=== PATIENT | female | born 1950 | race Caucasian/White ===

== ENCOUNTER 2016-02-19 12:56 | Emergency (ER) | payer MEDICAID, OTHER ==
[~2016-02-19 12:56] MED LIST: ALBU6.7H INH; IPRASOL INH; PRED50 PO; PROT40TA PO; SYMB80AE INH; VENTAER INH; ZITHTAB PO
[2016-02-19 13:11] VITALS: BP 132/79; PULSE 125; RESP 26; TEMP 99.3; O2SAT 85
[2016-02-19] MEDS ORDERED: MONT10TA4 PO ×2 (13:18→14:23)
[2016-02-19] MEDS ORDERED: MUCI30TA2 PO (13:18)
[2016-02-19 13:23] VITALS: BP 137/82; PULSE 110; RESP 26; TEMP 99.3; O2SAT 96
[2016-02-19] MEDS ORDERED: oxygen (13:30)
[2016-02-19 13:37] VITALS: O2SAT 95
[2016-02-19] MEDS ORDERED: DEXAMETHASONE SOD PHOS 4 MG/ML VIAL IM ONE (13:45)
[2016-02-19] MEDS ORDERED: ZITHTAB PO (13:45)
[2016-02-19] MEDS ORDERED: PRED20 PO (13:45)
--- NOTE | 2016-02-19 13:45 | PD ---
HPI Chief Complaint: Respiratory Symptoms Time Seen by Provider: 13:35 Travel History International Travel<30 days: No Contact w/Intl Traveler<30days: No Traveled to known affect area: No History of Present Illness HPI 65-year-old female complains of coughing wheezing and shortness of breath. Patient states that symptoms started several days ago. Patient has history of COPD. Patient denies fever chills. Patient states that she has occasional burning on the chest wall. Patient denies any nausea vomiting diarrhea. Patient states that a copy persistent and dry cough. PFSH Past Medical History Asthma: Yes Heart Rhythm Problems: No Cancer: No Cardiovascular Problems: No High Cholesterol: No Chest Pain: No Congestive Heart Failure: No COPD: Yes Diabetes: No Diminished Hearing: No Endocrine: No Gastrointestinal Disorders: Yes GERD: Yes Genitourinary: No Hiatal Hernia: No Hypertension: No Immune Disorder: No Implanted Vascular Access Dvce: No Kidney Stones: No Musculoskeletal: No Neurologic: No Psychiatric: No Reproductive: No Respiratory: Yes Renal Failure: No Sleep Apnea: No Thyroid Disease: No Ulcer: No Menopausal: Yes Past Surgical History Abdominal Surgery: No AICD: No Cardiac Surgery: No Ear Surgery: No Endocrine Surgery: No Eye Surgery: No Genitourinary Surgery: No Gynecologic Surgery: No Neurologic Surgery: No Oral Surgery: No Pacemaker: No Thoracic Surgery: No Other Surgery: Yes Social History Alcohol Use: No Tobacco Use: Yes (/2 PPD) Substance Use: No Allergies-Medications (Allergen,Severity, Reaction): Coded Allergies: No Known Allergies (Unverified , 12/29/15) Reported Meds & Prescriptions Reported Meds & Active Scripts Active Prednisone 20 Mg Tab 20 Mg PO BID Zithromax Z-Rusty (Azithromycin) 250 Mg Dspk 250 Mg PO DIRECTED 500 MG (2 tabs) day 1, then 1 tab days 2-5. Proventil Hfa 6.7 GM Inh (Albuterol Sulfate) 90 Mcg/Act Aer 2 Puff INH Q4-6H PRN Reported [oxygen] 4 Liter NA CONTINUOUS Montelukast (Montelukast Sodium) 10 Mg Tab 10 Mg PO HS Mucinex DM (Dextromethorphan-Guaifenesin) 30-600 Mg Tab 1 Tab PO BID PRN Symbicort Inh (Budesonide/Formoterol Fumarate) 80-4.5 Mcg/Act Aero 1 Puff INH Q12HR Ventolin Hfa 18 GM Inh (Albuterol Sulfate) 90 Mcg/Act Aer 2 Puff INH Q4-6H PRN Duoneb (Ipratropium-Albuterol Neb) 0.5-2.5 Mg/3 Ml Neb 1 Nebule INH Q6HR NEB Review of Systems General / Constitutional: No: Fever Eyes: No: Visual changes HENT: No: Headaches Cardiovascular: No: Chest Pain or Discomfort Respiratory: Positive: Cough, Shortness of Breath, Wheezing Gastrointestinal: No: Abdominal Pain Genitourinary: No: Dysuria Musculoskeletal: No: Pain Skin: No Rash Neurologic: No: Weakness Psychiatric: No: Depression Endocrine: No: Polydipsia Hematologic/Lymphatic: No: Easy Bruising Physical Exam Narrative GENERAL: Well-nourished, well-developed patient. SKIN: Warm and dry. HEAD: Normocephalic. EYES: No scleral icterus. No injection or drainage. NECK: Supple, trachea midline. No JVD or lymphadenopathy. CARDIOVASCULAR: Regular rate and rhythm without murmurs, gallops, or rubs. RESPIRATORY: Patient has moderate expiratory wheezes bilaterally. No rhonchi. GASTROINTESTINAL: Abdomen soft, non-tender, nondistended. MUSCULOSKELETAL: No cyanosis, or edema. BACK: Nontender without obvious deformity. No CVA tenderness. Neurologic exam normal. Data Data Last Documented VS Vital Signs Date Time Temp Pulse Resp B/P Pulse Ox O2 Delivery O2 Flow Rate FiO2 02/19/16 13:37 95 Nasal Cannula 4 02/19/16 13:23 99.3 110 26 137/82 Orders Oximetry (02/19/16 13:35) Oxygen Administration (02/19/16 13:35) Albuterol-Ipratropium Neb (Duoneb Neb) (02/19/16 13:45) Dexamethasone Inj (Decadron Inj) (02/19/16 13:45) Chest, Single Ap (02/19/16 13:35) MDM Medical Decision Making Medical Screen Exam Complete: Yes Emergency Medical Condition: Yes Interpretation(s) Last Impressions Chest X-Ray 02/19/16 1335 Signed Impressions: Service Date/Time: Friday, February 19, 2016 13:41 - CONCLUSION: No acute disease. Reynaldo Moctezuma MD Differential Diagnosis Differential diagnosis including acute exacerbation COPD, bronchitis, pneumonia , PE, pneumothorax. Narrative Course 65-year-old female with coughing wheezing and shortness of breath. History of COPD. Albuterol with Atrovent unit dose treatment 3. Decadron 8 mg IM. Diagnosis Primary Impression: COPD with acute exacerbation Patient Instructions: General Instructions Additional Instructions: Continue with albuterol treatment as directed. Prednisone is directed. Follow- up with personal physician. Return if worse. Med/Other Pt SpecificInfo: Prescription(s) given Scripts Montelukast 10 Mg Tab10 Mg PO HS #30 TAB Ref 0 Prov:Bishop Avila MD 02/19/16 Prednisone 20 Mg Tab20 Mg PO BID #14 TAB Prov:Bishop Avila MD 02/19/16 Azithromycin (Zithromax Z-Rusty)250 Mg [id number] Mg PO DIRECTED #1 DSPK 500 MG (2 tabs) day 1, then 1 tab days 2-5. Prov:Bishop Avila MD 02/19/16 Disposition: 01 DISCHARGE HOME Condition: Stable Bishop Avila MD Feb 19, 2016 13:45
[2016-02-19] MEDS: RESP: ALBUTEROL 2.5 MG/IPRATROPIUM 0.5 MG NEB (SCH) INH (13:46)
--- NOTE | 2016-02-19 14:04 | RADHPO ---
EXAM DATE/TIME: 02/19/2016 13:41 [facility] COMPARISON: CT ABDOMEN & PELVIS W/O CONTRAST, October 23, 2015, 19:23. CHEST SINGLE AP, December 29, 2015, 17: 09. INDICATIONS : Shortness of breath. MEDICAL HISTORY : Chronic obstructive pulmonary disease. Smoker. SURGICAL HISTORY : None. ENCOUNTER: Initial ACUITY: 4 - 6 days PAIN SCORE: 0/10 LOCATION: Bilateral chest FINDINGS: A single view of the chest demonstrates the lungs to be symmetrically aerated without evidence of mas s, infiltrate or effusion. The cardiomediastinal contours are unremarkable. Osseous structures are intact. CONCLUSION: No acute disease. Reynaldo Moctezuma MD on February 19, 2016 at 14:01 Board Certified Radiologist. This report was verified electronically.
[2016-02-19] MEDS ORDERED: LEVOFLOXACIN 750 MG TAB PO ONE (14:30)
[2016-05-05] MEDS ORDERED: METH125I2 IM (15:57)
[2016-05-05] MEDS ORDERED: VENTAER INH (16:05)
[2016-05-05] MEDS ORDERED: IPRASOL INH ×2 (16:05→16:07)
[2016-05-05] MEDS ORDERED: SYMB80AE INH ×2 (16:05→16:07)
[2016-05-05] MEDS ORDERED: MONT10TA4 PO ×2 (16:05→16:07)
[2016-05-06] MEDS ORDERED: VENTAER INH (15:48)
[2016-05-06] MEDS ORDERED: MONT10TA4 PO (15:48)
[2016-05-06] MEDS ORDERED: SYMB80AE INH (15:48)
== END 2016-02-19 14:49 | disposition home or self-care (01) ==
LOC: PHED 12:56
DX: J44.1 Chronic obstructive pulmonary disease with (acute) exacerbation (principal)
CPT/HCPCS: 71010; 94640; 94664; 96372; 99284; J1100

== ENCOUNTER 2016-04-11 19:08 | Observation (INO) | payer MEDICAID, OTHER ==
[~2016-04-11] VITALS: Ht 167.6 cm; Wt 86.9 kg
[~2016-04-11 19:08] MED LIST changes: +MONT10TA4 PO; +MUCI30TA2 PO; +PRED20 PO; -PRED50 PO; -PROT40TA PO; +oxygen
[2016-04-11 19:20] VITALS: BP 117/86; PULSE 127; RESP 22; TEMP 99.9; O2SAT 93
--- NOTE | 2016-04-11 19:43 | PD ---
HPI Chief Complaint: Respiratory Symptoms Time Seen by Provider: 19:40 Travel History International Travel<30 days: No Contact w/Intl Traveler<30days: No Traveled to known affect area: No History of Present Illness HPI 65-year-old female presents to the emergency department by private transportation for complaint of shortness of breath with history of COPD and recurrent bronchitis as well as possible urinary tract infection. Patient states she has not felt well for the past 2 days with increasing shortness of breath times one day. Patient has had no fever. Patient has had cough productive of scant amount of [place] sputum. No hemoptysis. Patient denies history of CAD hypertension dyslipidemia diabetes CHF PE esophageal spasm or autoimmune disorder. Patient notes exertion worsens her symptoms. Medications at home have not provided symptomatic relief. Patient rates pain 0/10 intensity. Admits to ongoing daily tobacco use. PFSH Past Medical History Narrative Medical COPD bronchitis GERD tobacco use; nursing notes reviewed Asthma: Yes Heart Rhythm Problems: No Cancer: No Cardiovascular Problems: No High Cholesterol: No Chest Pain: No Congestive Heart Failure: No COPD: Yes Diabetes: No Diminished Hearing: No Endocrine: No Gastrointestinal Disorders: Yes GERD: Yes Genitourinary: No Hiatal Hernia: No Hypertension: No Immune Disorder: No Implanted Vascular Access Dvce: No Kidney Stones: No Musculoskeletal: No Neurologic: No Psychiatric: No Reproductive: No Respiratory: Yes (COPD) Renal Failure: No Sleep Apnea: No Thyroid Disease: No Ulcer: No ?: Not LMP: MENAPAUSAL Menopausal: Yes Past Surgical History Abdominal Surgery: No AICD: No Cardiac Surgery: No Ear Surgery: No Endocrine Surgery: No Eye Surgery: No Genitourinary Surgery: No Gynecologic Surgery: No Neurologic Surgery: No Oral Surgery: No Pacemaker: No Thoracic Surgery: No Other Surgery: Yes Social History Alcohol Use: No Tobacco Use: Yes (/2 PPD) Substance Use: No Allergies-Medications (Allergen,Severity, Reaction): Coded Allergies: No Known Allergies (Unverified , 04/11/16) Reported Meds & Prescriptions Reported Meds & Active Scripts Active Montelukast (Montelukast Sodium) 10 Mg Tab 10 Mg PO HS Proventil Hfa 6.7 GM Inh (Albuterol Sulfate) 90 Mcg/Act Aer 2 Puff INH Q4-6H PRN Reported [oxygen] 4 Liter NA CONTINUOUS Symbicort Inh (Budesonide/Formoterol Fumarate) 80-4.5 Mcg/Act Aero 1 Puff INH Q12HR Ventolin Hfa 18 GM Inh (Albuterol Sulfate) 90 Mcg/Act Aer 2 Puff INH Q4-6H PRN Duoneb (Ipratropium-Albuterol Neb) 0.5-2.5 Mg/3 Ml Neb 1 Nebule INH Q6HR NEB Review of Systems Except as stated in HPI: all other systems reviewed are Neg General / Constitutional: No: Fever, Chills HENT: No: Congestion Cardiovascular: No: Chest Pain or Discomfort Respiratory: Positive: Cough, Shortness of Breath, Wheezing Gastrointestinal: No: Nausea, Vomiting, Abdominal Pain Genitourinary: Positive: Dysuria, No: Flank Pain Musculoskeletal: No: Myalgias, Arthralgias Skin: No Rash Neurologic: No: Weakness Psychiatric: No: Anxiety Hematologic/Lymphatic: No: Easy Bruising Physical Exam Narrative GENERAL: Well-developed well-nourished female in moderate respiratory distress SKIN: Warm and dry. HEAD: Normocephalic. EYES: No scleral icterus. No injection or drainage. NECK: Supple, trachea midline. No JVD or lymphadenopathy. CARDIOVASCULAR: Increased Regular rate and rhythm without murmurs, gallops, or rubs. RESPIRATORY: Breath sounds equal bilaterally diminished with extremity wheeze. No accessory muscle use. GASTROINTESTINAL: Abdomen soft, non-tender, nondistended. MUSCULOSKELETAL: No cyanosis, or edema. Bilateral radial and dorsalis pedis pulses 2+ to palpation. BACK: Nontender without obvious deformity. No CVA tenderness. Data Data Last Documented VS Vital Signs Date Time Temp Pulse Resp B/P Pulse Ox O2 Delivery O2 Flow Rate FiO2 04/11/16 21:00 99.6 107 18 140/81 94 Nasal Cannula 4 Orders Complete Blood Count With Diff (04/11/16 19:40) Comprehensive Metabolic Panel (04/11/16 19:40) B-Type Natriuretic Peptide (04/11/16 19:40) Magnesium (Mg) (04/11/16 19:40) Ckmb (Isoenzyme) Profile (04/11/16 19:40) Troponin I (04/11/16 19:40) Urinalysis - C+S If Indicated (04/11/16 19:40) Influenzae A/B Antigen (04/11/16 19:40) Blood Culture (04/11/16 19:40) Iv Access Insert/Monitor (04/11/16 19:40) Electrocardiogram (04/11/16 19:40) Ecg Monitoring (04/11/16 19:40) Oximetry (04/11/16 19:40) Oxygen Administration (04/11/16 19:40) Chest, Single Ap (04/11/16 19:40) Sodium Chloride 0.9% Flush (Ns Flush) (04/11/16 19:45) Methylprednisolone So Succ Inj (Solumedr (04/11/16 19:45) Albuterol-Ipratropium Neb (Duoneb Neb) (04/11/16 19:45) Lactic Acid (04/11/16 19:40) Acetaminophen (Tylenol) (04/11/16 19:45) Ceftriaxone Inj (Rocephin Inj) (04/11/16 19:45) Aspirin Chew (Aspirin Chew) (04/11/16 21:30) Azithromycin Inj (Zithromax Inj) (04/11/16 21:30) Admit Order (Ed Use Only) (04/11/16 ) ^ Saline Lock (04/11/16 22:23) Resp Oxygen [place] C Titrat 1-4 L (04/11/16 ) ^ Notify Dr: Other (04/11/16 22:23) Sodium Chloride 0.9% Flush (Ns Flush) (04/12/16 09:00) Sodium Chloride 0.9% Flush (Ns Flush) (04/11/16 22:30) Labs Laboratory Tests Test 04/11/16 04/11/16 04/11/16 20:02 20:10 21:00 White Blood Count 13.6 TH/MM3 Red Blood Count 5.72 MIL/MM3 Hemoglobin 16.6 GM/DL Hematocrit 49.6 % Mean Corpuscular Volume 86.8 FL Mean Corpuscular Hemoglobin 29.0 PG Mean Corpuscular Hemoglobin 33.5 % Concent Red Cell Distribution Width 12.5 % Platelet Count 183 TH/MM3 Mean Platelet Volume 10.4 FL Neutrophils (%) (Auto) 80.5 % Lymphocytes (%) (Auto) 10.3 % Monocytes (%) (Auto) 6.2 % Eosinophils (%) (Auto) 0.5 % Basophils (%) (Auto) 2.5 % Neutrophils # (Auto) 11.0 TH/MM3 Lymphocytes # (Auto) 1.4 TH/MM3 Monocytes # (Auto) 0.8 TH/MM3 Eosinophils # (Auto) 0.1 TH/MM3 Basophils # (Auto) 0.3 TH/MM3 CBC Comment DIFF FINAL Differential Comment Sodium Level 141 MEQ/L Potassium Level 4.1 MEQ/L Chloride Level 101 MEQ/L Carbon Dioxide Level 34.1 MEQ/L Anion Gap 6 MEQ/L Blood Urea Nitrogen 12 MG/DL Creatinine 0.76 MG/DL Estimat Glomerular Filtration 77 ML/MIN Rate Random Glucose 154 MG/DL Calcium Level 8.3 MG/DL Magnesium Level 2.0 MG/DL Total Bilirubin 0.6 MG/DL Aspartate Amino Transf 17 U/L (AST/SGOT) Alanine Aminotransferase 27 U/L (ALT/SGPT) Alkaline Phosphatase 108 U/L Total Creatine Kinase 55 U/L Troponin I LESS THAN 0.02 NG/ML B-Type Natriuretic Peptide 7 PG/ML Total Protein 6.8 GM/DL Albumin 3.2 GM/DL Lactic Acid Level 1.0 mmol/L Urine Color MC Urine Turbidity CLEAR Urine pH 7.0 Urine Specific [place] 1.021 Urine Protein NEG mg/dL Urine Glucose (UA) NEG mg/dL Urine Ketones NEG mg/dL Urine Occult Blood NEG Urine Nitrite NEG Urine Bilirubin NEG Urine Leukocyte Esterase NEG Urine RBC 0-3 /hpf Urine WBC 0-2 /hpf Urine Squamous Epithelial 0-5 /hpf Cells Urine Bacteria OCC /hpf Microscopic Urinalysis Comment CULT NOT INDICATED MDM Medical Decision Making Medical Screen Exam Complete: Yes Emergency Medical Condition: Yes Medical Record Reviewed: Yes Interpretation(s) EKG: Sinus tachycardia rate [address] elevation or injury pattern change noted Last Impressions Chest X-Ray 04/11/161939 Signed Impressions: Service Date/Time: Monday, April 11, 2016 19:51 - CONCLUSION: COPD. No evidence of acute process. Eben Mckeon MD CBC & BMP Diagram 04/11/16 20:02 Vital Signs Date Time Temp Pulse Resp B/P Pulse Ox O2 Delivery O2 Flow Rate FiO2 04/11/16 21:00 99.6 107 18 140/81 94 Nasal Cannula 4 04/11/16 20:30 Nasal Cannula 04/11/16 20:24 95 04/11/16 20:20 99.3 114 20 119/78 95 Nasal Cannula 4 04/11/16 19:43 Nasal Cannula 4 04/11/16 19:20 99.9 127 22 117/86 93 Differential Diagnosis Dyspnea, exacerbation COPD, bronchitis, pneumonia, CHF, ACS, UTI Narrative Course Patient placed on recovery manager IV access obtained specimens collected and sent for resulting patient administered Solu-Medrol 125 mg IV along with DuoNeb updrafts 3 as well as presumptive IV antibiotic Rocephin 1 g IV piggyback Patient reports feeling improved after DuoNeb updrafts 3 Chest x-ray resulted and no evidence for infiltrate effusion or vascular congestion or pneumothorax; findings consistent with COPD. Patient is identified to have leukocytosis with left it appears to be hemoconcentrated is 16.6 although may have component of tobacco induced polycythemia; chemistries grossly normal range random glucose 154, bicarbonate normal; lactic acid is not elevated at 0 CK 55 elevated troponin less than 0.02 not elevated and BNP 7 not elevated; Urinalysis and normal range At 9:30 PM patient continues to have wheezing and ongoing complaint of shortness of breath will admit for exacerbation of COPD/bronchitis Sepsis Criteria SIRS Criteria (2 or more): Heart rate over 90, RR > 20 or PaCO2 < 32 Physician Communication Physician Communication call placed to [facility] service; discussed with Dr Gamboa Diagnosis Primary Impression: COPD (chronic obstructive pulmonary disease) with acute bronchitis Admitting Information Admitting Physician Requests: Ashtyn Ocampo MD Apr 11, 2016 19:42
[2016-04-11] MEDS ORDERED: cefTRIAXone INJ 1,000 MG in SODIUM CHLORIDE 0.9% INJ 100 ML IV ONE (19:45)
[2016-04-11] MEDS ORDERED: SODIUM CHLORIDE 0.9% FLUSH 5 ML FLUSH IVF PRN ×2 (19:45→22:30)
[2016-04-11] MEDS ORDERED: ACETAMINOPHEN 325 MG TAB PO ONE (19:45)
[2016-04-11] MEDS ORDERED: methylPREDNISolone SOD SUCC 125 MG/2 ML VIAL IVP ONE (19:45)
[2016-04-11] MEDS: RESP: ALBUTEROL 2.5 MG/IPRATROPIUM 0.5 MG NEB (SCH) INH (19:52)
[2016-04-11 20:16] LABS: BASOPHIL # 0.3 TH/MM3 (0-0.2); BASOPHIL % 2.5 % (0.0-2.0); EOSINOPHIL # 0.1 TH/MM3 (0-0.4); EOSINOPHIL % 0.5 % (0.0-4.0); HEMATOCRIT 49.6 % (35.0-46.0); LYMPH % 10.3 % (9.0-44.0); LYMPHOCYTE # 1.4 TH/MM3 (1.0-4.8); MEAN CELL VOLUME 86.8 FL (80.0-100.0); MEAN CORPUSCULAR HGB CONC 33.5 % (32.0-36.0); MONO % 6.2 % (0.0-8.0); NEUT % 80.5 % (16.0-70.0); PLATELET COUNT 183 TH/MM3 (150-450); RED BLOOD COUNT 5.72 MIL/MM3 (4.00-5.30); RED CELL DISTRIBUTION WIDTH 12.5 % (11.6-17.2); WHITE BLOOD COUNT 13.6 TH/MM3 (4.0-11.0)
[2016-04-11 20:19] LABS: HEMO FLAGS DIFF FINAL
[2016-04-11 20:20] VITALS: BP 119/78; PULSE 114; RESP 20; TEMP 99; TEMP 99.3; O2SAT 95
[2016-04-11 20:22] LABS: CHLORIDE 101 MEQ/L (98-107); POTASSIUM 4.1 MEQ/L (3.5-5.1); SODIUM (NA) 141 MEQ/L (136-145)
[2016-04-11 20:24] VITALS: O2SAT 95
[2016-04-11 20:26] LABS: ANION GAP 6 MEQ/L (5-15); BICARBONATE 34.1 MEQ/L (21.0-32.0); BLOOD UREA NITROGEN 12 MG/DL (7-18)
[2016-04-11 20:29] LABS: ALT (GPT) 27 U/L (10-53); AST (GOT) 17 U/L (15-37); GLOMERULAR FILTRATION RATE 77 ML/MIN (>89)
--- NOTE | 2016-04-11 20:29 | RADHPO ---
EXAM DATE/TIME: 04/11/2016 19:51 [facility] COMPARISON: CHEST SINGLE AP, February 19, 2016, 13:41. INDICATIONS : Shortness of breath. MEDICAL HISTORY : Chronic obstructive pulmonary disease. SURGICAL HISTORY : None. ENCOUNTER: Initial ACUITY: 1 day PAIN SCORE: 0/10 LOCATION: Bilateral chest FINDINGS: One hyperinflated. No scarring is again evident in the left base. There is no evidence of acute airsp patricia disease. There are no mass densities or effusions. Heart and mediastinal structures are unremarkable. CONCLUSION: COPD. No evidence of acute process. Eben Mckeon MD on April 11, 2016 at 20:27 Board Certified Radiologist. This report was verified electronically.
[2016-04-11 20:31] LABS: TOTAL BILIRUBIN ADULT 0.6 MG/DL (0.2-1.0)
[2016-04-11 20:32] LABS: ALKALINE PHOSPHATASE 108 U/L (45-117)
[2016-04-11 20:35] LABS: CREATINE KINASE 55 U/L (26-192)
[2016-04-11 21:00] VITALS: BP 140/81; PULSE 107; RESP 18; TEMP 99.6; O2SAT 94
[2016-04-11 21:16] LABS: BLOOD, URINE NEG (NEG); GLUCOSE,URINE NEG (NEG); KETONE, URINE NEG (NEG); NITRITE,URINE NEG (NEG)
[2016-04-11 21:22] LABS: URINE COLOR AMBER (YELLW/STRAW)
[2016-04-11 21:23] LABS: BACTERIA, URINE OCC /hpf; COMMENT (UR) CULT NOT INDICATED; CULTURE IF INDICATED CULT NOT INDICATED; RBC, URINE 0-3 /hpf (0-3); SQUAMOUS EPITHELIAL CELL URINE 0-5 /hpf (0-5); WBC, URINE 0-2 /hpf (0-5)
[2016-04-11] MEDS ORDERED: ASPIRIN 81 MG CHEW TAB CHEW ONE (21:30)
[2016-04-11] MEDS ORDERED: AZITHROMYCIN INJ 500 MG in SODIUM CHLOR 0.9% 250 ML INJ 250 ML IV ONE (21:30)
[2016-04-11] MEDS ORDERED: SODIUM CHLORIDE 0.9% FLUSH 5 ML FLUSH FLUSH PRN (22:30)
[2016-04-11] MEDS ORDERED: ONDANSETRON HCL 4 MG/2 ML VIAL IVP PRN (22:30)
[2016-04-11] MEDS ORDERED: RESP: ALBUTEROL 2.5 MG/IPRATROPIUM 0.5 MG NEB (PRN) NEB (22:30)
[2016-04-11] MEDS ORDERED: RESP: ALBUTEROL 2.5 MG/IPRATROPIUM 0.5 MG NEB (SCH) NEB ONE (22:30)
[2016-04-11] MEDS ORDERED: BISACODYL 10 MG SUPP PR PRN (22:30)
[2016-04-11] MEDS ORDERED: ACETAMINOPHEN 325 MG TAB PO PRN (22:30)
[2016-04-11] MEDS ORDERED: ACETAMINOPHEN/HYDROcodone 325 MG/5 MG TAB PO PRN (22:30)
[2016-04-11] MEDS ORDERED: MORPHINE SULFATE 4 MG/ML INJ IV PRN (22:30)
[2016-04-11 22:31] VITALS: O2SAT 94
[2016-04-11 23:00] VITALS: BP 127/77; PULSE 104; RESP 18; O2SAT 94
[2016-04-11] MEDS: methylPREDNISolone SOD SUCC 40 MG/1 ML VIAL IV PUSH SCH (23:54)
[2016-04-12] VITALS (9 sets, daily range): BP systolic 119–142; BP diastolic 72–90; PULSE 94–106; RESP 16–22; TEMP 96.7–98.1; O2SAT 91–95
[2016-04-12] MEDS: methylPREDNISolone SOD SUCC 40 MG/1 ML VIAL IV PUSH SCH ×3 (05:22→18:04)
[2016-04-12 07:04] LABS: AUTOMATED NEUTROPHIL # 9.6 TH/MM3 (1.8-7.7); BASOPHIL # 0.1 TH/MM3 (0-0.2); BASOPHIL % 0.8 % (0.0-2.0); LYMPH % 4.7 % (9.0-44.0); LYMPHOCYTE # 0.5 TH/MM3 (1.0-4.8); MEAN CELL VOLUME 88.7 FL (80.0-100.0); MEAN CORPUSCULAR HEMOGLOBIN 29.1 PG (27.0-34.0); MEAN CORPUSCULAR HGB CONC 32.8 % (32.0-36.0); MONO % 0.5 % (0.0-8.0); PLATELET COUNT 137 TH/MM3 (150-450); RED BLOOD COUNT 5.64 MIL/MM3 (4.00-5.30); RED CELL DISTRIBUTION WIDTH 12.8 % (11.6-17.2); WHITE BLOOD COUNT 10.3 TH/MM3 (4.0-11.0)
[2016-04-12 07:07] LABS: HEMO FLAGS DIFF FINAL
[2016-04-12 07:19] LABS: CHLORIDE 105 MEQ/L (98-107); POTASSIUM 4.4 MEQ/L (3.5-5.1); SODIUM (NA) 143 MEQ/L (136-145)
[2016-04-12 07:25] LABS: ANION GAP 8 MEQ/L (5-15); BICARBONATE 30.4 MEQ/L (21.0-32.0)
[2016-04-12 07:36] LABS: ALKALINE PHOSPHATASE 125 U/L (45-117); ALT (GPT) 25 U/L (10-53); AST (GOT) 12 U/L (15-37); BLOOD UREA NITROGEN 13 MG/DL (7-18); GLOMERULAR FILTRATION RATE 57 ML/MIN (>89); TOTAL BILIRUBIN ADULT 0.4 MG/DL (0.2-1.0)
[2016-04-12] MEDS: RESP: ALBUTEROL 2.5 MG/IPRATROPIUM 0.5 MG NEB (SCH) NEB ×4 (07:38→19:42)
--- NOTE | 2016-04-12 08:26 | HHI.HP ---
[facility] No Primary Care Physician Admission Diagnosis exacerbation COPD Diagnoses: (1) Systemic inflammatory response syndrome Diagnosis: Principal (2) COPD with acute exacerbation Diagnosis: Principal (3) Leukocytosis Diagnosis: Principal (4) Chronic respiratory failure with hypoxia Diagnosis: Secondary (5) Tobacco dependency Diagnosis: Secondary Chief Complaint: Shortness of breath, dyspnea and cough Travel History International Travel<30 Days: No Contact w/Intl Traveler <30 Da: No Traveled to Known Affected Are: No History of Present Illness 65-year-old female with known history of chronic respiratory failure oxygen dependent, chronic obstructive pulmonary disease, chronic smoker who presented to hospital because of shortness of breath, dyspnea and cough. Over the last 3 days she has had progressive shortness of breath, dyspnea with nonproductive cough. She indicates that she does have family members that have had bronchitis recently and she feels that she may have gotten this as well. Patient does have chronic respiratory failure and is on 4 L of oxygen on a daily basis at home. Her insurance has not approved her portable oxygen so whenever she does travel out of the house she goes without any. She is followed by Dr. Jonna rider in outpatient setting. However she has not seen the physician and a few months because of insurance reasons. Patient denies any fever, chills, phlegm production, abdominal pain, chest pain, extremity edema. Review of Systems Constitutional: DENIES: Diaphoretic episodes, Fatigue, Fever, Weight gain, Weight loss, Chills, Dizziness, Change in appetite, Night Sweats Eyes: DENIES: Blurred vision, Diplopia, Eye inflammation, Eye pain, Vision loss , Double Vision Ears, nose, mouth, throat: DENIES: Vertigo, Nasal discharge, Throat pain, Ear Pain, Running Nose, Sinus Pain Respiratory: COMPLAINS OF: Cough, Shortness of breath, DENIES: Apneas, Snoring , Wheezing, Hemoptysis, Sputum production Cardiovascular: DENIES: Chest pain, Palpitations, Syncope, Dyspnea on Exertion , PND, Lower Extremity Edema, Orthopnea, Claudication Gastrointestinal: DENIES: Abdominal pain, Black stools, Bloody stools, Constipation, Diarrhea, Nausea, Vomiting, Difficulty Swallowing, Anorexia Neurologic: DENIES: Abnormal gait, Headache, Localized weakness, Paresthesias, Seizures, Speech Problems, Tremor, Poor Balance Psychiatric: DENIES: Anxiety, Confusion, Mood changes, Depression Past Family Social History Past Medical History Chronic respiratory failure, oxygen dependent Chronic obstructive pulmonary disease Past Surgical History Left lower extremity fracture with surgical repair Reported Medications Reported Meds & Active Scripts Active Montelukast (Montelukast Sodium) 10 Mg Tab 10 Mg PO HS Proventil Hfa 6.7 GM Inh (Albuterol Sulfate) 90 Mcg/Act Aer 2 Puff INH Q4-6H PRN Reported [oxygen] 4 Liter NA CONTINUOUS Symbicort Inh (Budesonide/Formoterol Fumarate) 80-4.5 Mcg/Act Aero 1 Puff INH Q12HR Ventolin Hfa 18 GM Inh (Albuterol Sulfate) 90 Mcg/Act Aer 2 Puff INH Q4-6H PRN Duoneb (Ipratropium-Albuterol Neb) 0.5-2.5 Mg/3 Ml Neb 1 Nebule INH Q6HR NEB Allergies: Coded Allergies: No Known Allergies (Unverified , 04/11/16) Family History Reviewed is significant for father at early age in his 50s from heart attack. Mother with lung disease Social History Patient does continue to smoke at least a half a pack a cigarettes a day since she was 17 years old. Denies any alcohol or illicit drugs Physical Exam Vital Signs Vital Signs Date Time Temp Pulse Resp B/P Pulse Ox O2 Delivery O2 Flow Rate FiO2 04/12/16 07:48 92 Nasal Cannula 4.00 04/12/16 04:41 96.9 100 16 120/72 93 04/12/16 00:52 96.7 106 18 123/82 92 04/12/16 00:25 101 04/11/16 23:00 104 18 127/77 94 Nasal Cannula 4 04/11/16 22:31 94 Nasal Cannula 4.00 04/11/16 21:00 99.6 107 18 140/81 94 Nasal Cannula 4 04/11/16 21:00 104 18 Nasal Cannula 4 04/11/16 20:30 Nasal Cannula 04/11/16 20:24 95 04/11/16 20:20 99.3 114 20 119/78 95 Nasal Cannula 4 04/11/16 19:43 Nasal Cannula 4 04/11/16 19:20 99.9 127 22 117/86 93 Physical Exam GENERAL: Well-developed, well-nourished, in no acute distress. alert and orientated HEENT: Head is normocephalic without any lesions or masses noted. Facial features are symmetric. Eyes: Pupils equal round reactive to light. Extraocular muscles are intact. Conjunctivae were clear. Oropharyngeal: Pharynx without any erythema edema. Tongue is midline without deviation. Buccal mucosa is moist without any masses or lesions NECK: Supple without any masses. Trachea midline no deviation. No JVD, no bruits are appreciated CARDIAC: Regular rhythm, regular rate. S1/S2 are heard. No murmurs gallops or rubs. LUNGS: Diminished breath sounds noted throughout. Diminished air movement. Mild wheeze, no rhonchi or rales. No use of accessory muscles on inspiration or expiration. ABDOMEN: Soft, nontender. Nondistended. Bowel sounds heard in all 4 quadrants. No organomegaly or masses. Negative rebound, negative guarding EXTREMITIES: No edema, pulses are equal bilaterally. No cyanosis or clubbing NEUROLOGY: Mood and affect appear appropriate. Cranial nerves II through XII grossly intact. Muscle strength 5/5 in upper and lower extremities bilaterally. Deep tendon reflexes are 2+ in upper and lower extremities bilaterally. Laboratory Laboratory Tests Test 04/11/16 04/11/16 04/11/16 04/12/16 20:02 20:10 21:00 06:31 White Blood Count 13.6 10.3 Red Blood Count 5.72 5.64 Hemoglobin 16.6 16.4 Hematocrit 49.6 50.0 Mean Corpuscular Volume 86.8 88.7 Mean Corpuscular Hemoglobin 29.0 29.1 Mean Corpuscular Hemoglobin 33.5 32.8 Concent Red Cell Distribution Width 12.5 12.8 Platelet Count 183 137 Mean Platelet Volume 10.4 9.9 Neutrophils (%) (Auto) 80.5 94.0 Lymphocytes (%) (Auto) 10.3 4.7 Monocytes (%) (Auto) 6.2 0.5 Eosinophils (%) (Auto) 0.5 0.0 Basophils (%) (Auto) 2.5 0.8 Neutrophils # (Auto) 11.0 9.6 Lymphocytes # (Auto) 1.4 0.5 Monocytes # (Auto) 0.8 0.1 Eosinophils # (Auto) 0.1 0.0 Basophils # (Auto) 0.3 0.1 CBC Comment DIFF FINAL DIFF FINAL Differential Comment Sodium Level 141 143 Potassium Level 4.1 4.4 Chloride Level 101 105 Carbon Dioxide Level 34.1 30.4 Anion Gap 6 8 Blood Urea Nitrogen 12 13 Creatinine 0.76 0.98 Estimat Glomerular Filtration 77 57 Rate Random Glucose 154 396 Calcium Level 8.3 8.8 Magnesium Level 2.0 Total Bilirubin 0.6 0.4 Aspartate Amino Transf 17 12 (AST/SGOT) Alanine Aminotransferase 27 25 (ALT/SGPT) Alkaline Phosphatase 108 125 Total Creatine Kinase 55 Troponin I LESS THAN 0.02 B-Type Natriuretic Peptide 7 Total Protein 6.8 6.8 Albumin 3.2 3.0 Lactic Acid Level 1.0 Urine Color MC Urine Turbidity CLEAR Urine pH 7.0 Urine Specific [place] 1.021 Urine Protein NEG Urine Glucose (UA) NEG Urine Ketones NEG Urine Occult Blood NEG Urine Nitrite NEG Urine Bilirubin NEG Urine Leukocyte Esterase NEG Urine RBC 0-3 Urine WBC 0-2 Urine Squamous Epithelial 0-5 Cells Urine Bacteria OCC Microscopic Urinalysis Comment CULT NOT INDICATED Date/Time Procedure Status Source Growth 04/11/16 20:10 Aerobic Blood Culture Received Blood Peripheral Pending 04/11/16 20:10 Anaerobic Blood Culture Received Blood Peripheral Pending 04/11/16 19:55 Influenza Types A,B Antigen (JAVON) - Final Complete Nasal Washing NEGATIVE FOR FLU A AND B ANTIGEN.... Result Diagram: 04/12/16 0631 04/12/16 0631 Imaging Last Impressions Chest X-Ray 04/11/16 194 Signed Impressions: Service Date/Time: Monday, April 11, 2016 19:51 - CONCLUSION: COPD. No evidence of acute process. Eben Mckeon MD Assessment and Plan Assessment and Plan Systemic inflammatory response syndrome: Improved. Patient presented with leukocytosis, tachycardia. No signs of infection at this time. Likely secondary to chronic obstructive pulmonary disease exacerbation. Urinalysis was clear, influenza testing was negative, blood cultures are pending, chest x- ray was clear. Chronic obstructive pulmonary disease with acute exacerbation in a patient with chronic respiratory failure oxygen dependent: Continue Solu-Medrol 40 mg every 6 hours, nebulizer treatments, Symbicort, Singulair, Rocephin and Zithromax. Continue O2 supplementation wean to maintain O2 sats greater than 92 %. Consult case management to try to arrange for portable oxygen upon discharge. Start Robitussin-AC for cough suppression Hyperglycemia: Patient does have history of hyperglycemia secondary to steroid use. Last hemoglobin A1c was in 2012 which was 5.5. Obtain new hematoma in A1c , start Accu-Cheks with sliding scale insulin. Dizziness with room spinning and with movement: start Meclizine and monitor for response --Prophylaxis: GI prevention Start Protonix secondary to steroid use. DVT prevention with sequential compression devices Written by Dimitri Stauffer PA-C, acting as scribe for Dr. Ward on 04/12/16 at 1125. The documentation accurately reflects the work and decisions performed face-to- face by Dr. Ward on 04/12/16 at 1125. Problem Qualifiers (1) Leukocytosis: Qualified Code: D72.829 - Leukocytosis, unspecified type Dimitri Stauffer Apr 12, 2016 08:26 Dayana Ward MD Apr 12, 2016 12:15
[2016-04-12] MEDS ORDERED: guaiFENesin/CODEINE SYRUP 200 MG/20 MG/10 ML CUP PO PRN (08:30)
[2016-04-12] MEDS ORDERED: DEXTROSE 50% IN WATER 50 ML VIAL(D50) IV PUSH PRN (08:30)
[2016-04-12] MEDS ORDERED: GLUCAGON 1 MG/ML VIAL OTHER PRN (08:30)
[2016-04-12] MEDS ORDERED: guaiFENesin E.R. 600 MG TAB PO SCH (09:00)
[2016-04-12] MEDS ORDERED: SODIUM CHLORIDE 0.9% FLUSH 5 ML FLUSH IVF SCH (09:00)
[2016-04-12] MEDS: SODIUM CHLORIDE 0.9% FLUSH 5 ML FLUSH FLUSH SCH ×2 (09:29→20:48)
[2016-04-12] MEDS: BUDESONIDE-FORMOTEROL 160/4.5 MCG INHALER INH SCH ×2 (09:29→20:49)
[2016-04-12] MEDS: PANTOPRAZOLE SOD 40 MG DELAYED RELEASE TAB PO SCH (09:29)
[2016-04-12] MEDS: INSULIN ASPART SUPPLEMENTAL SCALE SQ SCH ×3 (13:15→20:48)
[2016-04-12 15:36] LABS: HEMOGLOBIN A1a 0.7 %; HEMOGLOBIN A1b 1.9 %; HEMOGLOBIN P3 4.4 %
--- NOTE | 2016-04-12 19:30 | EKG ---
Date Performed: 04/11/2016 Time Performed: 19:46:16 PTAGE: 65 years EKG: Sinus tachycardia Since PREVIOUS TRACING , no significant change noted Normal ECG except for rate PREVIOUS TRACIN 12/29/2015 16.12 DOCTOR: Amor Gomes Interpretating Date/Time 04/12/2016 19:30:23
[2016-04-12] MEDS ORDERED: cefTRIAXone INJ 1,000 MG in SODIUM CHLORIDE 0.9% INJ 100 ML IV SCH (20:00)
[2016-04-12] MEDS: MECLIZINE HCL 25 MG TAB PO PRN (20:49)
[2016-04-12] MEDS ORDERED: AZITHROMYCIN INJ 500 MG in SODIUM CHLOR 0.9% 250 ML INJ 250 ML IV SCH (21:00)
[2016-04-12] MEDS ORDERED: MONTELUKAST SODIUM 10 MG TAB PO SCH (21:00)
[2016-04-13 00:26] VITALS: BP 139/87; PULSE 97; RESP 20; TEMP 98.1; O2SAT 94
[2016-04-13] MEDS: methylPREDNISolone SOD SUCC 40 MG/1 ML VIAL IV PUSH SCH (00:44)
[2016-04-13] MEDS: INSULIN ASPART SUPPLEMENTAL SCALE SQ SCH ×2 (06:10→11:00)
[2016-04-13 07:13] LABS: AUTOMATED NEUTROPHIL # 19.5 TH/MM3 (1.8-7.7); BASOPHIL # 0.1 TH/MM3 (0-0.2); BASOPHIL % 0.3 % (0.0-2.0); EOSINOPHIL % 0.1 % (0.0-4.0); HEMATOCRIT 45.8 % (35.0-46.0); LYMPH % 3.9 % (9.0-44.0); LYMPHOCYTE # 0.8 TH/MM3 (1.0-4.8); MEAN CORPUSCULAR HGB CONC 32.9 % (32.0-36.0); MONO % 1.5 % (0.0-8.0); NEUT % 94.2 % (16.0-70.0); PLATELET COUNT 146 TH/MM3 (150-450); WHITE BLOOD COUNT 20.7 TH/MM3 (4.0-11.0)
[2016-04-13 07:14] LABS: HEMO FLAGS DIFF FINAL
[2016-04-13 07:22] LABS: POTASSIUM 4.3 MEQ/L (3.5-5.1)
[2016-04-13 07:33] LABS: MAGNESIUM 2.1 MG/DL (1.5-2.5)
[2016-04-13] MEDS: RESP: ALBUTEROL 2.5 MG/IPRATROPIUM 0.5 MG NEB (SCH) NEB ×2 (07:43→11:12)
[2016-04-13 08:00] VITALS: BP 143/95; PULSE 78; RESP 18; TEMP 98; O2SAT 94
[2016-04-13 08:02] VITALS: O2SAT 93
--- NOTE | 2016-04-13 08:39 | HHI.PR ---
Subjective Remarks Patient seen and examined today with Dr. Ward. Patient is breathing well this morning. She is sitting up eating breakfast. She states that she developed some rib pain from coughing. Objective Vitals Vital Signs Date Time Temp Pulse Resp B/P Pulse Ox O2 Delivery O2 Flow Rate FiO2 04/13/16 08:02 93 Nasal Cannula 4.00 04/13/16 08:00 98.0 78 18 143/95 94 04/13/16 04:00 04/13/16 00:26 98.1 97 20 139/87 94 04/12/16 21:24 97.9 104 22 142/90 92 04/12/16 19:43 93 Nasal Cannula 4.00 04/12/16 16:00 97.5 96 20 119/80 95 04/12/16 12:00 98.1 94 22 137/89 93 I/O 04/12/16 04/12/16 04/12/16 04/13/16 04/13/16 04/13/16 07:00 15:00 23:00 07:00 15:00 23:00 Intake Total 852 ml 2 ml Balance 852 ml 2 ml Intake Oral 850 ml IV Total 2 ml 2 ml # Voids 8 3 # Bowel Movements 1 Result Diagram: 04/13/16 0604/13/16 0629 Objective Remarks GENERAL: Well-developed, well-nourished, in no acute distress. alert and orientated HEENT: Head is normocephalic without any lesions or masses noted. Facial features are symmetric. Eyes: Extraocular muscles are intact. Conjunctivae were clear. NECK: Supple without any masses. Trachea midline no deviation. No JVD, CARDIAC: Regular rhythm, regular rate. S1/S2 are heard. No murmurs gallops or rubs. LUNGS: Faint end expiratory wheeze, no rhonchi or rales. No use of accessory muscles on inspiration or expiration. ABDOMEN: Soft, nontender. Nondistended. Bowel sounds heard in all 4 quadrants. No organomegaly or masses. Negative rebound, negative guarding EXTREMITIES: No edema, pulses are equal bilaterally. No cyanosis or clubbing NEUROLOGY: Mood and affect appear appropriate. Cranial nerves II through XII grossly intact. Moving all extremities, speech is clear Urinary Catheter: No Vascular Central Line Catheter: No A/P Assessment and Plan Chronic obstructive pulmonary disease with acute exacerbation in a patient with chronic respiratory failure oxygen dependent: Changed Solu-Medrol 40 mg every 6 hours to prednisone 20 mg twice daily secondary respiratory improvement and hyperglycemia, continue nebulizer treatments, Symbicort, Singulair, Rocephin and Zithromax. Continue O2 supplementation wean to maintain O2 sats greater than 92%. Continue Robitussin-AC for cough suppression. Walk study indicates patient requires action. Patient does have oxygen at home. Will supply patient with portable oxygen upon discharge. Systemic inflammatory response syndrome: Patient presented with leukocytosis, tachycardia. No signs of infection at this time. Likely secondary to chronic obstructive pulmonary disease exacerbation. Urinalysis was clear, influenza testing was negative, blood cultures are negative, chest x-ray was clear. Leukocytosis is worse secondary to steroid use. Hyperglycemia: Patient does have history of hyperglycemia secondary to steroid use. Last hemoglobin A1c was in 2012 which was 5.5. Repeat hemoglobin A1c 5.6 , continue Accu-Cheks with sliding scale insulin. Start Levemir 5 units every 12. Changed from Solu-Medrol to prednisone which should help with reduction of glucose Dizziness with room spinning and with movement: start Meclizine and monitor for response --Prophylaxis: GI prevention Start Protonix secondary to steroid use. DVT prevention with sequential compression devices Written by Dimitri Stauffer PA-C, acting as scribe for Dr. Ward on 04/13/16 at 1205. The documentation accurately reflects the work and decisions performed face-to- face by Dr. Ward on 04/13/16 at 1205. Discharge Planning Discharge home in stable condition Activity: Ad haris. 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
[2016-04-13] MEDS ORDERED: ZITH500T PO (08:40)
[2016-04-13] MEDS ORDERED: PRED5PAK PO (08:40)
--- NOTE | 2016-04-13 08:40 | HHI.DCPOC ---
Discharge Care Plan Diagnosis: (1) Systemic inflammatory response syndrome (2) COPD with acute exacerbation Goals to Promote Your Health * To prevent worsening of your condition and complications * To maintain your health at the optimal level Directions to Meet Your Goals Take your medications as prescribed Follow your dietary instruction Follow activity as directed Keep your appointments as scheduled Take your immunizations and boosters as scheduled If your symptoms worsen call your PCP, if no PCP go to Urgent Care Center or Emergency Room Smoking is Dangerous to Your Health. Avoid second hand smoke Call the 24-hour hour crisis hotline for domestic abuse at Dimitri Stauffer Apr 13, 2016 08:40
[2016-04-13] MEDS: BUDESONIDE-FORMOTEROL 160/4.5 MCG INHALER INH SCH (08:46)
[2016-04-13] MEDS: PANTOPRAZOLE SOD 40 MG DELAYED RELEASE TAB PO SCH (08:46)
[2016-04-13] MEDS: SODIUM CHLORIDE 0.9% FLUSH 5 ML FLUSH FLUSH SCH (08:47)
[2016-04-13] MEDS: MECLIZINE HCL 25 MG TAB PO PRN (08:49)
[2016-04-13] MEDS ORDERED: predniSONE 20 MG TAB PO SCH (09:00)
[2016-04-13] MEDS ORDERED: INSULIN DETEMIR 100 UNITS/ML VIAL SQ SCH (09:00)
[2016-04-13] MEDS ORDERED: INFLUENZA VIRUS VACCINE (QUADRIVALENT) 0.5 ML SYR IM ONE (10:00)
[2016-04-13] MEDS ORDERED: MECL-62 PO (12:09)
[2016-05-05] MEDS ORDERED: METH125I2 IM (15:57)
[2016-05-05] MEDS ORDERED: SYMB80AE INH ×2 (16:05→16:07)
[2016-05-05] MEDS ORDERED: MONT10TA4 PO ×2 (16:05→16:07)
[2016-05-05] MEDS ORDERED: IPRASOL INH ×2 (16:05→16:07)
[2016-05-05] MEDS ORDERED: VENTAER INH (16:05)
[2016-05-06] MEDS ORDERED: VENTAER INH (15:48)
[2016-05-06] MEDS ORDERED: SYMB80AE INH (15:48)
[2016-05-06] MEDS ORDERED: MONT10TA4 PO (15:48)
== END 2016-04-13 16:03 | disposition home or self-care (01) ==
LOC: PHED 19:08 → PHEDA 22:24 → PH3A 04-12 00:01
PROVIDERS: ADMIT Family Medicine; ATTEND Family Medicine
DX: J44.1 Chronic obstructive pulmonary disease with (acute) exacerbation (principal); R65.10 Systemic inflammatory response syndrome (SIRS) of non-infectious origin without acute organ dysfunction; J96.11 Chronic respiratory failure with hypoxia; D72.829 Elevated white blood cell count, unspecified; R00.0 Tachycardia, unspecified; T38.0X5A Adverse effect of glucocorticoids and synthetic analogues, initial encounter; R73.9 Hyperglycemia, unspecified; R42 Dizziness and giddiness; F17.210 Nicotine dependence, cigarettes, uncomplicated; Z99.81 Dependence on supplemental oxygen; Z23 Encounter for immunization
CPT/HCPCS: 71010; 80048; 80053; 81001; 82550; 82948; 83036; 83605; 83735; 83880; 84484; 85025; 87040; 87804; 90471; 90686; 93005; 94620; 94640; 94664; 96365; 96367; 96375; 99285; G0378; J0456; J0696; J1815; J2920; J2930; J7050; J7512; G0008; Q2038

== ENCOUNTER 2016-05-07 09:06 | Inpatient (IN) | payer MEDICAID, OTHER ==
[~2016-05-07] VITALS: Ht 167.6 cm; Wt 89.0 kg
[2016-05-07] VITALS (13 sets, daily range): BP systolic 106–159; BP diastolic 61–94; PULSE 76–100; RESP 18–26; TEMP 98.2–98.3; O2SAT 90–97
[~2016-05-07 09:06] MED LIST changes: +MECL-62 PO; -MUCI30TA2 PO; -PRED20 PO; +PRED5PAK PO; +ZITH500T PO; -ZITHTAB PO
[2016-05-07] MEDS ORDERED: ALBU0.63 NEB (09:29)
[2016-05-07] MEDS ORDERED: methylPREDNISolone SOD SUCC 125 MG/2 ML VIAL IVP ONE (09:30)
[2016-05-07] MEDS ORDERED: SODIUM CHLORIDE 0.9% FLUSH 10 ML FLUSH IVF PRN (09:30)
[2016-05-07] MEDS: RESP: ALBUTEROL 2.5 MG/IPRATROPIUM 0.5 MG NEB (SCH) INH ×4 (09:36→20:52)
--- NOTE | 2016-05-07 09:39 | PD ---
HPI Chief Complaint: Cold / Flu Symptoms Time Seen by Provider: 09:22 Travel History International Travel<30 days: No Contact w/Intl Traveler<30days: No Traveled to known affect area: No History of Present Illness HPI 65-year-old female presents with cough, congestion, and lightheaded when she coughs too much over the past couple days. She went to the clinic 2 days ago and was given a steroid shot but not sent home on steroid pills and states that she's not feeling better. She states that she is using her breathing treatments 3-4 times a day like she typically does. She states that she still does not have portable oxygen. Quality is wheezing. Severity is worsening. She states that she is working with her insurance to try to get portable oxygen. She denies other concurrent complaints. PFSH Past Medical History Asthma: Yes Heart Rhythm Problems: No Cancer: No Cardiovascular Problems: No High Cholesterol: No Chest Pain: No Congestive Heart Failure: No COPD: Yes Diabetes: No Diminished Hearing: No Endocrine: No Gastrointestinal Disorders: Yes GERD: Yes Genitourinary: No Hiatal Hernia: No Hypertension: No Immune Disorder: No Implanted Vascular Access Dvce: No Kidney Stones: No Musculoskeletal: No Neurologic: No Psychiatric: No Reproductive: No Respiratory: Yes (COPD) Renal Failure: No Sleep Apnea: No Thyroid Disease: No Ulcer: No Menopausal: Yes Past Surgical History Abdominal Surgery: No AICD: No Cardiac Surgery: No Ear Surgery: No Endocrine Surgery: No Eye Surgery: No Genitourinary Surgery: No Gynecologic Surgery: No Neurologic Surgery: No Oral Surgery: No Pacemaker: No Thoracic Surgery: No Other Surgery: Yes Social History Alcohol Use: No Tobacco Use: Yes (2 ciarettes to 1/2 PPD) Substance Use: No Allergies-Medications (Allergen,Severity, Reaction): Coded Allergies: No Known Allergies (Unverified , 05/07/16) Reported Meds & Prescriptions Reported Meds & Active Scripts Active Symbicort Inh (Budesonide/Formoterol Fumarate) 80-4.5 Mcg/Act Aero 1 Puff INH Q12HR Reported Albuterol Neb (Albuterol Sulfate) 0.63 Mg/3 Ml Neb Unknown Dose NEB Q4HR NEB PRN [oxygen] 4 Liter NA CONTINUOUS Review of Systems Except as stated in HPI: all other systems reviewed are Neg Physical Exam Narrative General: No apparent distress, well appearing ENT: mmm head: Atraumatic Neck: Neck is supple, no meningeal signs, trachea is midline Cardiovascular: Regular rate and rhythm Lungs: No increased respiratory effort noted, decreased aeration with expiratory wheezing bilaterally Extremities: No edema Neuro: Awake, motor and sensation grossly intact, normal speech Data Data Last Documented VS Vital Signs Date Time Temp Pulse Resp B/P Pulse Ox O2 Delivery O2 Flow Rate FiO2 05/07/16 10:10 85 24 96 Nasal Cannula 4 05/07/16 09:21 106/76 Orders Complete Blood Count With Diff (05/07/16 09:26) Basic Metabolic Panel (Bmp) (05/07/16 09:26) Influenzae A/B Antigen (05/07/16 09:26) Iv Access Insert/Monitor (05/07/16 09:26) Ecg Monitoring (05/07/16 09:26) Oximetry (05/07/16 09:26) Oxygen Administration (05/07/16 09:26) Chest, Pa & Lat (05/07/16 09:26) Sodium Chloride 0.9% Flush (Ns Flush) (05/07/16 09:30) Methylprednisolone So Succ Inj (Solumedr (05/07/16 09:30) Albuterol-Ipratropium Neb (Duoneb Neb) (05/07/16 09:30) Albuterol-Ipratropium Neb (Duoneb Neb) (05/07/16 11:30) Azithromycin Inj (Zithromax Inj) (05/07/16 11:30) Sodium Chlor 0.9% 1000 Ml Inj (Ns 1000 M (05/07/16 11:30) Blood Culture (05/07/16 11:21) Lactic Acid (05/07/16 11:21) Ceftriaxone Inj (Rocephin Inj) (05/07/16 11:24) Admit Order (Ed Use Only) (05/07/16 11:26) Labs Laboratory Tests Test 05/07/16 09:41 White Blood Count 14.2 TH/MM3 Red Blood Count 5.21 MIL/MM3 Hemoglobin 14.8 GM/DL Hematocrit 45.8 % Mean Corpuscular Volume 88.0 FL Mean Corpuscular Hemoglobin 28.4 PG Mean Corpuscular Hemoglobin 32.3 % Concent Red Cell Distribution Width 12.9 % Platelet Count 324 TH/MM3 Mean Platelet Volume 9.3 FL Neutrophils (%) (Auto) 76.1 % Lymphocytes (%) (Auto) 16.7 % Monocytes (%) (Auto) 4.7 % Eosinophils (%) (Auto) 0.7 % Basophils (%) (Auto) 1.8 % Neutrophils # (Auto) 10.7 TH/MM3 Lymphocytes # (Auto) 2.4 TH/MM3 Monocytes # (Auto) 0.7 TH/MM3 Eosinophils # (Auto) 0.1 TH/MM3 Basophils # (Auto) 0.3 TH/MM3 CBC Comment DIFF FINAL Differential Comment Sodium Level 144 MEQ/L Potassium Level 4.0 MEQ/L Chloride Level 105 MEQ/L Carbon Dioxide Level 31.6 MEQ/L Anion Gap 7 MEQ/L Blood Urea Nitrogen 14 MG/DL Creatinine 0.76 MG/DL Estimat Glomerular Filtration 77 ML/MIN Rate Random Glucose 146 MG/DL Calcium Level 9.0 MG/DL MDM Medical Decision Making Medical Screen Exam Complete: Yes Emergency Medical Condition: Yes Medical Record Reviewed: Yes (past history confirmed) Interpretation(s) CBC & BMP Diagram 05/07/16 09:41 Last 24 hours Impressions Chest X-Ray 05/07/16 09 Signed Impressions: Service Date/Time: Saturday, May 07, 2016 10:14 - CONCLUSION: 1. Chronic fibrotic changes bilaterally unchanged from the prior study. No acute pulmonary disease. Cruz Ramírez MD Differential Diagnosis COPD exacerbation, pneumonia, URI, renal failure Narrative Course Will check blood work, chest x-ray, influenza and dose with DuoNeb's and Solu- Medrol and reevaluate on recheck still with decreased aeration after 3 nebs, will repeat and add on blood cultures and lactate given sirs response, dose with acithromycin and rocephin to coer for possible lung source, patient agrees to admit Sepsis Criteria SIRS Criteria (2 or more): RR > 20 or PaCO2 < 32, WBC > 83883, < 4000 or > 10 % bands Physician Communication Physician Communication dr farias agrees to admit Diagnosis Primary Impression: COPD with acute exacerbation Additional Impressions: Systemic inflammatory response syndrome Leukocytosis Qualified Code: D72.829 - Leukocytosis, unspecified type Admitting Information Admitting Physician Requests: Admit Wen Max MD May 07, 2016 09:39
[2016-05-07 09:48] LABS: AUTOMATED NEUTROPHIL # 10.7 TH/MM3 (1.8-7.7); BASOPHIL # 0.3 TH/MM3 (0-0.2); BASOPHIL % 1.8 % (0.0-2.0); EOSINOPHIL # 0.1 TH/MM3 (0-0.4); EOSINOPHIL % 0.7 % (0.0-4.0); HEMATOCRIT 45.8 % (35.0-46.0); LYMPH % 16.7 % (9.0-44.0); LYMPHOCYTE # 2.4 TH/MM3 (1.0-4.8); MEAN CORPUSCULAR HEMOGLOBIN 28.4 PG (27.0-34.0); MEAN CORPUSCULAR HGB CONC 32.3 % (32.0-36.0); MONO % 4.7 % (0.0-8.0); NEUT % 76.1 % (16.0-70.0); PLATELET COUNT 324 TH/MM3 (150-450); RED BLOOD COUNT 5.21 MIL/MM3 (4.00-5.30); RED CELL DISTRIBUTION WIDTH 12.9 % (11.6-17.2); WHITE BLOOD COUNT 14.2 TH/MM3 (4.0-11.0)
[2016-05-07 09:49] LABS: HEMO FLAGS DIFF FINAL
[2016-05-07 10:04] LABS: BICARBONATE 31.6 MEQ/L (21.0-32.0)
--- NOTE | 2016-05-07 10:38 | RADHPO ---
EXAM DATE/TIME: 05/07/2016 10:14 [place] COMPARISON: CHEST PA & LAT, December 31, 2014, 17:33. INDICATIONS : Short of breath. MEDICAL HISTORY : Chronic obstructive pulmonary disease. SURGICAL HISTORY : None. ENCOUNTER: Initial ACUITY: 1 week PAIN SCORE: 0/10 LOCATION: Bilateral chest FINDINGS: The cardiac silhouette is normal in transverse diameter. The lungs are free of acute parenchymal opac ity. No effusions are identified. There are chronic fibrotic changes bilaterally. There has been no s ignificant change when compared to the prior exam. CONCLUSION: 1. Chronic fibrotic changes bilaterally unchanged from the prior study. No acute pulmonary disease. Cruz Ramírez MD on May 07, 2016 at 10:35 Board Certified Radiologist. This report was verified electronically.
[2016-05-07] MEDS ORDERED: cefTRIAXone INJ 2,000 MG in SODIUM CHLORIDE 0.9% INJ 100 ML IV STA (11:24)
[2016-05-07] MEDS ORDERED: RESP: ALBUTEROL 2.5 MG/IPRATROPIUM 0.5 MG NEB (SCH) NEB ONE (11:30)
[2016-05-07] MEDS ORDERED: SODIUM CHLORIDE 0.9% FLUSH 10 ML FLUSH IV FLUSH PRN (11:30)
[2016-05-07] MEDS ORDERED: SODIUM CHLOR 0.9% 1000 ML INJ 1,000 ML IV ONE ×2 (11:30→13:15)
[2016-05-07] MEDS ORDERED: AZITHROMYCIN INJ 500 MG in SODIUM CHLOR 0.9% 250 ML INJ 250 ML IV ONE (11:30)
[2016-05-07] MEDS: ENOXAPARIN SODIUM 40 MG/0.4 ML SYRINGE SQ SCH (12:53)
--- NOTE | 2016-05-07 13:38 | HHI.HP ---
cc: Starr Stern MD [facility] Service [facility] Primary Care Physician No Primary Care Physician Admission Diagnosis copd exacerbation Diagnoses: (1) Systemic inflammatory response syndrome Diagnosis: Principal (2) Chronic respiratory failure with hypoxia Diagnosis: Principal (3) COPD with acute exacerbation Diagnosis: Principal (4) Leukocytosis Diagnosis: Principal (5) Tobacco dependency Diagnosis: Principal Chief Complaint: Cough Travel History International Travel<30 Days: No Contact w/Intl Traveler <30 Da: No Traveled to Known Affected Are: No History of Present Illness 65-year-old female with known history of chronic respiratory failure, chronic obstructive pulmonary disease, chronic tobacco use who presented to hospital because of cough, shortness of breath, dyspnea. The patient was just in the hospital beginning this month on 04/12/16 and was discharged on 04/13/16 for same symptoms. The patient indicates that she did use the medications are prescribed to her upon discharge. However when those were done and she went to Dr. Stern and was given a dose of Solu-Medrol in the office, however she was not given any other medications. Patient states that she feels that she has an infection in her lungs and she was concerned that she did not get any antibiotics by Dr. Stern. Patient states that over the last 3-4 days she's been having increased shortness of breath, coughing fits because her to get lightheaded, dizzy. She states that she is producing a green color phlegm. She indicates that she has a tightness in her chest whenever she tries to take a deep breath, without any radiation to the neck, back, shoulder, arms. She denied any nausea, vomiting, diaphoresis when the episode started. She does have some nausea today. She indicates that she coughed so much that she was told that she passed out by someone in the ER. Patient states that she still is smoking at home. Would not quantify how much she was smoking. Patient does smell of cigarettes. Patient is on oxygen at home at 4 L per nasal cannula. She does have a concentrator, however she does not have portable oxygen. She has been leaving the house, going to doctor's office without any oxygen. Review of Systems Constitutional: DENIES: Diaphoretic episodes, Fatigue, Fever, Weight gain, Weight loss, Chills, Dizziness, Change in appetite, Night Sweats Eyes: DENIES: Blurred vision, Diplopia, Eye inflammation, Eye pain, Vision loss , Double Vision Ears, nose, mouth, throat: DENIES: Vertigo, Nasal discharge, Throat pain, Ear Pain, Running Nose, Sinus Pain Respiratory: COMPLAINS OF: Cough, Sputum production, Shortness of breath, DENIES: Apneas, Snoring, Wheezing, Hemoptysis Cardiovascular: DENIES: Chest pain, Palpitations, Syncope, Dyspnea on Exertion , Lower Extremity Edema, Orthopnea Gastrointestinal: DENIES: Abdominal pain, Black stools, Bloody stools, Constipation, Diarrhea, Nausea, Vomiting, Difficulty Swallowing, Anorexia Neurologic: DENIES: Abnormal gait, Headache, Localized weakness, Paresthesias, Seizures, Speech Problems, Tremor, Poor Balance Past Family Social History Past Medical History Chronic respiratory failure, oxygen dependent Chronic obstructive pulmonary disease Past Surgical History Left lower extremity fracture with surgical repair Allergies: Coded Allergies: No Known Allergies (Unverified , 05/07/16) Family History Reviewed is significant for father at early age in his 50s from heart attack. Mother with lung disease Social History Patient does continue to smoke, she states that she quit 3 days ago and prior to that she was down to 34 cigarettes daily. Prior to that she smoked half a pack a cigarettes a day since she was 17 years old. Denies any alcohol or illicit drugs Physical Exam Vital Signs Vital Signs Date Time Temp Pulse Resp B/P Pulse Ox O2 Delivery O2 Flow Rate FiO2 05/07/16 12:20 81 20 118/69 93 Nasal Cannula 4 05/07/16 11:28 93 Nasal Cannula 4.00 05/07/16 10:10 85 24 96 Nasal Cannula 4 05/07/16 09:30 97 Nasal Cannula 4 05/07/16 09:29 97 Nasal Cannula 4 05/07/16 09:21 87 26 106/76 97 Physical Exam GENERAL: Well-developed, well-nourished, in no acute distress. alert and orientated HEENT: Head is normocephalic without any lesions or masses noted. Facial features are symmetric. Eyes: Pupils equal round reactive to light. Extraocular muscles are intact. Conjunctivae were clear. Oropharyngeal: Pharynx without any erythema edema. Tongue is midline without deviation. Buccal mucosa is moist without any masses or lesions NECK: Supple without any masses. Trachea midline no deviation. No JVD, no bruits are appreciated CARDIAC: Regular rhythm, regular rate. S1/S2 are heard. No murmurs gallops or rubs. LUNGS: Diminished breath sounds noted throughout, fine wheezing noted bilateral upper lung, no rhonchi or rales. No use of accessory muscles on inspiration or expiration. ABDOMEN: Soft, nontender. Nondistended. Bowel sounds heard in all 4 quadrants. No organomegaly or masses. Negative rebound, negative guarding EXTREMITIES: No edema, pulses are equal bilaterally. No cyanosis or clubbing NEUROLOGY: Mood and affect appear appropriate. Cranial nerves II through XII grossly intact. Muscle strength 5/5 in upper and lower extremities bilaterally. Deep tendon reflexes are 2+ in upper and lower extremities bilaterally. Laboratory Laboratory Tests Test 05/07/16 05/07/16 09:41 12:00 White Blood Count 14.2 Red Blood Count 5.21 Hemoglobin 14.8 Hematocrit 45.8 Mean Corpuscular Volume 88.0 Mean Corpuscular Hemoglobin 28.4 Mean Corpuscular Hemoglobin 32.3 Concent Red Cell Distribution Width 12.9 Platelet Count 324 Mean Platelet Volume 9.3 Neutrophils (%) (Auto) 76.1 Lymphocytes (%) (Auto) 16.7 Monocytes (%) (Auto) 4.7 Eosinophils (%) (Auto) 0.7 Basophils (%) (Auto) 1.8 Neutrophils # (Auto) 10.7 Lymphocytes # (Auto) 2.4 Monocytes # (Auto) 0.7 Eosinophils # (Auto) 0.1 Basophils # (Auto) 0.3 CBC Comment DIFF FINAL Differential Comment Sodium Level 144 Potassium Level 4.0 Chloride Level 105 Carbon Dioxide Level 31.6 Anion Gap 7 Blood Urea Nitrogen 14 Creatinine 0.76 Estimat Glomerular Filtration 77 Rate Random Glucose 146 Calcium Level 9.0 Lactic Acid Level 1.7 Date/Time Procedure Status Source Growth 05/07/16 12:10 Aerobic Blood Culture Received Blood Peripheral Pending 05/07/16 12:10 Anaerobic Blood Culture Received Blood Peripheral Pending 05/07/16 09:36 Influenza Types A,B Antigen (JAVON) - Final Complete Nasal Aspirate NEGATIVE FOR FLU A AND B ANTIGEN.... Result Diagram: 05/07/16 0941 05/07/16 0941 Imaging Last Impressions Chest X-Ray 05/07/16 09 Signed Impressions: Service Date/Time: Saturday, May 07, 2016 10:14 - CONCLUSION: 1. Chronic fibrotic changes bilaterally unchanged from the prior study. No acute pulmonary disease. Cruz Ramírez MD Assessment and Plan Assessment and Plan Systemic inflammatory response syndrome: Resolved Patient presented with leukocytosis, tachycardia. No signs of infection at this time. Likely secondary to chronic obstructive pulmonary disease exacerbation. Influenza testing was negative, blood cultures are pending, chest x-ray was clear. Chronic obstructive pulmonary disease with acute exacerbation in a patient with chronic respiratory failure oxygen dependent: Likely end-stage lung disease Continue Solu-Medrol 60 mg every 6 hours, nebulizer treatments, Symbicort, Continue Rocephin and Zithromax. Continue O2 supplementation wean to maintain O2 sats greater than 92%. Start Robitussin-AC for cough suppression Hyperglycemia: Patient does have history of hyperglycemia secondary to steroid use. Last hemoglobin A1c on 04/12/16 was 5.6. start Accu-Cheks with sliding scale insulin. Chronic tobacco abuse Patient counseled extensively on smoking cessation. Notified her about her chronic respiratory failure that if she continues to smoke that she will require hospice consult in the next 1-2 visits because of end-stage lung disease. Prophylaxis: GI prevention Start Protonix secondary to steroid use. DVT prevention with Lovenox Written by Dimitri Stauffer, acting as scribe for Dr. Pastor on 05/07/16 at 13:36. All or portions of this note were transcribed by scribe Dimitri Stauffer. I, Dr. Dimitri Pastor personally performed the history, physical exam, and medical decision making; and confirmed the accuracy of the information in the transcribed note. Authenticated by Dr. Dimitri Pastor on 05/07/16 at 14:00. Physician Certification 2 Midnight Certification Type: Admission for Inpatient Services Order for Inpatient Services The services are ordered in accordance with Medicare regulations or non- Medicare payer requirements, as applicable. In the case of services not specified as inpatient-only, they are appropriately provided as inpatient services in accordance with the 2-midnight benchmark. Estimated LOS (days): 2 days is the estimated time the patient will need to remain in the hospital, assuming treatment plan goals are met and no additional complications. Post-Hospital Plan: Not yet determined Problem Qualifiers (1) Leukocytosis: Qualified Code: D72.829 - Leukocytosis, unspecified type Dimitri Stauffer May 07, 2016 13:38 Dimitri Pastor MD May 07, 2016 14:00
[2016-05-07] MEDS ORDERED: GLUCAGON 1 MG/ML VIAL OTHER PRN (13:45)
[2016-05-07] MEDS ORDERED: DEXTROSE 50% IN WATER 50 ML VIAL(D50) IV PUSH PRN (13:45)
[2016-05-07] MEDS: methylPREDNISolone SOD SUCC 125 MG/2 ML VIAL IVP SCH ×2 (16:43→22:01)
[2016-05-07] MEDS: INSULIN ASPART SUPPLEMENTAL SCALE SQ SCH ×2 (16:44→22:16)
[2016-05-07] MEDS: BUDESONIDE-FORMOTEROL 80/4.5 MCG INHALER INH SCH (21:53)
[2016-05-07] MEDS: SODIUM CHLORIDE 0.9% FLUSH 10 ML FLUSH IV FLUSH SCH (21:59)
[2016-05-08] VITALS (8 sets, daily range): BP systolic 126–161; BP diastolic 70–92; PULSE 73–101; RESP 20–22; TEMP 97.2–98.5; O2SAT 88–97
[2016-05-08] MEDS: RESP: ALBUTEROL 2.5 MG/IPRATROPIUM 0.5 MG NEB (SCH) INH ×4 (03:51→19:56)
[2016-05-08] MEDS: methylPREDNISolone SOD SUCC 125 MG/2 ML VIAL IVP SCH ×4 (04:58→21:19)
[2016-05-08 07:07] LABS: AUTOMATED NEUTROPHIL # 10.4 TH/MM3 (1.8-7.7); BASOPHIL % 0.2 % (0.0-2.0); HEMATOCRIT 41.9 % (35.0-46.0); HEMO FLAGS DIFF FINAL; LYMPH % 5.8 % (9.0-44.0); LYMPHOCYTE # 0.6 TH/MM3 (1.0-4.8); MEAN CELL VOLUME 87.5 FL (80.0-100.0); MEAN CORPUSCULAR HEMOGLOBIN 28.8 PG (27.0-34.0); MEAN CORPUSCULAR HGB CONC 32.9 % (32.0-36.0); MONO % 1.1 % (0.0-8.0); NEUT % 92.9 % (16.0-70.0); PLATELET COUNT 246 TH/MM3 (150-450); RED BLOOD COUNT 4.78 MIL/MM3 (4.00-5.30); RED CELL DISTRIBUTION WIDTH 11.8 % (11.6-17.2); WHITE BLOOD COUNT 11.1 TH/MM3 (4.0-11.0)
[2016-05-08] MEDS: INSULIN ASPART SUPPLEMENTAL SCALE SQ SCH ×4 (07:33→21:21)
[2016-05-08] MEDS: RESP: ALBUTEROL 2.5 MG/3 ML NEB (PRN) INH ×2 (07:43→23:23)
[2016-05-08] MEDS: BUDESONIDE-FORMOTEROL 80/4.5 MCG INHALER INH SCH ×2 (09:58→21:18)
[2016-05-08] MEDS: PANTOPRAZOLE SOD 40 MG DELAYED RELEASE TAB PO SCH (09:59)
[2016-05-08] MEDS: cefTRIAXone INJ 1,000 MG in SODIUM CHLORIDE 0.9% INJ 100 ML IV SCH (10:00)
[2016-05-08] MEDS ORDERED: INFLUENZA VIRUS VACCINE (QUADRIVALENT) 0.5 ML SYR IM ONE (10:00)
[2016-05-08] MEDS: SODIUM CHLORIDE 0.9% FLUSH 10 ML FLUSH IV FLUSH SCH ×2 (10:09→21:00)
[2016-05-08] MEDS: ENOXAPARIN SODIUM 40 MG/0.4 ML SYRINGE SQ SCH (11:14)
[2016-05-08] MEDS: AZITHROMYCIN INJ 500 MG in SODIUM CHLOR 0.9% 250 ML INJ 250 ML IV SCH (11:14)
--- NOTE | 2016-05-08 13:52 | HHI.PR ---
Subjective Remarks Patient seen and examined today with Dr. Ward. Patient does appear to be breathing easier today. However she is very concerned about her respiratory status. Patient is unable to afford oxygen at home and she requires 4 L on a daily basis. She has no portable oxygen I discussed with the patient extensively her clinical condition and end-stage lung disease. I counseled patient on hospice care and palliative care. She is scared of the word hospice. She is to care for 2 grandkids when she is afraid of losing if she is on hospice. She is open and willing to speak with palliative care physician to be able to discuss with her her options and future treatment plan. Objective Vitals Vital Signs Date Time Temp Pulse Resp B/P Pulse Ox O2 Delivery O2 Flow Rate FiO2 05/08/16 07:46 88 Nasal Cannula 4.00 05/08/16 07:34 97.6 73 22 135/84 90 05/08/16 04:00 97.6 76 21 131/84 97 05/08/16 00:00 97.3 73 20 126/81 93 05/07/16 20:52 94 Nasal Cannula 4.00 05/07/16 20:00 98.2 85 20 122/68 93 05/07/16 18:40 98.3 100 24 159/94 90 05/07/16 17:23 85 18 159/69 93 Nasal Cannula 4 05/07/16 16:23 77 18 125/61 94 Nasal Cannula 4 05/07/16 15:23 87 18 119/67 94 Nasal Cannula 4 05/07/16 14:23 88 18 155/68 96 Nasal Cannula 4 05/07/16 14:05 86 20 94 Nasal Cannula 4 I/O 05/07/16 05/07/16 05/07/16 05/08/16 05/08/16 05/08/16 07:00 15:00 23:00 07:00 15:00 23:00 Intake Total 2350 ml 720 ml 480 ml Output Total 700 ml Balance 2350 ml 20 ml 480 ml Intake Oral 720 ml 480 ml IV Total 2350 ml Output Urine Total 700 ml # Voids 6 2 # Bowel Movements 0 0 Result Diagram: 05/08/16 0635 05/07/16 0941 Objective Remarks GENERAL: Well-developed, well-nourished, in no acute distress. alert and orientated HEENT: Head is normocephalic without any lesions or masses noted. Facial features are symmetric. Eyes: Extraocular muscles are intact. Conjunctivae were clear. NECK: Supple without any masses. Trachea midline no deviation. No JVD, CARDIAC: Regular rhythm, regular rate. S1/S2 are heard. No murmurs gallops or rubs. LUNGS: Diminished breath sounds noted throughout, minimal wheeze. No rhonchi or rales. No use of accessory muscles on inspiration or expiration. ABDOMEN: Soft, nontender. Nondistended. Bowel sounds heard in all 4 quadrants. No organomegaly or masses. Negative rebound, negative guarding EXTREMITIES: No edema, pulses are equal bilaterally. No cyanosis or clubbing NEUROLOGY: Mood and affect appear appropriate. Cranial nerves II through XII grossly intact. Moving all extremities, speech is clear Urinary Catheter: No Vascular Central Line Catheter: No A/P Assessment and Plan Systemic inflammatory response syndrome: Resolved Patient presented with leukocytosis, tachycardia. No signs of infection at this time. Likely secondary to chronic obstructive pulmonary disease exacerbation. Influenza testing was negative, blood cultures are negative, chest x-ray was clear. Chronic obstructive pulmonary disease with acute exacerbation in a patient with chronic respiratory failure oxygen dependent: Likely end-stage lung disease Continue Solu-Medrol 60 mg every 6 hours, nebulizer treatments, Symbicort, Continue Rocephin and Zithromax. Continue O2 supplementation wean to maintain O2 sats greater than 92%. Continue Robitussin-AC for cough suppression Hyperglycemia: Patient does have history of hyperglycemia secondary to steroid use. Last hemoglobin A1c on 04/12/16 was 5.6. Accu-Cheks with sliding scale insulin. Chronic tobacco abuse Patient counseled extensively on smoking cessation. Notified her about her chronic respiratory failure that if she continues to smoke that she will require hospice consult in the next 1-2 visits because of end-stage lung disease. Prophylaxis: GI prevention Start Protonix secondary to steroid use. DVT prevention with Lovenox Palliative care: Patient does have end-stage lung disease, chronic respiratory failure requiring 4 L of oxygen. Discussed with the patient extensively hospice consult and felt that they can provide her, provide her with oxygen, help her remain stable incentive having recurrent exacerbations. She is reluctant because she is afraid that it may take her grandkids away from her. She is open to a palliative care consult in order to speak to a physician who can explain her condition, prognosis, services that can be offered to her via hospice. Written by Dimitri Stauffer PA-C, acting as scribe for Dr. Ward on 05/08/16. All or portions of this note were transcribed by helene Mosley. I, Dr. Dayana Ward personally performed the history, physical exam, and medical decision making; and confirmed the accuracy of the information in the transcribed note. Authenticated by Dr. Dayana Ward on 05/09/16 at 08:51. Dimitri Stauffer May 08, 2016 13:52 Dayana Ward MD May 09, 2016 08:51
--- NOTE | 2016-05-08 16:35 | PD.CONS ---
Consult Service Palliative Care Consult Requested By Isac Palmer Primary Care Physician No Primary Care Physician . Reason for Consultation a. To assist with evaluation and management of symptoms including: Dyspnea , anxiety b. To assist medical decision maker(s) with: better understanding of current medical conditions; weighing benefits/burdens of medical treatment options; making medical treatment decisions. . HPI History of Present Illness This 65-year-old female, with underlying end-stage COPD, was admitted for the second time this month on 05/07/16 because of dyspnea. She has had COPD for a few years, has been a smoker since her teenage years, and has been on home O2 for about 2 years. She notes in recent months that she has been weak overall, and has more dyspnea even with minimal exertion. She was admitted here on for 2 days with an exacerbation of COPD, and then returned home. Because of various issues, including "shared cost" Medicaid, she has difficulty following up with local physicians and getting her medications. She reports that she has lost 10 pounds in the past month. The patient now presented to the emergency department on 05/07/16 again because of worsening dyspnea for a couple days. She was short of breath at rest even with her 4 L of nasal oxygen. In the emergency department, findings included: * Moderate dyspnea * White count 14.2, hemoglobin 14.8 * Sodium 144, creatinine 0.76 * Chest x-ray with fibrotic changes, COPD, but no obvious acute infiltrate. The patient was admitted and provided with antibiotics, steroids, bronchodilators. Palliative Care was consulted to assist with this symptom management and to enter into discussions with the patient and family regarding her illness, her prognosis, and the benefits and burdens of the various treatment options now. . Function/Cognitive Trajectory The patient has been weaker in recent weeks, and she is on supplemental oxygen 24 hours per day. She is able to be up and around at home to care for herself and her grandchildren, and she does still drive a car briefly. . Review of Systems Constitutional: COMPLAINS OF: Fatigue, Weight loss (10 pounds in the past month ) Endocrine: DENIES: Polyuria Eyes: DENIES: Eye inflammation Ears, nose, mouth, throat: DENIES: Epistaxis Respiratory: COMPLAINS OF: Cough, Wheezing, Shortness of breath Cardiovascular: COMPLAINS OF: Dyspnea on Exertion, DENIES: Chest pain, Syncope , Lower Extremity Edema Gastrointestinal: DENIES: Constipation, Diarrhea, Vomiting, Vomiting blood Genitourinary: DENIES: Hematuria Musculoskeletal: DENIES: Neck pain Integumentary: DENIES: Rash Hematologic/Lymphatics: DENIES: Bruising Immunologic/Allergic: DENIES: Urticaria Neurologic: DENIES: Localized weakness, Seizures Psychiatric: DENIES: Confusion, Hallucinations Past Family Social History Coded Allergies: No Known Allergies (Unverified , 05/07/16) Past Medical History * End-stage COPD * Repeated hospitalizations for exacerbations of COPD * Chronic respiratory failure, oxygen dependent * GERD * Anxiety . Past Surgical History * Left lower extremity fracture with surgical repair . Reported Medications She reports she was not on steroids the past 2 weeks at home. She is on home oxygen. . Current Medications Medications (Trade) Dose Ordered Sig/Rebel Route Start Time Stop Time Status Last Admin (NS Flush) 2 ml BID IV FLUSH 05/07/16 21:00 05/08/16 10:09 (NS Flush) 2 ml UNSCH PRN IV FLUSH 05/07/16 11:30 Methylprednisolone Sodium Succinate 60 mg 60 mg Q6H IVP 05/07/16 16:00 05/08/16 09:59 Ceftriaxone Sodium 1000 mg/ Sodium Chloride 100 ml @ 200 mls/hr Q24H IV 05/08/16 10:00 05/08/16 10:00 (Zithromax Inj/ NS 250 ml Inj) 250 ml @ 250 mls/hr Q24H IV 05/08/16 11:00 05/08/16 11:14 (Lovenox Inj) 40 mg Q24H SQ 05/07/16 12:00 05/08/16 11:14 (Symbicort 80-4.5 Mcg Inh) 1 puff Q12HR INH 05/07/16 21:00 05/08/16 09:58 (Robitussin Ac 200-20 Mg/10 ml Liq) 10 ml Q4H PRN PO 05/07/16 13:45 (D50w (Vial) Inj) 25 ml UNSCH PRN IV PUSH 05/07/16 13:45 (Glucagon Inj) 1 mg UNSCH PRN OTHER 05/07/16 13:45 (Protonix) 40 mg DAILY PO 05/08/16 09:00 05/08/16 09:59 Family History The patient's father at age 51 of "a massive heart attack." Her mother of congestive heart failure. One brother at age 27 of trauma, one sister at age 33 of complications of drug abuse, and one brother at age 55 of gallbladder cancer. The patient has a twin sister who is alive and has diabetes, lupus, and colitis. There is no family history of COPD according to the patient. . Substance Use Tobacco: She smoked one pack per day of cigarettes for many years starting as a teenager, but says she only smokes a few cigarettes per day now. Alcohol: Occasional in the past, but none for a few years. Prescription med abuse: None. Illicits: None. . Psychosocial History The patient was born and raised in [place], [place], and lived there until 2011 when she moved to [place]. The moved to [place] was precipitated by the for children of the patient's son being taken away from their parents, and the patient says "they gave me 7 days to get down here to get custody of the kids." These 4 grandchildren are now in the custody of the patient and her , and they are ages 13, 13, 15, and 17. The patient has been 3 times, currently since 1987. She had 2 sons, 1 son that lives here and one in [place]. 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 . Spiritual/Cultural Factors Confucianism background . Living Will: Never completed Health Care Surrogate: Never completed Durable Power of Funeral Home Assistant: Never completed Today's verbally stated goals: The patient says "I just want to get better and move back to [place] in 4 years when the kids are grown up." She understands she has serious COPD, and that she is eligible for hospice services, and she and her do want to speak with hospice regarding the options. . Family/friends goals: The patient's definitely wants hospice assistance at home. . Ethical and Legal Issues There are no ethical issues that would impact her care or decision-making at this time. The patient has capacity for decision-making at this time. We had a lengthy discussion regarding a pointing a proxy decision-maker, but the patient is not sure if she wants it to be her or a niece in [place]. She and her understand that should she lose capacity for decision-making prior to designating someone else, then her would be the proxy decision-maker. . Physical Exam Vital Signs Date Time Temp Pulse Resp B/P Pulse Ox O2 Delivery O2 Flow Rate FiO2 05/08/16 12:00 97.2 101 20 153/70 90 05/08/16 07:46 88 Nasal Cannula 4.00 05/08/16 07:34 97.6 73 22 135/84 90 05/08/16 04:00 97.6 76 21 131/84 97 05/08/16 00:00 97.3 73 20 126/81 93 05/07/16 20:52 94 Nasal Cannula 4.00 05/07/16 20:00 98.2 85 20 122/68 93 05/07/16 18:40 98.3 100 24 159/94 90 05/07/16 17:23 85 18 159/69 93 Nasal Cannula 4 05/07/16 16:23 77 18 125/61 94 Nasal Cannula 4 05/07/16 05/08/16 19:00 07:00 Intake Total 2830 ml 720 ml Output Total 700 ml Balance 2130 ml 720 ml Intake Oral 480 ml 720 ml IV Total 2350 ml Output Urine Total 700 ml # Voids 5 3 # Bowel Movements 0 Exam CONSTITUTIONAL/GENERAL: This is an adequately nourished patient, frequent cough , and some mild respiratory distress. TUBES/LINES/DRAINS: Nasal O2, peripheral IV SKIN: No jaundice, rashes, or lesions. Ecchymoses on upper extremities. No wounds seen anteriorly. Skin temperature appropriate. Not diaphoretic. HEAD: Atraumatic. Normocephalic. EYES: Pupils equal and round and reactive. Extraocular motions intact. No scleral icterus. No injection or drainage. Fundi not examined. ENT: Hearing grossly normal. Nose without bleeding or purulent drainage. Throat without visible erythema, exudates, masses, or lesions. NECK: Trachea midline. Supple, nontender. No palpable thyroid enlargement or nodularity. CARDIOVASCULAR: Regular rate and rhythm without murmurs, gallops, or rubs. No JVD. Peripheral pulses symmetric. RESPIRATORY/CHEST: Symmetric respirations. Markedly diminished lung sounds diffusely, a couple expiratory wheezes with coughing. GASTROINTESTINAL: Abdomen soft, non-tender, nondistended. No hepato-splenomegaly , or palpable masses. No guarding. Bowel sounds present. GENITOURINARY: Without palpable bladder distension. Lo catheter in place. MUSCULOSKELETAL: Extremities without clubbing, cyanosis, or edema. No joint tenderness or effusion noted. No calf tenderness. No mottling or clubbing. LYMPHATICS: No palpable cervical or supraclavicular adenopathy. NEUROLOGICAL: Awake and alert. Motor and sensory grossly within normal limits. Follows commands. Cognitively sharp. Moves all extremities. PSYCHIATRIC: Seems somewhat anxious, gets "perturbed" when discussing her end- stage condition. . Diagnostic Tests Laboratory Laboratory Tests Test 05/07/16 05/07/16 05/08/16 09:41 12:00 06:35 White Blood Count 14.2 TH/MM3 11.1 TH/MM3 (4.0-11.0) (4.0-11.0) Red Blood Count 5.21 MIL/MM3 4.78 MIL/MM3 (4.00-5.30) (4.00-5.30) Hemoglobin 14.8 GM/DL 13.8 GM/DL (11.6-15.3) (11.6-15.3) Hematocrit 45.8 % 41.9 % (35.0-46.0) (35.0-46.0) Mean Corpuscular Volume 88.0 FL 87.5 FL (80.0-100.0) (80.0-100.0) Mean Corpuscular Hemoglobin 28.4 PG 28.8 PG (27.0-34.0) (27.0-34.0) Mean Corpuscular Hemoglobin 32.3 % 32.9 % Concent (32.0-36.0) (32.0-36.0) Red Cell Distribution Width 12.9 % 11.8 % (11.6-17.2) (11.6-17.2) Platelet Count 324 TH/MM3 246 TH/MM3 (150-450) (150-450) Mean Platelet Volume 9.3 FL 9.2 FL (7.0-11.0) (7.0-11.0) Neutrophils (%) (Auto) 76.1 % 92.9 % (16.0-70.0) (16.0-70.0) Lymphocytes (%) (Auto) 16.7 % 5.8 % (9.0-44.0) (9.0-44.0) Monocytes (%) (Auto) 4.7 % (0.0-8.0) 1.1 % (0.0-8.0) Eosinophils (%) (Auto) 0.7 % (0.0-4.0) 0.0 % (0.0-4.0) Basophils (%) (Auto) 1.8 % (0.0-2.0) 0.2 % (0.0-2.0) Neutrophils # (Auto) 10.7 TH/MM3 10.4 TH/MM3 (1.8-7.7) (1.8-7.7) Lymphocytes # (Auto) 2.4 TH/MM3 0.6 TH/MM3 (1.0-4.8) (1.0-4.8) Monocytes # (Auto) 0.7 TH/MM3 0.1 TH/MM3 (0-0.9) (0-0.9) Eosinophils # (Auto) 0.1 TH/MM3 0.0 TH/MM3 (0-0.4) (0-0.4) Basophils # (Auto) 0.3 TH/MM3 0.0 TH/MM3 (0-0.2) (0-0.2) CBC Comment DIFF FINAL DIFF FINAL Differential Comment Sodium Level 144 MEQ/L (136-145) Potassium Level 4.0 MEQ/L (3.5-5.1) Chloride Level 105 MEQ/L (98-107) Carbon Dioxide Level 31.6 MEQ/L (21.0-32.0) Anion Gap 7 MEQ/L (5-15) Blood Urea Nitrogen 14 MG/DL (7-18) Creatinine 0.76 MG/DL (0.50-1.00) Estimat Glomerular Filtration 77 ML/MIN (>89) Rate Random Glucose 146 MG/DL (74-106) Calcium Level 9.0 MG/DL (8.5-10.1) Lactic Acid Level 1.7 mmol/L (0.4-2.0) Result Diagram: 05/08/16 0635 05/07/16 0941 Microbiology Microbiology Date/Time Procedure Status Source Growth 05/07/16 09:36 Influenza Types A,B Antigen (JAVON) - Final Complete Nasal Aspirate NEGATIVE FOR FLU A AND B ANTIGEN.... 3/29/17 12:00 Aerobic Blood Culture - Preliminary Resulted Blood Peripheral NO GROWTH IN 1 DAY 05/07/16 12:00 Anaerobic Blood Culture - Preliminary Resulted Blood Peripheral NO GROWTH IN 1 DAY 05/07/16 12:10 Aerobic Blood Culture - Preliminary Resulted Blood Peripheral NO GROWTH IN 1 DAY 05/07/16 12:10 Anaerobic Blood Culture - Preliminary Resulted Blood Peripheral NO GROWTH IN 1 DAY Imaging Last Impressions Chest X-Ray 05/07/16 0972 Signed Impressions: Service Date/Time: Saturday, May 07, 2016 10:14 - CONCLUSION: 1. Chronic fibrotic changes bilaterally unchanged from the prior study. No acute pulmonary disease. Cruz Ramírez MD Patient/Family Conference Present at Family Conference: Patient's . Family Conference Time (mins): 41 Family Conference Location: Bedside Issues Discussed: * Palliative care role, purpose, approach * Hospice care, role, purpose, approach * Additional medical, psychosocial, and spiritual history * Patients general health, functional status, and cognitive changes in the months leading up to the current hospitalization * Patient/family understanding of the current medical problems * Patient/family understanding of prognosis * Patients goals of care as best understood from advance directives and/or conversations and/or values * Current medical treatment options and benefits/burdens of those options * Likely scenarios comparing ongoing aggressive care with a transition to comfort measures only * Questions answered to the best of my ability * Palliative care contact information provided The patient and her do want to speak with hospice regarding what services they may be able to provide. The patient understands that hospice can provide medications, oxygen, and can be present in the home on a frequent basis. They report that they have heard that COPD patients on hospice generally feel better and may even live longer than they would otherwise. . Assessment and Plan Disease Oriented Problem List: (1) end-stage COPD (2) chronic respiratory failure, oxygen dependent COPD (3) repeated hospitalizations for exacerbations of COPD (4) anxiety (5) GERD Symptom Scale: (1) dyspnea 0-10 Scale: 3 (2) anxiety 0-10 Scale: 2 Pertinent Non-Medical Issues Psychosocial: , lives in an apartment. Has custody of 4 teenage grandchildren. Spiritual: Confucianism background Legal: The patient has capacity for decision-making at this time. We had a lengthy discussion regarding a pointing a proxy decision-maker, but the patient is not sure if she wants it to be her or a niece in [place]. She and her understand that should she lose capacity for decision-making prior to designating someone else, then her would be the proxy decision-maker. Ethical issues impacting care: None . Important Contacts Patient's cell phone: [phone] "Jaxon: Cell phone: [phone] . Prognosis The patient has end-stage COPD, and likely has months to live. . Code Status: Full Code Plan * FULL CODE, for now. The patient and her had not previously considered the option of allowing natural versus life support machine existence. He will think more about it now. * DECISION-MAKING: The patient has capacity for decision-making at this time. We had a lengthy discussion regarding a pointing a proxy decision-maker, but the patient is not sure if she wants it to be her or a niece in [place]. She and her understand that should she lose capacity for decision -making prior to designating someone else, then her would be the proxy decision-maker. * GOALS: The patient and her do want to speak with hospice regarding what services they may be able to provide. The patient understands that hospice can provide medications, oxygen, and can be present in the home on a frequent basis. They report that they have heard that COPD patients on hospice generally feel better and may even live longer than they would otherwise. * SYMPTOMS: Her COPD is being managed by aggressive inpatient hospital care at this point in time. She does not want treatment for her anxiety at this time, but agrees to allow that to be monitored and will consider anxiolytic meds in the near future. * Hospice consult placed. * Palliative Care will continue to follow the patient during his hospitalization. . Time Spent Total Floor Time (mins): 76 Face to Face Time (mins): 49 >50% Counseling/Coord of Care: Yes (d/w Dr. Ward and Isac Stauffer PA-C) Thank you for the opportunity to participate in the care of Ms. Vanegas. Attestation To help prompt me to consider important information that might be impacting today's encounter and assessment, information from prior notes written by myself or my colleagues may have been "brought forward" into today's note. My signature on this note, however, is an attestation that I personally performed the exam, history, and/or decision-making noted today, and, unless otherwise indicated, the interactions with patient, family, and staff as well as the review of records all occurred today. I also attest that the listed assessment and stated plan reflect my best clinical judgment today based on the combination of historical information, prior notes, and today's exam/ interactions. When time spent is documented, it refers only to time spent today by the signer, or if indicated, combined time spent today by collaborating physician/nurse practitioner. Nuris Rodriges MD May 08, 2016 16:35
[2016-05-09] VITALS (7 sets, daily range): BP systolic 151–176; BP diastolic 90–100; PULSE 72–115; RESP 18–20; TEMP 97.3–98.2; O2SAT 92–98
[2016-05-09] MEDS: RESP: ALBUTEROL 2.5 MG/IPRATROPIUM 0.5 MG NEB (SCH) INH ×4 (04:00→20:41)
[2016-05-09] MEDS: methylPREDNISolone SOD SUCC 125 MG/2 ML VIAL IVP SCH ×2 (05:05→08:36)
[2016-05-09] MEDS: INSULIN ASPART SUPPLEMENTAL SCALE SQ SCH ×4 (06:51→20:17)
[2016-05-09] MEDS: SODIUM CHLORIDE 0.9% FLUSH 10 ML FLUSH IV FLUSH SCH ×2 (08:34→20:15)
[2016-05-09] MEDS: BUDESONIDE-FORMOTEROL 80/4.5 MCG INHALER INH SCH ×2 (08:34→20:15)
[2016-05-09] MEDS: PANTOPRAZOLE SOD 40 MG DELAYED RELEASE TAB PO SCH (08:36)
[2016-05-09] MEDS: cefTRIAXone INJ 1,000 MG in SODIUM CHLORIDE 0.9% INJ 100 ML IV SCH (08:36)
[2016-05-09] MEDS: AZITHROMYCIN INJ 500 MG in SODIUM CHLOR 0.9% 250 ML INJ 250 ML IV SCH (11:03)
[2016-05-09] MEDS: ENOXAPARIN SODIUM 40 MG/0.4 ML SYRINGE SQ SCH (11:04)
[2016-05-09] MEDS: guaiFENesin/CODEINE SYRUP 200 MG/20 MG/10 ML CUP PO PRN ×2 (12:47→16:46)
--- NOTE | 2016-05-09 13:13 | HHI.PR ---
Subjective Remarks Patient seen and examined today. Patient still with cough. Patient was able to expectorate when wearing the room which does appear to be clear coloration. Patient is requesting that we continue Mucinex and Singulair. Notify patient that she needs to ask for the cough medicine with guaifenesin. Objective Vitals Vital Signs Date Time Temp Pulse Resp B/P Pulse Ox O2 Delivery O2 Flow Rate FiO2 05/09/16 11:10 91 Nasal Cannula 4.00 05/09/16 10:13 93 Nasal Cannula 4.00 05/09/16 08:00 97.3 72 18 162/94 98 05/09/16 00:00 97.8 97 20 154/90 92 05/08/16 20:00 90 Nasal Cannula 4.00 Humidified 05/08/16 20:00 98.2 97 20 127/80 90 05/08/16 19:57 92 Nasal Cannula 4.00 05/08/16 16:00 98.5 93 21 161/92 90 I/O 05/08/16 05/08/16 05/08/16 05/09/16 05/09/16 05/09/16 07:00 15:00 23:00 07:00 15:00 23:00 Intake Total 480 ml 750 ml 240 ml 60 ml Balance 480 ml 750 ml 240 ml 60 ml Intake Oral 480 ml 750 ml 240 ml 60 ml # Voids 2 5 2 3 # Bowel Movements 0 0 2 1 Result Diagram: 05/08/16 0635 05/07/16 0941 Objective Remarks GENERAL: Well-developed, well-nourished, in no acute distress. alert and orientated HEENT: Head is normocephalic without any lesions or masses noted. Facial features are symmetric. Eyes: Extraocular muscles are intact. Conjunctivae were clear. NECK: Supple without any masses. Trachea midline no deviation. No JVD, CARDIAC: Regular rhythm, regular rate. S1/S2 are heard. No murmurs gallops or rubs. LUNGS: Diminished breath sounds noted throughout, minimal wheeze. No rhonchi or rales. No use of accessory muscles on inspiration or expiration. ABDOMEN: Soft, nontender. Nondistended. Bowel sounds heard in all 4 quadrants. No organomegaly or masses. Negative rebound, negative guarding EXTREMITIES: No edema, pulses are equal bilaterally. No cyanosis or clubbing NEUROLOGY: Mood and affect appear appropriate. Cranial nerves II through XII grossly intact. Moving all extremities, speech is clear Urinary Catheter: No Vascular Central Line Catheter: No A/P Assessment and Plan Systemic inflammatory response syndrome: Resolved Patient presented with leukocytosis, tachycardia. No signs of infection at this time. Likely secondary to chronic obstructive pulmonary disease exacerbation. Influenza testing was negative, blood cultures are negative, chest x-ray was clear. Chronic obstructive pulmonary disease with acute exacerbation in a patient with chronic respiratory failure oxygen dependent: Likely end-stage lung disease Continue Solu-Medrol 60 mg every 6 hours, change to by mouth prednisone nebulizer treatments, Symbicort, Continue Rocephin and Zithromax. Change to by mouth Ceftin/Zithromax Continue O2 supplementation wean to maintain O2 sats greater than 92%. Continue Robitussin-AC for cough suppression Hyperglycemia: Patient does have history of hyperglycemia secondary to steroid use. Last hemoglobin A1c on 04/12/16 was 5.6. Accu-Cheks with sliding scale insulin. Chronic tobacco abuse Patient counseled extensively on smoking cessation. Notified her about her chronic respiratory failure that if she continues to smoke that she will require hospice consult in the next 1-2 visits because of end-stage lung disease. Prophylaxis: GI prevention Start Protonix secondary to steroid use. DVT prevention with Lovenox Palliative care: Patient does have end-stage lung disease, chronic respiratory failure requiring 4 L of oxygen. Discussed with the patient extensively hospice consult and felt that they can provide her, provide her with oxygen, help her remain stable incentive having recurrent exacerbations. She is reluctant because she is afraid that it may take her grandkids away from her. She is open to a palliative care consult in order to speak to a physician who can explain her condition, prognosis, services that can be offered to her via hospice. Patient did speak with palliative care and it was indicated that hospice consult has been requested. Discussed with hospice who indicates that the patient has accepted care at this time. They're requesting changing to by mouth medications and plan to discharge tomorrow with hospice. Written by Dimitri Stauffer PA-C, acting as scribe for Dr. Ward on 05/09/16 at 1530. The documentation accurately reflects the work and decisions performed face-to- face by Dr. Ward on 05/09/16 [id number] . Discharge Planning All or portions of this note were transcribed by helene Stauffer. I, Dr. Dayana Ward personally performed the history, physical exam, and medical decision making; and confirmed the accuracy of the information in the transcribed note. Dimitri Stauffer May 09, 2016 13:13 Daynaa Ward MD May 09, 2016 18:03
[2016-05-09] MEDS ORDERED: methylPREDNISolone SOD SUCC 125 MG/2 ML VIAL IV PUSH ONE (17:00)
[2016-05-09] MEDS ORDERED: cloNIDine HCL 0.1 MG TAB PO PRN (17:45)
[2016-05-09] MEDS: predniSONE 20 MG TAB PO SCH (20:16)
[2016-05-09] MEDS: CEFUROXIME AXETIL 500 MG TAB PO SCH (20:17)
[2016-05-10] VITALS: BP 138/88; PULSE 76; RESP 22; TEMP 98.1; O2SAT 95
[2016-05-10] MEDS: RESP: ALBUTEROL 2.5 MG/IPRATROPIUM 0.5 MG NEB (SCH) INH ×2 (04:18→09:31)
[2016-05-10] MEDS: INSULIN ASPART SUPPLEMENTAL SCALE SQ SCH ×2 (06:02→13:51)
[2016-05-10 08:00] VITALS: BP 169/97; PULSE 71; RESP 18; TEMP 97.1; O2SAT 95
[2016-05-10] MEDS: predniSONE 20 MG TAB PO SCH (08:45)
[2016-05-10] MEDS: BUDESONIDE-FORMOTEROL 80/4.5 MCG INHALER INH SCH (08:46)
[2016-05-10] MEDS: CEFUROXIME AXETIL 500 MG TAB PO SCH (08:46)
[2016-05-10] MEDS: PANTOPRAZOLE SOD 40 MG DELAYED RELEASE TAB PO SCH (08:46)
[2016-05-10] MEDS: SODIUM CHLORIDE 0.9% FLUSH 10 ML FLUSH IV FLUSH SCH (08:53)
[2016-05-10] MEDS ORDERED: AZITHROMYCIN 250 MG TAB PO SCH (09:00)
[2016-05-10] MEDS: guaiFENesin/CODEINE SYRUP 200 MG/20 MG/10 ML CUP PO PRN (09:14)
[2016-05-10 09:34] VITALS: O2SAT 94
--- NOTE | 2016-05-10 10:04 | HHI.PR ---
Subjective Remarks Patient sees examined today with Dr. Ward. Patient still with cough and phlegm production. Patient has been accepted to hospice who is arranging her home oxygen. Continued her medical care at home under their service. Objective Vitals Vital Signs Date Time Temp Pulse Resp B/P Pulse Ox O2 Delivery O2 Flow Rate FiO2 05/10/16 09:34 94 Nasal Cannula 4.00 05/10/16 08:00 97.1 71 18 169/97 95 05/10/16 04:00 05/10/16 00:00 98.1 76 22 138/88 95 05/09/16 20:51 97.8 91 20 176/99 92 05/09/16 20:41 96 Nasal Cannula 4.00 05/09/16 20:00 Nasal Cannula 4.00 05/09/16 16:00 98.2 100 18 162/100 92 05/09/16 12:00 98.0 115 18 151/95 93 05/09/16 11:10 91 Nasal Cannula 4.00 05/09/16 10:13 93 Nasal Cannula 4.00 I/O 05/09/16 05/09/16 05/09/16 05/10/16 05/10/16 05/10/16 06:59 14:59 22:59 06:59 14:59 22:59 Intake Total 60 ml 960 ml Balance 60 ml 960 ml Intake Oral 60 ml 600 ml IV Total 360 ml # Voids 3 3 3 # Bowel Movements 1 Result Diagram: 05/08/16 0635 05/07/16 0941 Objective Remarks GENERAL: Well-developed, well-nourished, in no acute distress. alert and orientated HEENT: Head is normocephalic without any lesions or masses noted. Facial features are symmetric. Eyes: Extraocular muscles are intact. Conjunctivae were clear. NECK: Supple without any masses. Trachea midline no deviation. No JVD, CARDIAC: Regular rhythm, regular rate. S1/S2 are heard. No murmurs gallops or rubs. LUNGS: Diminished breath sounds noted throughout, minimal wheeze, cleared with cough. No rhonchi or rales. No use of accessory muscles on inspiration or expiration. ABDOMEN: Soft, nontender. Nondistended. Bowel sounds heard in all 4 quadrants. No organomegaly or masses. Negative rebound, negative guarding EXTREMITIES: No edema, pulses are equal bilaterally. No cyanosis or clubbing NEUROLOGY: Mood and affect appear appropriate. Cranial nerves II through XII grossly intact. Moving all extremities, speech is clear Urinary Catheter: No Vascular Central Line Catheter: No A/P Assessment and Plan Systemic inflammatory response syndrome: Resolved Patient presented with leukocytosis, tachycardia. No signs of infection at this time. Likely secondary to chronic obstructive pulmonary disease exacerbation. Influenza testing was negative, blood cultures are negative, chest x-ray was clear. Chronic obstructive pulmonary disease with acute exacerbation in a patient with chronic respiratory failure oxygen dependent: end-stage lung disease Continue Solu-Medrol 60 mg every 6 hours, change to by mouth prednisone nebulizer treatments, Symbicort, Continue Rocephin and Zithromax. Change to by mouth Ceftin/Zithromax Continue O2 supplementation wean to maintain O2 sats greater than 92%. Continue Robitussin-AC for cough suppression Hyperglycemia: Patient does have history of hyperglycemia secondary to steroid use. Last hemoglobin A1c on 04/12/16 was 5.6. Accu-Cheks with sliding scale insulin. Chronic tobacco abuse Patient counseled extensively on smoking cessation. Notified her about her chronic respiratory failure that if she continues to smoke that she will require hospice consult in the next 1-2 visits because of end-stage lung disease. Prophylaxis: GI prevention Start Protonix secondary to steroid use. DVT prevention with Lovenox Palliative care: Patient does have end-stage lung disease, chronic respiratory failure requiring 4 L of oxygen. Discussed with the patient extensively hospice consult and felt that they can provide her, provide her with oxygen, help her remain stable incentive having recurrent exacerbations. She is reluctant because she is afraid that it may take her grandkids away from her. She is open to a palliative care consult in order to speak to a physician who can explain her condition, prognosis, services that can be offered to her via hospice. Patient did speak with palliative care and it was indicated that hospice consult has been requested. Discussed with hospice who indicates that the patient has accepted care at this time. They're requesting changing to by mouth medications and plan to discharge home with hospice. Written by Dimitri Stauffer PA-C, acting as scribe for Dr. Ward on 05/10/16 at 1225. The documentation accurately reflects the work and decisions performed face-to- face by Dr. Ward on 05/10/16 at 1225 All or portions of this note were transcribed by helene Stauffer. I, Dr. Dayana Ward personally performed the history, physical exam, and medical decision making; and confirmed the accuracy of the information in the transcribed note. Discharge Planning Discharge home with hospice care Dimitri Stauffer May 10, 2016 10:04 Dayana Ward MD May 10, 2016 18:20
[2016-05-10] MEDS ORDERED: IPRASOL INH (10:39)
[2016-05-10] MEDS ORDERED: ZITH250T PO (10:39)
[2016-05-10] MEDS ORDERED: PRED10PA2 PO (10:39)
--- NOTE | 2016-05-10 10:39 | HHI.DCPOC ---
Discharge Care Plan Diagnosis: (1) chronic respiratory failure, oxygen dependent COPD (2) Systemic inflammatory response syndrome Goals to Promote Your Health * To prevent worsening of your condition and complications * To maintain your health at the optimal level Directions to Meet Your Goals Take your medications as prescribed Follow your dietary instruction Follow activity as directed Keep your appointments as scheduled Take your immunizations and boosters as scheduled If your symptoms worsen call your PCP, if no PCP go to Urgent Care Center or Emergency Room Smoking is Dangerous to Your Health. Avoid second hand smoke Call the 24-hour hour crisis hotline for domestic abuse at Dimitri Stauffer May 10, 2016 10:39
--- NOTE | 2016-05-10 10:42 | HHI.DS ---
Discharge Summary Admission Date May 07, 2016 at 11:27 Discharge Date: May 10, 2016 Admitting Diagnosis copd exacerbation (1) Systemic inflammatory response syndrome ICD Code: R65.10 Diagnosis: Principal (2) Chronic respiratory failure with hypoxia ICD Code: J96.11 Diagnosis: Principal (3) COPD with acute exacerbation ICD Code: J44.1 Diagnosis: Principal (4) Leukocytosis ICD Code: D72.829 Diagnosis: Principal (5) Tobacco dependency ICD Code: F17.200 Diagnosis: Principal Procedures None Brief History - From Admission 65-year-old female with known history of chronic respiratory failure, chronic obstructive pulmonary disease, chronic tobacco use who presented to hospital because of cough, shortness of breath, dyspnea. The patient was just in the hospital beginning this month on 04/12/16 and was discharged on 04/13/16 for same symptoms. The patient indicates that she did use the medications are prescribed to her upon discharge. However when those were done and she went to Dr. Stern and was given a dose of Solu-Medrol in the office, however she was not given any other medications. Patient states that she feels that she has an infection in her lungs and she was concerned that she did not get any antibiotics by Dr. Stern. Patient states that over the last 3-4 days she's been having increased shortness of breath, coughing fits because her to get lightheaded, dizzy. She states that she is producing a green color phlegm. She indicates that she has a tightness in her chest whenever she tries to take a deep breath, without any radiation to the neck, back, shoulder, arms. She denied any nausea, vomiting, diaphoresis when the episode started. She does have some nausea today. She indicates that she coughed so much that she was told that she passed out by someone in the ER. Patient states that she still is smoking at home. Would not quantify how much she was smoking. Patient does smell of cigarettes. Patient is on oxygen at home at 4 L per nasal cannula. She does have a concentrator, however she does not have portable oxygen. She has been leaving the house, going to doctor's office without any oxygen. CBC/BMP: 05/08/16 0635 05/07/16 0941 Significant Findings Laboratory Tests Test 05/08/16 06:35 White Blood Count 11.1 TH/MM3 (4.0-11.0) Neutrophils (%) (Auto) 92.9 % (16.0-70.0) Lymphocytes (%) (Auto) 5.8 % (9.0-44.0) Neutrophils # (Auto) 10.4 TH/MM3 (1.8-7.7) Lymphocytes # (Auto) 0.6 TH/MM3 (1.0-4.8) Imaging Last Impressions Chest X-Ray 05/07/16 0926 Signed Impressions: Service Date/Time: Thursday, May 07, 2016 10:14 - CONCLUSION: 1. Chronic fibrotic changes bilaterally unchanged from the prior study. No acute pulmonary disease. Cruz Ramírez MD PE at Discharge GENERAL: Well-developed, well-nourished, in no acute distress. alert and orientated HEENT: Head is normocephalic without any lesions or masses noted. Facial features are symmetric. Eyes: Extraocular muscles are intact. Conjunctivae were clear. NECK: Supple without any masses. Trachea midline no deviation. No JVD, CARDIAC: Regular rhythm, regular rate. S1/S2 are heard. No murmurs gallops or rubs. LUNGS: Diminished breath sounds noted throughout, minimal wheeze, cleared with cough. No rhonchi or rales. No use of accessory muscles on inspiration or expiration. ABDOMEN: Soft, nontender. Nondistended. Bowel sounds heard in all 4 quadrants. No organomegaly or masses. Negative rebound, negative guarding EXTREMITIES: No edema, pulses are equal bilaterally. No cyanosis or clubbing NEUROLOGY: Mood and affect appear appropriate. Cranial nerves II through XII grossly intact. Moving all extremities, speech is clear Hospital Course 65-year-old female with known history of chronic respiratory failure on 4 L nasal cannula outpatient setting presented to hospital because of continued shortness of breath and dyspnea. Patient rather unfortunate female with end-stage lung disease in which she does not have financial means necessary to supply her self with portable oxygen, medications. Patient has followed up with Dr. Stern one visit and was given Solu-Medrol IM however, she states that she did not improve. Patient continued have shortness of breath and dyspnea. She still has not been able to afford any portable oxygen. So she has had worsening shortness of breath and dyspnea. Patient presented to hospital with significant COPD exacerbation, chronic respiratory failure, chronic hypoxia. It was discussed with her her medical condition and that she may benefit from hospice care who can supply her with medications, oxygen, treatment that she needs in order to survive. Patient was reluctant. Patient did undergo palliative care consultation and did agree with hospice care. Hospice evaluated the patient and she did accept hospice. Patient was continued in the hospital on Solu-Medrol, antibiotics, nebulizer treatments, O2 supplementation. Hospice care was arranged. Home oxygen was set up for the patient and was delivered to the hospital upon discharge. Patient discharged to hospice for further management care. Pt Condition on Discharge: Guarded Discharge Disposition: Hospice/ Home Discharge Time: > 30 minutes Discharge Instructions DIET: Follow Instructions for: Heart Healthy Diet Activities you can perform: Regular-No Restrictions Follow up Referrals: PCP Follow-up - 1 Week New Medications: Prednisone (48) 10 mg tab Dose Pack (Prednisone (48) 10 mg tab Dose Pack) 10 Mg Dspk 10 MG PO DIRECTED Inflammation #1 Ref 0 DSPK Azithromycin (Zithromax) 250 Mg Tab 500 MG PO DAILY COPD #5 TAB Ipratropium-Albuterol Neb (Duoneb) 0.5-2.5 Mg/3 Ml Neb 1 AMPULE INH Q6HR NEB COPD Days 30 ML Continued Medications: Budesonide-Formoterol Inh (Symbicort Inh) 80-4.5 Mcg/Act Aero 1 PUFF INH Q12HR Asthma Management #1 Ref 0 INHALER ([oxygen]) 4 LITER NA CONTINUOUS Discontinued Medications: Albuterol Neb (Albuterol Neb) 0.63 Mg/3 Ml Neb Unknown Dose NEB Q4HR NEB PRN SHORTNESS OF BREATH #25 Ref 0 NEBULE Additional Information Written by Dimitri Stauffer PA-C, acting as scribe for Dr. Ward on 05/10/16 at 1225. The documentation accurately reflects the work and decisions performed face-to- face by Dr. Ward on 05/10/16 at 1225. All or portions of this note were transcribed by scribe Dimitri Stauffer. I, Dr. Dayana Ward personally performed the history, physical exam, and medical decision making; and confirmed the accuracy of the information in the transcribed note. Authenticated by Dr. Dayana Ward on 05/12/16 at 08:23. Dimitri Stauffer May 10, 2016 10:42 Dayana Ward MD May 12, 2016 08:23
[2016-05-10 12:00] VITALS: BP 169/92; PULSE 83; RESP 20; TEMP 97.7; O2SAT 92
[2016-05-10] MEDS: ENOXAPARIN SODIUM 40 MG/0.4 ML SYRINGE SQ SCH (12:00)
[2016-05-10] MEDS ORDERED: GUAI100S5 PO (12:22)
== END 2016-05-10 14:27 | disposition hospice, home (50) | DRG 191 ==
LOC: PHED 09:06 → PHEDA 11:27 → PHEDH 15:25 → PH3B 18:30
PROVIDERS: ADMIT Family Medicine; ATTEND Family Medicine
DX: J44.1 Chronic obstructive pulmonary disease with (acute) exacerbation (principal); J96.11 Chronic respiratory failure with hypoxia; Z99.81 Dependence on supplemental oxygen; D72.829 Elevated white blood cell count, unspecified; J45.909 Unspecified asthma, uncomplicated; K21.9 Gastro-esophageal reflux disease without esophagitis; T38.0X5A Adverse effect of glucocorticoids and synthetic analogues, initial encounter; F17.210 Nicotine dependence, cigarettes, uncomplicated; F41.9 Anxiety disorder, unspecified; Z51.5 Encounter for palliative care
CPT/HCPCS: 71020; 80048; 82948; 83605; 85025; 87040; 87804; 94150; 94640; 94664; 96374; J0456; J0696; J1650; J1815; J2930; J7030; J7050; J7512; J7613

== ENCOUNTER 2016-06-22 21:42 | Emergency (ER) | payer MEDICAID, OTHER ==
[~2016-06-22] VITALS: Ht 170.2 cm; Wt 90.5 kg
[~2016-06-22 21:42] MED LIST changes: -ALBU6.7H INH; +GUAI100S5 PO; -MECL-62 PO; -MONT10TA4 PO; +PRED10PA2 PO; -PRED5PAK PO; -VENTAER INH; +ZITH250T PO; -ZITH500T PO
[2016-06-22 21:49] VITALS: BP 141/89; PULSE 120; RESP 24; TEMP 98.2; O2SAT 94
--- NOTE | 2016-06-22 21:53 | PD ---
HPI Chief Complaint: puncture wound left middle finger. Time Seen by Provider: 21:53 Travel History International Travel<30 days: No Contact w/Intl Traveler<30days: No Traveled to known affect area: No History of Present Illness HPI 65-year-old female with history of O2 dependent COPD resists emergency Department with a catfish bindu through the distal left third finger. 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 The bindu is still present in the left distal third finger. Patient states pain is 10 over 10. She is up-to-date on her tetanus. She has no known drug allergies. PFSH Past Medical History Asthma: Yes Heart Rhythm Problems: No Cancer: No Cardiovascular Problems: No High Cholesterol: No Chest Pain: No Congestive Heart Failure: No COPD: Yes Coronary Artery Disease: No Diabetes: Yes Diminished Hearing: No Endocrine: No Gastrointestinal Disorders: Yes GERD: Yes Genitourinary: No Hiatal Hernia: No Hypertension: No Immune Disorder: No Implanted Vascular Access Dvce: No Kidney Stones: No Musculoskeletal: No Neurologic: No Psychiatric: No Reproductive: No Respiratory: Yes (COPD) Renal Failure: No Sleep Apnea: No Thyroid Disease: No Ulcer: No Menopausal: Yes Past Surgical History Abdominal Surgery: No AICD: No Cardiac Surgery: No Ear Surgery: No Endocrine Surgery: No Eye Surgery: No Genitourinary Surgery: No Gynecologic Surgery: No Neurologic Surgery: No Oral Surgery: No Pacemaker: No Thoracic Surgery: No Other Surgery: Yes Social History Alcohol Use: No Tobacco Use: Yes (2 ciarettes to 1/2 PPD) Substance Use: No Allergies-Medications (Allergen,Severity, Reaction): Coded Allergies: No Known Allergies (Unverified , 06/22/16) Reported Meds & Prescriptions Reported Meds & Active Scripts Active Duoneb (Ipratropium-Albuterol Neb) 0.5-2.5 Mg/3 Ml Neb 1 Ampule INH Q6HR NEB 30 Days Symbicort Inh (Budesonide/Formoterol Fumarate) 80-4.5 Mcg/Act Aero 1 Puff INH Q12HR Reported Dexamethasone 2 Mg Tab 2 Mg PO DAILY [oxygen] 4 Liter NA CONTINUOUS Review of Systems Except as stated in HPI: all other systems reviewed are Neg General / Constitutional: No: Fever Eyes: No: Visual changes HENT: No: Headaches Cardiovascular: No: Chest Pain or Discomfort Respiratory: No: Shortness of Breath Gastrointestinal: No: Abdominal Pain Genitourinary: No: Dysuria Musculoskeletal: No: Pain Skin: No Rash Neurologic: No: Weakness Psychiatric: No: Depression Endocrine: No: Polydipsia Hematologic/Lymphatic: No: Easy Bruising Physical Exam Narrative GENERAL: Patient appears in moderate distress. SKIN: Warm and dry. Normal color. Normal turgor. Patient has 2 cm foreign body consisting of a catfish spine in the distal left third digit which is to the lateral side does not involve the nailbed. The foreign body is through and through. It does not appear to in fringe on the bone or tendon as well. It is not near a joint. HEAD: Atraumatic. Normocephalic. EYES: Pupils equal and round. No scleral icterus. No injection or drainage. ENT: No nasal bleeding or discharge. Mucous membranes pink and moist. Pharynx is clear. NECK: Trachea midline. Supple and nontender. CARDIOVASCULAR: Regular rate and rhythm. RESPIRATORY: No accessory muscle use. Clear to auscultation. Breath sounds equal bilaterally. MUSCULOSKELETAL: Extremities without clubbing, cyanosis, or edema. No obvious deformities. NEUROLOGICAL: Awake and alert. No obvious cranial nerve deficits. Motor grossly within normal limits. Five out of 5 muscle strength in the arms and legs. Normal speech. PSYCHIATRIC: Appropriate mood and affect; insight and judgment normal. Data Data Last Documented VS Vital Signs Date Time Temp Pulse Resp B/P Pulse Ox O2 Delivery O2 Flow Rate FiO2 06/22/16 22:14 Nasal Cannula 3 06/22/16 22:13 100 22 95 06/22/16 21:49 98.2 Orders Bupivacaine Pf 0.5% Inj (Marcaine Pf 0.5 (06/22/16 22:00) Doxycycline (Vibramycin) (06/22/16 22:00) [facility] Medical Decision Making Medical Screen Exam Complete: Yes Emergency Medical Condition: Yes Differential Diagnosis Puncture wound left third digit. Foreign body soft tissue. Marine animal injury. Narrative Course Patient is in moderate pain but medically stable. Digital block is placed up bupivacaine 0.5 mg with good anesthetic effect. Foreign body removal is performed. See procedure note. Patient is given doxycycline 100 mg by mouth now. Patient's finger was soaked in Betadine saline solution for 10 minutes. Patient will be continued on doxycycline 100 mg twice a day 7 days. Patient given tramadol 50 mg one every 6 hours when necessary pain #20. Patient is to soak it twice a day and watch for worsening signs of cellulitis. Patient follow with her primary care physician or return to emergency Department with any worsening symptoms as discussed. Procedures Procedure Narrative Foreign body removal LOCATION: Distal left third finger REPAIR: The area of the laceration was prepped with Betadine and sterilely draped. Digital block of 2.5 mL 0.5 bupivacaine placed with good anesthetic effect. The wound was copiously irrigated and explored without evidence of foreign body, tendon injury or neurovascular injury. Foreign body was removed with forceps without difficulty. The area was was soaked in Betadine and sterile water for 10 minutes. A sterile dressing was applied. The patient was advised to keep the dressing clean and dry. Patient tolerated the procedure well. Diagnosis Primary Impression: Puncture wound of left hand with foreign body Qualified Code: S61.442A - Puncture wound of left hand with foreign body, initial encounter Additional Impression: Contact with marine animal as cause of accidental injury Qualified Code: W56.89XA - Contact with marine animal as cause of accidental injury, initial encounter Referrals: Primary Care Physician Patient Instructions: General Instructions, Marine Animal Bite or Sting (ED), Puncture Wound (ED) Additional Instructions: Digital block is placed up bupivacaine 0.5 mg with good anesthetic effect. Foreign body removal is performed. Patient is given doxycycline 100 mg by mouth now. Patient's finger was soaked in Betadine saline solution for 10 minutes. Patient will be continued on doxycycline 100 mg twice a day 7 days. Patient given tramadol 50 mg one every 6 hours when necessary pain #20. Patient is to soak it twice a day and watch for worsening signs of cellulitis. Patient follow with her primary care physician or return to emergency Department with any worsening symptoms as discussed. Med/Other Pt SpecificInfo: Prescription(s) given, Wound Care Scripts Tramadol 50 Mg Tab50 Mg PO Q6H PRN (PAIN) #20 TAB Prov:Jese Arce MD 06/22/16 Doxycycline Hyclate 100 Mg [id number] Mg PO BID 7 Days Ref 0 Prov:Jese Arce MD 06/22/16 Disposition: 01 DISCHARGE HOME Condition: Stable Danish Eaton. PA June 22, 2016 21:53
[2016-06-22] MEDS ORDERED: BUPIVACAINE HCL PF 0.5% 10 ML VIAL INFIL ONE (22:00)
[2016-06-22] MEDS ORDERED: DOXYCYCLINE HYCLATE 100 MG CAP PO ONE (22:00)
[2016-06-22] MEDS ORDERED: DEXA2TAB PO (22:05)
[2016-06-22 22:13] VITALS: BP 140/85; PULSE 100; RESP 22; O2SAT 95
[2016-06-22] MEDS ORDERED: DOXY100C PO (22:22)
[2016-06-22] MEDS ORDERED: TRAM50TA PO (22:22)
== END 2016-06-22 22:47 | disposition home or self-care (01) ==
LOC: PHEFT 21:42
DX: S61.442A Puncture wound with foreign body of left hand, initial encounter (principal); E11.9 Type 2 diabetes mellitus without complications; Z72.0 Tobacco use; Z99.81 Dependence on supplemental oxygen; Z87.09 Personal history of other diseases of the respiratory system; Z87.19 Personal history of other diseases of the digestive system; W56.59XA Other contact with other fish, initial encounter
CPT/HCPCS: 10120

== ENCOUNTER 2016-07-06 17:17 | Emergency (ER) | payer MEDICAID, OTHER ==
[~2016-07-06] VITALS: Ht 167.6 cm; Wt 89.0 kg
[~2016-07-06 17:17] MED LIST changes: +DEXA2TAB PO; +DOXY100C PO; -GUAI100S5 PO; -PRED10PA2 PO; +TRAM50TA PO; -ZITH250T PO
[2016-07-06 17:22] VITALS: BP 164/100; PULSE 112; RESP 20; TEMP 97.9; O2SAT 96
[2016-07-06 17:40] VITALS: RESP 20; O2SAT 95
[2016-07-06] MEDS ORDERED: ONDANSETRON HCL 4 MG/2 ML VIAL IV PUSH ONE (17:45)
[2016-07-06] MEDS ORDERED: KETOROLAC TROMETHAMINE 30 MG/ML (IVP) VIAL IV PUSH ONE (17:45)
[2016-07-06] MEDS ORDERED: SODIUM CHLORIDE 0.9% FLUSH 10 ML FLUSH IVF PRN (17:45)
--- NOTE | 2016-07-06 17:54 | PD ---
HPI Chief Complaint: Respiratory Symptoms Time Seen by Provider: 17:35 Travel History International Travel<30 days: No Contact w/Intl Traveler<30days: No Traveled to known affect area: No History of Present Illness HPI Patient is a 65-year-old female presents emergency department for evaluation of nausea and vomiting and abdominal pain. Patient states that she tried to take her anxiety medicine for her COPD and throughout this morning. She states she' s also been having pain in her epigastrium up into her low back. Patient states most of her vomiting has been dry heaves and some of what she's eaten. Patient states she is at her baseline level of shortness of breath and uses oxygen at home. Denies any diarrhea denies any hemoptysis denies any hematemesis denies any blood in the stool or dark stools. Denies any fever, denies any chest pain. PFSH Past Medical History Asthma: Yes Heart Rhythm Problems: No Cancer: No Cardiovascular Problems: No High Cholesterol: No Chest Pain: No Congestive Heart Failure: No COPD: Yes Coronary Artery Disease: No Diabetes: Yes Diminished Hearing: No Endocrine: No Gastrointestinal Disorders: Yes GERD: Yes Genitourinary: No Hiatal Hernia: No Hypertension: No Immune Disorder: No Implanted Vascular Access Dvce: No Kidney Stones: No Musculoskeletal: No Neurologic: No Psychiatric: No Reproductive: No Respiratory: Yes (COPD) Immunizations Current: Yes Renal Failure: No Sleep Apnea: No Thyroid Disease: No Ulcer: No Menopausal: Yes Past Surgical History Abdominal Surgery: No AICD: No Cardiac Surgery: No Ear Surgery: No Endocrine Surgery: No Eye Surgery: No Genitourinary Surgery: No Gynecologic Surgery: No Neurologic Surgery: No Oral Surgery: No Pacemaker: No Thoracic Surgery: No Other Surgery: Yes Social History Alcohol Use: No Tobacco Use: No (quit 2 mths) Substance Use: No Allergies-Medications (Allergen,Severity, Reaction): Coded Allergies: No Known Allergies (Unverified , 07/06/16) Reported Meds & Prescriptions Reported Meds & Active Scripts Active Cephalexin 500 Mg Cap 500 Mg PO Q6H 7 Days Duoneb (Ipratropium-Albuterol Neb) 0.5-2.5 Mg/3 Ml Neb 1 Ampule INH Q6HR NEB 30 Days Symbicort Inh (Budesonide/Formoterol Fumarate) 80-4.5 Mcg/Act Aero 1 Puff INH Q12HR Reported Dexamethasone 4 Mg Tab 4 Mg PO DAILY Meclizine (Meclizine HCl) 12.5 Mg Tab 12.5 Mg PO TID PRN Senokot S (Sennosides-Docusate Sodium) 8.6-50 Mg Tab 1-2 Tab PO DAILY PRN Omeprazole 20 Mg Tab 20 Mg PO DAILY PRN Nystop Topical (Nystatin Topical) 100,000 Unit/Gm Powd 1 Applic TOPICAL Q12HR Lorazepam 0.5 Mg Tab 0.5 Mg PO Q6H PRN [oxygen] 2 Liter NA CONTINUOUS Review of Systems Except as stated in HPI: all other systems reviewed are Neg Physical Exam Narrative GENERAL: Well-developed well-nourished no apparent distress, nasal cannula oxygen on. SKIN: Focused skin assessment warm/dry. HEAD: Atraumatic. Normocephalic. EYES: Pupils equal and round. No scleral icterus. No injection or drainage. ENT: No nasal bleeding or discharge. Mucous membranes pink and moist. NECK: Trachea midline. No JVD. CARDIOVASCULAR: Regular rate and rhythm. No murmur appreciated. RESPIRATORY: No accessory muscle use. Clear to auscultation. Breath sounds equal bilaterally. GASTROINTESTINAL: Abdomen soft, moderately tender in the right upper quadrant, no rebound no percussive tenderness. Toro sign is negative. moderately distended. Hepatic and splenic margins not palpable. MUSCULOSKELETAL: No obvious deformities. No clubbing. No cyanosis. No edema. NEUROLOGICAL: Awake and alert. No obvious cranial nerve deficits. Motor grossly within normal limits. Normal speech. PSYCHIATRIC: Appropriate mood and affect; insight and judgment normal. Data Data Last Documented VS Vital Signs Date Time Temp Pulse Resp B/P Pulse Ox O2 Delivery O2 Flow Rate FiO2 07/06/16 22:16 83 20 123/84 97 Nasal Cannula 2 07/06/16 21:10 97.9 Orders Electrocardiogram (07/06/16 17:43) Complete Blood Count With Diff (07/06/16 17:43) Comprehensive Metabolic Panel (07/06/16 17:43) Magnesium (Mg) (07/06/16 17:43) Prothrombin Time / Inr (Pt) (07/06/16 17:43) Act Partial Throm Time (Ptt) (07/06/16 17:43) Troponin I (07/06/16 17:43) Lipase (07/06/16 17:43) Chest, Single Ap (07/06/16 17:43) Ecg Monitoring (07/06/16 17:43) Iv Access Insert/Monitor (07/06/16 17:43) Oximetry (07/06/16 17:43) Oxygen Administration (07/06/16 17:43) Sodium Chloride 0.9% Flush (Ns Flush) (07/06/16 17:45) Cta Thor Abd Aorta W Iv C W3d (07/06/16 17:43) Ketorolac Inj (Toradol Inj) (07/06/16 17:45) Ondansetron Inj (Zofran Inj) (07/06/16 17:45) Iohexol 350 Inj (Omnipaque 350 Inj) (07/06/16 19:05) Us Abdomen Gallbladder (07/06/16 ) Lactic Acid (07/06/16 19:57) Urinalysis - C+S If Indicated (07/06/16 21:06) Urine Culture (07/06/16 21:17) Labs Laboratory Tests Test 07/06/16 07/06/16 07/06/16 17:55 20:09 21:17 White Blood Count 12.1 TH/MM3 Red Blood Count 4.96 MIL/MM3 Hemoglobin 14.6 GM/DL Hematocrit 43.8 % Mean Corpuscular Volume 88.4 FL Mean Corpuscular Hemoglobin 29.5 PG Mean Corpuscular Hemoglobin 33.4 % Concent Red Cell Distribution Width 15.6 % Platelet Count 141 TH/MM3 Mean Platelet Volume 9.0 FL Neutrophils (%) (Auto) 74.0 % Lymphocytes (%) (Auto) 20.9 % Monocytes (%) (Auto) 3.6 % Eosinophils (%) (Auto) 0.9 % Basophils (%) (Auto) 0.6 % Neutrophils # (Auto) 9.0 TH/MM3 Lymphocytes # (Auto) 2.5 TH/MM3 Monocytes # (Auto) 0.4 TH/MM3 Eosinophils # (Auto) 0.1 TH/MM3 Basophils # (Auto) 0.1 TH/MM3 CBC Comment DIFF FINAL Differential Comment Prothrombin Time 10.2 SEC Prothromb Time International 0.9 RATIO Ratio Activated Partial 20.8 SEC Thromboplast Time Sodium Level 141 MEQ/L Potassium Level 3.9 MEQ/L Chloride Level 103 MEQ/L Carbon Dioxide Level 29.8 MEQ/L Anion Gap 8 MEQ/L Blood Urea Nitrogen 15 MG/DL Creatinine 0.74 MG/DL Estimat Glomerular Filtration 79 ML/MIN Rate Random Glucose 275 MG/DL Calcium Level 8.3 MG/DL Magnesium Level 2.0 MG/DL Total Bilirubin 0.5 MG/DL Aspartate Amino Transf 94 U/L (AST/SGOT) Alanine Aminotransferase 166 U/L (ALT/SGPT) Alkaline Phosphatase 214 U/L Troponin I LESS THAN 0.02 NG/ML Total Protein 5.7 GM/DL Albumin 2.7 GM/DL Lipase 285 U/L Lactic Acid Level 2.1 mmol/L Urine Color YELLOW Urine Turbidity MOD Urine pH 5.5 Urine Specific [place] 1.026 Urine Protein TRACE mg/dL Urine Glucose (UA) 1000 OR GREATER mg/dL Urine Ketones NEG mg/dL Urine Occult Blood LARGE Urine Nitrite POS Urine Bilirubin NEG Urine Leukocyte Esterase SMALL Urine RBC 25-49 /hpf Urine WBC 50-99 /hpf Urine WBC Clumps MOD Urine Squamous Epithelial 0-5 /hpf Cells Urine Bacteria MOD /hpf Urine Mucus OCC /lpf Microscopic Urinalysis Comment CULTURE INDICATED MDM Medical Decision Making Medical Screen Exam Complete: Yes Emergency Medical Condition: Yes Interpretation(s) EKG shows normal sinus rhythm normal axis normal R-wave progression. No concerning ST-T changes. Intervals within normal limits. This is a normal EKG. Differential Diagnosis AAA, ACS is unlikely, VT seems unlikely, cholecystitis, pancreatitis, gastritis. Narrative Course Patient was roomed in emergency department, she has symptoms suggests cholecystitis is the main cause, however with her abdominal pain rating upper back into her thoracic region aortic aneurysm and dissection need to be considered. Basic labs are reassuring. The patient was sent for CAT scan and ultrasound: Last 24 hours Impressions Chest X-Ray [id number] Signed Impressions: Service Date/Time: Wednesday, July 06, 2016 18:24 - CONCLUSION: 1. Bibasilar atelectasis. 2. No acute focal alveolar consolidation or pulmonary edema. Reynaldo Moctezuma MD Aorta CTA [id number] Signed Impressions: Service Date/Time: Wednesday, July 06, 2016 18:53 - CONCLUSION: 1. No aortic aneurysm or dissection. 2. Emphysematous changes and scattered fibrotic scarring/atelectasis bilaterally. 3. 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 4. Cholelithiasis. 5. Uncomplicated sigmoid diverticulosis. 6. 16 mm left renal cyst. 7. Mild degenerative changes and scoliosis of the thoracolumbar spine are noted. Reynaldo Moctezuma MD Gall Bladder Ultrasound 07/06/16 0000 Signed Impressions: Service Date/Time: Wednesday, July 06, 2016 19:47 - CONCLUSION: 1. Cholelithiasis. 2. Enlarged fatty liver. Reynaldo Moctezuma MD Patient was reassessed by me during her ultrasound and the hospice nurses arrived. Patient did not initially volunteer that she is on hospice for COPD. The nurse stated that she tried to meet the patient at home prior to coming in. I discussed results with the patient including the "thrombus" in the aorta. This thrombus was then discussed with Dr. Liang of vascular surgery who states this is more consistent with an atherosclerotic plaque. There is no indication for anticoagulation at this time. The patient is feeling much more comfortable on reassessment after discussion with Dr. Liang. I discussed with her that my impression is that her pain is likely coming from biliary colic. After extensive conversation with the patient regarding her COPD status it may benefit for her for symptomatic management alone. At this time there is no indication for emergent surgical consult on the patient is stable for discharge. I recommend that if she wants to speak with the surgeon I would happily refer her and she will have the referral for now and decide later. At this time she is feeling well enough to go home we did discuss briefly the possibly of her going to the hospice care center and she declined. Discussed symptomatic management and return to ED criteria. Diagnosis Primary Impression: Biliary colic Additional Impressions: Atherosclerotic plaque UTI (urinary tract infection) Qualified Code: N30.00 - Acute cystitis without hematuria Referrals: Danish Torres MD Additional Instructions: Take aspirin 81 mg daily. Consider follow-up with Dr. Correia for further treatment of your gallbladder. Avoid fatty foods. Med/Other Pt SpecificInfo: Prescription(s) given Scripts Cephalexin 500 Mg [id number] Mg PO Q6H 7 Days Ref 0 Prov:Reynaldo Martinez MD 07/06/16 Disposition: DISCHARGE HOME Condition: Stable Reynaldo Martinez MD July 06, 2016 17:54
[2016-07-06 18:12] LABS: BASOPHIL # 0.1 TH/MM3 (0-0.2); BASOPHIL % 0.6 % (0.0-2.0); EOSINOPHIL # 0.1 TH/MM3 (0-0.4); EOSINOPHIL % 0.9 % (0.0-4.0); HEMATOCRIT 43.8 % (35.0-46.0); LYMPH % 20.9 % (9.0-44.0); LYMPHOCYTE # 2.5 TH/MM3 (1.0-4.8); MEAN CELL VOLUME 88.4 FL (80.0-100.0); MEAN CORPUSCULAR HEMOGLOBIN 29.5 PG (27.0-34.0); MEAN CORPUSCULAR HGB CONC 33.4 % (32.0-36.0); MONO % 3.6 % (0.0-8.0); PLATELET COUNT 141 TH/MM3 (150-450); RED BLOOD COUNT 4.96 MIL/MM3 (4.00-5.30); RED CELL DISTRIBUTION WIDTH 15.6 % (11.6-17.2); WHITE BLOOD COUNT 12.1 TH/MM3 (4.0-11.0)
[2016-07-06] MEDS ORDERED: LORA-373 PO (18:13)
[2016-07-06] MEDS ORDERED: DEXA4TAB PO (18:13)
[2016-07-06] MEDS ORDERED: MECL12.574 PO (18:13)
[2016-07-06] MEDS ORDERED: SENN1TAB17 PO (18:13)
[2016-07-06] MEDS ORDERED: OMEP20TA PO (18:13)
[2016-07-06] MEDS ORDERED: NYST10007 TOPICAL (18:13)
[2016-07-06 18:21] LABS: CHLORIDE 103 MEQ/L (98-107); POTASSIUM 3.9 MEQ/L (3.5-5.1); SODIUM (NA) 141 MEQ/L (136-145)
[2016-07-06 18:24] LABS: ANION GAP 8 MEQ/L (5-15); BICARBONATE 29.8 MEQ/L (21.0-32.0)
[2016-07-06 18:25] LABS: BLOOD UREA NITROGEN 15 MG/DL (7-18)
[2016-07-06 18:27] LABS: ALT (GPT) 166 U/L (10-53); AST (GOT) 94 U/L (15-37)
[2016-07-06 18:28] LABS: GLOMERULAR FILTRATION RATE 79 ML/MIN (>89)
[2016-07-06 18:29] LABS: TOTAL BILIRUBIN ADULT 0.5 MG/DL (0.2-1.0)
[2016-07-06 18:30] LABS: ALKALINE PHOSPHATASE 214 U/L (45-117); HEMO FLAGS DIFF FINAL
[2016-07-06 18:32] LABS: APTT (PATIENT) 20.8 SEC (24.3-30.1); INTERNATIONAL NORMALIZED RATIO 0.9 RATIO; PROTHROMBIN TIME - PATIENT 10.2 SEC (9.8-11.6)
--- NOTE | 2016-07-06 18:57 | RADHPO ---
EXAM DATE/TIME: 07/06/2016 18:24 [facility] COMPARISON: CHEST SINGLE AP, April 11, 2016, 19:51. INDICATIONS : Short of breath, cough, chest pains MEDICAL HISTORY : Chronic obstructive pulmonary disease. SURGICAL HISTORY : None. ENCOUNTER: Initial ACUITY: 3 days PAIN SCORE: 10/10 LOCATION: Bilateral chest FINDINGS: Bibasilar atelectasis is noted. The heart is stable. The pulmonary vascular pattern is normal. CONCLUSION: 1. Bibasilar atelectasis. 2. No acute focal alveolar consolidation or pulmonary edema. Reynaldo Moctezuma MD on July 06, 2016 at 18:50 Board Certified Radiologist. This report was verified electronically.
[2016-07-06] MEDS ORDERED: IOHEXOL 350 MG/ML 10 ML VIAL (for RAD DIAG) IV ONE (19:05)
--- NOTE | 2016-07-06 19:53 | RADHPO ---
EXAM DATE/TIME: 07/06/2016 18:53 [facility] COMPARISON: CT ABDOMEN & PELVIS W/O CONTRAST, October 23, 2015, 19:23. INDICATIONS : Epigastric pain radiating to lower back area. IV CONTRAST: 95 cc Omnipaque 350 (iohexol) IV RADIATION DOSE: 20.77 CTDIvol (mGy) MEDICAL HISTORY : Chronic obstructive pulmonary disease. Gastroesophageal reflux disease. Diabetes. SURGICAL HISTORY : Orthopedic surgery. ENCOUNTER: Initial ACUITY: 2 days PAIN SCALE: 5/10 LOCATION: Bilateral upper quadrant TECHNIQUE: Volumetric scanning was performed using a multi-row detector CT scanner. The data was post processed with a variety of visualization algorithms including full volume maximum intensity projection, multi -planar sliding thin slab reformation, curved planar reformation, and surface rendering techniques. Using automated exposure control and adjustment of the mA and/or kV according to patient size, radiat ion dose was kept as low as reasonably achievable to obtain optimal diagnostic quality images. FINDINGS: LUNGS: Emphysematous changes as well as scattered fibrotic scarring and/or atelectasis are noted bilaterally . There is no consolidation or pneumothorax. No concerning pulmonary nodule is visualized. No pleur al fluid is present. MEDIASTINUM: No abnormally enlarged lymph nodes by CT criteria. No axillary or hilar abnormalities are identified. ABDOMEN: The liver and spleen are free of focal defects. The gallbladder contains multiple gallstones. The [place] demonstrate no abnormality. The adrenal glands are normal. The kidneys demonstrate no evidence of solid renal mass or hydronephrosis. 16 mm left renal cyst is noted. No free fluid or abdominal mas ses are identified. No para-aortic adenopathy is seen. The appendix is normal. Uncomplicated sigmoid diverticulosis is noted. PELVIS: No evidence of free fluid or pelvic mass. No abnormally enlarged inguinal or retroperitoneal lymph no lobo are present. The bladder is unremarkable. THORACIC AORTA: The thoracic aortic root is normal with normal branching of the great vessels. There is no evidence of aneurysm or dissection. ABDOMINAL AORTA: The aorta is normal in caliber without aneurysm or dissection. The renal arteries are patent bilater ally. The proximal celiac and superior mesenteric arteries are patent and normal in diameter. The he patic artery arises directly from the aorta as does the left gastric artery. Mild focal eccentric thr ombus is noted within the abdominal aorta posteriorly at the level of the superior mesenteric artery. PELVIC VESSELS: The internal iliac and external iliac vessels are patent without aneurysm or stenosis. CONCLUSION: 1. No aortic aneurysm or dissection. 2. Emphysematous changes and scattered fibrotic scarring/atelectasis bilaterally. 3. 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 4. Cholelithiasis. 5. Uncomplicated sigmoid diverticulosis. 6. 16 mm left renal cyst. 7. Mild degenerative changes and scoliosis of the thoracolumbar spine are noted. Reynaldo Moctezuma MD on July 06, 2016 at 19:42 Board Certified Radiologist. This report was verified electronically.
[2016-07-06 20:10] VITALS: BP 131/84; PULSE 105; RESP 20; O2SAT 96
--- NOTE | 2016-07-06 20:19 | RADHPO ---
EXAM DATE/TIME: 07/06/2016 19:47 [facility] COMPARISON: CTA THORACIC ABDOMINAL AORTA W 3D RECON, July 06, 2016, 18:53. INDICATIONS : Abdominal pain, nausea and vomiting. MEDICAL HISTORY : Chronic obstructive pulmonary disease. Diabetic. SURGICAL HISTORY : None. ENCOUNTER: Subsequent ACUITY: 1 day PAIN SCORE: 4/10 LOCATION: Right upper quadrant MEASUREMENTS: LIVER: 19.6 cm length COMMON DUCT: 4 mm RIGHT KIDNEY: 11.7 x 5.9 x 5.5 cm FINDINGS: LIVER: The liver is enlarged and demonstrates fatty infiltration without focal lesion or ductal dilatation. COMMON DUCT: No intraluminal mass or stone visualized. GALLBLADDER: Gallstones are noted. No pericholecystic fluid, sonographic Toro's sign or wall thickening is noted . PANCREAS: The visualized portions are within normal limits. RIGHT KIDNEY: No evidence of hydronephrosis, stone, or mass. CONCLUSION: 1. Cholelithiasis. 2. Enlarged fatty liver. Reynaldo Moctezuma MD on July 06, 2016 at 20:15 Board Certified Radiologist. This report was verified electronically.
[2016-07-06 21:10] VITALS: BP 131/86; PULSE 103; RESP 20; TEMP 97.9; O2SAT 97
--- NOTE | 2016-07-06 21:24 | EKG ---
Date Performed: 07/06/2016 Time Performed: 18:06:28 PTAGE: 65 years EKG: Sinus rhythm Normal ECG COMPARED TO PRIOR ELECTROCARDIOGRAM, rate has slowed. PREVIOUS TRACING : 04/11/2016 19.46 DOCTOR: Dorian Hardy Interpretating Date/Time 07/06/2016 21:23:30
[2016-07-06 21:47] LABS: BLOOD, URINE LARGE (NEG); KETONE, URINE NEG (NEG); PH, URINE 5.5 (5.0-8.5)
[2016-07-06 21:57] LABS: GLUCOSE,URINE 1000 OR GREATER mg/dL (NEG); NITRITE,URINE POS (NEG)
[2016-07-06 22:00] LABS: URINE COLOR YELLOW (YELLW/STRAW)
[2016-07-06 22:02] LABS: MUCUS URINE OCC /lpf (OCC); SQUAMOUS EPITHELIAL CELL URINE 0-5 /hpf (0-5)
[2016-07-06 22:03] LABS: BACTERIA, URINE MOD /hpf; COMMENT (UR) CULTURE INDICATED; CULTURE IF INDICATED CULTURE INDICATED
[2016-07-06] MEDS ORDERED: CEPH500C PO ×2 (22:10→22:19)
[2016-07-06 22:16] VITALS: BP 123/84; PULSE 83; RESP 20; O2SAT 97
== END 2016-07-06 22:27 | disposition home or self-care (01) ==
LOC: PHED 17:17
DX: N30.00 Acute cystitis without hematuria (principal); J44.9 Chronic obstructive pulmonary disease, unspecified; I70.8 Atherosclerosis of other arteries; E11.9 Type 2 diabetes mellitus without complications; B96.29 Other Escherichia coli [E. coli] as the cause of diseases classified elsewhere; J98.11 Atelectasis; K80.20 Calculus of gallbladder without cholecystitis without obstruction
CPT/HCPCS: 71010; 71275; 74174; 76705; 80053; 81001; 83605; 83690; 83735; 84484; 85025; 85610; 85730; 87077; 87086; 87186; 93005; 96374; 96375; 99285; J1885; J2405; Q9967

== ENCOUNTER 2016-08-16 14:16 | Emergency (ER) | payer MEDICAID ==
[~2016-08-16] VITALS: Ht 170.2 cm; Wt 91.0 kg
[~2016-08-16 14:16] MED LIST changes: +CEPH500C PO; -DEXA2TAB PO; +DEXA4TAB PO; -DOXY100C PO; +LORA-373 PO; +MECL12.574 PO; +NYST10007 TOPICAL; +OMEP20TA PO; +SENN1TAB17 PO; -TRAM50TA PO
[2016-08-16 14:25] VITALS: BP 138/104; PULSE 104; RESP 24; TEMP 98.2; O2SAT 96
[2016-08-16 14:40] VITALS: BP 128/94; PULSE 100; RESP 22; TEMP 98.2; O2SAT 96
[2016-08-16 15:00] VITALS: RESP 18; O2SAT 96
[2016-08-16] MEDS ORDERED: ALUMINUM/MAGNESIUM/SIMETH 30 ML CUP PO ONE (15:00)
[2016-08-16] MEDS ORDERED: LIDOCAINE VISCOUS 2% SOLN 15 ML UDC PO ONE (15:00)
[2016-08-16] MEDS ORDERED: FAMOTIDINE 20 MG/2 ML VIAL IV PUSH ONE (15:00)
[2016-08-16] MEDS ORDERED: SODIUM CHLORIDE 0.9% FLUSH 10 ML FLUSH IV FLUSH PRN (15:00)
[2016-08-16] MEDS ORDERED: PANTOPRAZOLE SODIUM 40 MG VIAL IVP ONE (15:00)
[2016-08-16] MEDS ORDERED: ONDANSETRON HCL 4 MG/2 ML VIAL IVP ONE (15:00)
[2016-08-16 15:38] LABS: AUTOMATED NEUTROPHIL # 8.9 TH/MM3 (1.8-7.7); BASOPHIL # 0.4 TH/MM3 (0-0.2); BASOPHIL % 2.9 % (0.0-2.0); EOSINOPHIL # 0.3 TH/MM3 (0-0.4); EOSINOPHIL % 2.1 % (0.0-4.0); HEMATOCRIT 46.9 % (35.0-46.0); LYMPH % 20.5 % (9.0-44.0); LYMPHOCYTE # 2.7 TH/MM3 (1.0-4.8); MEAN CELL VOLUME 87.9 FL (80.0-100.0); MEAN CORPUSCULAR HEMOGLOBIN 29.4 PG (27.0-34.0); MEAN CORPUSCULAR HGB CONC 33.5 % (32.0-36.0); MONO % 5.5 % (0.0-8.0); PLATELET COUNT 144 TH/MM3 (150-450); RED BLOOD COUNT 5.34 MIL/MM3 (4.00-5.30); RED CELL DISTRIBUTION WIDTH 13.6 % (11.6-17.2)
[2016-08-16 15:40] LABS: CHLORIDE 100 MEQ/L (98-107); HEMO FLAGS DIFF FINAL; POTASSIUM 3.9 MEQ/L (3.5-5.1); SODIUM (NA) 138 MEQ/L (136-145)
[2016-08-16 15:44] LABS: ANION GAP 9 MEQ/L (5-15); BICARBONATE 28.9 MEQ/L (21.0-32.0); BLOOD UREA NITROGEN 11 MG/DL (7-18)
[2016-08-16 15:47] LABS: ALT (GPT) 83 U/L (10-53); AST (GOT) 46 U/L (15-37); GLOMERULAR FILTRATION RATE 117 ML/MIN (>89)
[2016-08-16 15:48] LABS: TOTAL BILIRUBIN ADULT 0.7 MG/DL (0.2-1.0)
[2016-08-16 15:49] LABS: ALKALINE PHOSPHATASE 198 U/L (45-117)
[2016-08-16 15:49] LABS: BLOOD, URINE NEG (NEG); GLUCOSE,URINE NEG (NEG); KETONE, URINE NEG (NEG); NITRITE,URINE NEG (NEG); PH, URINE 5.5 (5.0-8.5)
--- NOTE | 2016-08-16 15:49 | PD ---
HPI Chief Complaint: Abdominal Pain Time Seen by Provider: 15:00 Travel History International Travel<30 days: No Contact w/Intl Traveler<30days: No Traveled to known affect area: No History of Present Illness HPI Patient presents with acute onset of right upper quadrant abdominal pain. Denies nausea or vomiting. Reports normal urination. Reports normal bowel movements. Reports a history of cholelithiasis diagnosed 3 or 4 months ago. Patient reports severe pain that started after breakfast. History of severe COPD on hospice. PFSH Past Medical History Asthma: Yes Heart Rhythm Problems: No Cancer: No Cardiovascular Problems: No High Cholesterol: No Chest Pain: No Congestive Heart Failure: No COPD: Yes Coronary Artery Disease: No Diabetes: Yes (DUE TO STEROIDS) Patient Takes Glucophage: No Diminished Hearing: No Endocrine: No Gastrointestinal Disorders: Yes GERD: Yes Genitourinary: No Hiatal Hernia: No Hypertension: No Immune Disorder: No Implanted Vascular Access Dvce: No Kidney Stones: No Musculoskeletal: No Neurologic: No Psychiatric: No Reproductive: No Respiratory: Yes (copd on oxygen) Immunizations Current: Yes Renal Failure: No Sleep Apnea: No Thyroid Disease: No Ulcer: No Tetanus Vaccination: < 5 Years Influenza Vaccination: Yes ?: Not Menopausal: Yes Past Surgical History Abdominal Surgery: No AICD: No Cardiac Surgery: No Ear Surgery: No Endocrine Surgery: No Eye Surgery: No Genitourinary Surgery: No Gynecologic Surgery: No Neurologic Surgery: No Oral Surgery: No Pacemaker: No Thoracic Surgery: No Other Surgery: Yes Social History Alcohol Use: No Tobacco Use: Yes (FEW DAILY ) Substance Use: No Allergies-Medications (Allergen,Severity, Reaction): Coded Allergies: No Known Allergies (Unverified , 08/16/16) Reported Meds & Prescriptions Reported Meds & Active Scripts Active Duoneb (Ipratropium-Albuterol Neb) 0.5-2.5 Mg/3 Ml Neb 1 Ampule INH Q6HR NEB 30 Days Symbicort Inh (Budesonide/Formoterol Fumarate) 80-4.5 Mcg/Act Aero 1 Puff INH Q12HR Reported Dexamethasone 4 Mg Tab 4 Mg PO DAILY Meclizine (Meclizine HCl) 12.5 Mg Tab 12.5 Mg PO TID PRN Senokot S (Sennosides-Docusate Sodium) 8.6-50 Mg Tab 1-2 Tab PO DAILY PRN Nystop Topical (Nystatin Topical) 100,000 Unit/Gm Powd 1 Applic TOPICAL Q12HR Lorazepam 0.5 Mg Tab 0.5 Mg PO Q6H PRN [oxygen] 2 Liter NA CONTINUOUS Review of Systems General / Constitutional: No: Fever Eyes: No: Visual changes HENT: No: Headaches Cardiovascular: No: Chest Pain or Discomfort Respiratory: No: Shortness of Breath Gastrointestinal: Positive: Abdominal Pain Genitourinary: No: Dysuria Musculoskeletal: No: Pain Skin: No Rash Neurologic: No: Weakness Psychiatric: No: Depression Endocrine: No: Polydipsia Hematologic/Lymphatic: No: Easy Bruising Physical Exam Narrative GENERAL: Well-nourished, well-developed patient. SKIN: Focused skin assessment warm/dry. HEAD: Normocephalic. EYES: No scleral icterus. No injection or drainage. NECK: Supple, trachea midline. No JVD or lymphadenopathy. CARDIOVASCULAR: Regular rate and rhythm without murmurs, gallops, or rubs. RESPIRATORY: Breath sounds equal bilaterally. No accessory muscle use. GASTROINTESTINAL: Abdomen soft, diffusely tender in all quadrants, nondistended. Obese MUSCULOSKELETAL: No cyanosis, or edema. BACK: Nontender without obvious deformity. No CVA tenderness. Data Data Last Documented VS Vital Signs Date Time Temp Pulse Resp B/P Pulse Ox O2 Delivery O2 Flow Rate FiO2 08/16/16 17:09 92 22 128/90 96 Nasal Cannula 2 08/16/16 14:40 98.2 Orders Complete Blood Count With Diff (08/16/16 15:00) Comprehensive Metabolic Panel (08/16/16 15:00) Lipase (08/16/16 15:00) Lactic Acid (08/16/16 15:00) Urinalysis - C+S If Indicated (08/16/16 15:00) Ct Abd/Pel W Iv Contrast(Rout) (08/16/16 15:00) Iv Access Insert/Monitor (08/16/16 15:00) Ecg Monitoring (08/16/16 15:00) Oximetry (08/16/16 15:00) NPO (08/16/16 15:00) Ondansetron Inj (Zofran Inj) (08/16/16 15:00) Pantoprazole Inj (Protonix Inj) (08/16/16 15:00) Sodium Chloride 0.9% Flush (Ns Flush) (08/16/16 15:00) Famotidine Inj (Pepcid Inj) (08/16/16 15:00) Al-Mag Hy-Si 40-40-4 Mg/Ml Liq (Mag-Al P (08/16/16 15:00) Lidocaine 2% Viscous (Xylocaine 2% Visco (08/16/16 15:00) Iohexol 350 Inj (Omnipaque 350 Inj) (08/16/16 16:14) Ondansetron Inj (Zofran Inj) (08/16/16 16:30) Hydromorphone Pf Inj (Dilaudid Pf Inj) (08/16/16 16:30) Labs Laboratory Tests Test 08/16/16 08/16/16 15:13 15:40 White Blood Count 13.0 TH/MM3 Red Blood Count 5.34 MIL/MM3 Hemoglobin 15.7 GM/DL Hematocrit 46.9 % Mean Corpuscular Volume 87.9 FL Mean Corpuscular Hemoglobin 29.4 PG Mean Corpuscular Hemoglobin 33.5 % Concent Red Cell Distribution Width 13.6 % Platelet Count 144 TH/MM3 Mean Platelet Volume 11.3 FL Neutrophils (%) (Auto) 69.0 % Lymphocytes (%) (Auto) 20.5 % Monocytes (%) (Auto) 5.5 % Eosinophils (%) (Auto) 2.1 % Basophils (%) (Auto) 2.9 % Neutrophils # (Auto) 8.9 TH/MM3 Lymphocytes # (Auto) 2.7 TH/MM3 Monocytes # (Auto) 0.7 TH/MM3 Eosinophils # (Auto) 0.3 TH/MM3 Basophils # (Auto) 0.4 TH/MM3 CBC Comment DIFF FINAL Differential Comment Sodium Level 138 MEQ/L Potassium Level 3.9 MEQ/L Chloride Level 100 MEQ/L Carbon Dioxide Level 28.9 MEQ/L Anion Gap 9 MEQ/L Blood Urea Nitrogen 11 MG/DL Creatinine 0.53 MG/DL Estimat Glomerular Filtration 117 ML/MIN Rate Random Glucose 165 MG/DL Lactic Acid Level 2.1 mmol/L Calcium Level 8.9 MG/DL Total Bilirubin 0.7 MG/DL Aspartate Amino Transf 46 U/L (AST/SGOT) Alanine Aminotransferase 83 U/L (ALT/SGPT) Alkaline Phosphatase 198 U/L Total Protein 6.3 GM/DL Albumin 2.9 GM/DL Lipase 291 U/L Urine Collection Type CLEAN CATCH Urine Color YELLOW Urine Turbidity CLEAR Urine pH 5.5 Urine Specific [place] 1.015 Urine Protein NEG mg/dL Urine Glucose (UA) NEG mg/dL Urine Ketones NEG mg/dL Urine Occult Blood NEG Urine Nitrite NEG Urine Bilirubin NEG Urine Leukocyte Esterase NEG Urine RBC 0-3 /hpf Urine WBC 0-2 /hpf Urine Squamous Epithelial > 8 /hpf Cells Urine Bacteria FEW /hpf Microscopic Urinalysis Comment CULT NOT INDICATED Urine Collection Time 15:[address] [facility] Medical Decision Making Medical Screen Exam Complete: Yes Emergency Medical Condition: Yes Differential Diagnosis Cholelithiasis, small bowel obstruction, pancreatitis, biliary colic, drug- seeking behavior Narrative Course Assessment and plan discussed with patient at bedside. Upset that narcotics were not given immediately. Physician Communication Physician Communication Case discussed and care transferred to Nakul Vazquez MD Aug 16, 2016 15:49
[2016-08-16 15:54] LABS: BACTERIA, URINE FEW /hpf; COMMENT (UR) CULT NOT INDICATED; CULTURE IF INDICATED CULT NOT INDICATED; METHOD OF COLLECTION CLEAN CATCH; RBC, URINE 0-3 /hpf (0-3); SQUAMOUS EPITHELIAL CELL URINE > 8 /hpf (0-5); URINE COLOR YELLOW (YELLW/STRAW); WBC, URINE 0-2 /hpf (0-5)
[2016-08-16] MEDS ORDERED: IOHEXOL 350 MG/ML 10 ML VIAL (for RAD DIAG) IV ONE (16:14)
--- NOTE | 2016-08-16 16:23 | RADRPT ---
EXAM DATE/TIME: 08/16/2016 15:54 [facility] COMPARISON: No previous studies available for comparison. INDICATIONS : Right side abdominal pain and nausea. IV CONTRAST: 96 cc Omnipaque 350 (iohexol) IV ORAL CONTRAST: No oral contrast ingested. RADIATION DOSE: 19.04 CTDIvol (mGy) MEDICAL HISTORY : Gastroesophageal reflux disease. Chronic obstructive pulmonary disease. Diabetes mellitus type 2. SURGICAL HISTORY : Non-responsive. ENCOUNTER: Initial ACUITY: 1 day PAIN SCALE: 7/10 LOCATION: Right upper quadrant TECHNIQUE: Volumetric scanning of the abdomen and pelvis was performed. Using automated exposure control and ad justment of the mA and/or kV according to patient size, radiation dose was kept as low as reasonably achievable to obtain optimal diagnostic quality images. DICOM format image data is available electro nically for review and comparison. FINDINGS: LOWER LUNGS: The visualized lower lungs are clear. LIVER: Decreased attenuation without lesion. There is no dilation of the biliary tree. Small calcified gall stones. SPLEEN: Normal size without lesion. PANCREAS: Within normal limits. KIDNEYS: Normal in size and shape. There is no mass, stone or hydronephrosis. ADRENAL GLANDS: Within normal limits. VASCULAR: There is no aortic aneurysm. BOWEL/MESENTERY: The stomach, small bowel, and colon demonstrate no acute abnormality. There is no free intraperitone al air or fluid. Diverticulosis of the colon. Normal appendix. ABDOMINAL WALL: Within normal limits. RETROPERITONEUM: There is no lymphadenopathy. BLADDER: No wall thickening or mass. REPRODUCTIVE: Within normal limits. INGUINAL: There is no lymphadenopathy or hernia. MUSCULOSKELETAL: Within normal limits for patient age. CONCLUSION: 1. Mild hepatic steatosis. 2. Cholelithiasis. 3. Normal appendix. 4. Diverticulosis without diverticulitis. Kurt Hernandez MD on August 16, 2016 at 16:20 Board Certified Radiologist. This report was verified electronically.
--- NOTE | 2016-08-16 16:29 | PD ---
Physical Exam Date Seen by Provider: Aug 16, 2016 Time Seen by Provider: 16:27 Narrative This 65-year-old female had presented with abdominal pain. The pain she was having was in the epigastric region and on the right side of the abdomen. It came on after she had breakfast this morning. Some nausea. She has been diagnosed with cholelithiasis in the past. She has a history of COPD and is on hospice because of her history of COPD. She is on continuous oxygen. Data Data Last Documented VS Vital Signs Date Time Temp Pulse Resp B/P Pulse Ox O2 Delivery O2 Flow Rate FiO2 08/16/16 14:40 98.2 100 22 128/94 96 Nasal Cannula 2 Orders Complete Blood Count With Diff (08/16/16 15:00) Comprehensive Metabolic Panel (08/16/16 15:00) Lipase (08/16/16 15:00) Lactic Acid (08/16/16 15:00) Urinalysis - C+S If Indicated (08/16/16 15:00) Ct Abd/Pel W Iv Contrast(Rout) (08/16/16 15:00) Iv Access Insert/Monitor (08/16/16 15:00) Ecg Monitoring (08/16/16 15:00) Oximetry (08/16/16 15:00) NPO (08/16/16 15:00) Ondansetron Inj (Zofran Inj) (08/16/16 15:00) Pantoprazole Inj (Protonix Inj) (08/16/16 15:00) Sodium Chloride 0.9% Flush (Ns Flush) (08/16/16 15:00) Famotidine Inj (Pepcid Inj) (08/16/16 15:00) Al-Mag Hy-Si 40-40-4 Mg/Ml Liq (Mag-Al P (08/16/16 15:00) Lidocaine 2% Viscous (Xylocaine 2% Visco (08/16/16 15:00) Iohexol 350 Inj (Omnipaque 350 Inj) (08/16/16 16:14) Ondansetron Inj (Zofran Inj) (08/16/16 16:30) Hydromorphone Pf Inj (Dilaudid Pf Inj) (08/16/16 16:30) Labs Laboratory Tests Test 08/16/16 08/16/16 15:13 15:40 White Blood Count 13.0 TH/MM3 Red Blood Count 5.34 MIL/MM3 Hemoglobin 15.7 GM/DL Hematocrit 46.9 % Mean Corpuscular Volume 87.9 FL Mean Corpuscular Hemoglobin 29.4 PG Mean Corpuscular Hemoglobin 33.5 % Concent Red Cell Distribution Width 13.6 % Platelet Count 144 TH/MM3 Mean Platelet Volume 11.3 FL Neutrophils (%) (Auto) 69.0 % Lymphocytes (%) (Auto) 20.5 % Monocytes (%) (Auto) 5.5 % Eosinophils (%) (Auto) 2.1 % Basophils (%) (Auto) 2.9 % Neutrophils # (Auto) 8.9 TH/MM3 Lymphocytes # (Auto) 2.7 TH/MM3 Monocytes # (Auto) 0.7 TH/MM3 Eosinophils # (Auto) 0.3 TH/MM3 Basophils # (Auto) 0.4 TH/MM3 CBC Comment DIFF FINAL Differential Comment Sodium Level 138 MEQ/L Potassium Level 3.9 MEQ/L Chloride Level 100 MEQ/L Carbon Dioxide Level 28.9 MEQ/L Anion Gap 9 MEQ/L Blood Urea Nitrogen 11 MG/DL Creatinine 0.53 MG/DL Estimat Glomerular Filtration 117 ML/MIN Rate Random Glucose 165 MG/DL Lactic Acid Level 2.1 mmol/L Calcium Level 8.9 MG/DL Total Bilirubin 0.7 MG/DL Aspartate Amino Transf 46 U/L (AST/SGOT) Alanine Aminotransferase 83 U/L (ALT/SGPT) Alkaline Phosphatase 198 U/L Total Protein 6.3 GM/DL Albumin 2.9 GM/DL Lipase 291 U/L Urine Collection Type CLEAN CATCH Urine Color YELLOW Urine Turbidity CLEAR Urine pH 5.5 Urine Specific [place] 1.015 Urine Protein NEG mg/dL Urine Glucose (UA) NEG mg/dL Urine Ketones NEG mg/dL Urine Occult Blood NEG Urine Nitrite NEG Urine Bilirubin NEG Urine Leukocyte Esterase NEG Urine RBC 0-3 /hpf Urine WBC 0-2 /hpf Urine Squamous Epithelial > 8 /hpf Cells Urine Bacteria FEW /hpf Microscopic Urinalysis Comment CULT NOT INDICATED Urine Collection Time 15:40 MDM Medical Record Reviewed: No Supervised Visit with ARUN: No Differential Diagnosis Differential includes gastritis, biliary colic, cholecystitis. Narrative Course CT scan shows mild hepatic steatosis, there is cholelithiasis. Appendix is normal. There is diverticulosis without diverticulitis. Patient was given 1 dose of Dilaudid and Zofran with improvement of her pain. This pain may be biliary colic. I recommended to watch her diet, she has tramadol to use for pain. Follow-up with her own medical doctor. She is on continuous oxygen because of her COPD and should follow-up with her own medical doctor regarding evaluation for possible cholecystectomy. She would be at considerable risk Diagnosis Primary Impression: Biliary colic Additional Instruction: Avoid fatty foods, follow up with your own medical doctor, return as needed Disposition: 01 DISCHARGE HOME Condition: Stable Jese Arce MD Aug 16, 2016 16:29
[2016-08-16] MEDS ORDERED: ONDANSETRON HCL 4 MG/2 ML VIAL IV PUSH ONE (16:30)
[2016-08-16] MEDS ORDERED: HYDROmorphone HCL PF 1 MG/ML VIAL IV PUSH ONE (16:30)
[2016-08-16 17:09] VITALS: BP 128/90
== END 2016-08-16 17:26 | disposition home or self-care (01) ==
LOC: PHED 14:16
DX: K80.70 Calculus of gallbladder and bile duct without cholecystitis without obstruction (principal); K76.0 Fatty (change of) liver, not elsewhere classified; J44.9 Chronic obstructive pulmonary disease, unspecified; F17.200 Nicotine dependence, unspecified, uncomplicated; Z99.81 Dependence on supplemental oxygen
CPT/HCPCS: 74177; 80053; 81001; 83605; 83690; 85025; 96374; 96375; 99285; C9113; J1170; J2405; Q9967

== ENCOUNTER 2016-11-08 19:13 | Inpatient (IN) | payer MEDICAID ==
[2016-11-08] VITALS (7 sets, daily range): BP systolic 113–116; BP diastolic 75–81; PULSE 95–137; RESP 18–24; TEMP 98.9; O2SAT 90–98
[~2016-11-08] VITALS: Ht 167.6 cm; Wt 87.5 kg
[~2016-11-08 19:13] MED LIST changes: -CEPH500C PO; -OMEP20TA PO
[2016-11-08] MEDS ORDERED: ZITHTAB PO (19:31)
[2016-11-08] MEDS ORDERED: RESP: ALBUTEROL 2.5 MG/IPRATROPIUM 0.5 MG NEB (SCH) INH ONE (20:00)
[2016-11-08] MEDS ORDERED: SODIUM CHLORIDE 0.9% FLUSH 10 ML FLUSH IVF PRN ×3 (20:00→22:30)
[2016-11-08] MEDS ORDERED: methylPREDNISolone SOD SUCC 125 MG/2 ML VIAL IV PUSH ONE (20:00)
[2016-11-08] MEDS ORDERED: PIPERACIL-TAZO 4.5 GM PREMIX 100 ML IV ONE (20:00)
[2016-11-08 20:10] LABS: AUTOMATED NEUTROPHIL # 6.9 TH/MM3 (1.8-7.7); BASOPHIL # 0.4 TH/MM3 (0-0.2); BASOPHIL % 3.8 % (0.0-2.0); EOSINOPHIL # 0.1 TH/MM3 (0-0.4); EOSINOPHIL % 1.1 % (0.0-4.0); HEMATOCRIT 46.5 % (35.0-46.0); HEMO FLAGS DIFF FINAL; LYMPH % 21.7 % (9.0-44.0); LYMPHOCYTE # 2.2 TH/MM3 (1.0-4.8); MEAN CELL VOLUME 88.3 FL (80.0-100.0); MEAN CORPUSCULAR HEMOGLOBIN 29.9 PG (27.0-34.0); MEAN CORPUSCULAR HGB CONC 33.9 % (32.0-36.0); MONO % 6.6 % (0.0-8.0); NEUT % 66.8 % (16.0-70.0); PLATELET COUNT 152 TH/MM3 (150-450); RED BLOOD COUNT 5.27 MIL/MM3 (4.00-5.30); RED CELL DISTRIBUTION WIDTH 14.6 % (11.6-17.2); WHITE BLOOD COUNT 10.3 TH/MM3 (4.0-11.0)
[2016-11-08 20:18] LABS: CHLORIDE 100 MEQ/L (98-107); SODIUM (NA) 139 MEQ/L (136-145)
[2016-11-08 20:22] LABS: ANION GAP 4 MEQ/L (5-15); BICARBONATE 34.6 MEQ/L (21.0-32.0); BLOOD UREA NITROGEN 8 MG/DL (7-18); MAGNESIUM 1.9 MG/DL (1.5-2.5)
[2016-11-08 20:23] LABS: APTT (PATIENT) 22.9 SEC (24.3-30.1); INTERNATIONAL NORMALIZED RATIO 0.9 RATIO; PROTHROMBIN TIME - PATIENT 10.3 SEC (9.8-11.6)
[2016-11-08 20:25] LABS: ALT (GPT) 63 U/L (10-53); AST (GOT) 37 U/L (15-37); GLOMERULAR FILTRATION RATE 131 ML/MIN (>89)
[2016-11-08 20:27] LABS: TOTAL BILIRUBIN ADULT 0.8 MG/DL (0.2-1.0)
[2016-11-08 20:28] LABS: ALKALINE PHOSPHATASE 147 U/L (45-117)
--- NOTE | 2016-11-08 20:35 | RADRPT ---
EXAM DATE/TIME: 11/08/2016 20:05 [facility] COMPARISON: CHEST SINGLE AP, July 06, 2016, 18:24. INDICATIONS : Shortness of breath. MEDICAL HISTORY : Gastroesophageal reflux disease. Chronic obstructive pulmonary disease. Diabetes mellitus SURGICAL HISTORY : None. ENCOUNTER: Initial ACUITY: 1 day PAIN SCORE: 0/10 LOCATION: Bilateral chest FINDINGS: There are 2 horizontal linear areas of opacity in the left lower lung suggesting scarring or atelecta sis. The lungs are symmetrically aerated. No focal infiltrates seen. No evidence of pneumothorax. The heart is normal in size. Both hemidiaphragms are well delineated. CONCLUSION: Scarring or atelectasis left lower lung. No focal infiltrates seen. Jamie Galvan MD on November 08, 2016 at 20:33 Board Certified Radiologist. This report was verified electronically.
[2016-11-08 20:40] LABS: CREATINE KINASE 42 U/L (26-192)
[2016-11-08 20:41] LABS: BLOOD GAS BASE EXCESS 9.1 mmol/L (-2-2); BLOOD GAS CARBOXYHEMOGLOBIN 6.1 % (0-4); BLOOD GAS HCO3 34 mmol/L (22-26); BLOOD GAS METHEMOGLOBIN 1.3 % (0-2); BLOOD GAS O2 HGB SATURATION 87 % (90-100); BLOOD GAS PCO2 52 mmHG (38-42); BLOOD GAS PO2 66 mmHG (61-120); BLOOD GAS TOTAL HGB 16.4 G/DL (12.0-16.0); TEMP CORR TO 98.6
[2016-11-08 20:42] LABS: CRITICAL VALUE YES; DRAW SITE LT RADIAL; LITER FLOW 2 L/M; NUMBER OF ARTERIAL PUNCTURES 1; OXYGEN DEVICE NASAL CANNULA; ULNAR PULSE PRESENT
[2016-11-08 20:43] LABS: STAT YES
[2016-11-08] MEDS ORDERED: SODIUM CHLORID 0.9% 500 ML INJ 500 ML IV ONE ×2 (20:45→22:15)
[2016-11-08] MEDS: RESP: ALBUTEROL 2.5 MG/IPRATROPIUM 0.5 MG NEB (SCH) INH (21:02)
[2016-11-08 21:10] LABS: BLOOD, URINE NEG (NEG); GLUCOSE,URINE NEG (NEG); KETONE, URINE TRACE mg/dL (NEG); NITRITE,URINE NEG (NEG); PH, URINE 5.5 (5.0-8.5)
[2016-11-08 21:13] LABS: URINE COLOR ORANGE (YELLW/STRAW)
[2016-11-08 21:22] LABS: BACTERIA, URINE RARE /hpf; COMMENT (UR) CULT NOT INDICATED; CULTURE IF INDICATED CULT NOT INDICATED; RBC, URINE 0-2 /hpf (0-3); SQUAMOUS EPITHELIAL CELL URINE 0-5 /hpf (0-5)
--- NOTE | 2016-11-08 22:03 | PD ---
HPI Chief Complaint: Respiratory Symptoms Time Seen by Provider: 19:46 Travel History International Travel<30 days: No Contact w/Intl Traveler<30days: No Traveled to known affect area: No History of Present Illness HPI 65-year-old female presents to the emergency department by private transportation for evaluation of shortness of breath. Patient has history of COPD. Patient was recently placed on azithromycin for bronchitis. Patient states symptoms and worsening of the past for days. Patient denies any chest pain. No abdominal pain. No nausea or vomiting. No diarrhea. No dysuria. Patient states that she has noted some left flank pain. Patient states that she became excitable this afternoon while she was at a [employer]. Patient is on continuous supplemental oxygen 2 L at all times. Patient states she's continue to use her oxygen. Patient is a tobacco smoker. Patient denies any injury or fall. Patient does not report any orthopnea or PND. Patient states she is always short of breath at rest and with exertion. Symptoms have been worsening. Cough is productive of green sputum. Patient states she was recently treated for pneumonia. [facility] Past Medical History Narrative Medical COPD diabetes; tobacco use; nursing notes reviewed Asthma: Yes Heart Rhythm Problems: No Cancer: No Cardiovascular Problems: No High Cholesterol: No Chest Pain: No Congestive Heart Failure: No COPD: Yes Coronary Artery Disease: No Diabetes: Yes (DUE TO STEROIDS) Patient Takes Glucophage: No Diminished Hearing: No Endocrine: No Gastrointestinal Disorders: Yes GERD: Yes Genitourinary: No Hiatal Hernia: No Hypertension: No Immune Disorder: No Implanted Vascular Access Dvce: No Kidney Stones: No Musculoskeletal: No Neurologic: No Psychiatric: No Reproductive: No Respiratory: Yes (copd on oxygen) Immunizations Current: Yes Renal Failure: No Sleep Apnea: No Thyroid Disease: No Ulcer: No Tetanus Vaccination: Unknown Influenza Vaccination: Yes Menopausal: Yes Past Surgical History Abdominal Surgery: No AICD: No Cardiac Surgery: No Ear Surgery: No Endocrine Surgery: No Eye Surgery: No Genitourinary Surgery: No Gynecologic Surgery: No Neurologic Surgery: No Oral Surgery: No Pacemaker: No Thoracic Surgery: No Other Surgery: Yes Social History Alcohol Use: No Tobacco Use: Yes (FEW DAILY ) Substance Use: No Allergies-Medications (Allergen,Severity, Reaction): Coded Allergies: No Known Allergies (Unverified , 11/08/16) Reported Meds & Prescriptions Reported Meds & Active Scripts Active Duoneb (Ipratropium-Albuterol Neb) 0.5-2.5 Mg/3 Ml Neb 1 Ampule INH Q6HR NEB 30 Days Symbicort Inh (Budesonide/Formoterol Fumarate) 80-4.5 Mcg/Act Aero 1 Puff INH Q12HR Reported Zithromax Z-Rusty (Azithromycin) 250 Mg Dspk 250 Mg PO DIRECTED 500 MG (2 tabs) day 1, then 1 tab days 2-5. Dexamethasone 4 Mg Tab 4 Mg PO DAILY Senokot S (Sennosides-Docusate Sodium) 8.6-50 Mg Tab 1-2 Tab PO DAILY PRN Nystop Topical (Nystatin Topical) 100,000 Unit/Gm Powd 1 Applic TOPICAL Q12HR Lorazepam 0.5 Mg Tab 0.5 Mg PO Q6H PRN [oxygen] 2 Liter NA CONTINUOUS Review of Systems Except as stated in HPI: all other systems reviewed are Neg General / Constitutional: Positive: Fever, No: Chills HENT: Positive: Congestion Cardiovascular: No: Chest Pain or Discomfort Respiratory: Positive: Cough, Shortness of Breath, Wheezing Gastrointestinal: No: Abdominal Pain Genitourinary: Positive: Flank Pain Musculoskeletal: No: Myalgias, Arthralgias Skin: No Rash Neurologic: No: Weakness Psychiatric: Positive: Anxiety Hematologic/Lymphatic: No: Easy Bruising Physical Exam Narrative GENERAL: Well-nourished well-developed female in the obvious respiratory distress with tachypnea and tachycardia and work of breathing. Increased SKIN: Warm and dry. HEAD: Normocephalic. EYES: No scleral icterus. No injection or drainage. NECK: Supple, trachea midline. No JVD or lymphadenopathy. CARDIOVASCULAR: Regular rate and rhythm without murmurs, gallops, or rubs. RESPIRATORY: Breath sounds equal bilaterally diminished with few expiratory wheezes and basilar crackles. No accessory muscle use. GASTROINTESTINAL: Abdomen soft, non-tender, nondistended. MUSCULOSKELETAL: No cyanosis, trace to 1+ pedal edema. BACK: Nontender without obvious deformity. No CVA tenderness. Data Data Last Documented VS Vital Signs Date Time Temp Pulse Resp B/P (MAP) Pulse Ox O2 Delivery O2 Flow Rate FiO2 11/08/16 21:55 110 19 116/81 (93) 97 BiPAP 40 11/08/16 20:00 2.00 11/08/16 19:31 98.9 Orders Orders Complete Blood Count With Diff (11/08/16 19:46) Comprehensive Metabolic Panel (11/08/16 19:46) B-Type Natriuretic Peptide (11/08/16 19:46) Act Partial Throm Time (Ptt) (11/08/16 19:46) Prothrombin Time / Inr (Pt) (11/08/16 19:46) Magnesium (Mg) (11/08/16 19:46) Ckmb (Isoenzyme) Profile (11/08/16 19:46) Troponin I (11/08/16 19:46) Arterial Blood Gas (Abg) (11/08/16 19:46) Urinalysis - C+S If Indicated (11/08/16 19:46) Blood Culture (11/08/16 19:46) Iv Access Insert/Monitor (11/08/16 19:46) Electrocardiogram (11/08/16 19:46) Ecg Monitoring (11/08/16 19:46) Oximetry (11/08/16 19:46) Oxygen Administration (11/08/16 19:46) Chest, Single Ap (11/08/16 19:46) Sodium Chloride 0.9% Flush (Ns Flush) (11/08/16 20:00) Methylprednisolone So Succ Inj (Solumedr (11/08/16 20:00) Albuterol-Ipratropium Neb (Duoneb Neb) (11/08/16 20:00) Lactic Acid (11/08/16 19:46) Piperacil-Tazo 4.5 Gm Premix (Zosyn 4.5 (11/08/16 20:00) Resp Bipap / Cpap Non Invas Vt (11/08/16 ) Sodium Chloride 0.9% Flush (Ns Flush) (11/08/16 20:45) Albuterol-Ipratropium Neb (Duoneb Neb) (11/08/16 20:45) Sodium Chlorid 0.9% 500 Ml Inj (Ns 500 M (11/08/16 20:45) Sodium Chlorid 0.9% 500 Ml Inj (Ns 500 M (11/08/16 22:15) Admit Order (Ed Use Only) (11/08/16 ) ^ Saline Lock (11/08/16 22:30) Resp Oxygen Se[place]our C Titrat 1-4 L (11/08/16 ) Notify Dr: Other (11/08/16 22:30) Sodium Chloride 0.9% Flush (Ns Flush) (11/09/16 09:00) Sodium Chloride 0.9% Flush (Ns Flush) (11/08/16 22:30) Labs Laboratory Tests Test 11/08/16 19:55 11/08/16 20:15 11/08/16 20:57 White Blood Count 10.3 TH/MM3 Red Blood Count 5.27 MIL/MM3 Hemoglobin 15.8 GM/DL Hematocrit 46.5 % Mean Corpuscular Volume 88.3 FL Mean Corpuscular Hemoglobin 29.9 PG Mean Corpuscular Hemoglobin Concent 33.9 % Red Cell Distribution Width 14.6 % Platelet Count 152 TH/MM3 Mean Platelet Volume 9.5 FL Neutrophils (%) (Auto) 66.8 % Lymphocytes (%) (Auto) 21.7 % Monocytes (%) (Auto) 6.6 % Eosinophils (%) (Auto) 1.1 % Basophils (%) (Auto) 3.8 % Neutrophils # (Auto) 6.9 TH/MM3 Lymphocytes # (Auto) 2.2 TH/MM3 Monocytes # (Auto) 0.7 TH/MM3 Eosinophils # (Auto) 0.1 TH/MM3 Basophils # (Auto) 0.4 TH/MM3 CBC Comment DIFF FINAL Differential Comment Prothrombin Time 10.3 SEC Prothromb Time International Ratio 0.9 RATIO Activated Partial Thromboplast Time 22.9 SEC Blood Urea Nitrogen 8 MG/DL Creatinine 0.48 MG/DL Random Glucose 152 MG/DL Total Protein 5.9 GM/DL Albumin 2.7 GM/DL Calcium Level 8.9 MG/DL Magnesium Level 1.9 MG/DL Alkaline Phosphatase 147 U/L Aspartate Amino Transf (AST/SGOT) 37 U/L Alanine Aminotransferase (ALT/SGPT) 63 U/L Total Bilirubin 0.8 MG/DL Sodium Level 139 MEQ/L Potassium Level 4.0 MEQ/L Chloride Level 100 MEQ/L Carbon Dioxide Level 34.6 MEQ/L Anion Gap 4 MEQ/L Estimat Glomerular Filtration Rate 131 ML/MIN Lactic Acid Level 1.2 mmol/L Total Creatine Kinase 42 U/L Troponin I LESS THAN 0.02 NG/ML B-Type Natriuretic Peptide 17 PG/ML Blood Gas Puncture Site LT RADIAL Blood Gas Patient Temperature 98.6 Blood Gas HCO3 34 mmol/L Blood Gas Base Excess 9.1 mmol/L Blood Gas Oxygen Saturation 87 % Arterial Blood pH 7.43 Arterial Blood Partial Pressure CO2 52 mmHG Arterial Blood Partial Pressure O2 66 mmHG Arterial Blood Oxygen Content 20.0 Vol % Arterial Blood Carboxyhemoglobin 6.1 % Arterial Blood Methemoglobin 1.3 % Blood Gas Hemoglobin 16.4 G/DL Oxygen Delivery Device NASAL CANNULA Blood Gas Liter Flow 2 L/M Urine Color ORANGE Urine Turbidity SLIGHT Urine pH 5.5 Urine Specific [place] 1.017 Urine Protein NEG mg/dL Urine Glucose (UA) NEG mg/dL Urine Ketones TRACE mg/dL Urine Occult Blood NEG Urine Nitrite NEG Urine Bilirubin NEG Urine Leukocyte Esterase TRACE Urine RBC 0-2 /hpf Urine WBC 6-8 /hpf Urine Squamous Epithelial Cells 0-5 /hpf Urine Bacteria RARE /hpf Urine Yeast (Budding) FEW Microscopic Urinalysis Comment CULT NOT INDICATED MDM Medical Decision Making Medical Screen Exam Complete: Yes Emergency Medical Condition: Yes Medical Record Reviewed: Yes (11/02/16 e. coli UTI) Interpretation(s) CBC & BMP Diagram 11/08/16 19:55 Total Protein 5.9 L, Albumin 2.7 L, Calcium Level 8.9, Magnesium Level 1.9, Alkaline Phosphatase 147 H, Aspartate Amino Transf (AST/SGOT) 37, Alanine Aminotransferase (ALT/SGPT) 63 H, Total Bilirubin 0.8 Vital Signs Date Time Temp Pulse Resp B/P (MAP) Pulse Ox O2 Delivery O2 Flow Rate FiO2 11/08/16 20:21 BiPAP 11/08/16 20:16 98 40 11/08/16 20:00 90 Nasal Cannula 2.00 11/08/16 19:40 95 Nasal Cannula 2.00 11/08/16 19:40 Nasal Cannula 2.00 11/08/16 19:31 98.9 137 24 113/75 (88) 92 EKG: Sinus tachycardia with marked artifact at baseline heart rate [address] elevation noted ABG 2 L per minute nasal cannula pH 7.4-6 PCO2 52 PO2 66 bicarbonate 34 base excess 9 O2 saturation 87% with a carboxyhemoglobin of 6 consistent with pulse oximetry saturation of 93% Differential Diagnosis Exacerbation COPD, CHF, ACS, pneumonia, bronchitis, PE Narrative Course Patient placed on furniture delivery driver with pulse oximetry 2 L per minute nasal cannula applied; Updraft in BiPAP ordered; specimens collected and sent for resulting; patient given Zosyn 4.5 g IV piggyback patient has been on azithromycin for 3 days ABG shows mild hypercarbia with hypoxemia secondary to elevated carboxyhemoglobin associated with daily tobaccoism; patient given DuoNeb updraft : Chest x-ray shows no cardiomegaly or vascular congestion CBC is automated differential values in normal range; metabolic panel grossly within normal range; cardiac enzymes are not elevated and BNP is 18 Patient clinically improved on BiPAP Plan patient will be admitted for exacerbation COPD/bronchitis; subacute UTI FiO2 decreased to 35% ABG ordered; patient admitted to ICU intensivists service Critical Care Narrative Aggregate critical care time was 30 minutes. Time to perform other separately billable procedures was not included in the critical care time. My time did not include minutes spent treating any other patients simultaneously or on activities that did not directly contribute to the patient's treatment. The services I provided to this patient were to treat and/or prevent clinically significant deterioration that could result in: Respiratory failure, arrhythmia , I provided critical care services requiring my management, as noted below: Chart data review, documentation time, medication orders and management, vital sign assessments/reviewing monitor data, ordering and reviewing lab tests, ordering and interpreting/reviewing x-rays and diagnostic studies, care of the patient and discussion of the patient with the admitting physicians. Sepsis Criteria SIRS Criteria (2 or more): Heart rate over 90, RR > 20 or PaCO2 < 32 Sepsis Criteria (SIRS+source): Infect source susp/known (bronchitis) Physician Communication Physician Communication call placed to certified financial planner Dr Jefferson will accept for admission Diagnosis Primary Impression: COPD (chronic obstructive pulmonary disease) with acute bronchitis Admitting Information Admitting Physician Requests: Admit Ashtyn Gaona MD Nov 08, 2016 22:03
--- NOTE | 2016-11-08 22:43 | EKG ---
Date Performed: 11/08/2016 Time Performed: 20:23:02 PTAGE: 65 years EKG: POSSIBLE ECTOPIC ATRIAL TACHYCARDIA RIGHT AXIS DEVIATION ABNORMAL ECG PREVIOUS TRACING : 07/06/2016 18.06 Compared to previous tracing, axis has shifted rightward. DOCTOR: Eliecer Burleson Interpretating Date/Time 11/08/2016 22:42:11
[2016-11-08] MEDS ORDERED: ACETAMINOPHEN 325 MG TAB PO PRN (23:45)
[2016-11-08] MEDS ORDERED: BISACODYL 10 MG SUPP RECTAL PRN (23:45)
[2016-11-08] MEDS ORDERED: CHLORHEXIDINE GLUCONATE 2 % 1 PACK (2 CLOTHS) TOP PRN (23:45)
[2016-11-08] MEDS ORDERED: ZOLPIDEM TARTRATE 5 MG TAB PO PRN (23:45)
[2016-11-08] MEDS ORDERED: MISCELLANEOUS NURSING INFORMATION XX SCH (23:45)
[2016-11-08] MEDS ORDERED: SODIUM CHLORIDE 0.9% FLUSH 10 ML FLUSH IV FLUSH PRN (23:45)
[2016-11-08] MEDS ORDERED: SENNOSIDES 8.6 MG TAB PO PRN (23:45)
[2016-11-08] MEDS ORDERED: RESP: ALBUTEROL 2.5 MG/IPRATROPIUM 0.5 MG NEB (PRN) INH (23:45)
[2016-11-08] MEDS ORDERED: ONDANSETRON HCL 4 MG/2 ML VIAL IV PUSH PRN (23:45)
[2016-11-08] MEDS ORDERED: MORPHINE SULFATE 4 MG/ML INJ IV PUSH PRN (23:45)
[2016-11-08] MEDS ORDERED: MAGNESIUM HYDROXIDE SUSP 30 ML CUP PO PRN (23:45)
[2016-11-08] MEDS ORDERED: HEPARIN SODIUM - SQ 10,000 UNITS/ML VIAL SQ SCH (23:45)
[2016-11-08] MEDS ORDERED: LACTULOSE SYRUP 20 GM/30 ML CUP PO PRN (23:45)
[2016-11-08 23:49] LABS: BLOOD GAS CARBOXYHEMOGLOBIN 4.5 % (0-4); BLOOD GAS HCO3 32 mmol/L (22-26); BLOOD GAS METHEMOGLOBIN 1.5 % (0-2); BLOOD GAS O2 HGB SATURATION 87 % (90-100); BLOOD GAS PCO2 58 mmHG (38-42); BLOOD GAS PO2 67 mmHG (61-120); BLOOD GAS TOTAL HGB 14.7 G/DL (12.0-16.0); TEMP CORR TO 98.6
[2016-11-08 23:50] LABS: CRITICAL VALUE YES
[2016-11-08 23:51] LABS: DRAW SITE LT RADIAL; FIO2 35 %; NUMBER OF ARTERIAL PUNCTURES 1; OXYGEN DEVICE BiPAP; STAT YES; ULNAR PULSE PRESENT
[2016-11-09] VITALS (30 sets, daily range): BP systolic 98–144; BP diastolic 53–95; PULSE 96–120; RESP 9–55; TEMP 97.6–99.3; O2SAT 92–98
[2016-11-09] MEDS: CHLORHEXIDINE GLUCONATE 2 % 1 PACK (2 CLOTHS) TOP SCH (00:24)
[2016-11-09] MEDS: SODIUM CHLOR 0.9% 1000 ML INJ 1,000 ML IV SCH ×2 (00:24→11:30)
[2016-11-09] MEDS: LORazepam 0.5 MG TAB PO PRN ×3 (00:42→18:19)
[2016-11-09] MEDS: RESP: ALBUTEROL 2.5 MG/IPRATROPIUM 0.5 MG NEB (SCH) INH ×6 (02:31→23:29)
[2016-11-09] MEDS ORDERED: RESP: ALBUTEROL 2.5 MG/IPRATROPIUM 0.5 MG NEB (SCH) INH (04:00)
--- NOTE | 2016-11-09 04:25 | RADRPT ---
EXAM DATE/TIME: 11/09/2016 04:15 [facility] COMPARISON: CHEST SINGLE AP, November 08, 2016, 20:05. INDICATIONS : Respiratory failure. MEDICAL HISTORY : Diabetes mellitus type II. Gastroesophageal reflux disease. Chronic obstructive pulmonary disea se. SURGICAL HISTORY : None. ENCOUNTER: Subsequent ACUITY: 2 days PAIN SCORE: 0/10 LOCATION: Bilateral chest FINDINGS: A single view of the chest demonstrates mild basilar airspace disease most characteristic of atelecta sis. No significant effusion. No pneumothorax. Heart size within normal limits. CONCLUSION: 1. Mild basilar airspace disease most characteristic of atelectasis or scarring. No significant effus ion. No pneumothorax. Valeriy Curran MD on November 09, 2016 at 4:23 Board Certified Radiologist. This report was verified electronically.
[2016-11-09 05:53] LABS: AUTOMATED NEUTROPHIL # 5.1 TH/MM3 (1.8-7.7); BASOPHIL % 0.4 % (0.0-2.0); HEMATOCRIT 44.6 % (35.0-46.0); HEMO FLAGS DIFF FINAL; LYMPH % 6.4 % (9.0-44.0); LYMPHOCYTE # 0.3 TH/MM3 (1.0-4.8); MEAN CELL VOLUME 88.6 FL (80.0-100.0); MEAN CORPUSCULAR HEMOGLOBIN 29.4 PG (27.0-34.0); MEAN CORPUSCULAR HGB CONC 33.2 % (32.0-36.0); MONO % 0.5 % (0.0-8.0); NEUT % 92.7 % (16.0-70.0); PLATELET COUNT 141 TH/MM3 (150-450); RED BLOOD COUNT 5.03 MIL/MM3 (4.00-5.30); RED CELL DISTRIBUTION WIDTH 14.4 % (11.6-17.2); WHITE BLOOD COUNT 5.4 TH/MM3 (4.0-11.0)
[2016-11-09 06:00] LABS: BLOOD GAS CARBOXYHEMOGLOBIN 2.6 % (0-4); BLOOD GAS HCO3 32 mmol/L (22-26); BLOOD GAS METHEMOGLOBIN 1.2 % (0-2); BLOOD GAS O2 HGB SATURATION 94 % (90-100); BLOOD GAS PCO2 58 mmHg (38-42); BLOOD GAS PO2 105 mmHg (61-120); BLOOD GAS TOTAL HGB 15.1 G/DL (12.0-16.0)
[2016-11-09 06:03] LABS: CRITICAL VALUE YES
[2016-11-09 06:04] LABS: DRAW SITE RT RADIAL; FIO2 40 %; NUMBER OF ARTERIAL PUNCTURES 1; OXYGEN DEVICE BiPAP; STAT NO; ULNAR PULSE PRESENT
[2016-11-09 06:07] LABS: CHLORIDE 102 MEQ/L (98-107); POTASSIUM 4.4 MEQ/L (3.5-5.1); SODIUM (NA) 139 MEQ/L (136-145)
[2016-11-09 06:13] LABS: ANION GAP 3 MEQ/L (5-15); BICARBONATE 33.6 MEQ/L (21.0-32.0)
[2016-11-09 06:26] LABS: ALKALINE PHOSPHATASE 128 U/L (45-117); ALT (GPT) 55 U/L (10-53); AST (GOT) 27 U/L (15-37); BLOOD UREA NITROGEN 12 MG/DL (7-18); GLOMERULAR FILTRATION RATE 125 ML/MIN (>89); MAGNESIUM 2.1 MG/DL (1.5-2.5); TOTAL BILIRUBIN ADULT 0.7 MG/DL (0.2-1.0)
--- NOTE | 2016-11-09 07:42 | HHI.HP ---
HPI Service Critical Care Medicine Primary Care Physician No Primary Care Physician Admission Diagnosis EXAC COPD Diagnosis: Travel History International Travel<30 Days: No Contact w/Intl Traveler <30 Da: No Traveled to Known Affected Are: No History of Present Illness History of Present Illness HPI 65-year-old female presents to the emergency department by private transportation for progressive shortness of breath over the last week. She states that her was recently sick with a bronchitis Patient has history of COPD. Patient was recently placed on azithromycin for bronchitis. Patient states symptoms and worsening of the past for days. Patient denies any chest pain. No abdominal pain. No nausea or vomiting. No diarrhea. No dysuria. Patient states that she has noted some left flank pain. Patient states that she became excitable this afternoon while she was at a grandson's sporting event. Patient denies any injury or fall. Patient does not report any orthopnea or PND. Patient states she is always short of breath at rest and with exertion. Symptoms have been worsening. Cough is productive of green sputum. Patient states she was recently treated for pneumonia. Patient accepted for admission by critical care medicine service after hospitalist refused admission. She was on BiPAP overnight and is on nasal cannula at the time of my evaluation this morning and appears comfortable. She is awake and alert and does not appear to be in any acute distress. Patient reportedly uses O2 2 L/m at home all the time for advanced COPD. She continues to smoke about 2 packs per day. History PFSH Past Medical History Narrative Medical COPD diabetes; tobacco use; nursing notes reviewed Asthma: Yes Heart Rhythm Problems: No Cancer: No Cardiovascular Problems: No High Cholesterol: No Chest Pain: No Congestive Heart Failure: No COPD: Yes Coronary Artery Disease: No Diabetes: Yes (DUE TO STEROIDS) Patient Takes Glucophage: No Diminished Hearing: No Endocrine: No Gastrointestinal Disorders: Yes GERD: Yes Genitourinary: No Hiatal Hernia: No Hypertension: No Immune Disorder: No Implanted Vascular Access Dvce: No Kidney Stones: No Musculoskeletal: No Neurologic: No Psychiatric: No Reproductive: No Respiratory: Yes (copd on oxygen) Immunizations Current: Yes Renal Failure: No Sleep Apnea: No Thyroid Disease: No Ulcer: No Tetanus Vaccination: Unknown Influenza Vaccination: Yes Menopausal: Yes Past Surgical History Abdominal Surgery: No AICD: No Cardiac Surgery: No Ear Surgery: No Endocrine Surgery: No Eye Surgery: No Genitourinary Surgery: No Gynecologic Surgery: No Neurologic Surgery: No Oral Surgery: No Pacemaker: No Thoracic Surgery: No Other Surgery: Yes Social History Alcohol Use: No Tobacco Use: Yes (FEW DAILY ) Substance Use: No Allergies-Medications Allergies-Medications (Allergen,Severity, Reaction): Coded Allergies: No Known Allergies (Unverified , 11/08/16) Reported Meds & Prescriptions Reported Meds & Active Scripts Active Duoneb (Ipratropium-Albuterol Neb) 0.5-2.5 Mg/3 Ml Neb 1 Ampule INH Q6HR NEB 30 Days Symbicort Inh (Budesonide/Formoterol Fumarate) 80-4.5 Mcg/Act Aero 1 Puff INH Q12HR Reported Zithromax Z-Rusty (Azithromycin) 250 Mg Dspk 250 Mg PO DIRECTED 500 MG (2 tabs) day 1, then 1 tab days 2-5. Dexamethasone 4 Mg Tab 4 Mg PO DAILY Senokot S (Sennosides-Docusate Sodium) 8.6-50 Mg Tab 1-2 Tab PO DAILY PRN Nystop Topical (Nystatin Topical) 100,000 Unit/Gm Powd 1 Applic TOPICAL Q12HR Lorazepam 0.5 Mg Tab 0.5 Mg PO Q6H PRN [oxygen] 2 Liter NA CONTINUOUS ROS Review of Systems Except as stated in HPI: all other systems reviewed are Neg General / Constitutional: Positive: Fever, No: Chills HENT: Positive: Congestion Cardiovascular: No: Chest Pain or Discomfort Respiratory: Positive: Cough, Shortness of Breath, Wheezing Gastrointestinal: No: Abdominal Pain Genitourinary: Positive: Flank Pain Musculoskeletal: No: Myalgias, Arthralgias Skin: No Rash Neurologic: No: Weakness Psychiatric: Positive: Anxiety Hematologic/Lymphatic: No: Easy Bruising Past Family Social History Allergies: Coded Allergies: No Known Allergies (Unverified , 11/08/16) Physical Exam Vital Signs Vital Signs Date Time Temp Pulse Resp B/P (MAP) Pulse Ox O2 Delivery O2 Flow Rate FiO2 11/09/16 06:11 98 30 129/90 (103) 93 11/09/16 06:00 100 11/09/16 05:40 98 40 11/09/16 05:00 96 17 136/94 (108) 97 11/09/16 04:00 98.4 98 20 139/89 (106) 95 11/09/16 04:00 98 11/09/16 03:00 100 19 133/84 (100) 95 11/09/16 02:15 95 40 11/09/16 02:00 104 11/09/16 02:00 104 23 144/95 (111) 95 11/09/16 01:00 110 11/09/16 01:00 99.3 110 35 120/90 (100) 92 11/09/16 00:17 11/08/16 23:30 92 35 11/08/16 23:16 95 18 95 BiPAP 35 11/08/16 21:55 110 19 116/81 (93) 97 BiPAP 40 11/08/16 20:21 BiPAP 11/08/16 20:16 98 40 11/08/16 20:00 90 Nasal Cannula 2.00 11/08/16 19:40 95 Nasal Cannula 2.00 11/08/16 19:40 Nasal Cannula 2.00 11/08/16 19:31 98.9 137 24 113/75 (88) 92 Physical Exam Narrative GENERAL: Well-nourished well-developed female laying in bed on nasal cannula in no acute distress SKIN: Warm and dry. HEAD: Normocephalic. EYES: No scleral icterus. No injection or drainage. NECK: Supple, trachea midline. No JVD or lymphadenopathy. CARDIOVASCULAR: Regular rate and rhythm without murmurs, gallops, or rubs. RESPIRATORY: Breath sounds equal bilaterally diminished with few expiratory wheezes and basilar crackles. No accessory muscle use. GASTROINTESTINAL: Abdomen soft, non-tender, nondistended. MUSCULOSKELETAL: No cyanosis, trace to 1+ pedal edema. BACK: Nontender without obvious deformity. No CVA tenderness. Laboratory Laboratory Tests Test 11/08/16 19:55 11/08/16 20:15 11/08/16 20:57 11/08/16 23:33 White Blood Count 10.3 Red Blood Count 5.27 Hemoglobin 15.8 Hematocrit 46.5 Mean Corpuscular Volume 88.3 Mean Corpuscular Hemoglobin 29.9 Mean Corpuscular Hemoglobin Concent 33.9 Red Cell Distribution Width 14.6 Platelet Count 152 Mean Platelet Volume 9.5 Neutrophils (%) (Auto) 66.8 Lymphocytes (%) (Auto) 21.7 Monocytes (%) (Auto) 6.6 Eosinophils (%) (Auto) 1.1 Basophils (%) (Auto) 3.8 Neutrophils # (Auto) 6.9 Lymphocytes # (Auto) 2.2 Monocytes # (Auto) 0.7 Eosinophils # (Auto) 0.1 Basophils # (Auto) 0.4 CBC Comment DIFF FINAL Differential Comment Prothrombin Time 10.3 Prothromb Time International Ratio 0.9 Activated Partial Thromboplast Time 22.9 Blood Urea Nitrogen 8 Creatinine 0.48 Random Glucose 152 Total Protein 5.9 Albumin 2.7 Calcium Level 8.9 Magnesium Level 1.9 Alkaline Phosphatase 147 Aspartate Amino Transf (AST/SGOT) 37 Alanine Aminotransferase (ALT/SGPT) 63 Total Bilirubin 0.8 Sodium Level 139 Potassium Level 4.0 Chloride Level 100 Carbon Dioxide Level 34.6 Anion Gap 4 Estimat Glomerular Filtration Rate 131 Lactic Acid Level 1.2 Total Creatine Kinase 42 Troponin I LESS THAN 0.02 B-Type Natriuretic Peptide 17 Blood Gas Puncture Site LT RADIAL LT RADIAL Blood Gas Patient Temperature 98.6 98.6 Blood Gas HCO3 34 32 Blood Gas Base Excess 9.1 7.0 Blood Gas Oxygen Saturation 87 87 Arterial Blood pH 7.43 7.36 Arterial Blood Partial Pressure CO2 52 58 Arterial Blood Partial Pressure O2 66 67 Arterial Blood Oxygen Content 20.0 18.0 Arterial Blood Carboxyhemoglobin 6.1 4.5 Arterial Blood Methemoglobin 1.3 1.5 Blood Gas Hemoglobin 16.4 14.7 Oxygen Delivery Device NASAL CANNULA BiPAP Blood Gas Liter Flow 2 Urine Color ORANGE Urine Turbidity SLIGHT Urine pH 5.5 Urine Specific Wadley 1.017 Urine Protein NEG Urine Glucose (UA) NEG Urine Ketones TRACE Urine Occult Blood NEG Urine Nitrite NEG Urine Bilirubin NEG Urine Leukocyte Esterase TRACE Urine RBC 0-2 Urine WBC 6-8 Urine Squamous Epithelial Cells 0-5 Urine Bacteria RARE Urine Yeast (Budding) FEW Microscopic Urinalysis Comment CULT NOT INDICATED Blood Gas Inspired Oxygen 35 Test 11/09/16 00:17 11/09/16 00:33 11/09/16 05:35 11/09/16 05:48 Troponin I LESS THAN 0.02 LESS THAN 0.02 White Blood Count 5.4 Red Blood Count 5.03 Hemoglobin 14.8 Hematocrit 44.6 Mean Corpuscular Volume 88.6 Mean Corpuscular Hemoglobin 29.4 Mean Corpuscular Hemoglobin Concent 33.2 Red Cell Distribution Width 14.4 Platelet Count 141 Mean Platelet Volume 9.6 Neutrophils (%) (Auto) 92.7 Lymphocytes (%) (Auto) 6.4 Monocytes (%) (Auto) 0.5 Eosinophils (%) (Auto) 0.0 Basophils (%) (Auto) 0.4 Neutrophils # (Auto) 5.1 Lymphocytes # (Auto) 0.3 Monocytes # (Auto) 0.0 Eosinophils # (Auto) 0.0 Basophils # (Auto) 0.0 CBC Comment DIFF FINAL Differential Comment Blood Urea Nitrogen 12 Creatinine 0.50 Random Glucose 312 Total Protein 5.5 Albumin 2.5 Calcium Level 8.4 Phosphorus Level 3.8 Magnesium Level 2.1 Alkaline Phosphatase 128 Aspartate Amino Transf (AST/SGOT) 27 Alanine Aminotransferase (ALT/SGPT) 55 Total Bilirubin 0.7 Sodium Level 139 Potassium Level 4.4 Chloride Level 102 Carbon Dioxide Level 33.6 Anion Gap 3 Estimat Glomerular Filtration Rate 125 Lactic Acid Level 0.9 Blood Gas Puncture Site RT RADIAL Blood Gas Patient Temperature 37.0 Blood Gas HCO3 32 Blood Gas Base Excess 7.0 Blood Gas Oxygen Saturation 94 Arterial Blood pH 7.37 Arterial Blood Partial Pressure CO2 58 Arterial Blood Partial Pressure O2 105 Arterial Blood Oxygen Content 20.0 Arterial Blood Carboxyhemoglobin 2.6 Arterial Blood Methemoglobin 1.2 Blood Gas Hemoglobin 15.1 Oxygen Delivery Device BiPAP Blood Gas Inspired Oxygen 40 Date/Time Source Procedure Growth Status 11/08/16 20:00 Blood Peripheral Aerobic Blood Culture Pending Received 11/08/16 20:00 Blood Peripheral Anaerobic Blood Culture Pending Received 11/09/16 06:04 Sputum Expectorated Sputum Gram Stain Pending Received 11/09/16 06:04 Sputum Expectorated Sputum Sputum Culture Pending Received Result Diagram: 11/09/16 0535 11/09/16 0535 Imaging Chest x-ray: Personally reviewed: Bilateral interstitial infiltrates Caprini VTE Risk Assessment Caprini VTE Risk Assessment: Mod/High Risk (score >= 2) Caprini Risk Assessment Model Point Value = 1 Point Value = 2 Point Value = 3 Point Value = 5 Age 41-60 Minor surgery BMI > 25 kg/m2 Swollen legs Varicose veins or History of unexplained or recurrent spontaneous Oral contraceptives or hormone replacement Sepsis (< 1 month) Serious lung disease, including pneumonia (< 1 month) Abnormal pulmonary function Acute myocardial infarction Congestive heart failure (< 1 month) History of inflammatory bowel disease Medical patient at bed rest Age 61-74 Arthroscopic surgery Major open surgery (> 45 min) Laparoscopic surgery (> 45 min) Malignancy Confined to bed (> 72 hours) Immobilizing plaster cast Central venous access Age >= 75 History of VTE Family history of VTE Factor V Leiden Prothrombin [id number] Lupus anticoagulant Anticardiolipin antibodies Elevated serum homocysteine Heparin-induced thrombocytopenia Other congenital or acquired thrombophilia Stroke (< 1 month) Elective arthroplasty Hip, pelvis, or leg fracture Acute spinal cord injury (< 1 month) Prophylaxis Regimen Total Risk Factor Score Risk Level Prophylaxis Regimen 0-1 Low Early ambulation 2 Moderate Order ONE of the following: *Sequential Compression Device (SCD) *Heparin 5000 units SQ BID 3-4 Higher Order ONE of the following medications: *Heparin 5000 units SQ TID *Enoxaparin/Lovenox 40 mg SQ daily (WT < 150 kg, CrCl > 30 mL/min) *Enoxaparin/Lovenox 30 mg SQ daily (WT < 150 kg, CrCl > 10-29 mL/min) *Enoxaparin/Lovenox 30 mg SQ BID (WT < 150 kg, CrCl > 30 mL/min) AND/OR *Sequential Compression Device (SCD) 5 or more Highest Order ONE of the following medications: *Heparin 5000 units SQ TID (Preferred with Epidurals) *Enoxaparin/Lovenox 40 mg SQ daily (WT < 150 kg, CrCl > 30 mL/min) *Enoxaparin/Lovenox 30 mg SQ daily (WT < 150 kg, CrCl > 10-29 mL/min) *Enoxaparin/Lovenox 30 mg SQ BID (WT < 150 kg, CrCl > 30 mL/min) AND *Sequential Compression Device (SCD) Assessment and Plan Assessment and Plan 65-year-old female with: COPD exacerbation Possible pneumonia Acute on chronic respiratory failure Respiratory acidosis Smoker Morbid obesity Plan: Neuro: Follow neuro status, avoid sedatives and narcotics if possible. We will use Tylenol when necessary for pain currently. Cardiovascular: IV hydration, watch for hypotension. Cardiac enzymes negative. Pulmonary: Supplemental O2. Off BiPAP currently. CO2 retainer. Pulmonary consulted. GI/liver: By mouth diet as tolerated. Renal/: IV hydration, follow intake output, electrolytes, BUN/creatinine. ID: Continue empiric antibiotics with Zithromax and Zosyn. Heme: CBC endocrine SSI for glycemic control if needed Prophylaxis: SCDs, subcutaneous Lovenox Hospitalist consulted to assume medical care. Pulmonary medicine consulted for advanced COPD with exacerbation. Critical care will be signing off. Leandro Alarcon MD Nov 09, 2016 07:42
[2016-11-09] MEDS ORDERED: GLUCAGON 1 MG/ML VIAL IM/SQ PRN (08:00)
[2016-11-09] MEDS ORDERED: RESP: ALBUTEROL 2.5 MG/IPRATROPIUM 0.5 MG NEB (PRN) NEB (08:00)
[2016-11-09] MEDS ORDERED: DEXTROSE 50% IN WATER 50 ML VIAL(D50) IV PRN (08:00)
[2016-11-09] MEDS ORDERED: SODIUM CHLORIDE 0.9% FLUSH 10 ML FLUSH IV FLUSH SCH (09:00)
[2016-11-09] MEDS: ENOXAPARIN SODIUM 40 MG/0.4 ML SYRINGE SQ SCH (09:55)
[2016-11-09] MEDS: FAMOTIDINE 20 MG/2 ML VIAL IV PUSH SCH ×2 (09:55→20:56)
[2016-11-09] MEDS: DOCUSATE SODIUM 50 MG/SENNA 8.6 MG TAB PO SCH ×2 (09:55→20:52)
[2016-11-09] MEDS: SODIUM CHLORIDE 0.9% FLUSH 10 ML FLUSH IV FLUSH SCH ×2 (09:56→20:55)
[2016-11-09] MEDS: NYSTATIN 100,000 U/GM PWD 15 GM BTL TOPICAL SCH ×2 (09:56→20:52)
[2016-11-09] MEDS: BUDESONIDE-FORMOTEROL 80/4.5 MCG INHALER INH SCH ×2 (09:57→20:51)
[2016-11-09] MEDS: INSULIN ASPART SUPPLEMENTAL SCALE SQ SCH ×3 (10:00→17:00)
[2016-11-09] MEDS ORDERED: IBUPROFEN 400 MG TAB PO PRN (15:45)
[2016-11-09] MEDS ORDERED: PILL SPLITTER OTHER PRN (16:15)
--- NOTE | 2016-11-09 17:05 | MB ---
cc: SACHIN RODRIGUES DATE OF CONSULTATION 11/09/2016 REASON FOR CONSULTATION COPD and respiratory failure. HISTORY OF THE PRESENT ILLNESS This is 65-year-old white female was admitted via the emergency room with progressive shortness of breath, persistent cough with wheezing and chest congestion. The patient has had these symptoms for over a week. She denied any hemoptysis, fevers and/or chest pain. The patient had no nausea, vomiting or aspiration. She did complain of back pain and has had leg swelling. Upon arrival she had to be placed on BiPAP at the emergency room and she was hypercapnic initially but did improve after being given IV steroids, IV antibiotics and nebulized albuterol solution. Presently on O2 at 4 liters and seems to be comfortable. PAST MEDICAL HISTORY Past history includes: 1. COPD. 2. History of chronic smoking. 3. History of pneumonia in the past. 4. History of mild diabetes. 5. He also has had a history for GI reflux. SOCIAL HISTORY Habits, the patient smoked one to two packs per day for over 30 years and continues to smoke. No significant alcohol intake. ALLERGIES NO DRUG ALLERGIES ARE LISTED. MEDICATIONS List: 1. DuoNeb solution q.i.d. 2. Zithromax. 3. Z-Rusty x1. 4. Symbicort 160/4.5 two puffs b.i.d. 5. Ativan 0.5 mg p.r.n. FAMILY HISTORY Noncontributory. ALLERGIES None listed. REVIEW OF SYSTEMS The patient has had some weight gain. She has leg swelling. She has joint pain. She has back pain. She has urinary frequency. She has some anxiety with depression. The other system review as per presenting complaint. PHYSICAL EXAMINATION GENERAL: This averagely built middle-aged lady who is face is plethoric. VITAL SIGNS: Her blood pressure 130/70, pulse is 100, respirations 22, temperature 98.5. HEENT: Head normocephalic. Pupils are reactive and equal. Tongue is dry. Throat is injected. Nasal mucosa is clear. NECK: Supple without bruits. No thyroid enlargement or lymphadenopathy. CHEST: Distant breath sounds with expiratory wheezes bilaterally, prolonged expirations. HEART: The heart sounds are regular S1-S2. No murmur. ABDOMEN: Soft. Protuberant. No masses or organomegaly or tenderness. EXTREMITIES: Edema 1+. Ecchymotic areas of the extremities. Decreased peripheral pulses. NEUROLOGIC: Reflexes are 1+ with no gross motor deficits. Cranial nerves grossly intact. RECTAL: Exam is deferred. SKIN: No lesions. IMPRESSION 1. COPD with acute exacerbation. 2. Chronic respiratory failure. 3. Nicotine dependency. 4. Obesity and possible sleep apnea. PLAN The patient will be maintained on O2 at 3-4 liters nasal cannula. Continue with IV antibiotics including Zithromax 100 mg and Zosyn as ordered. Solu-Medrol 40 mg IV q.8 h. We will also use Symbicort 80/4.5 one puff b.i.d. Nebulized DuoNeb solution q.6 h. Blood sugar to be monitored. We will get a follow up chest x-ray in the a.m. A get pulmonary function study at the bedside. The patient will be counseled about quitting cigarette smoking. He has a nicotine patch. Lasix 20 mg to be given x3 days. We will follow the case with you Dr. Alarcon. Thank you for this consultation. Sachin Rodrigues MD JBERTO/KK /2:10 PM /4:38 PM
[2016-11-09] MEDS: ACETAMINOPHEN/HYDROcodone 325 MG/5 MG TAB PO PRN ×2 (18:19→22:27)
[2016-11-09] MEDS: METHADONE HCL 10 MG TAB PO SCH (20:54)
[2016-11-10] VITALS (27 sets, daily range): BP systolic 116–164; BP diastolic 71–111; PULSE 82–114; RESP 13–34; TEMP 98–99.1; O2SAT 91–99
[2016-11-10] MEDS: LORazepam 0.5 MG TAB PO PRN ×3 (00:19→18:29)
[2016-11-10] MEDS: INSULIN ASPART SUPPLEMENTAL SCALE SQ SCH ×5 (00:23→21:06)
[2016-11-10] MEDS ORDERED: AZITHROMYCIN INJ 500 MG in SODIUM CHLOR 0.9% 250 ML INJ 250 ML IV SCH (01:00)
[2016-11-10] MEDS: PIPERACIL-TAZO 4.5 GM PREMIX 100 ML IV SCH ×2 (02:12→09:03)
[2016-11-10] MEDS: CHLORHEXIDINE GLUCONATE 2 % 1 PACK (2 CLOTHS) TOP SCH (02:12)
[2016-11-10] MEDS: RESP: ALBUTEROL 2.5 MG/IPRATROPIUM 0.5 MG NEB (SCH) INH ×6 (02:51→23:18)
[2016-11-10] MEDS: SODIUM CHLOR 0.9% 1000 ML INJ 1,000 ML IV SCH ×2 (03:55→11:20)
[2016-11-10] MEDS: methylPREDNISolone SOD SUCC 40 MG/1 ML VIAL IV PUSH SCH ×3 (04:02→21:01)
[2016-11-10] MEDS: METHADONE HCL 10 MG TAB PO SCH ×3 (05:12→21:04)
[2016-11-10] MEDS: DOCUSATE SODIUM 50 MG/SENNA 8.6 MG TAB PO SCH ×2 (09:00→21:02)
[2016-11-10] MEDS: BUDESONIDE-FORMOTEROL 80/4.5 MCG INHALER INH SCH ×2 (09:00→21:05)
[2016-11-10] MEDS: ACETAMINOPHEN/HYDROcodone 325 MG/5 MG TAB PO PRN ×3 (09:00→21:05)
[2016-11-10] MEDS: NYSTATIN 100,000 U/GM PWD 15 GM BTL TOPICAL SCH ×2 (09:00→21:05)
[2016-11-10] MEDS: FUROSEMIDE 20 MG TAB PO SCH (09:00)
[2016-11-10] MEDS: POTASSIUM CHLORIDE 10 MEQ CAP PO SCH (09:00)
[2016-11-10] MEDS: ENOXAPARIN SODIUM 40 MG/0.4 ML SYRINGE SQ SCH (09:00)
[2016-11-10] MEDS: SODIUM CHLORIDE 0.9% FLUSH 10 ML FLUSH IV FLUSH SCH ×2 (09:00→21:05)
[2016-11-10] MEDS: FAMOTIDINE 20 MG/2 ML VIAL IV PUSH SCH ×2 (09:00→21:02)
--- NOTE | 2016-11-10 12:38 | HHI.PR ---
Subjective Remarks Patient is well known to me from previous hospital admission. Patient states her cough is looser. Denies dyspnea. C/o lower back pain. Wants to know how to get her lungs better. Patient is still smoking. Objective Vitals Vital Signs Date Time Temp Pulse Resp B/P (MAP) Pulse Ox O2 Delivery O2 Flow Rate FiO2 11/10/16 11:00 88 17 154/83 (106) 91 11/10/16 10:00 92 14 139/91 (107) 94 11/10/16 10:00 92 11/10/16 09:00 94 17 150/84 (106) 94 11/10/16 08:24 102 26 116/79 (91) 92 11/10/16 08:20 98.3 151/83 (105) 92 11/10/16 08:00 102 11/10/16 07:15 95 Nasal Cannula 3.00 11/10/16 07:15 94 Nasal Cannula 3.00 11/10/16 07:15 86 20 142/83 (102) 94 11/10/16 06:00 86 11/10/16 06:00 86 20 139/81 (100) 94 11/10/16 05:00 82 11/10/16 05:00 82 20 132/77 (95) 94 11/10/16 04:00 100 11/10/16 04:00 100 34 148/88 (108) 11/10/16 03:05 98 30 11/10/16 03:00 98 14 133/83 (100) 99 11/10/16 03:00 98 11/10/16 01:22 93 Bi-Pap 35 11/10/16 01:22 98 13 134/72 (92) 93 11/10/16 01:22 98 11/10/16 00:20 95 30 11/10/16 00:00 106 11/10/16 00:00 95 Bi-Pap 35 11/10/16 00:00 98.5 106 24 133/71 (91) 94 11/09/16 23:00 96 24 142/78 (99) 95 11/09/16 23:00 96 11/09/16 23:00 95 Nasal Cannula 3.00 11/09/16 22:00 112 11/09/16 22:00 112 35 140/72 (94) 11/09/16 21:00 100 25 124/68 (86) 93 11/09/16 21:00 93 Nasal Cannula 3.00 11/09/16 21:00 100 11/09/16 20:00 97.6 106 28 137/78 (97) 92 11/09/16 20:00 106 11/09/16 20:00 92 Nasal Cannula 3.00 11/09/16 19:29 93 Nasal Cannula 3.00 11/09/16 19:18 116 36 131/79 (96) 11/09/16 19:18 116 11/09/16 19:00 120 11/09/16 19:00 120 40 11/09/16 18:00 118 31 126/76 (93) 93 11/09/16 18:00 118 11/09/16 17:00 102 9 120/72 (88) 94 11/09/16 16:00 102 31 124/77 (93) 93 11/09/16 16:00 102 11/09/16 15:00 108 23 98/53 (68) 11/09/16 14:00 108 11/09/16 14:00 114 107/54 (71) 94 11/09/16 13:00 98.0 114 39 104/53 (70) I/O 11/09/16 11/09/16 11/09/16 11/10/16 11/10/16 11/10/16 07:00 15:00 23:00 07:00 15:00 23:00 Intake Total 1087 ml 520 ml 1070 ml Output Total 300 ml 650 ml 1050 ml Balance 787 ml -130 ml 20 ml Intake Oral 240 ml 520 ml 720 ml IV Total 847 ml 350 ml Output Urine Total 300 ml 650 ml 1050 ml # Bowel Movements 1 1 1 Result Diagram: 11/09/16 0535 11/09/16 0535 Objective Remarks GENERAL: Well-nourished, well-developed patient. SKIN: Warm and dry. HEAD: Normocephalic. EYES: No scleral icterus. No injection or drainage. NECK: Supple, trachea midline. No JVD or lymphadenopathy. CARDIOVASCULAR: Regular rate and rhythm without murmurs, gallops, or rubs. RESPIRATORY: Breath sounds equal bilaterally. Coarse breath sounds with prolonged exp phase. No accessory muscle use. GASTROINTESTINAL: Abdomen soft, non-tender, nondistended. EXTREMITIES: No cyanosis, or edema. NEUROLOGICAL: Awake, alert, and oriented x 3. Non-focal. A/P Problem List: (1) COPD with acute exacerbation ICD Code: J44.1 - Chronic obstructive pulmonary disease with (acute) exacerbation Status: Acute (2) Chronic respiratory failure with hypoxia ICD Code: J96.11 - Chronic respiratory failure with hypoxia Status: Acute (3) Tobacco dependency ICD Code: F17.200 - Tobacco dependence syndrome Status: Acute Assessment and Plan -Copd acute exacerbation with resp acidosis - s/p bipap, improved, stable on NC , cont steroids, bronchodilators, abx. Pulm following the patient. -Chronic resp failure - cont O2 -Continued tobacco use - patient advised cessation. -Chronic pain - on methadone. -Anxiety - cont ativan PO prn -DVT px - lovenox [facility] Dayana Ward MD Nov 10, 2016 12:38
[2016-11-10] MEDS: LEVOFLOXACIN 750 MG TAB PO SCH (12:45)
[2016-11-10] MEDS ORDERED: HYDR-3516 PO ×2 (13:12)
[2016-11-10] MEDS ORDERED: ASPI81CH37 CHEW (13:12)
[2016-11-10] MEDS ORDERED: OMEP20TA PO (13:12)
[2016-11-10] MEDS ORDERED: GUAI1SOL3 PO (13:12)
[2016-11-10] MEDS ORDERED: CYAN2500 PO (13:12)
[2016-11-10] MEDS ORDERED: MECL-62 PO (13:12)
[2016-11-10] MEDS ORDERED: MONT10TA4 PO (13:12)
[2016-11-10] MEDS ORDERED: METH5TAB PO (13:15)
--- NOTE | 2016-11-10 15:08 | ECHRPT ---
Indication: pulm htn CONCLUSIONS Normal left ventricular size. The left ventricular systolic function is low normal with an estimated ejection fraction in the rang e of 50- 55%. Trace mitral valve regurgitation. The aortic valve is not well visualized. There is mild tricuspid valve regurgitation. The estimated pulmonary arterial pressure is 18.4 mmHg. BP: / HR: Rhythm: MEASUREMENTS (Male / Female) Normal Values Technical Quality:Technically difficult study 2D ECHO LV Diastolic Diameter PLAX 4.3 cm 4.2 - 5.9 / 3.9 - 5.3 cm LV Systolic Diameter PLAX 3.3 cm IVS Diastolic Thickness 1.1 cm 0.6 - 1.0 / 0.6 - 0.9 cm LVPW Diastolic Thickness 0.9 cm 0.6 - 1.0 / 0.6 - 0.9 cm LV Relative Wall Thickness 0.5 RV Internal Dim ED PLAX 2.8 cm M-MODE Aortic Root Diameter MM 3.6 cm LA Systolic Diameter MM 3.1 cm LA Ao Ratio MM 0.9 AV Cusp Separation MM 2.8 cm DOPPLER LV E' Lateral Velocity 11.6 cm/s LV E' Septal Velocity 9.1 cm/s TR Peak Velocity 145.0 cm/s TR Peak Gradient 8.4 mmHg Right Atrial Pressure 10.0 mmHg Pulmonary Artery Systolic Pressu 18.4 mmHg Right Ventricular Systolic Press 18.4 mmHg FINDINGS LEFT VENTRICLE Normal left ventricular size. The left ventricular systolic function is low normal with an estimated ejection fraction in the rang e of 50- 55%. RIGHT VENTRICLE Normal right ventricular size and systolic function. LEFT ATRIUM The left atrial size is normal. RIGHT ATRIUM The right atrial size is normal. ATRIAL SEPTUM Normal atrial septal thickness without atrial level shunting by limited color doppler interrogation. AORTA The aortic root and proximal ascending aorta are normal in size on limited imaging. MITRAL VALVE Structurally normal mitral valve. Trace mitral valve regurgitation. AORTIC VALVE The aortic valve is not well visualized. TRICUSPID VALVE Structurally normal tricuspid valve. There is mild tricuspid valve regurgitation. The estimated pulmonary arterial pressure is 18.4 mmHg. PULMONARY VALVE No pulmonary valve regurgitation or stenosis. VESSELS The inferior vena cava is normal in size. PERICARDIUM No pericardial effusion. Arturo Pate MD (Electronically Signed) Final Date:10 November 2016 15:07
--- NOTE | 2016-11-10 20:06 | HHI.PR ---
Subjective Remarks Still wheezing . On O2 4 L. Used BiPAP last nite Objective Vital Signs Date Time Temp Pulse Resp B/P (MAP) Pulse Ox O2 Delivery O2 Flow Rate FiO2 11/10/16 18:45 99.1 106 18 156/111 (126) 95 11/10/16 18:00 98.6 90 22 157/87 (110) 94 11/10/16 18:00 92 11/10/16 17:22 102 26 164/93 (116) 95 11/10/16 17:22 101 22 164/93 (116) 96 11/10/16 17:00 108 33 160/105 (123) 92 11/10/16 16:30 92 24 95 11/10/16 16:00 90 11/10/16 16:00 98.6 90 22 159/87 (111) 94 11/10/16 15:00 96 22 150/91 (110) 94 11/10/16 14:00 96 17 160/94 (116) 93 11/10/16 14:00 96 11/10/16 12:00 94 22 151/84 (106) 92 11/10/16 12:00 94 11/10/16 11:00 88 17 154/83 (106) 91 11/10/16 10:00 92 14 139/91 (107) 94 11/10/16 10:00 92 11/10/16 09:00 94 17 150/84 (106) 94 11/10/16 08:24 102 26 116/79 (91) 92 11/10/16 08:20 98.3 151/83 (105) 92 11/10/16 08:00 102 11/10/16 07:15 95 Nasal Cannula 3.00 11/10/16 07:15 94 Nasal Cannula 3.00 11/10/16 07:15 86 20 142/83 (102) 94 11/10/16 06:00 86 11/10/16 06:00 86 20 139/81 (100) 94 11/10/16 05:00 82 11/10/16 05:00 82 20 132/77 (95) 94 11/10/16 04:00 100 11/10/16 04:00 100 34 148/88 (108) 11/10/16 03:05 98 30 11/10/16 03:00 98 14 133/83 (100) 99 11/10/16 03:00 98 11/10/16 01:22 93 Bi-Pap 35 11/10/16 01:22 98 13 134/72 (92) 93 11/10/16 01:22 98 11/10/16 00:20 95 30 11/10/16 00:00 106 11/10/16 00:00 95 Bi-Pap 35 11/10/16 00:00 98.5 106 24 133/71 (91) 94 11/09/16 23:00 96 24 142/78 (99) 95 11/09/16 23:00 96 11/09/16 23:00 95 Nasal Cannula 3.00 11/09/16 22:00 112 11/09/16 22:00 112 35 140/72 (94) 11/09/16 21:00 100 25 124/68 (86) 93 11/09/16 21:00 93 Nasal Cannula 3.00 11/09/16 21:00 100 I/O 11/09/16 11/09/16 11/09/16 11/10/16 11/10/16 11/10/16 07:00 15:00 23:00 07:00 15:00 23:00 Intake Total 1087 ml 520 ml 1070 ml 260 ml 1320 ml Output Total 300 ml 650 ml 1050 ml 2300 ml Balance 787 ml -130 ml 20 ml 260 ml -980 ml Intake Oral 240 ml 520 ml 720 ml 1320 ml IV Total 847 ml 350 ml 260 ml Output Urine Total 300 ml 650 ml 1050 ml 2300 ml # Bowel Movements 1 1 1 1 Result Diagram: 11/09/16 0535 11/09/16 0535 Objective Remarks GENERAL: This averagely built middle-aged lady who is face is plethoric. HEENT: Head normocephalic. Pupils are reactive and equal. Tongue is dry. Throat is clear. Nasal mucosa is clear. NECK: Supple without bruits. No thyroid enlargement or lymphadenopathy. CHEST: Distant breath sounds with expiratory wheezes bilaterally, prolonged expirations. HEART: The heart sounds are regular S1-S2. No murmur. ABDOMEN: Soft. Protuberant. No masses or organomegaly or tenderness. EXTREMITIES: Edema 1+. Ecchymotic areas of the extremities. Decreased peripheral pulses. NEUROLOGIC: Reflexes are 1+ with no gross motor deficits. Cranial nerves grossly intact. RECTAL: Exam is deferred. SKIN: No lesions. Assessment and Plan Assessment and Plan IMPRESSION 1. COPD with acute exacerbation. 2. Chronic respiratory failure. 3. Nicotine dependency. 4. Obesity and possible sleep apnea. Plan : 1. Taper solumedrol to 40 mg BID. 2. Nebs qid , duoneb. 3. O2 at 3 L. 4. BIPAP at HS 12/5 CM 5. Continue antibiotics. 6. CBC,BMP Meg Rodrigues MD Nov 10, 2016 20:06
[2016-11-11] VITALS (10 sets, daily range): BP systolic 147–168; BP diastolic 85–106; PULSE 93–128; RESP 20–22; TEMP 96.4–98.3; O2SAT 93–98
[2016-11-11] MEDS: LORazepam 0.5 MG TAB PO PRN ×3 (00:18→21:05)
[2016-11-11] MEDS: RESP: ALBUTEROL 2.5 MG/IPRATROPIUM 0.5 MG NEB (SCH) INH ×6 (03:23→23:07)
[2016-11-11] MEDS: METHADONE HCL 10 MG TAB PO SCH ×2 (05:19→12:22)
[2016-11-11] MEDS: CHLORHEXIDINE GLUCONATE 2 % 1 PACK (2 CLOTHS) TOP SCH (05:21)
[2016-11-11] MEDS: INSULIN ASPART SUPPLEMENTAL SCALE SQ SCH ×4 (08:40→20:54)
[2016-11-11] MEDS: SODIUM CHLORIDE 0.9% FLUSH 10 ML FLUSH IV FLUSH SCH ×2 (08:40→20:54)
[2016-11-11] MEDS: BUDESONIDE-FORMOTEROL 80/4.5 MCG INHALER INH SCH ×2 (08:40→20:53)
[2016-11-11] MEDS: ENOXAPARIN SODIUM 40 MG/0.4 ML SYRINGE SQ SCH (08:41)
[2016-11-11] MEDS: FAMOTIDINE 20 MG/2 ML VIAL IV PUSH SCH ×2 (08:41→20:53)
[2016-11-11] MEDS: methylPREDNISolone SOD SUCC 40 MG/1 ML VIAL IV PUSH SCH ×2 (08:42→20:53)
[2016-11-11] MEDS: NYSTATIN 100,000 U/GM PWD 15 GM BTL TOPICAL SCH ×2 (08:42→20:53)
[2016-11-11] MEDS: ACETAMINOPHEN/HYDROcodone 325 MG/5 MG TAB PO PRN ×2 (08:42→17:43)
[2016-11-11] MEDS: DOCUSATE SODIUM 50 MG/SENNA 8.6 MG TAB PO SCH ×2 (08:42→20:53)
[2016-11-11] MEDS: FUROSEMIDE 20 MG TAB PO SCH (08:42)
[2016-11-11] MEDS: LEVOFLOXACIN 750 MG TAB PO SCH (08:42)
[2016-11-11] MEDS: POTASSIUM CHLORIDE 10 MEQ CAP PO SCH (09:00)
--- NOTE | 2016-11-11 12:48 | HHI.PR ---
Subjective Remarks Patient states she is not short of breath at rest but does get dyspneic with exertion. Her heart rate and blood pressure elevated this morning. Objective Vitals Vital Signs Date Time Temp Pulse Resp B/P (MAP) Pulse Ox O2 Delivery O2 Flow Rate FiO2 11/11/16 09:41 Nasal Cannula 11/11/16 08:00 98.0 98 20 168/94 (118) 98 11/11/16 07:50 96 Nasal Cannula 3.00 11/11/16 04:00 96.4 110 20 151/106 (121) 94 11/11/16 00:30 96 30 11/11/16 00:00 98.1 101 20 148/85 (106) 93 11/10/16 22:00 114 11/10/16 20:00 114 11/10/16 20:00 98.0 106 19 151/106 (121) 97 11/10/16 19:31 94 Nasal Cannula 3.00 11/10/16 19:00 97 Nasal Cannula 3.00 11/10/16 18:45 99.1 106 18 156/111 (126) 95 11/10/16 18:00 98.6 90 22 157/87 (110) 94 11/10/16 18:00 92 11/10/16 17:22 102 26 164/93 (116) 95 11/10/16 17:22 101 22 164/93 (116) 96 11/10/16 17:00 108 33 160/105 (123) 92 11/10/16 16:30 92 24 95 11/10/16 16:00 90 11/10/16 16:00 98.6 90 22 159/87 (111) 94 11/10/16 15:00 96 22 150/91 (110) 94 11/10/16 14:00 96 17 160/94 (116) 93 11/10/16 14:00 96 I/O 11/10/16 11/10/16 11/10/16 11/11/16 11/11/16 11/11/16 07:00 15:00 23:00 07:00 15:00 23:00 Intake Total 1070 ml 260 ml 1320 ml 240 ml Output Total 1050 ml 2300 ml Balance 20 ml 260 ml -980 ml 240 ml Intake Oral 720 ml 1320 ml 240 ml IV Total 350 ml 260 ml Output Urine Total 1050 ml 2300 ml # Voids 4 # Bowel Movements 1 1 1 Result Diagram: 11/09/1635 11/09/1635 Objective Remarks GENERAL: Well-nourished, well-developed patient. SKIN: Warm and dry. HEAD: Normocephalic. EYES: No scleral icterus. No injection or drainage. NECK: Supple, trachea midline. No JVD or lymphadenopathy. CARDIOVASCULAR: Regular rate and rhythm without murmurs, gallops, or rubs. RESPIRATORY: Breath sounds equal bilaterally. Coarse breath sounds with prolonged exp phase. No accessory muscle use. GASTROINTESTINAL: Abdomen soft, non-tender, nondistended. EXTREMITIES: No cyanosis, or edema. NEUROLOGICAL: Awake, alert, and oriented x 3. Non-focal. A/P Problem List: (1) COPD with acute exacerbation ICD Code: J44.1 - Chronic obstructive pulmonary disease with (acute) exacerbation Status: Acute (2) Chronic respiratory failure with hypoxia ICD Code: J96.11 - Chronic respiratory failure with hypoxia Status: Acute (3) Tobacco dependency ICD Code: F17.200 - Tobacco dependence syndrome Status: Acute Assessment and Plan -Copd acute exacerbation with resp acidosis - improved, stable on NC, continue BiPAP at night, cont steroids, bronchodilators, abx. Pulm following the patient. -Sinus tachycardia likely due to COPD exacerbation. We'll start Cardizem by mouth. -Hypertension - start Cardizem by mouth. -Chronic resp failure - cont O2 -Continued tobacco use - patient advised cessation. -Chronic pain - on methadone. -Anxiety - cont ativan PO prn -DVT px - lovenox Patient was on hospice care prior to coming to the hospital. Dayana Ward MD Nov 11, 2016 12:48
[2016-11-11] MEDS ORDERED: guaiFENesin/DEXTROMETHORPHAN 200 MG/20 MG/10 ML CUP PO PRN (13:00)
[2016-11-11] MEDS ORDERED: guaiFENesin/DEXTROMETHORPHAN 200 MG/20 MG/10 ML CUP PO ONE (13:00)
[2016-11-11] MEDS: DILTIAZEM-CD 180 MG CAP ER PO SCH (13:08)
[2016-11-11] MEDS: METHADONE HCL 10 MG/10 ML ORAL SOLUTION PO SCH ×2 (15:25→20:57)
[2016-11-12] VITALS (9 sets, daily range): BP systolic 111–178; BP diastolic 58–109; PULSE 60–104; RESP 20–24; TEMP 79.9–98.3; O2SAT 91–97
[2016-11-12] MEDS: RESP: ALBUTEROL 2.5 MG/IPRATROPIUM 0.5 MG NEB (SCH) INH ×5 (03:33→21:03)
[2016-11-12] MEDS: METHADONE HCL 10 MG/10 ML ORAL SOLUTION PO SCH ×3 (05:20→21:01)
[2016-11-12] MEDS: CHLORHEXIDINE GLUCONATE 2 % 1 PACK (2 CLOTHS) TOP SCH (05:22)
[2016-11-12] MEDS: ACETAMINOPHEN/HYDROcodone 325 MG/5 MG TAB PO PRN ×3 (06:45→21:24)
[2016-11-12] MEDS: INSULIN ASPART SUPPLEMENTAL SCALE SQ SCH ×4 (08:00→21:23)
[2016-11-12] MEDS: SODIUM CHLORIDE 0.9% FLUSH 10 ML FLUSH IV FLUSH SCH ×2 (09:00→21:00)
[2016-11-12] MEDS: LEVOFLOXACIN 750 MG TAB PO SCH (09:01)
[2016-11-12] MEDS: FUROSEMIDE 20 MG TAB PO SCH (09:01)
[2016-11-12] MEDS: ENOXAPARIN SODIUM 40 MG/0.4 ML SYRINGE SQ SCH (09:01)
[2016-11-12] MEDS: methylPREDNISolone SOD SUCC 40 MG/1 ML VIAL IV PUSH SCH (09:01)
[2016-11-12] MEDS: DILTIAZEM-CD 180 MG CAP ER PO SCH (09:02)
[2016-11-12] MEDS: DOCUSATE SODIUM 50 MG/SENNA 8.6 MG TAB PO SCH ×2 (09:02→20:52)
[2016-11-12] MEDS: FAMOTIDINE 20 MG TAB PO SCH ×2 (09:05→20:52)
--- NOTE | 2016-11-12 09:56 | HHI.PR ---
Subjective Remarks Patient states she feels fine as long she does not exert herself, but gets winded with exertion. Apparently she revoked hospice. The hospice nurse called me yesterday and asked for palliative care consultation to clarify her goals. Objective Vitals Vital Signs Date Time Temp Pulse Resp B/P (MAP) Pulse Ox O2 Delivery O2 Flow Rate FiO2 11/12/16 07:51 94 Nasal Cannula 3.00 11/12/16 04:00 97.8 78 20 141/86 (104) 97 11/12/16 00:00 79.9 94 20 160/98 (118) 96 11/11/16 20:00 112 11/11/16 20:00 94 Nasal Cannula 3.00 11/11/16 20:00 98.3 103 20 152/97 (115) 94 11/11/16 19:21 94 Nasal Cannula 3.00 11/11/16 16:00 98.2 93 22 147/87 (107) 98 11/11/16 15:34 95 Nasal Cannula 3.00 11/11/16 12:00 98.1 128 20 163/100 (121) 93 I/O 11/11/16 11/11/16 11/11/16 11/12/16 11/12/16 11/12/16 07:00 15:00 23:00 07:00 15:00 23:00 Intake Total 240 ml 980 ml 320 ml Output Total 800 ml 600 ml Balance 240 ml 180 ml -280 ml Intake Oral 240 ml 980 ml 320 ml Output Urine Total 800 ml 600 ml # Voids 4 4 # Bowel Movements 1 1 1 Result Diagram: 11/09/16 0535 11/09/16 0535 Objective Remarks GENERAL: Well-nourished, well-developed patient. SKIN: Warm and dry. HEAD: Normocephalic. EYES: No scleral icterus. No injection or drainage. NECK: Supple, trachea midline. No JVD or lymphadenopathy. CARDIOVASCULAR: Regular rate and rhythm without murmurs, gallops, or rubs. RESPIRATORY: Breath sounds equal bilaterally. Coarse breath sounds with prolonged exp phase. No accessory muscle use. GASTROINTESTINAL: Abdomen soft, non-tender, nondistended. EXTREMITIES: No cyanosis, or edema. NEUROLOGICAL: Awake, alert, and oriented x 3. Non-focal. A/P Problem List: (1) COPD with acute exacerbation ICD Code: J44.1 - Chronic obstructive pulmonary disease with (acute) exacerbation Status: Acute (2) Chronic respiratory failure with hypoxia ICD Code: J96.11 - Chronic respiratory failure with hypoxia Status: Acute (3) Tobacco dependency ICD Code: F17.200 - Tobacco dependence syndrome Status: Acute Assessment and Plan -Copd acute exacerbation with resp acidosis - improved, stable on NC at 3 L, continue BiPAP at night, cont steroids, bronchodilators, abx. Pulm following the patient. -Sinus tachycardia likely due to COPD exacerbation. Continue Cardizem by mouth. -Hypertension -improved after starting Cardizem by mouth. -Chronic resp failure - cont O2 -Continued tobacco use - patient advised cessation. -Chronic pain - on methadone. -Anxiety - cont ativan PO prn -DVT px - lovenox Patient was on hospice care prior to coming to the hospital. She has now revoked hospice. Consult palliative care for clarification of goals. Dayana Ward MD Nov 12, 2016 09:56
[2016-11-12] MEDS: POTASSIUM CHLORIDE 10 MEQ CONTROLLED RELEASE TAB PO SCH (12:54)
[2016-11-12] MEDS: NYSTATIN 100,000 U/GM PWD 15 GM BTL TOPICAL SCH ×2 (12:54→20:52)
[2016-11-12] MEDS: BUDESONIDE-FORMOTEROL 80/4.5 MCG INHALER INH SCH ×2 (12:54→20:52)
--- NOTE | 2016-11-12 17:34 | HHI.PR ---
Subjective Remarks Still wheezing . On O2 4 L. Used BiPAP last nite Objective Vital Signs Date Time Temp Pulse Resp B/P (MAP) Pulse Ox O2 Delivery O2 Flow Rate FiO2 11/12/16 12:00 97.6 103 20 156/95 (115) 94 11/12/16 12:00 94 Nasal Cannula Humidified 11/12/16 11:44 103 11/12/16 08:00 98.2 96 20 127/87 (100) 91 11/12/16 08:00 91 Nasal Cannula 3.00 Humidified 11/12/16 07:51 94 Nasal Cannula 3.00 11/12/16 04:00 97.8 78 20 141/86 (104) 97 11/12/16 00:00 79.9 94 20 160/98 (118) 96 11/11/16 20:00 112 11/11/16 20:00 94 Nasal Cannula 3.00 11/11/16 20:00 98.3 103 20 152/97 (115) 94 11/11/16 19:21 94 Nasal Cannula 3.00 I/O 11/11/16 11/11/16 11/11/16 11/12/16 11/12/16 11/12/16 06:59 14:59 22:59 06:59 14:59 22:59 Intake Total 240 ml 980 ml 320 ml Output Total 800 ml 600 ml Balance 240 ml 180 ml -280 ml Intake Oral 240 ml 980 ml 320 ml Output Urine Total 800 ml 600 ml # Voids 4 4 # Bowel Movements 1 1 1 Result Diagram: 11/09/16 0535 11/09/16 0535 Objective Remarks GENERAL: This averagely built middle-aged lady who is face is plethoric. HEENT: Head normocephalic. Pupils are reactive and equal. Tongue is dry. Throat is clear. Nasal mucosa is clear. NECK: Supple without bruits. No thyroid enlargement or lymphadenopathy. CHEST: Distant breath sounds with occ wheezes bilaterally, prolonged expirations. HEART: The heart sounds are regular S1-S2. No murmur. ABDOMEN: Soft. Protuberant. No masses or organomegaly or tenderness. EXTREMITIES: Edema 1+. Ecchymotic areas of the extremities. Decreased peripheral pulses. NEUROLOGIC: Reflexes are 1+ with no gross motor deficits. Cranial nerves grossly intact. RECTAL: Exam is deferred. SKIN: No lesions. Assessment and Plan Assessment and Plan IMPRESSION 1. COPD with acute exacerbation. 2. Chronic respiratory failure. 3. Nicotine dependency. 4. Obesity and possible sleep apnea. Plan : 1. D/C Solumedrol 2. Nebs qid , duoneb. 3. O2 at 3 L. 4. BIPAP at HS 12/5 CM 5. Continue antibiotics. PO 6. Prednisone 20 mg bid 7. Home anytime Meg Rodrigues MD Nov 12, 2016 17:34
--- NOTE | 2016-11-12 19:27 | PD.CONS ---
Consult Service Palliative Care . Consult Requested By Dr. Ward . Primary Care Physician No Primary Care Physician . Reason for Consultation a. To assist with evaluation and management of symptoms including: dyspnea; pain; constipation b. To assist medical decision maker(s) with: better understanding of current medical conditions; weighing benefits/burdens of medical treatment options; making medical treatment decisions. . HPI History of Present Illness Ms. Vanegas is a 65-year-old female who has been under the care of [facility] since 05/10/16 for her advanced chronic obstructive pulmonary disease. She was brought to the hospital by her on 11/08/16 due to severe shortness of breath. The patient had recently been on azithromycin for an acute bronchitis. Against her better judgment, she asked her to take her by car to her grandsons last high school football game and she had not been able to attend any of these. She remained in the car in the parking lot and found herself becoming increasing short of breath and frightened. She claims she could not think clearly at that time and instead of calling hospice she asked her to take her to the emergency department. The patient is normally on 2 L a minute of oxygen via nasal cannula while at home. She had oxygen with her in the car at the time when the breathing became severely worse. Patient reports that she continues to smoke in spite of her advanced lung disease. She reports that smoking had become even more frequent in the last weeks when she was frustrated with her bronchitis and angry with her . She thinks she was smoking at least one pack per day. When smoking, she is not using her oxygen. The patient has been oxygen dependent at home for approximately 2-1/2 years. She had 2 hospitalizations in April 2016 for COPD exacerbation with pneumonia. These hospitalizations were what led up to her hospice enrollment. She reported having lost 10 pounds as well in the month leading up to hospice enrollment. Weight initially went up under hospice care but reportedly then dropped about 16 lbs. At time of this ER visit, the patient denied chest pain, abdominal pain, nausea/ vomiting, diarrhea, dysuria. She has chronic pain beneath her left scapula. This pain is described as sharp and jabbing. It is unpredictable and seems to "have a life of its own.". She also has a pain in the low back that goes from hip to hip and is exacerbated by leaning over. Her only other complaint is constipation which is partially helped by Senna. Initial vital signs in the emergency department are as follows: Temperature 98.9; pulse 137; respiratory rate 24; blood pressure 113/75; pulse oximetry 92% on O2 at 2 L a minute via nasal cannula Initial examination by the emergency department chairperson noted the following: Patient was in obvious respiratory distress with tachypnea and tachycardia and increased work of breathing. Breath sounds were diminished with a few expiratory wheezes and basilar crackles. There is no accessory muscle use noted. There is 1+ pedal edema in the lower extremities. Exam was otherwise unremarkable. Initial diagnostic testing noted the following: * CBC showed a PBC 10.3; hemoglobin 15.8; platelet count 152 * Coagulation profile showed PT 10.3; INR 0.9 * Chemstrip panel showed sodium 139; potassium 4.0; chloride 100; CO2 34.6; anion gap 4; BUN 8; creatinine 0.48; glucose 152; lactic acid 1.2 * Liver function study showed total bilirubin 0.8; AST 37; ALT 63; total protein 5.9; albumin 2.7 * Cardiac serology showed total CK 42; troponin less than 0.02; B-type natriuretic peptide 17 * Arterial blood gases on O2 at 2 L a minute showed pH of 7.43; PCO2 of 52; PO2 of 66; bicarbonate 34; base excess 9.1 * Urinalysis was unremarkable. * EKG showed sinus tachycardia without significant ST-T wave changes. * Chest x-ray showed no acute lung disease or cardiomegaly. The patient was placed on BiPAP in the emergency department. She was given intravenous Zosyn. Critical care was consulted and the patient was admitted to the critical care service. Pulmonology was consulted. An echocardiogram on 11/10/16 showed normal ejection fraction in the range of 50 -55%. There was no significant valvular heart disease. Hospice was only notified of the patient's hospitalization days after her hospital admission. Hospice felt that the patient's symptoms could be well managed out of the hospital and in a hospice care Center. Patient insisted on continuing with acute hospitalization. She also indicated she wanted to remain "full code." Because of these goals, she revoked hospice services. The patient has improved. Breathing is much better though she still gets short of breath on any exertion. She tells me discharge is planned in the next day or so. She is interested in re-enrolling with hospice. When I ask about her goals at this time, she indicates she is fine with using hospice services for symptom management going forward. She again asserts that she was not thinking clearly when she asked her to bring her to the emergency department. She remains ambivalent about [facility], however. This is in large part due to the 4 grandchildren that live with her and her for whom she is responsible. . Function/Cognitive Trajectory As noted above, patient has been oxygen dependent for her COPD for about 2-1/2 years. She had 2 hospitalizations for severe COPD exacerbations in the month prior to hospice enrollment. She has demonstrated further decline while under hospice services beginning in May 2016. Prior to this illness, the patient was using a walker at home to ambulate. She was able to get out of the house about twice a week. Getting out was difficult as there are 13 steps at her home and on returning she would have to basically crawl up the stairs. The 13 steps would take her over 15 minutes. The patient reports some weight loss under hospice and this is confirmed by hospice. She has required chronic opiates to help manage her symptoms at home. . Review of Systems Constitutional: COMPLAINS OF: Fatigue, Weight gain (with edema), Weight loss, Change in appetite, Pain, Generalized weakness, DENIES: Fever Endocrine: DENIES: Heat/cold intolerance, Polydipsia, Polyuria, Polyphagia Eyes: COMPLAINS OF: Vision loss (wears glasses), DENIES: Eye pain Ears, nose, mouth, throat: DENIES: Tinnitus, Hearing loss, Throat pain Respiratory: COMPLAINS OF: Cough, Snoring, Wheezing, Sputum production, Shortness of breath, DENIES: Hemoptysis Cardiovascular: COMPLAINS OF: Palpitations, Dyspnea on Exertion, Lower Extremity Edema, DENIES: Chest pain, Syncope Gastrointestinal: COMPLAINS OF: Constipation, Dyspepsia or heartburn, DENIES: Black stools, Bloody stools, Diarrhea, Nausea, Vomiting, Difficulty Swallowing, Anorexia Genitourinary: DENIES: Urinary frequency, Urinary incontinence, Urgency, Hematuria Musculoskeletal: COMPLAINS OF: Joint pain, Muscle aches, Joint Swelling, Back pain, DENIES: Neck pain Immunologic/Allergic: DENIES: Eczema Neurologic: DENIES: Headache, Seizures, Tremor Psychiatric: COMPLAINS OF: Anxiety, Confusion, DENIES: Depression, Hallucinations Past Family Social History Coded Allergies: No Known Allergies (Unverified , 11/08/16) Past Medical History * COPD * Obesity * Tobacco abuse * Anxiety * Gastroesophageal reflux disease * Steroid-induced hyperglycemia . . Past Surgical History * Surgical repair of fractured left leg in 1995 . Reported Medications Pre-hospital medications under hospice care included: Duoneb (Ipratropium-Albuterol Neb) 0.5-2.5 Mg/3 Ml Neb 1 Ampule INH Q6HR NEB 30 Days Symbicort Inh (Budesonide/Formoterol Fumarate) 80-4.5 Mcg/Act Aero 1 Puff INH Q12HR Zithromax Z-Rusty (Azithromycin) 250 Mg Dspk 250 Mg PO DIRECTED Dexamethasone 4 Mg Tab 4 Mg PO DAILY Senokot S (Sennosides-Docusate Sodium) 8.6-50 Mg Tab 1-2 Tab every 12 hours PRN Nystop Topical (Nystatin Topical) 100,000 Unit/Gm Powd 1 Applic TOPICAL Q12HR Lorazepam 0.5 Mg Tab 0.5 Mg PO Q6H PRN [oxygen] 2 Liter NA CONTINUOUS Omeprazole 20 mg tablet; one by mouth daily Montelukast sodium; 10 mg tab; one by mouth daily Guaifenesin plus codeine cough syrup; 10 mils orally every 4 hours when necessary cough Meclizine 12.5 mg tablet; one by mouth 3 times a day Aspirin 81 mg; one by mouth daily Vitamin B-12 2500 g daily Hydrocodone/acetaminophen 5-325; 1-2 tablets every 4 hours when necessary pain/ shortness of breath Methadone 5 mg tablet; 2.5 mg by mouth every 8 hours scheduled Lorazepam 0.5 mg tablet; one by mouth every 6 hours when necessary anxiety/ shortness of breath . Current Medications Medications (Trade) Dose Ordered Sig/Rebel Route Start Time Stop Time Status Last Admin (Symbicort 80-4.5 Mcg Inh) 1 puff Q12HR INH 11/09/16 09:00 11/12/16 12:54 (Ativan) 0.5 mg Q6H PRN PO 11/08/16 23:45 11/11/16 21:05 (Mycostatin Powder) 1 applic Q12HR TOPICAL 11/09/16 09:00 11/12/16 12:54 (NS Flush) 2 ml UNSCH PRN IV FLUSH 9/30/17 23:45 (NS Flush) 2 ml BID IV FLUSH 11/09/16 09:00 11/12/16 09:00 (Tylenol) 650 mg Q6H PRN PO 11/08/16 23:45 (Zofran Inj) 4 mg Q6H PRN IV PUSH 11/08/16 23:45 (Ambien) 5 mg HS PRN PO 11/08/16 23:45 Miscellaneous Information 1 Q361D XX 11/08/16 23:45 11/08/16 23:45 (Chlorhexidine 2% Cloth) 3 pack Taper DAILY@04 TOP 11/09/16 04:00 11/05/17 03:59 11/12/16 05:22 (Chlorhexidine 2% Cloth) 3 pack UNSCH PRN TOP 11/08/16 23:45 (Callie-Colace) 1 tab BID PO 11/09/16 09:00 11/12/16 09:02 (Milk Of Magnesia Liq) 30 ml Q12H PRN PO 11/08/16 23:45 (Senokot) 17.2 mg Q12H PRN PO 11/08/16 23:45 (Dulcolax Supp) 10 mg DAILY PRN RECTAL 11/08/16 23:45 (Lactulose Liq) 30 ml DAILY PRN PO 11/08/16 23:45 (Duoneb Neb) 1 ampule Q4HR NEB INH 11/09/16 08:00 11/12/16 15:06 (Lovenox Inj) 40 mg Q24H SQ 11/09/16 09:00 11/12/16 09:01 (NovoLOG SUPPLEMENTAL SCALE) 1 ACHS SQ 11/09/16 08:00 11/12/16 18:02 (D50w (Vial) Inj) 25 ml UNSCH PRN IV 11/09/16 08:00 (Glucagon Inj) 1 mg UNSCH PRN IM/SQ 11/09/16 08:00 (Duoneb Neb) 1 ampule Q2HR NEB PRN NEB 11/09/16 08:00 (Lasix) 20 mg DAILY PO 11/10/16 09:00 11/12/16 09:01 (Motrin) 400 mg Q8H PRN PO 11/09/16 15:45 ([place] 5-325 Mg) 1 tab Q4H PRN PO 11/09/16 16:00 11/11/16 08:42 ([place] 5-325 Mg) 2 tab Q4H PRN PO 11/09/16 16:00 11/12/16 10:56 (Pill Splitter) 1 ea UNSCH PRN OTHER 11/09/16 16:15 (Levaquin) 750 mg DAILY PO 11/10/16 12:45 11/12/16 09:01 (Robitussin Dm 200-20 Mg/10 ml Liq) 10 ml Q6H PRN PO 11/11/16 13:00 (Cardizem Cd) 180 mg DAILY PO 11/11/16 13:00 11/12/16 09:02 (Methadone Liq) 2.5 mg Q8HR PO 11/11/16 14:00 11/12/16 13:50 (Pepcid) 20 mg BID PO 11/12/16 09:00 11/12/16 09:05 (Deltasone) 20 mg BID PO 11/12/16 21:00 (KCl) 10 meq DAILY PO 11/12/16 12:18 11/12/16 12:54 . Family History Family history is positive for diabetes. A brother and sister have some type of cancer. There is a son with asthma . Substance Use Tobacco: Patient was a one to 2 pack per day smoker for over 30 years. Continues to smoke at this time. Alcohol: No history of abuse Prescription med abuse: No known prescription medication abuse Illicits: No known use of illicits . Psychosocial History Patient is originally from [place], [place]. She moved to [place] just a few years ago to care for her for minor grandchildren. 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 The patient has 2 sons. One son, the father of the 4 children, lives in his car. The other son has been incarcerated. The patient's spouse, who is 7 years old, was recently enrolled at [email or web address] to study air-conditioning. Finances are an issue for the family. , Spiritual/Cultural Factors Patient identifies as Alevism. She indicated that synagogue and spirituality are important to her. She is not belong to a eric community for many years. She was open to multimedia project manager visits while on hospice. . Living Will: Never completed Health Care Surrogate: Never completed Durable Power of Horse Trader: Never completed Date completed: No advance directives have been completed. . Health Care Surrogate(s): No written designation of health care surrogate. . Documented care wishes: No written documentation of health care preferences/goals/wishes. . Today's verbally stated goals: Patient indicates she would like to re-enrolling with hospice. She indicated she is not interested in returning to the emergency department or hospital. She remains ambivalent about resuscitation status given her 4 young grandchildren she is caring for at home. . Family/friends goals: No discussion took place with family or friends today. . Ethical and Legal Issues Patient is capacitated to make her own health care decisions. Should she become incapacitated, proxy responsibilities would fall to the patient's spouse. . Physical Exam Vital Signs Date Time Temp Pulse Resp B/P (MAP) Pulse Ox O2 Delivery O2 Flow Rate FiO2 11/12/16 16:00 98.3 104 24 146/104 (118) 92 11/12/16 12:00 97.6 103 20 156/95 (115) 94 11/12/16 12:00 94 Nasal Cannula Humidified 11/12/16 11:44 103 11/12/16 08:00 98.2 96 20 127/87 (100) 91 11/12/16 08:00 91 Nasal Cannula 3.00 Humidified 11/12/16 07:51 94 Nasal Cannula 3.00 11/12/16 04:00 97.8 78 20 141/86 (104) 97 11/12/16 00:00 79.9 94 20 160/98 (118) 96 11/11/16 20:00 112 11/11/16 20:00 94 Nasal Cannula 3.00 11/11/16 20:00 98.3 103 20 152/97 (115) 94 11/11/16 19:21 94 Nasal Cannula 3.00 . 11/12/16 11/13/16 19:00 07:00 # Voids 5 # Bowel Movements 0 . Exam CONSTITUTIONAL/GENERAL: This is an adequately nourished patient, awake, alert, conversant, in a medical-surgical bed. She becomes very short of breath with normal conversation while on oxygen at rest. TUBES/LINES/DRAINS: No IV. Nasal cannula oxygen. Uses bedside commode. SKIN: No jaundice, rashes, or lesions. No wounds seen anteriorly. Ecchymotic areas on the extremities. Skin temperature appropriate. Not diaphoretic. HEAD: Atraumatic. Normocephalic. EYES: Pupils equal and round and reactive. Extraocular motions intact. No scleral icterus. No injection or drainage. Fundi not examined. ENT: Hearing grossly normal. Nose without bleeding or purulent drainage. Throat without visible erythema, exudates, masses, or lesions. NECK: Trachea midline. Supple, nontender. No palpable thyroid enlargement or nodularity. CARDIOVASCULAR: Regular rate and rhythm without murmurs, gallops, or rubs. No JVD. Peripheral pulses symmetric but decreased. RESPIRATORY/CHEST: Symmetric, unlabored respirations. Breath sounds quite diminished bilaterally especially at bases. Breath sounds equal bilaterally. No wheezes, rales, or rhonchi. GASTROINTESTINAL: Abdomen obese, soft, non-tender, nondistended. No hepato- splenomegaly, or palpable masses. No guarding. Bowel sounds present. GENITOURINARY: Without palpable bladder distension. MUSCULOSKELETAL: Extremities without clubbing, cyanosis. There is trace lower extremity edema. No joint tenderness or effusion noted. No calf tenderness. No mottling or clubbing. LYMPHATICS: No palpable cervical or supraclavicular adenopathy. NEUROLOGICAL: Awake and alert. Motor and sensory grossly within normal limits. Follows commands. Cognitively sharp. Moves all extremities. PSYCHIATRIC: No obvious anxiety/depression. No apparent hallucinations or other psychotic thought process. . Diagnostic Tests Laboratory Laboratory Tests Test 11/08/16 19:55 11/08/16 20:15 11/08/16 20:57 11/09/16 00:17 Prothrombin Time 10.3 SEC Prothromb Time International Ratio 0.9 RATIO Activated Partial Thromboplast Time 22.9 SEC Total Creatine Kinase 42 U/L B-Type Natriuretic Peptide 17 PG/ML Blood Gas Liter Flow 2 L/M Urine Color ORANGE Urine Turbidity SLIGHT Urine pH 5.5 Urine Specific [place] 1.017 Urine Protein NEG mg/dL Urine Glucose (UA) NEG mg/dL Urine Ketones TRACE mg/dL Urine Occult Blood NEG Urine Nitrite NEG Urine Bilirubin NEG Urine Leukocyte Esterase TRACE Urine RBC 0-2 /hpf Urine WBC 6-8 /hpf Urine Squamous Epithelial Cells 0-5 /hpf Urine Bacteria RARE /hpf Urine Yeast (Budding) FEW Microscopic Urinalysis Comment CULT NOT INDICATED Nasal Screen MRSA (PCR) MRSA NOT DETECTED Test 11/09/16 05:35 11/09/16 05:48 White Blood Count 5.4 TH/MM3 Red Blood Count 5.03 MIL/MM3 Hemoglobin 14.8 GM/DL Hematocrit 44.6 % Mean Corpuscular Volume 88.6 FL Mean Corpuscular Hemoglobin 29.4 PG Mean Corpuscular Hemoglobin Concent 33.2 % Red Cell Distribution Width 14.4 % Platelet Count 141 TH/MM3 Mean Platelet Volume 9.6 FL Neutrophils (%) (Auto) 92.7 % Lymphocytes (%) (Auto) 6.4 % Monocytes (%) (Auto) 0.5 % Eosinophils (%) (Auto) 0.0 % Basophils (%) (Auto) 0.4 % Neutrophils # (Auto) 5.1 TH/MM3 Lymphocytes # (Auto) 0.3 TH/MM3 Monocytes # (Auto) 0.0 TH/MM3 Eosinophils # (Auto) 0.0 TH/MM3 Basophils # (Auto) 0.0 TH/MM3 CBC Comment DIFF FINAL Differential Comment Blood Urea Nitrogen 12 MG/DL Creatinine 0.50 MG/DL Random Glucose 312 MG/DL Total Protein 5.5 GM/DL Albumin 2.5 GM/DL Calcium Level 8.4 MG/DL Phosphorus Level 3.8 MG/DL Magnesium Level 2.1 MG/DL Alkaline Phosphatase 128 U/L Aspartate Amino Transf (AST/SGOT) 27 U/L Alanine Aminotransferase (ALT/SGPT) 55 U/L Total Bilirubin 0.7 MG/DL Sodium Level 139 MEQ/L Potassium Level 4.4 MEQ/L Chloride Level 102 MEQ/L Carbon Dioxide Level 33.6 MEQ/L Anion Gap 3 MEQ/L Estimat Glomerular Filtration Rate 125 ML/MIN Lactic Acid Level 0.9 mmol/L Troponin I LESS THAN 0.02 NG/ML Blood Gas Puncture Site RT RADIAL Blood Gas Patient Temperature 37.0 Blood Gas HCO3 32 mmol/L Blood Gas Base Excess 7.0 mmol/L Blood Gas Oxygen Saturation 94 % Arterial Blood pH 7.37 Arterial Blood Partial Pressure CO2 58 mmHg Arterial Blood Partial Pressure O2 105 mmHg Arterial Blood Oxygen Content 20.0 Vol % Arterial Blood Carboxyhemoglobin 2.6 % Arterial Blood Methemoglobin 1.2 % Blood Gas Hemoglobin 15.1 G/DL Oxygen Delivery Device BiPAP Blood Gas Inspired Oxygen 40 % . Result Diagram: 11/09/16 0535 11/09/16 0535 Microbiology Microbiology Date/Time Source Procedure Growth Status 11/09/16 21:20 Nasal Washing Influenza Types A,B Antigen (JAVON) - Final NEGATIVE FOR FLU A AND B ANTIGEN.... Complete 11/09/16 20:15 Urine Catheterized Urine Legionella Antigen - Final PRESUMPTIVE NEGATIVE FOR LEGIONELLA P... Complete 11/09/16 20:15 Urine Catheterized Urine Streptococcus pneumoniae Antigen (M - Final PRESUMPTIVE NEGATIVE FOR STREPTOCOCCU... Complete Imaging Last Impressions Chest X-Ray 11/09/16 0000 Signed Impressions: Service Date/Time: Wednesday, November 09, 2016 04:15 - CONCLUSION: 1. Mild basilar airspace disease most characteristic of atelectasis or scarring. No significant effusion. No pneumothorax. Vaelriy Curran MD . Procedures * BiPAP . Patient/Family Conference Present at Family Conference: Patient only. . Family Conference Time (mins): 30 Family Conference Location: Bedside Issues Discussed: * Palliative care role, purpose, approach * Additional medical, psychosocial, and spiritual history * Patients general health, functional status, and cognitive changes in the months leading up to the current hospitalization * Patient understanding of the current medical problems * Patient understanding of prognosis * Patients goals of medical treatment * Current medical treatment options and benefits/burdens of those options * Questions answered to the best of my ability . Assessment and Plan Disease Oriented Problem List: (1) COPD (chronic obstructive pulmonary disease) with acute bronchitis (2) COPD with acute exacerbation (3) anxiety (4) GERD (5) Malnutrition Comment: low albumin Symptom Scale: (1) Pain 0-10 Scale: 0 Comment: patient has chronic sharp, stabbing pain beneath her left shoulder blade which has been present for years. See history of present illness. Patient also has low back pain seems to go from hip to hip. This is worse with bending over. (2) Dyspnea 0-10 Scale: 5 Comment: Patient has dyspnea with conversation and with any exertion even while on 02. . (3) anxiety 0-10 Scale: 0 Comment: Well managed at this time. She tells me she can't wait for anxiety to begin before medicating, she has to be on top of this. . Pertinent Non-Medical Issues Psychosocial: Lives at home with her and 4 minor grandchildren she is caring for. One son lives out of car. Another one recently incarcerated. Financial strains. Spiritual: Religions/spirituality are important. Identifies as Alevism. Has not belonged to a eric group for years. Legal: No advance directives. would be proxy. Ethical issues impacting care: No known ethical issues. . Important Contacts * Werner Vanegas (spouse) [phone] . Prognosis Patient has significant COPD. She had several hospitalizations for exacerbations prior to enrolling in hospice in May 2016. With hospice care she has managed to remain out of the hospital. She apparently developed some acute bronchitis, was smoking more, and panic causing her to forget to call hospice and resulting in this emergency room visit and subsequent hospitalization. The patient has survived longer than expected when first enrolled with hospice, given the severity of her dyspnea I continue to believe that life expectancy may be 6 months or less particularly if she continues to smoke and leave her oxygen off in order to do so. . Code Status: Full Code Plan == Code status: FULL CODE == Decision making: Patient is capacitated to make her own health care decisions at this time. Should she become incapacitated, proxy decision-making would fall to her spouse. == Goals of medical treatment: Patient tells me that she wants to focus on comfort measures. She wants to reenroll of hospice. At this time she does not want to return to the emergency department or to the hospital. She indicates she will contact hospice and if symptoms get severe will come to our care center instead of the emergency department. That being said, she remains reluctant to accept DNR status. Her ambivalence is understandable given that she and her have assumed primary responsibility for her for minor grandchildren. == Symptoms * Patient is to primary pain syndromes. She has chronic pain beneath her left scapula which she describes as sharp and jabbing. It seems to come and go for no apparent reason and she can't do things to make it better or worse. The opiates are helping with this. She also has lower back pain that goes across from hip to hip. This is more achy in nature. It is worse with bending over and getting back up. Patient has orders for every 8 hour low-dose methadone as well as breakthrough [place]. This is the regimen she was on with hospice and appeared to be working. No further recommendations at this time. * Dyspnea: Patient remains significantly short of breath with conversation or any exertion. Hopefully this will continue to improve with ongoing use of antibiotics, steroids, nebulizer treatments. No further recommendations at this time. * Constipation: Patient reports that her stools are pellet-like in spite of using senna at home. Lactulose is available to the patient here but has not been used. Recommend the nursing staff start using the lactulose. == Disposition: The patient has ambivalent goals in terms of DNR status, her other goals are hospice appropriate. In general, hospice regulations indicate we should not decline hospice enrollment just because of her refusal to accept DNR status. I believe based on her prognosis and her goals, therefore, that she is hospice eligible. I have spoken with the hospice admissions nurse and I believe they're working through some details for possible admission on 11/13. I have let the patient know that if there are more events where she goes directly to the emergency department or hospital without contacting us ill be an indication that her goals are more aggressive and that hospice would no longer be appropriate for her. == If patient remains hospitalized, palliative care we'll continue to follow to assist with symptom management and to further clarify goals as the clinical course evolves.. Thank you for the opportunity to participate in the care of Ms. Vanegas. . Attestation To help prompt me to consider important information that might be impacting today's encounter and assessment, information from prior notes written by myself or my colleagues may have been "brought forward" into today's note. My signature on this note, however, is an attestation that I personally performed the exam, history, and/or decision-making noted today, and, unless otherwise indicated, the interactions with patient, family, and staff as well as the review of records all occurred today. I also attest that the listed assessment and stated plan reflect my best clinical judgment today based on the combination of historical information, prior notes, and today's exam/ interactions. When time spent is documented, it refers only to time spent today by the signer, or if indicated, combined time spent today by collaborating physician/nurse practitioner. . Ketan Hayes MD Nov 12, 2016 19:27
[2016-11-12] MEDS: predniSONE 20 MG TAB PO SCH (20:52)
[2016-11-12] MEDS: LORazepam 0.5 MG TAB PO PRN (21:24)
[2016-11-13] VITALS (7 sets, daily range): BP systolic 142–166; BP diastolic 85–107; PULSE 90–98; RESP 20–22; TEMP 96.7–98.1; O2SAT 94–97
[2016-11-13] MEDS: RESP: ALBUTEROL 2.5 MG/IPRATROPIUM 0.5 MG NEB (SCH) INH ×3 (00:31→07:43)
[2016-11-13] MEDS: CHLORHEXIDINE GLUCONATE 2 % 1 PACK (2 CLOTHS) TOP SCH (04:00)
[2016-11-13] MEDS: METHADONE HCL 10 MG/10 ML ORAL SOLUTION PO SCH ×2 (05:51→13:01)
--- NOTE | 2016-11-13 07:11 | RADRPT ---
EXAM DATE/TIME: 11/13/2016 06:35 [facility] COMPARISON: CHEST SINGLE AP, November 09, 2016, 4:15. CHEST PA & LAT, May 07, 2016, 10:14. INDICATIONS : Short of breath. MEDICAL HISTORY : Chronic obstructive pulmonary disease. Diabetes mellitus type II. Gastroesophageal reflux disea se. SURGICAL HISTORY : None. ENCOUNTER: Subsequent ACUITY: 4 - 6 days PAIN SCORE: 0/10 LOCATION: Bilateral chest FINDINGS: PA and lateral views of the chest demonstrate subsegmental basal airspace disease effusion or pneumot horax the heart size normal. Mildly tortuous aorta. CONCLUSION: 1. Subsegmental basal airspace disease similar to November 09. No effusion or pneumothorax. Valeriy Curran MD on November 13, 2016 at 7:08 Board Certified Radiologist. This report was verified electronically.
[2016-11-13] MEDS: LORazepam 0.5 MG TAB PO PRN (08:25)
[2016-11-13] MEDS: LEVOFLOXACIN 750 MG TAB PO SCH (08:25)
[2016-11-13] MEDS: DILTIAZEM-CD 180 MG CAP ER PO SCH (08:25)
[2016-11-13] MEDS: FAMOTIDINE 20 MG TAB PO SCH (08:25)
[2016-11-13] MEDS: FUROSEMIDE 20 MG TAB PO SCH (08:25)
[2016-11-13] MEDS: ENOXAPARIN SODIUM 40 MG/0.4 ML SYRINGE SQ SCH (08:25)
[2016-11-13] MEDS: predniSONE 20 MG TAB PO SCH (08:25)
[2016-11-13] MEDS: DOCUSATE SODIUM 50 MG/SENNA 8.6 MG TAB PO SCH (08:26)
[2016-11-13] MEDS: INSULIN ASPART SUPPLEMENTAL SCALE SQ SCH ×2 (08:26→13:01)
[2016-11-13] MEDS: SODIUM CHLORIDE 0.9% FLUSH 10 ML FLUSH IV FLUSH SCH (08:26)
[2016-11-13] MEDS: POTASSIUM CHLORIDE 10 MEQ CONTROLLED RELEASE TAB PO SCH (08:26)
[2016-11-13] MEDS: BUDESONIDE-FORMOTEROL 80/4.5 MCG INHALER INH SCH (08:27)
[2016-11-13] MEDS: NYSTATIN 100,000 U/GM PWD 15 GM BTL TOPICAL SCH (08:27)
[2016-11-13] MEDS ORDERED: LEVA750T9 PO (09:51)
[2016-11-13] MEDS ORDERED: CLAR10CA3 PO (09:51)
--- NOTE | 2016-11-13 09:51 | HHI.DS ---
Discharge Summary Admission Date Nov 08, 2016 at 22:32 Discharge Date: Nov 13, 2016 Admitting Diagnosis EXAC COPD (1) COPD with acute exacerbation ICD Code: J44.1 - Chronic obstructive pulmonary disease with (acute) exacerbation Status: Acute (2) Chronic respiratory failure with hypoxia ICD Code: J96.11 - Chronic respiratory failure with hypoxia Status: Acute (3) Tobacco dependency ICD Code: F17.200 - Tobacco dependence syndrome Status: Acute Procedures None Brief History - From Admission 65-year-old female with end-stage COPD on hospice presents to the emergency department by private transportation for progressive shortness of breath over the last week. She states that her was recently sick with a bronchitis Patient has history of COPD. Patient was recently placed on azithromycin for bronchitis. Patient states symptoms and worsening of the past for days. Patient denies any chest pain. No abdominal pain. No nausea or vomiting. No diarrhea. No dysuria. Patient states that she has noted some left flank pain. Patient states that she became excitable this afternoon while she was at a grandson's sporting event. Patient denies any injury or fall. Patient does not report any orthopnea or PND. Patient states she is always short of breath at rest and with exertion. Symptoms have been worsening. Cough is productive of green sputum. CBC/BMP: 11/09/16 0535 11/09/16 0535 Imaging Last Impressions Chest X-Ray 11/13/16 0600 Signed Impressions: Service Date/Time: November 06:35 - CONCLUSION: 1. Subsegmental basal airspace disease similar to November 09. No effusion or pneumothorax. Valeriy Curran MD PE at Discharge GENERAL: Well-nourished, well-developed patient. SKIN: Warm and dry. HEAD: Normocephalic. EYES: No scleral icterus. No injection or drainage. NECK: Supple, trachea midline. No JVD or lymphadenopathy. CARDIOVASCULAR: Regular rate and rhythm without murmurs, gallops, or rubs. RESPIRATORY: Breath sounds equal bilaterally. Coarse breath sounds with prolonged exp phase. No accessory muscle use. GASTROINTESTINAL: Abdomen soft, non-tender, nondistended. EXTREMITIES: No cyanosis, or edema. NEUROLOGICAL: Awake, alert, and oriented x 3. Non-focal. Hospital Course Patient was initially admitted to the ICU and treated with BiPAP overnight. She improved and was transferred to the floor. Pulmonology was consulted. She was treated with antibiotics, steroids, bronchodilators. She was started on Cardizem by mouth for elevated blood pressure and tachycardia. Palliative care was consulted to clear further patient's goals. The patient will be discharged home today with hospice. Pt Condition on Discharge: Stable Discharge Disposition: Hospice/ Home Discharge Time: > 30 minutes Discharge Instructions DIET: Follow Instructions for: As Tolerated, No Restrictions Activities you can perform: Regular-No Restrictions Dayana Ward MD Nov 13, 2016 09:51
[2016-11-13] MEDS: ACETAMINOPHEN/HYDROcodone 325 MG/5 MG TAB PO PRN (13:36)
--- NOTE | 2016-11-14 11:44 | PQ ---
Physician Query Response Document PATIENT: KEON ORTIZ : 1950 ADMIT DATE: 11/08/2016 10:32 PM DISCH DATE: 11/13/2016 5:41 PM RESPONDING PROVIDER #: [email or web address] QUERY TEXT: Conflicting Documentation Clarification A single mention or documentation of multiple diagnoses for the same clinical presentation appears in the record. Please clarify the diagnosis/diagnoses: Acute If you have any additional questions/comments and/or concerns, please do not hesitate to reach out to the CDI/Coding Hotline, Ext. [phone]. The patient's Clinical Indicators include: H 65-year-old female with: COPD exacerbation Possible pneumonia Acute on chronic respiratory failure ED Record documents: Narrative Course : Patient placed on packager and strapper with pulse oximetry 2 L per minute nasal cannula applied; Updraft in BiPAP ordered. Progress Notes Query created by: Myla Becker on 11/14/2016 11:30 AM RESPONSE TEXT: patient has both acute and chronic respiratory failure Electronically signed by: Dayana Ward MD 11/14/2016 11:41 AM
--- NOTE | 2016-11-25 09:10 | RSPPFT ---
DATE OF PROCEDURE: 11/11/16 COMMENTS: Spirometry demonstrates an FEV1 of 0.6 at 27% of predicted, FVC of 1.7 at 54%, FEV1/FVC ratio is 39%. The FEF 25-75 is 12% of predicted. IMPRESSION: 1. Spirometry suggests severe obstruction. 2. Post-bronchodilator study demonstrated no significant change. 3. Flow volume loops suggest severe obstructive disease.
== END 2016-11-13 17:41 | disposition hospice, home (50) | DRG 190 ==
LOC: PHED 19:13 → PHEDA 22:32 → PHICU 11-09 00:09 → PH3B 11-10 18:16
PROVIDERS: ADMIT Family Medicine; ATTEND Family Medicine
PROC: 5A09357 Assistance with Respiratory Ventilation, Less than 24 Consecutive Hours, Continuous Positive Airway Pressure (ICD-10-PCS; principal; 2016-11-08)
DX: J44.1 Chronic obstructive pulmonary disease with (acute) exacerbation (principal); J96.21 Acute and chronic respiratory failure with hypoxia; E87.2 Acidosis; Z99.81 Dependence on supplemental oxygen; E66.01 Morbid (severe) obesity due to excess calories; F17.210 Nicotine dependence, cigarettes, uncomplicated; Z68.31 Body mass index [BMI] 31.0-31.9, adult; J40 Bronchitis, not specified as acute or chronic; Z87.01 Personal history of pneumonia (recurrent); E09.9 Drug or chemical induced diabetes mellitus without complications; T38.0X5A Adverse effect of glucocorticoids and synthetic analogues, initial encounter; G89.29 Other chronic pain; Z79.891 Long term (current) use of opiate analgesic; F41.9 Anxiety disorder, unspecified; I10 Essential (primary) hypertension
CPT/HCPCS: 36600; 71010; 71020; 80053; 81001; 82550; 82805; 82948; 83605; 83735; 83880; 84100; 84484; 85025; 85610; 85730; 87040; 87070; 87205; 87449; 87641; 87804; 93005; 93306; 94002; 94003; 94060; 94640; 94664; 96365; 96375; J0456; J1644; J1650; J1815; J2543; J2920; J2930; J7030; J7040; J7050; J7512

== ENCOUNTER 2017-01-09 17:08 | Inpatient (IN) | payer OTHER ==
[~2017-01-09] VITALS: Ht 167.6 cm; Wt 76.4 kg
[2017-01-09] VITALS (12 sets, daily range): BP systolic 60–139; BP diastolic 60–81; PULSE 105–130; RESP 12–46; TEMP 97.3–97.9; O2SAT 88–100
[~2017-01-09 17:08] MED LIST changes: +ASPI81CH6 CHEW; +CLAR10CA3 PO; +CYAN2500 PO; +GUAI1SOL3 PO; +HYDR-3516 PO; +LEVA750T9 PO; -LORA-373 PO; +LORA0.5T PO; +MECL-62 PO; -MECL12.574 PO; +METH5TAB PO; +MONT10TA4 PO; +OMEP20TA93 PO
[2017-01-09] MEDS: RESP: ALBUTEROL 2.5 MG/IPRATROPIUM 0.5 MG NEB (SCH) INH (17:19)
[2017-01-09] MEDS ORDERED: SODIUM CHLOR 0.9% 1000 ML INJ 1,000 ML IV ONE ×3 (17:45→18:45)
[2017-01-09] MEDS ORDERED: methylPREDNISolone SOD SUCC 125 MG/2 ML VIAL IV PUSH ONE (17:45)
--- NOTE | 2017-01-09 18:22 | RADRPT ---
EXAM DATE/TIME: 01/09/2017 17:58 [facility] COMPARISON: CHEST PA & LAT, November 13, 2016, 6:35. INDICATIONS : Shortness of breath and blood pressure problems as well. MEDICAL HISTORY : Gastroesophageal reflux disease. Chronic obstructive pulmonary disease. Diabetes mellitus SURGICAL HISTORY : None. ENCOUNTER: Initial ACUITY: 3 days PAIN SCORE: 8/10 LOCATION: all over FINDINGS: Compared with November 13 dense area of consolidation has developed in the right upper lobe measuring 7 .7 cm in diameter most characteristic of pneumonia. Minimal basilar scarring. Trace left pleural flui d. Heart size mildly enlarged. No pneumothorax. CONCLUSION: 1. Dense consolidation right upper lobe most characteristic of bronchopneumonia or aspiration. This i s a new finding since November 13. Valeriy Curran MD on January 09, 2017 at 18:18 Board Certified Radiologist. This report was verified electronically.
[2017-01-09 18:29] LABS: AUTOMATED NEUTROPHIL # 32.6 TH/MM3 (1.8-7.7); BASOPHIL % 0.1 % (0.0-2.0); HEMATOCRIT 47.8 % (35.0-46.0); LYMPH % 4.3 % (9.0-44.0); LYMPHOCYTE # 1.5 TH/MM3 (1.0-4.8); MEAN CELL VOLUME 86.5 FL (80.0-100.0); MEAN CORPUSCULAR HGB CONC 33.5 % (32.0-36.0); MONO % 1.5 % (0.0-8.0); NEUT % 94.1 % (16.0-70.0); PLATELET COUNT 261 TH/MM3 (150-450); RED BLOOD COUNT 5.52 MIL/MM3 (4.00-5.30); RED CELL DISTRIBUTION WIDTH 12.7 % (11.6-17.2); WHITE BLOOD COUNT 34.6 TH/MM3 (4.0-11.0)
[2017-01-09 18:30] LABS: HEMO FLAGS AUTO DIFF
[2017-01-09] MEDS ORDERED: VANCOMYCIN INJ 1,000 MG in SODIUM CHLOR 0.9% 250 ML INJ 250 ML IV ONE ×2 (18:30→22:00)
[2017-01-09] MEDS ORDERED: PIPERACIL-TAZO 3.375 GM PREMIX 50 ML IV ONE (18:30)
--- NOTE | 2017-01-09 18:40 | PD ---
HPI Chief Complaint: Respiratory Distress Time Seen by Provider: 17:34 Travel History International Travel<30 days: No Contact w/Intl Traveler<30days: No Traveled to known affect area: No History of Present Illness HPI 66yo F with end stage COPD on hospice care presents to the ED with c/o sob since 10am today. Pt was on 100% nonrebreather and still tachypneic and saturating in the 90s. Pt said she does not want to be intubated and initially there was question about it since she did not come with paper work. Access was not able to be obtained and pt's blood pressure was 60s/palp and tachycardic at 130s. Emergent left femoral central line was placed and pt was given NS IVFx2. Was able to obtain BP at 100/60 after 1.5 liters of NS IVF. Her Mr. Jaxon Vanegas is at bedside and initially wanted everything done but confirmed with hospice that pt is DNR/DNI and he said that she does not want to be connected to a machine. Does want other treatments. His phone number is . [facility], [facility] Past Medical History Asthma: Yes Heart Rhythm Problems: No Cancer: No Cardiovascular Problems: No High Cholesterol: No Chest Pain: No Congestive Heart Failure: No COPD: Yes Coronary Artery Disease: No Diabetes: Yes (DUE TO STEROIDS) Diminished Hearing: No Endocrine: No Gastrointestinal Disorders: Yes GERD: Yes Genitourinary: No Hiatal Hernia: No Hypertension: No Immune Disorder: No Implanted Vascular Access Dvce: No Kidney Stones: No Musculoskeletal: No Neurologic: No Psychiatric: No Reproductive: No Respiratory: Yes (copd on oxygen) Immunizations Current: Yes Renal Failure: No Sleep Apnea: No Thyroid Disease: No Ulcer: No Menopausal: Yes Past Surgical History Abdominal Surgery: No AICD: No Cardiac Surgery: No Ear Surgery: No Endocrine Surgery: No Eye Surgery: No Genitourinary Surgery: No Gynecologic Surgery: No Neurologic Surgery: No Oral Surgery: No Pacemaker: No Thoracic Surgery: No Other Surgery: Yes Social History Alcohol Use: No Tobacco Use: Yes (FEW DAILY ) Substance Use: No Allergies-Medications (Allergen,Severity, Reaction): Coded Allergies: No Known Allergies (Unverified , 11/08/16) Reported Meds & Prescriptions Reported Meds & Active Scripts Active Claritin (Loratadine) 10 Mg Cap 10 Mg PO DAILY Duoneb (Ipratropium-Albuterol Neb) 0.5-2.5 Mg/3 Ml Neb 1 Ampule INH Q6HR NEB 30 Days Symbicort Inh (Budesonide/Formoterol Fumarate) 80-4.5 Mcg/Act Aero 1 Puff INH Q12HR Reported Methadone (Methadone HCl) 5 Mg Tab 2.5 Mg PO Q8HR Hydrocodone-Acetaminophen 5-325 mg Tab 2 Tab PO Q4HR PRN severe pain 6 - 10 Meclizine (Meclizine HCl) 25 Mg Tab 25 Mg PO TID Codeine/Guaifenesin 100-10 mg/5Ml (Guaifenesin-Codeine) 10 Mg-100 Mg/5 Ml Mary 10 Ml PO Q4HR PRN Dexamethasone 4 Mg Tab 4 Mg PO DAILY Senokot S (Sennosides-Docusate Sodium) 8.6-50 Mg Tab 1-2 Tab PO DAILY PRN Lorazepam 0.5 Mg Tab 0.5 Mg PO Q6H PRN [oxygen] 2 Liter NA CONTINUOUS Review of Systems Except as stated in HPI: all other systems reviewed are Neg Physical Exam Narrative GENERAL: 66yo F in severe distress. SKIN: Focused skin assessment warm/dry. HEAD: Atraumatic. Normocephalic. EYES: Pupils equal and round. No scleral icterus. No injection or drainage. CARDIOVASCULAR: Regular rate and rhythm. No murmur appreciated. RESPIRATORY: + accessory muscle use. Poor air entry, expiratory wheezing. GASTROINTESTINAL: Abdomen soft, non-tender, nondistended. MUSCULOSKELETAL: +Bilateral lower ext edema. NEUROLOGICAL: Awake and answers her name but is in distress and exam is limited. Data Data Last Documented VS Vital Signs Date Time Temp Pulse Resp B/P (MAP) Pulse Ox O2 Delivery O2 Flow Rate FiO2 01/09/17 18:49 111 20 93/74 (80) 94 Nasal Cannula 6.00 01/09/17 18:14 97.8 01/09/17 17:19 100 Orders Orders Blood Culture (01/09/17 17:42) Complete Blood Count With Diff (01/09/17 17:42) Basic Metabolic Panel (Bmp) (01/09/17 17:42) Troponin I (01/09/17 17:42) Prothrombin Time / Inr (Pt) (01/09/17 17:42) Act Partial Throm Time (Ptt) (01/09/17 17:42) Electrocardiogram (01/09/17 ) Sodium Chlor 0.9% 1000 Ml Inj (Ns 1000 M (01/09/17 17:45) Sodium Chlor 0.9% 1000 Ml Inj (Ns 1000 M (01/09/17 17:45) Chest, Single Ap (01/09/17 ) B-Type Natriuretic Peptide (01/09/17 17:42) Methylprednisolone So Succ Inj (Solumedr (01/09/17 17:45) Albuterol-Ipratropium Neb (Duoneb Neb) (01/09/17 17:45) Lactic Acid Sepsis Protocol (01/09/17 18:26) Piperacil-Tazo 3.375 Gm Premix (Zosyn 3. (01/09/17 18:30) Sodium Chlor 0.9% 1000 Ml Inj (Ns 1000 M (01/09/17 18:45) Potassium Chloride Inj (Kcl Inj) (01/09/17 20:00) Admit Order (Ed Use Only) (01/09/17 18:57) Labs Laboratory Tests Test 01/09/17 18:04 White Blood Count 34.6 TH/MM3 Red Blood Count 5.52 MIL/MM3 Hemoglobin 16.0 GM/DL Hematocrit 47.8 % Mean Corpuscular Volume 86.5 FL Mean Corpuscular Hemoglobin 29.0 PG Mean Corpuscular Hemoglobin Concent 33.5 % Red Cell Distribution Width 12.7 % Platelet Count 261 TH/MM3 Mean Platelet Volume 11.1 FL Neutrophils (%) (Auto) 94.1 % Lymphocytes (%) (Auto) 4.3 % Monocytes (%) (Auto) 1.5 % Eosinophils (%) (Auto) 0.0 % Basophils (%) (Auto) 0.1 % Neutrophils # (Auto) 32.6 TH/MM3 Lymphocytes # (Auto) 1.5 TH/MM3 Monocytes # (Auto) 0.5 TH/MM3 Eosinophils # (Auto) 0.0 TH/MM3 Basophils # (Auto) 0.0 TH/MM3 CBC Comment AUTO DIFF Differential Total Cells Counted 100 Neutrophils % (Manual) 78 % Band Neutrophils % 17 % Lymphocytes % 3 % Monocytes % 2 % Neutrophils # (Manual) 32.9 TH/MM3 Differential Comment FINAL DIFF MANUAL Platelet Estimate NORMAL Platelet Morphology Comment NORMAL Red Cell Morphology Comment NORMAL Prothrombin Time 11.6 SEC Prothromb Time International Ratio 1.0 RATIO Activated Partial Thromboplast Time 21.0 SEC Blood Urea Nitrogen 15 MG/DL Creatinine 1.30 MG/DL Random Glucose 356 MG/DL Calcium Level 8.9 MG/DL Sodium Level 125 MEQ/L Potassium Level 2.5 MEQ/L Chloride Level 74 MEQ/L Carbon Dioxide Level 40.6 MEQ/L Anion Gap 10 MEQ/L Estimat Glomerular Filtration Rate 41 ML/MIN Troponin I 0.11 NG/ML B-Type Natriuretic Peptide 151 PG/ML MDM Medical Decision Making Medical Screen Exam Complete: Yes Emergency Medical Condition: Yes Interpretation(s) EKG: Sinus tachycardia at 114bpm. Normal axis. Poor baseline. Differential Diagnosis End stage COPD vs. Pneumonia vs. GI bleed vs. septic shock Narrative Course 66yo F with end stage COPD here with sob. Pt is tachycardic and hypotensive and central line place for medications. Pt's initially wanted everything done but confirmed that pt is indeed DNR and DNI. He signed the DNR form. His phone number is [phone]. Pt's heart rate and bp responded to IVF and BP is now 139/67. Total of NS IVF x3 ordered. Pt given vancomycin and zosyn. Labs reviewed, leukocytosis at 34.6. H/H elevated at 16/47.8. Hypokalemia at 2.5, replaced with IV KCl. Glucose elevated with no increased anion gap. Troponin elevated at 0.11. BNP elevated at 151. Pt also noted to have dark stool with positive hemaprompt. Protonix IV ordered. Discussed with Dr. Jefferson who wants to transfer pt to the [facility]. Critical Care Narrative Aggregate critical care time was 50 minutes. Time to perform other separately billable procedures was not included in the critical care time. My time did not include minutes spent treating any other patients simultaneously or on activities that did not directly contribute to the patient's treatment. The services I provided to this patient were to treat and/or prevent clinically significant deterioration that could result in: cardiovascular collapse or . I provided critical care services requiring my management, as noted below: Chart data review, documentation time, medication orders and management, vital sign assessments/reviewing monitor data, ordering and reviewing lab tests, ordering and interpreting/reviewing x-rays and diagnostic studies, care of the patient and discussion of the patient with the admitting physicians. Procedures Procedure Narrative CENTRAL VENOUS LINE: The site was prepped with chlorhexadine and sterilely draped. It was infiltrated with 1% lidocaine plain. The deep vein was cannulated using normal Seldinger technique. A triple lumen central line was placed in the left femoral site and secured with statlock. The site was sterilely dressed. The patient tolerated the procedure well. HemaPrompt Point of Care Internal Pos. & Neg. Controls: Passed Fecal Specimen Occult Blood: Positive Sepsis Criteria SIRS Criteria (2 or more): Heart rate over 90, RR > 20 or PaCO2 < 32, WBC > 10769, < 4000 or > 10% bands Sepsis Criteria (SIRS+source): Infect source susp/known Severe Sepsis (+one): Hypotension Diagnosis Primary Impression: Severe sepsis Admitting Information Admitting Physician Requests: Lana Do DO Jan 09, 2017 18:40
[2017-01-09 18:43] LABS: PROTHROMBIN TIME - PATIENT 11.6 SEC (9.8-11.6)
[2017-01-09 18:50] LABS: BICARBONATE 40.6 MEQ/L (21.0-32.0)
[2017-01-09 18:52] LABS: POTASSIUM 2.5 MEQ/L (3.5-5.1)
[2017-01-09 18:59] LABS: BANDS 17 % (0-6); NEUTROPHIL # MANUAL DIFF 32.9 TH/MM3 (1.8-7.7); POLYS (SEG NEUTROPHILS) 78 % (16-70); WBC DIFF SAMPLE 100
[2017-01-09 19:00] LABS: PLATELET ESTIMATE SMEAR NORMAL (NORMAL); PLATELET MORPHOLOGY NORMAL (NORMAL); SCAN/DIFF FINAL DIFF MANUAL
[2017-01-09] MEDS ORDERED: PANTOPRAZOLE INJ 80 MG in SODIUM CHLORIDE 0.9% INJ 35 ML IV ONE (19:29)
[2017-01-09] MEDS ORDERED: PANTOPRAZOLE INJ 80 MG in SODIUM CHLORIDE 0.9% INJ 100 ML IV SCH (19:29)
[2017-01-09] MEDS: POTASSIUM CHLORIDE INJ 30 MEQ in SODIUM CHLORIDE 0.9% INJ 100 ML IV SCH (19:59)
[2017-01-09 21:31] LABS: LACTIC ACID GHOST NOT REPORTABLE
--- NOTE | 2017-01-09 23:50 | PD.CONS ---
HPI Service Critical Care Medicine Consult Requested By Primary Care Physician No Primary Care Physician History of Present Illness 66 old female with end stage COPD on home hospice care presents with complaints of shortness of breath since 10am today. Patient said she does not want to be intubated or resuscitated. In the emergency department at [facility] she was also hypotensive with systolic blood pressure at 60 and tachycardic at 130s which is improved after centerline placement by ED attending and 2 L bolus IV fluids resuscitation. There was also question of GI bleed since the patient has a melanotic stool and positive occult blood test. Review of Systems Constitutional: DENIES: Diaphoretic episodes, Fatigue, Fever, Weight gain, Weight loss, Chills, Dizziness, Change in appetite, Night Sweats Endocrine: DENIES: Abnorml menstrual pattern, Heat/cold intolerance, Polydipsia , Polyuria, Polyphagia Eyes: DENIES: Blurred vision, Diplopia, Eye inflammation, Eye pain, Vision loss , Photosensitivity, Double Vision Ears, nose, mouth, throat: DENIES: Tinnitus, Hearing loss, Vertigo, Nasal discharge, Oral lesions, Throat pain, Hoarseness, Ear Pain, Running Nose, Epistaxis, Sinus Pain, Toothache, Odynophagia Respiratory: COMPLAINS OF: Wheezing, Shortness of breath, DENIES: Apneas, Cough , Snoring, Hemoptysis, Sputum production Cardiovascular: DENIES: Chest pain, Palpitations, Syncope, Dyspnea on Exertion , PND, Lower Extremity Edema, Orthopnea, Claudication Gastrointestinal: DENIES: Abdominal pain, Black stools, Bloody stools, Constipation, Diarrhea, Nausea, Vomiting, Difficulty Swallowing, Anorexia Genitourinary: DENIES: Abnormal vaginal bleeding, Dysmenorrhea, Dyspareunia, Sexual dysfunction, Urinary frequency, Urinary incontinence, Urgency, Hematuria , Dysuria, Nocturia, Vaginal discharge Musculoskeletal: DENIES: Joint pain, Muscle aches, Stiffness, Joint Swelling, Back pain, Neck pain Integumentary: DENIES: Abnormal pigmentation, Pruritus, Rash, Nail changes, Breast masses, Breast skin changes, Nipple discharge Hematologic/lymphatic: DENIES: Bruising, Lymphadenopathy Immunologic/allergic: DENIES: Eczema, Urticaria Neurologic: DENIES: Abnormal gait, Headache, Localized weakness, Paresthesias, Seizures, Speech Problems, Tremor, Poor Balance Psychiatric: DENIES: Anxiety, Confusion, Mood changes, Depression, Hallucinations, Agitation, Suicidal Ideation, Homicidal Ideation, Delusions Past Family Social History Allergies: Coded Allergies: No Known Allergies (Unverified , 11/08/16) Past Medical History COPD diabetes; tobacco use; nursing notes reviewed Asthma: Yes COPD: Yes Diabetes: Yes (DUE TO STEROIDS) Gastrointestinal Disorders: Yes GERD: Yes Respiratory: Yes (copd on oxygen) Menopausal: Yes Past Surgical History No significant past surgical history Reported Medications Reported Meds & Active Scripts Active Claritin (Loratadine) 10 Mg Cap 10 Mg PO DAILY Duoneb (Ipratropium-Albuterol Neb) 0.5-2.5 Mg/3 Ml Neb 1 Ampule INH Q6HR NEB 30 Days Symbicort Inh (Budesonide/Formoterol Fumarate) 80-4.5 Mcg/Act Aero 1 Puff INH Q12HR Reported Methadone (Methadone HCl) 5 Mg Tab 2.5 Mg PO Q8HR Hydrocodone-Acetaminophen 5-325 mg Tab 2 Tab PO Q4HR PRN severe pain 6 - 10 Meclizine (Meclizine HCl) 25 Mg Tab 25 Mg PO TID Codeine/Guaifenesin 100-10 mg/5Ml (Guaifenesin-Codeine) 10 Mg-100 Mg/5 Ml Mary 10 Ml PO Q4HR PRN Dexamethasone 4 Mg Tab 4 Mg PO DAILY Senokot S (Sennosides-Docusate Sodium) 8.6-50 Mg Tab 1-2 Tab PO DAILY PRN Lorazepam 0.5 Mg Tab 0.5 Mg PO Q6H PRN [oxygen] 2 Liter NA CONTINUOUS Active Ordered Medications Current Medications Medications (Trade) Dose Ordered Sig/Rebel Route PRN Reason Start Time Stop Time Status Last Admin Dose Admin Potassium Chloride 30 meq/ Sodium Chloride 115 ml @ 33 mls/hr Q3H IV 01/09/17 20:00 01/10/17 01:59 01/10/17 00:08 Budesonide/ Formoterol Fumarate (Symbicort 80-4.5 Mcg Inh) 1 puff Q12HR INH 01/10/17 09:00 Dexamethasone (Decadron) 4 mg DAILY PO 01/10/17 09:00 Acetaminophen/ Hydrocodone Bitart (Alexander 5-325 Mg) 2 tab Q4HR PRN PO PAIN 1-10 01/10/17 00:00 Loratadine (Claritin) 10 mg DAILY PO 01/10/17 09:00 Lorazepam (Ativan) 0.5 mg Q6H PRN PO ANXIETY 01/10/17 00:00 Meclizine HCl (Antivert) 25 mg TID PO 01/10/17 09:00 Methadone HCl (Methadone Liq) 2.5 mg Q8HR PO 01/10/17 06:00 Guaifenesin/ Codeine Phosphate (Robitussin Ac 200-20 Mg/10 ml Liq) 10 ml Q4H PRN PO COUGH 01/10/17 00:15 Cefepime HCl 2000 mg/Sodium Chloride 100 ml @ 200 mls/hr Q8H IV 01/10/17 00:00 01/10/17 00:50 Azithromycin 500 mg/Sodium Chloride 250 ml @ 250 mls/hr Q24H IV 01/10/17 00:00 01/10/17 00:00 Sodium Chloride 1,000 ml @ 84 mls/hr [id number] IV 01/11/17 00:00 Sodium Chloride (NS Flush) 2 ml UNSCH PRN IV FLUSH FLUSH AFTER USING IV ACCESS 01/10/17 00:00 Sodium Chloride (NS Flush) 2 ml BID IV FLUSH 01/10/17 09:00 Morphine Sulfate (Morphine Inj) 2 mg Q2H PRN IV PUSH PAIN SCALE 6 TO 10 01/10/17 00:00 Pantoprazole Sodium (Protonix Inj) 40 mg Q12H IV PUSH 01/10/17 00:00 01/10/17 00:49 Ondansetron HCl (Zofran Inj) 4 mg Q6H PRN IV PUSH NAUSEA OR VOMITING 01/10/17 00:00 Temazepam (Restoril) 15 mg HS PRN PO INSOMNIA 01/10/17 00:00 Albuterol/ Ipratropium (Duoneb Neb) 1 ampule Q4HR NEB INH 01/10/17 00:00 01/10/17 00:39 Albuterol/ Ipratropium (Duoneb Neb) 1 ampule Q2HR NEB PRN INH WHEEZING 01/10/17 00:00 Miscellaneous Information 1 [id number] XX 01/10/17 00:00 Chlorhexidine Gluconate (Chlorhexidine 2% Cloth) 3 pack Taper DAILY@04 TOP 01/10/17 04:00 01/06/18 03:59 Chlorhexidine Gluconate (Chlorhexidine 2% Cloth) 3 pack UNSCH PRN TOP HYGIENIC CARE 01/10/17 00:00 Senna/Docusate Sodium (Callie-Colace) 1 tab BID PO 01/10/17 09:00 Magnesium Hydroxide (Milk Of Magnesia Liq) 30 ml Q12H PRN PO Mild constipation 01/10/17 00:00 Sennosides (Senokot) 17.2 mg Q12H PRN PO Moderate constipation 01/10/17 00:00 Bisacodyl (Dulcolax Supp) 10 mg DAILY PRN RECTAL SEVERE CONSITIPATION 01/10/17 00:00 Lactulose (Lactulose Liq) 30 ml DAILY PRN PO SEVERE CONSITIPATION 01/10/17 00:00 Family History No from a history of early coronary artery disease or diabetes Social History Alcohol Use: No Tobacco Use: Yes (FEW DAILY ) Substance Use: No Physical Exam Vital Signs Vital Signs Date Time Temp Pulse Resp B/P (MAP) Pulse Ox O2 Delivery O2 Flow Rate FiO2 01/09/17 20:39 01/09/17 20:16 108 22 108/78 (88) 96 Nasal Cannula 5.00 01/09/17 19:56 106 22 111/74 (86) 96 Nasal Cannula 5.00 01/09/17 19:39 108 22 115/81 (92) 97 Nasal Cannula 5.00 01/09/17 19:10 96 Nasal Cannula 5.00 01/09/17 19:09 108 20 139/67 (91) 96 Nasal Cannula 5.00 Manual Cuff/Palpation 01/09/17 18:49 111 20 93/74 (80) 94 Nasal Cannula 6.00 01/09/17 18:14 97.8 110 22 100/60 (73) 94 Nasal Cannula 6.00 01/09/17 18:08 97.3 110 22 100/60 (73) 95 Nasal Cannula 6.00 01/09/17 17:25 120 100 Non-Rebreather 12.00 01/09/17 17:19 97 100 01/09/17 17:16 130 24 60/ 100 01/09/17 17:10 99 Nasal Cannula 6.00 Physical Exam GENERAL: Elderly appearing female in respiratory distress. SKIN: Focused skin assessment warm/dry. HEAD: Atraumatic. Normocephalic. EYES: Pupils equal and round. No scleral icterus. No injection or drainage. CARDIOVASCULAR: Regular rate and rhythm. No murmur appreciated. RESPIRATORY: + accessory muscle use. Poor air entry, expiratory wheezing. GASTROINTESTINAL: Abdomen soft, non-tender, nondistended. MUSCULOSKELETAL: +Bilateral lower ext edema. NEUROLOGICAL: Awake and answers her name but is in distress and exam is limited. Laboratory Laboratory Tests Test 01/09/17 18:04 01/09/17 19:26 01/09/17 21:08 01/09/17 21:48 White Blood Count 34.6 Red Blood Count 5.52 Hemoglobin 16.0 Hematocrit 47.8 Mean Corpuscular Volume 86.5 Mean Corpuscular Hemoglobin 29.0 Mean Corpuscular Hemoglobin Concent 33.5 Red Cell Distribution Width 12.7 Platelet Count 261 Mean Platelet Volume 11.1 Neutrophils (%) (Auto) 94.1 Lymphocytes (%) (Auto) 4.3 Monocytes (%) (Auto) 1.5 Eosinophils (%) (Auto) 0.0 Basophils (%) (Auto) 0.1 Neutrophils # (Auto) 32.6 Lymphocytes # (Auto) 1.5 Monocytes # (Auto) 0.5 Eosinophils # (Auto) 0.0 Basophils # (Auto) 0.0 CBC Comment AUTO DIFF Differential Total Cells Counted 100 Neutrophils % (Manual) 78 Band Neutrophils % 17 Lymphocytes % 3 Monocytes % 2 Neutrophils # (Manual) 32.9 Differential Comment FINAL DIFF MANUAL Platelet Estimate NORMAL Platelet Morphology Comment NORMAL Red Cell Morphology Comment NORMAL Prothrombin Time 11.6 Prothromb Time International Ratio 1.0 Activated Partial Thromboplast Time 21.0 Blood Urea Nitrogen 15 Creatinine 1.30 Random Glucose 356 Calcium Level 8.9 Sodium Level 125 Potassium Level 2.5 Chloride Level 74 Carbon Dioxide Level 40.6 Anion Gap 10 Estimat Glomerular Filtration Rate 41 Troponin I 0.11 B-Type Natriuretic Peptide 151 Lactic Acid Level 3.7 3.6 Nasal Screen MRSA (PCR) MRSA NOT DETECTED Date/Time Source Procedure Growth Status 01/09/17 18:04 Blood Peripheral Aerobic Blood Culture Pending Received 01/09/17 18:04 Blood Peripheral Anaerobic Blood Culture Pending Received Result Diagram: 01/09/17 1804 01/09/17 1804 Assessment and Plan Assessment and Plan 65-year-old female with: End-stage COPD COPD exacerbation Possible pneumonia Acute on chronic respiratory failure Respiratory acidosis Smoker Morbid obesity Melanotic stool Hypotension Plan: Neuro: Follow neuro status, avoid sedatives and narcotics if possible. Narcotics to arrange for comfort and respiratory distress. Cardiovascular: IV hydration, watch for hypotension. Pulmonary: Supplemental O2. BiPAP when necessary. Monitor ABG. Pulmonary consulted. GI/liver: Protonix IV twice a day, gastroenterology consult Renal/: IV hydration, follow intake output, electrolytes, BUN/creatinine. ID: Continue empiric antibiotics with Zithromax and cefepime Heme: CBC endocrine SSI for glycemic control if needed Prophylaxis: SCDs, subcutaneous subcutaneous heparin Pulmonary medicine consulted for advanced COPD with exacerbation. Gastroenterology medicine consulted for melanotic stool and positive occult blood test Critical Care: The total critical care time was 35 minutes. Time to perform other separately billable procedures was not included in the critical care time. Dejuan Jefferson MD Jan 09, 2017 11:50 pm
[2017-01-10] VITALS (18 sets, daily range): BP systolic 97–123; BP diastolic 55–82; PULSE 102–117; RESP 17–31; TEMP 97.1–98; O2SAT 90–99
[2017-01-10] MEDS ORDERED: MAGNESIUM HYDROXIDE SUSP 30 ML CUP PO PRN
[2017-01-10] MEDS ORDERED: ONDANSETRON HCL 4 MG/2 ML VIAL IV PUSH PRN
[2017-01-10] MEDS ORDERED: BISACODYL 10 MG SUPP RECTAL PRN
[2017-01-10] MEDS ORDERED: SODIUM CHLORIDE 0.9% FLUSH 10 ML FLUSH IV FLUSH PRN
[2017-01-10] MEDS ORDERED: LACTULOSE SYRUP 20 GM/30 ML CUP PO PRN
[2017-01-10] MEDS ORDERED: RESP: ALBUTEROL 2.5 MG/IPRATROPIUM 0.5 MG NEB (PRN) INH
[2017-01-10] MEDS ORDERED: SENNOSIDES 8.6 MG TAB PO PRN
[2017-01-10] MEDS ORDERED: TEMAZEPAM 15 MG CAP PO PRN
[2017-01-10] MEDS ORDERED: CHLORHEXIDINE GLUCONATE 2 % 1 PACK (2 CLOTHS) TOP PRN
[2017-01-10] MEDS ORDERED: MISCELLANEOUS NURSING INFORMATION XX SCH
[2017-01-10] MEDS: POTASSIUM CHLORIDE INJ 30 MEQ in SODIUM CHLORIDE 0.9% INJ 100 ML IV SCH (00:08)
[2017-01-10] MEDS ORDERED: guaiFENesin/CODEINE SYRUP 200 MG/20 MG/10 ML CUP PO PRN (00:15)
[2017-01-10] MEDS: RESP: ALBUTEROL 2.5 MG/IPRATROPIUM 0.5 MG NEB (SCH) INH ×6 (00:39→20:36)
[2017-01-10] MEDS: PANTOPRAZOLE SODIUM 40 MG VIAL IV PUSH SCH ×3 (00:49→23:20)
[2017-01-10] MEDS: CEFEPIME INJ 2,000 MG in SODIUM CHLORIDE 0.9% INJ 100 ML IV SCH ×4 (00:50→23:17)
[2017-01-10] MEDS ORDERED: GLUCAGON 1 MG/ML VIAL OTHER PRN (01:30)
[2017-01-10] MEDS ORDERED: MAGNESIUM OXIDE 400 MG TAB PO PRN (01:30)
[2017-01-10] MEDS ORDERED: POTASSIUM CHLOR 20 MEQ PREMIX 100 ML IV PRN (01:30)
[2017-01-10] MEDS ORDERED: POTASSIUM CHLORIDE 25 MEQ EFFERVESCENT TAB PO PRN (01:30)
[2017-01-10] MEDS ORDERED: DEXTROSE 50% IN WATER 50 ML VIAL(D50) IV PUSH PRN (01:30)
[2017-01-10] MEDS ORDERED: SODIUM PHOSPHATE INJ 30 MMOL in SODIUM CHLOR 0.9% 250 ML INJ 240 ML IV PRN (01:30)
[2017-01-10] MEDS ORDERED: POTASSIUM PHOSPHATE INJ 30 MMOL in SODIUM CHLOR 0.9% 250 ML INJ 250 ML IV PRN (01:30)
[2017-01-10] MEDS ORDERED: POTASSIUM CHLOR 40 MEQ PREMIX 100 ML IV PRN ×2 (01:30)
[2017-01-10] MEDS ORDERED: MAGNESIUM SULFATE INJ 2 GM in SODIUM CHLORIDE 0.9% INJ 96 ML IV PRN (01:30)
[2017-01-10] MEDS ORDERED: POTASSIUM PHOSPHATE MONOBASIC 500 MG TAB PO/TUBE PRN (01:30)
[2017-01-10] MEDS ORDERED: POTASSIUM PHOSPHATE MONOBASIC 500 MG TAB PO PRN (01:30)
[2017-01-10] MEDS ORDERED: MAGNESIUM SULFATE INJ 4 GM in SODIUM CHLORIDE 0.9% INJ 92 ML IV PRN (01:30)
[2017-01-10] MEDS: CHLORHEXIDINE GLUCONATE 2 % 1 PACK (2 CLOTHS) TOP SCH (04:00)
[2017-01-10 05:20] LABS: BLOOD GAS BASE EXCESS 10.7 mmol/L (-2-2); BLOOD GAS CARBOXYHEMOGLOBIN 1.4 % (0-4); BLOOD GAS HCO3 36 mmol/L (22-26); BLOOD GAS METHEMOGLOBIN 1.2 % (0-2); BLOOD GAS O2 HGB SATURATION 92 % (90-100); BLOOD GAS OXYGEN CONTENT 18.1 Vol % (12.0-20.0); BLOOD GAS PCO2 60 mmHg (38-42); BLOOD GAS PO2 74 mmHg (61-120); TEMP CORR TO 98.6
[2017-01-10 05:21] LABS: CRITICAL VALUE YES
[2017-01-10 05:22] LABS: DRAW SITE LT RADIAL; LITER FLOW 3 L/M; NUMBER OF ARTERIAL PUNCTURES 1; OXYGEN DEVICE NASAL CANNULA; STAT NO; ULNAR PULSE PRESENT
[2017-01-10 06:24] LABS: HEMATOCRIT 40.6 % (35.0-46.0); MEAN CELL VOLUME 88.1 FL (80.0-100.0); MEAN CORPUSCULAR HEMOGLOBIN 29.4 PG (27.0-34.0); MEAN CORPUSCULAR HGB CONC 33.4 % (32.0-36.0); PLATELET COUNT 195 TH/MM3 (150-450); RED BLOOD COUNT 4.61 MIL/MM3 (4.00-5.30); WHITE BLOOD COUNT 23.3 TH/MM3 (4.0-11.0)
[2017-01-10 06:28] LABS: HEMO FLAGS AUTO DIFF
--- NOTE | 2017-01-10 06:34 | RADRPT ---
EXAM DATE/TIME: 01/10/2017 03:53 [facility] COMPARISON: CHEST PA & LAT, November 13, 2016, 6:35. CHEST SINGLE AP, January 09, 2017, 17:58. INDICATIONS : Shortness of breath, possible pulmonary disease. MEDICAL HISTORY : Gastroesophageal reflux disease. Chronic obstructive pulmonary disease. Hypertension. Diabetes SURGICAL HISTORY : None. ENCOUNTER: Subsequent ACUITY: 4 - 6 days PAIN SCORE: 0/10 LOCATION: Bilateral chest FINDINGS: Portable AP view of the chest demonstrates a normal-sized cardiac silhouette. Focal masslike area of consolidation remains present in the proximal right midlung zone. Left hemidiaphragm remains mildly e levated. No pleural effusion or pneumothorax is identified. Bones demonstrate no acute finding. CONCLUSION: Stable focal masslike consolidative opacity in the right midlung zone. Andrea Gonzalez MD on January 10, 2017 at 6:31 Board Certified Radiologist. This report was verified electronically.
[2017-01-10 06:39] LABS: ANION GAP 7 MEQ/L (5-15); AST (GOT) 13 U/L (15-37); BICARBONATE 35.5 MEQ/L (21.0-32.0); BLOOD UREA NITROGEN 17 MG/DL (7-18); CHLORIDE 93 MEQ/L (98-107); GLOMERULAR FILTRATION RATE 71 ML/MIN (>89); MAGNESIUM 1.6 MG/DL (1.5-2.5); POTASSIUM 3.3 MEQ/L (3.5-5.1); SODIUM (NA) 135 MEQ/L (136-145)
[2017-01-10 06:44] LABS: ALKALINE PHOSPHATASE 125 U/L (45-117); ALT (GPT) 20 U/L (10-53); TOTAL BILIRUBIN ADULT 0.7 MG/DL (0.2-1.0)
[2017-01-10] MEDS: METHADONE HCL 10 MG/10 ML ORAL SOLUTION PO SCH ×3 (07:07→21:41)
[2017-01-10 07:59] LABS: BANDS 32 % (0-6); METAMYELOCYTES 1 % (0-1); NEUTROPHIL # MANUAL DIFF 23.1 TH/MM3 (1.8-7.7); PLATELET ESTIMATE SMEAR NORMAL (NORMAL); PLATELET MORPHOLOGY NORMAL (NORMAL); POLYS (SEG NEUTROPHILS) 66 % (16-70); SCAN/DIFF FINAL DIFF MANUAL; WBC DIFF SAMPLE 100
[2017-01-10] MEDS: INSULIN ASPART SUPPLEMENTAL SCALE SQ SCH ×4 (08:00→20:53)
[2017-01-10] MEDS: DOCUSATE SODIUM 50 MG/SENNA 8.6 MG TAB PO SCH ×2 (09:00→20:53)
[2017-01-10] MEDS: ACETAMINOPHEN/HYDROcodone 325 MG/5 MG TAB PO PRN ×2 (09:28→13:32)
[2017-01-10] MEDS: LORATADINE 10 MG TAB PO SCH (09:28)
[2017-01-10] MEDS: MECLIZINE HCL 25 MG TAB PO SCH ×3 (09:28→16:17)
[2017-01-10] MEDS: DEXAMETHASONE 4 MG TAB PO SCH (09:28)
[2017-01-10] MEDS: SODIUM CHLORIDE 0.9% FLUSH 10 ML FLUSH IV FLUSH SCH ×2 (09:29→20:53)
--- NOTE | 2017-01-10 09:30 | PD.CONS ---
HPI History of Present Illness This is a 66 year old female who was seen in the emergency room on 01-09-17 for shortness of breath tachycardic respirations. Patient has had symptoms for several weeks of her shortness of breath, and also states that she has had nausea, vomiting and diarrhea. She has noticed some blood in her stools at home but seems to wax and wane. Patient is at home on hospice care for end- stage COPD. Her family became concerned that her illness was not getting better and decided to bring her into the hospital for treatment. Gastroenterology has been consult for GI bleed, melena and possible hematochezia. Patient has had 2 stools during the early a.m. hours which had noticeable red blood followed with tarry stool. Currently patient's hemoglobin is 13. , and she is rather reserve to have aggressive treatments since her admission according to staff . Patient has refused intubation. Currently patient states her nausea is better and she is requesting Jell-O to eat. Patient states her appetite has been fair, no recent weight loss or weight gain. Patient is drowsy, fair to poor historian, but is giving simple yes no answers. (Julia Shanks) PFSH Past Medical History GERD hyperglycemia End-stage COPD with asthma Long-term tobacco use/pendants Pneumonia Hospice care Past Surgical History Unknown surgery, none according to the record patient unable to give history (Julia Shanks) Coded Allergies: No Known Allergies (Unverified , 11/08/16) Medications Administered Medications Medications (Trade) Dose Ordered Sig/Rebel Route PRN Reason Start Time Stop Time Status Last Admin Dose Admin Methadone HCl (Methadone Liq) 2.5 mg Q8HR PO 01/10/17 06:00 01/10/17 07:07 Cefepime HCl 2000 mg/Sodium Chloride 100 ml @ 200 mls/hr Q8H IV 01/10/17 00:00 01/10/17 00:50 Azithromycin 500 mg/Sodium Chloride 250 ml @ 250 mls/hr Q24H IV 01/10/17 00:00 01/10/17 00:00 Pantoprazole Sodium (Protonix Inj) 40 mg Q12H IV PUSH 01/10/17 00:00 01/10/17 00:49 Albuterol/ Ipratropium (Duoneb Neb) 1 ampule Q4HR NEB INH 01/10/17 00:00 01/10/17 03:52 Chlorhexidine Gluconate (Chlorhexidine 2% Cloth) 3 pack Taper DAILY@04 TOP 01/10/17 04:00 01/06/18 03:59 01/10/17 04:00 Family History And a Social History Long-term tobacco use still smoking less than a half pack of cigarettes a day Denies any alcohol or illicit drug use Currently lives at home with her mother and on hospice care (Julia Shanks) Review of Systems Constitutional: COMPLAINS OF: Fatigue Gastrointestinal: COMPLAINS OF: Black stools, Diarrhea, Nausea, Vomiting Musculoskeletal: COMPLAINS OF: Joint pain Psychiatric: COMPLAINS OF: Confusion (mild altered mental status) (Julia Shanks) GI Exam Vitals I&O Vital Signs Date Time Temp Pulse Resp B/P (MAP) Pulse Ox O2 Delivery O2 Flow Rate FiO2 01/10/17 06:00 109 21 119/81 (94) 94 01/10/17 06:00 109 01/10/17 05:00 111 23 114/66 (82) 95 01/10/17 04:00 109 01/10/17 04:00 98.0 109 31 123/82 (96) 99 01/10/17 03:00 108 30 106/56 (73) 95 01/10/17 02:00 106 26 97/55 (69) 93 01/10/17 02:00 106 01/10/17 01:00 109 26 105/70 (82) 90 01/10/17 00:00 105 20 116/63 (80) 92 01/10/17 00:00 105 01/09/17 23:00 105 25 106/60 (75) 95 01/09/17 22:00 108 46 109/72 (84) 93 01/09/17 22:00 108 01/09/17 21:15 108 01/09/17 21:15 97.9 108 12 96/60 (72) 88 01/09/17 20:39 01/09/17 20:16 108 22 108/78 (88) 96 Nasal Cannula 5.00 01/09/17 19:56 106 22 111/74 (86) 96 Nasal Cannula 5.00 01/09/17 19:39 108 22 115/81 (92) 97 Nasal Cannula 5.00 01/09/17 19:10 96 Nasal Cannula 5.00 01/09/17 19:09 108 20 139/67 (91) 96 Nasal Cannula 5.00 Manual Cuff/Palpation 01/09/17 18:49 111 20 93/74 (80) 94 Nasal Cannula 6.00 01/09/17 18:14 97.8 110 22 100/60 (73) 94 Nasal Cannula 6.00 01/09/17 18:08 97.3 110 22 100/60 (73) 95 Nasal Cannula 6.00 01/09/17 17:25 120 100 Non-Rebreather 12.00 01/09/17 17:19 97 100 01/09/17 17:16 130 24 60/ 100 01/09/17 17:10 99 Nasal Cannula 6.00 I/O 01/09/17 01/09/17 01/09/17 01/10/17 01/10/17 01/10/17 07:00 15:00 23:00 07:00 15:00 23:00 Intake Total 3085 ml 1047.5 ml Balance 3085 ml 1047.5 ml Intake Oral 180 ml IV Total 3085 ml 867.5 ml # Voids 1 # Bowel Movements 3 Imaging Last Impressions Chest X-Ray 01/10/17 0000 Signed Impressions: Service Date/Time: Tuesday, January 10, 2017 03:53 - CONCLUSION: Stable focal masslike consolidative opacity in the right midlung zone. Andrea Gonzalez MD Laboratory Test 01/09/17 18:04 01/09/17 19:26 01/09/17 21:08 01/09/17 21:48 White Blood Count 34.6 TH/MM3 Red Blood Count 5.52 MIL/MM3 Hemoglobin 16.0 GM/DL Hematocrit 47.8 % Mean Corpuscular Volume 86.5 FL Mean Corpuscular Hemoglobin 29.0 PG Mean Corpuscular Hemoglobin Concent 33.5 % Red Cell Distribution Width 12.7 % Platelet Count 261 TH/MM3 Mean Platelet Volume 11.1 FL Neutrophils (%) (Auto) 94.1 % Lymphocytes (%) (Auto) 4.3 % Monocytes (%) (Auto) 1.5 % Eosinophils (%) (Auto) 0.0 % Basophils (%) (Auto) 0.1 % Neutrophils # (Auto) 32.6 TH/MM3 Lymphocytes # (Auto) 1.5 TH/MM3 Monocytes # (Auto) 0.5 TH/MM3 Eosinophils # (Auto) 0.0 TH/MM3 Basophils # (Auto) 0.0 TH/MM3 CBC Comment AUTO DIFF Differential Total Cells Counted 100 Neutrophils % (Manual) 78 % Band Neutrophils % 17 % Lymphocytes % 3 % Monocytes % 2 % Neutrophils # (Manual) 32.9 TH/MM3 Differential Comment FINAL DIFF MANUAL Platelet Estimate NORMAL Platelet Morphology Comment NORMAL Red Cell Morphology Comment NORMAL Prothrombin Time 11.6 SEC Prothromb Time International Ratio 1.0 RATIO Activated Partial Thromboplast Time 21.0 SEC Blood Urea Nitrogen 15 MG/DL Creatinine 1.30 MG/DL Random Glucose 356 MG/DL Calcium Level 8.9 MG/DL Sodium Level 125 MEQ/L Potassium Level 2.5 MEQ/L Chloride Level 74 MEQ/L Carbon Dioxide Level 40.6 MEQ/L Anion Gap 10 MEQ/L Estimat Glomerular Filtration Rate 41 ML/MIN Troponin I 0.11 NG/ML B-Type Natriuretic Peptide 151 PG/ML Lactic Acid Level 3.7 mmol/L 3.6 mmol/L Nasal Screen MRSA (PCR) MRSA NOT DETECTED Test 01/10/17 01:45 01/10/17 05:11 01/10/17 05:50 Troponin I 0.07 NG/ML 0.06 NG/ML Blood Gas Puncture Site LT RADIAL Blood Gas Patient Temperature 98.6 Blood Gas HCO3 36 mmol/L Blood Gas Base Excess 10.7 mmol/L Blood Gas Oxygen Saturation 92 % Arterial Blood pH 7.40 Arterial Blood Partial Pressure CO2 60 mmHg Arterial Blood Partial Pressure O2 74 mmHg Arterial Blood Oxygen Content 18.1 Vol % Arterial Blood Carboxyhemoglobin 1.4 % Arterial Blood Methemoglobin 1.2 % Blood Gas Hemoglobin 14.0 G/DL Oxygen Delivery Device NASAL CANNULA Blood Gas Liter Flow 3 L/M White Blood Count 23.3 TH/MM3 Red Blood Count 4.61 MIL/MM3 Hemoglobin 13.5 GM/DL Hematocrit 40.6 % Mean Corpuscular Volume 88.1 FL Mean Corpuscular Hemoglobin 29.4 PG Mean Corpuscular Hemoglobin Concent 33.4 % Red Cell Distribution Width 14.0 % Platelet Count 195 TH/MM3 Mean Platelet Volume 9.8 FL CBC Comment AUTO DIFF Differential Total Cells Counted 100 Neutrophils % (Manual) 66 % Band Neutrophils % 32 % Monocytes % 1 % Neutrophils # (Manual) 23.1 TH/MM3 Metamyelocytes 1 % Differential Comment FINAL DIFF MANUAL Platelet Estimate NORMAL Platelet Morphology Comment NORMAL Red Cell Morphology Comment NORMAL Blood Urea Nitrogen 17 MG/DL Creatinine 0.81 MG/DL Random Glucose 296 MG/DL Total Protein 4.9 GM/DL Albumin 1.7 GM/DL Calcium Level 8.1 MG/DL Phosphorus Level 3.2 MG/DL Magnesium Level 1.6 MG/DL Alkaline Phosphatase 125 U/L Aspartate Amino Transf (AST/SGOT) 13 U/L Alanine Aminotransferase (ALT/SGPT) 20 U/L Total Bilirubin 0.7 MG/DL Sodium Level 135 MEQ/L Potassium Level 3.3 MEQ/L Chloride Level 93 MEQ/L Carbon Dioxide Level 35.5 MEQ/L Anion Gap 7 MEQ/L Estimat Glomerular Filtration Rate 71 ML/MIN Date/Time Source Procedure Growth Status 01/09/17 18:04 Blood Peripheral Aerobic Blood Culture Pending Received 01/09/17 18:04 Blood Peripheral Anaerobic Blood Culture Pending Received Physical Examination HEENT: Pupils round and reactive to light; normocephalic; atraumatic; no jaundice. Throat dry NECK: Neck is supple, no JVD, no lymphadenopathy., Short, obese CHEST: Chest is dull lung sounds low volumes CARDIAC: Tachycardic rhythm, S1-S2, distant ABDOMEN: Large, Soft, nontender to light palpation; nondistended, no hepatosplenomegaly; bowel sounds are soft in all four quadrants. EXTREMITIES: Mild to 1+ lower extremity and feet edema. SKIN: Normal; ready, no rash; no jaundice. TOURISM RADIO PRESENTER: Drowsy, answers occasional simple questions, oriented to place (Julia Shanks) Assessment and Plan Plan Assessment Nausea and vomiting GI bleed with Hematochezia Melena stools Bronchial pneumonia with sepsis, leukocytosis Plan Diet clear liquids, Monitor I&O nausea and vomiting Hemoccult stools 3 daily Hemoglobin check at 1400 , call GI for any acute active bleeding or changes CBC in a.m. PPI IV Protonix Bowel regimen with stool softeners and laxatives as needed No CODE STATUS is no code DO NOT RESUSCITATE per patient's and family's request. Since admission patient has been reluctant for aggressive testing GI will monitor Plan of care will be based on patient's wishes and findings during her hospital stay. No family present. Discussed plan of care with patient. Patient was seen by myself and , this note has been written on her behalf (Julia Shanks) Physician Comments seen, examined agree with above high risk for nay invasive procedure unless emergency clear liquids monitor hb/hct if active bleeding we will order endoscopy on emergency (Violeta Reyna MD) Julia Shanks Jan 10, 2017 09:30 Violeta Reyna MD Jan 10, 2017 16:17
[2017-01-10] MEDS: POTASSIUM CHLOR 20 MEQ PREMIX 100 ML IV PRN ×2 (09:47→11:54)
[2017-01-10] MEDS: BUDESONIDE-FORMOTEROL 80/4.5 MCG INHALER INH SCH ×2 (09:48→20:53)
--- NOTE | 2017-01-10 12:50 | HHI.CCPN ---
Subjective Remarks/Hospital Course 01/09: 66 old female with end stage COPD on home hospice care presents with complaints of shortness of breath since 10am today. Patient said she does not want to be intubated or resuscitated. In the emergency department at [facility] she was also hypotensive with systolic blood pressure at 60 and tachycardic at 130s which is improved after centerline placement by ED attending and 2 L bolus IV fluids resuscitation. There was also question of GI bleed since the patient has a melanotic stool and positive occult blood test. 01/11: Resting in bed. Not in any acute distress. Had bloody stools last night. No hypotension or tachycardia currently. Objective Vital Signs Date Time Temp Pulse Resp B/P (MAP) Pulse Ox O2 Delivery O2 Flow Rate FiO2 01/10/17 10:00 110 01/10/17 07:00 97.4 17 111/70 (84) 98 01/09/17 20:16 Nasal Cannula 5.00 01/09/17 17:19 100 Intake and Output 01/10/17 01/10/17 01/11/17 08:00 16:00 00:00 Intake Total 797.5 ml Balance 797.5 ml Result Diagram: 01/10/17 0550 01/10/17 0550 Other Results Laboratory Tests Test 01/10/17 05:11 Blood Gas Puncture Site LT RADIAL Blood Gas Patient Temperature 98.6 Blood Gas HCO3 36 mmol/L (22-26) Blood Gas Base Excess 10.7 mmol/L (-2-2) Blood Gas Oxygen Saturation 92 % (90-100) Arterial Blood pH 7.40 (7.380-7.420) Arterial Blood Partial Pressure CO2 60 mmHg (38-42) Arterial Blood Partial Pressure O2 74 mmHg (61-120) Arterial Blood Oxygen Content 18.1 Vol % (12.0-20.0) Arterial Blood Carboxyhemoglobin 1.4 % (0-4) Arterial Blood Methemoglobin 1.2 % (0-2) Blood Gas Hemoglobin 14.0 G/DL (12.0-16.0) Oxygen Delivery Device NASAL CANNULA Blood Gas Liter Flow 3 L/M Imaging Last Impressions Chest X-Ray 01/10/17 0000 Signed Impressions: Service Date/Time: Tuesday, January 10, 2017 03:53 - CONCLUSION: Stable focal masslike consolidative opacity in the right midlung zone. Andrea Gonzalez MD Objective Remarks GENERAL: Elderly appearing female laying in bed in no acute distress SKIN: Focused skin assessment warm/dry. HEAD: Atraumatic. Normocephalic. EYES: Pupils equal and round. No scleral icterus. No injection or drainage. CARDIOVASCULAR: Regular rate and rhythm. No murmur appreciated. RESPIRATORY: Poor air entry bilaterally, no wheezing GASTROINTESTINAL: Abdomen soft, non-tender, nondistended. MUSCULOSKELETAL: +Bilateral lower ext edema. NEUROLOGICAL: Drowsy, easily arousable, nonfocal grossly A/P Assessment and Plan 65-year-old female with: End-stage COPD COPD exacerbation Possible pneumonia Acute on chronic respiratory failure Respiratory acidosis Smoker Morbid obesity Melanotic stool Hypotension Plan: Neuro: Follow neuro status, avoid sedatives and narcotics if possible. Narcotics to arrange for comfort and respiratory distress. Cardiovascular: IV hydration, watch for hypotension. Pulmonary: Supplemental O2. BiPAP when necessary. Monitor ABG. Pulmonary consulted. GI/liver: Protonix IV twice a day, gastroenterology consult Renal/: IV hydration, follow intake output, electrolytes, BUN/creatinine. ID: Continue empiric antibiotics with Zithromax and cefepime Heme: CBC endocrine SSI for glycemic control if needed Prophylaxis: SCDs, subcutaneous subcutaneous heparin Pulmonary medicine consulted for advanced COPD with exacerbation. Gastroenterology medicine consulted for melanotic stool and positive occult blood test Leandro Alarcon MD Jan 10, 2017 12:50
[2017-01-10 16:21] LABS: HEMATOCRIT 38.4 % (35.0-46.0); REVIEW FLAG FINAL
[2017-01-10] MEDS: MORPHINE SULFATE 4 MG/ML INJ IV PUSH PRN (16:38)
--- NOTE | 2017-01-10 16:57 | MB ---
cc: KT MERAZ M.D. DATE OF CONSULTATION: 01/10/2017. REASON FOR CONSULTATION: Severe COPD and pneumonia. HISTORY OF PRESENT ILLNESS: Mrs. Vanegas is a 66-year-old female with severe end-stage COPD, chronic respiratory failure, on oxygen therapy who has been complaining of increasing shortness of breath progressively worse admitted with COPD exacerbation and respiratory failure and significant tachycardia. The patient was placed on bronchodilator therapy and antibiotic therapy. Her heart rate is better controlled. She has black stools and is being evaluated for possible GI bleed. She denies history of fever or chills, hemoptysis, TB or previous industrial exposure. PAST MEDICAL HISTORY: Her past medical history is that of: 1. Severe COPD. 2. Diabetes mellitus. 3. Acid-reflux disease. ALLERGIES: NONE KNOWN TO MEDICATIONS. MEDICATIONS: Her medications include: 1. Symbicort. 2. Methadone. 3. Guaifenesin. MEDICATIONS PRESENTLY: Presently on cefepime and Zithromax, Protonix, albuterol, Ipratropium nebulizer. FAMILY HISTORY: Noncontributory. SOCIAL HISTORY: Long heavy smoking history. Continues to smoke until hospitalization. Does not drink any alcohol. Does not use drugs. REVIEW OF SYSTEMS: A twelve-point review of systems is as per the history of present illness and past history, otherwise negative. PHYSICAL EXAMINATION: VITAL SIGNS: On exam, pulse 100, respirations 18, blood pressure 100/60, oxygen saturation 96% on five liters oxygen via nasal cannula. HEAD, EYES, EARS, NOSE, THROAT: Unremarkable. Eyes without icterus. NECK: No adenopathy, no thyroid enlargement. CHEST: Scattered rhonchi bilaterally. CARDIAC: PMI distant. S1-S2 audible. No murmur, no rub. ABDOMEN: Lax. Bowel sounds audible. EXTREMITIES: 2+ ankle edema. LABS: White count 34,000, hemoglobin 16, hematocrit 47, platelets 261,000. Sodium 125, potassium 2.5, BUN 15, creatinine 1.3. IMAGING STUDIES: Chest x-ray shows right mid-lung infiltrate, pneumonia suspect. IMPRESSION: 1. COPD acute exacerbation. 2. Acute respiratory failure. 3. Pneumonia. 4. Question GI bleed. 5. Obesity. PLAN: The patient is receiving bronchodilator therapy and antibiotic therapy, oxygen therapy and appropriately so. Her chest x-ray findings are suggestive of underlying pneumonia; however, this should be followed closely and if resolution is delayed, further evaluation including bronchoscopic examination to assess for possible underlying malignancy especially given the patient's history of smoking. Will check as well the patient's thyroid function. She does have the waxy facial appearance suggestive of hypothyroidism. I do thank you for asking me to partake in Mrs. Vanegas's care. Kt Meraz MD WWW/CATRACHO /4:30 PM /4:41 PM
[2017-01-10 17:55] LABS: MAGNESIUM 1.5 MG/DL (1.5-2.5); POTASSIUM 3.8 MEQ/L (3.5-5.1)
[2017-01-10] MEDS: AZITHROMYCIN INJ 500 MG in SODIUM CHLOR 0.9% 250 ML INJ 250 ML IV SCH ×3 (23:16)
[2017-01-11] VITALS (14 sets, daily range): BP systolic 91–140; BP diastolic 57–84; PULSE 96–116; RESP 13–28; TEMP 97.2–98.4; O2SAT 92–97
[2017-01-11] MEDS ORDERED: SODIUM CHLOR 0.9% 1000 ML INJ 1,000 ML IV SCH
[2017-01-11] MEDS: RESP: ALBUTEROL 2.5 MG/IPRATROPIUM 0.5 MG NEB (SCH) INH ×5 (03:50→23:31)
[2017-01-11] MEDS: CHLORHEXIDINE GLUCONATE 2 % 1 PACK (2 CLOTHS) TOP SCH (04:00)
[2017-01-11] MEDS: METHADONE HCL 10 MG/10 ML ORAL SOLUTION PO SCH ×3 (05:34→21:45)
[2017-01-11 06:08] LABS: HEMATOCRIT 37.2 % (35.0-46.0); MEAN CELL VOLUME 88.1 FL (80.0-100.0); MEAN CORPUSCULAR HEMOGLOBIN 29.3 PG (27.0-34.0); MEAN CORPUSCULAR HGB CONC 33.3 % (32.0-36.0); PLATELET COUNT 162 TH/MM3 (150-450); RED BLOOD COUNT 4.23 MIL/MM3 (4.00-5.30); RED CELL DISTRIBUTION WIDTH 13.9 % (11.6-17.2); WHITE BLOOD COUNT 20.3 TH/MM3 (4.0-11.0)
[2017-01-11 06:11] LABS: HEMO FLAGS AUTO DIFF
[2017-01-11 06:26] LABS: ANION GAP 8 MEQ/L (5-15); AST (GOT) 13 U/L (15-37); BICARBONATE 31.6 MEQ/L (21.0-32.0); BLOOD UREA NITROGEN 22 MG/DL (7-18); CHLORIDE 93 MEQ/L (98-107); GLOMERULAR FILTRATION RATE 95 ML/MIN (>89); POTASSIUM 4.1 MEQ/L (3.5-5.1); SODIUM (NA) 133 MEQ/L (136-145)
[2017-01-11 06:31] LABS: ALKALINE PHOSPHATASE 110 U/L (45-117); ALT (GPT) 15 U/L (10-53); TOTAL BILIRUBIN ADULT 0.5 MG/DL (0.2-1.0)
[2017-01-11 07:35] LABS: BANDS 3 % (0-6); NEUTROPHIL # MANUAL DIFF 19.9 TH/MM3 (1.8-7.7); POLYS (SEG NEUTROPHILS) 95 % (16-70); WBC DIFF SAMPLE 100
[2017-01-11 07:36] LABS: PLATELET ESTIMATE SMEAR NORMAL (NORMAL); PLATELET MORPHOLOGY NORMAL (NORMAL); SCAN/DIFF FINAL DIFF MANUAL
[2017-01-11] MEDS: INSULIN ASPART SUPPLEMENTAL SCALE SQ SCH ×4 (08:00→20:31)
[2017-01-11] MEDS: DOCUSATE SODIUM 50 MG/SENNA 8.6 MG TAB PO SCH ×2 (09:00→20:32)
[2017-01-11] MEDS: MECLIZINE HCL 25 MG TAB PO SCH ×3 (09:00→17:53)
--- NOTE | 2017-01-11 10:25 | HHI.GIFU ---
Subjective Remarks Pt resting in bed, appears to be in mild distress and tachypneic. Reports BM today and yesterday, denies dark stool or blood in stool. Denies nausea, vomiting, abdominal pain. Currently on clear liquid diet. (Jocelin Heath) Objective Vitals I&O Vital Signs Date Time Temp Pulse Resp B/P (MAP) Pulse Ox O2 Delivery O2 Flow Rate FiO2 01/11/17 08:13 94 Nasal Cannula 4.00 01/11/17 06:34 19 01/11/17 06:00 96 01/11/17 04:00 97.2 103 24 102/57 (72) 94 01/11/17 04:00 103 01/11/17 02:00 115 01/11/17 00:00 97.6 116 22 118/84 (95) 93 01/11/17 00:00 116 01/10/17 22:00 116 01/10/17 20:36 92 Nasal Cannula 2.00 01/10/17 20:00 116 01/10/17 20:00 97.6 116 17 106/72 (83) 95 01/10/17 18:20 94 Nasal Cannula 3.00 01/10/17 18:00 117 01/10/17 16:00 97.1 109 19 119/79 (92) 94 01/10/17 16:00 109 01/10/17 14:00 115 01/10/17 12:00 112 01/10/17 12:00 97.8 112 20 109/74 (86) 92 I/O 01/10/17 01/10/17 01/10/17 01/11/17 01/11/17 01/11/17 07:00 15:00 23:00 07:00 15:00 23:00 Intake Total 1047.5 ml 300 ml 600 ml 830 ml Balance 1047.5 ml 300 ml 600 ml 830 ml Intake Oral 180 ml 600 ml 480 ml IV Total 867.5 ml 300 ml 350 ml # Voids 1 3 2 # Bowel Movements 3 2 1 Laboratory Laboratory Tests Test 01/10/17 15:31 01/10/17 17:00 01/11/17 04:50 Hemoglobin 12.7 12.4 Hematocrit 38.4 37.2 Potassium Level 3.8 4.1 Magnesium Level 1.5 Thyroid Stimulating Hormone 3rd Gen 0.374 White Blood Count 20.3 Red Blood Count 4.23 Mean Corpuscular Volume 88.1 Mean Corpuscular Hemoglobin 29.3 Mean Corpuscular Hemoglobin Concent 33.3 Red Cell Distribution Width 13.9 Platelet Count 162 Mean Platelet Volume 10.0 CBC Comment AUTO DIFF Differential Total Cells Counted 100 Neutrophils % (Manual) 95 Band Neutrophils % 3 Lymphocytes % 2 Neutrophils # (Manual) 19.9 Differential Comment FINAL DIFF MANUAL Platelet Estimate NORMAL Platelet Morphology Comment NORMAL Basophilic Stippling FAINT Red Cell Morphology Comment NORMAL Blood Urea Nitrogen 22 Creatinine 0.63 Random Glucose 172 Total Protein 4.8 Albumin 1.5 Calcium Level 8.5 Alkaline Phosphatase 110 Aspartate Amino Transf (AST/SGOT) 13 Alanine Aminotransferase (ALT/SGPT) 15 Total Bilirubin 0.5 Sodium Level 133 Chloride Level 93 Carbon Dioxide Level 31.6 Anion Gap 8 Estimat Glomerular Filtration Rate 95 Date/Time Source Procedure Growth Status 01/09/17 18:04 Blood Peripheral Aerobic Blood Culture - Preliminary NO GROWTH IN 1 DAY Resulted 01/09/17 18:04 Blood Peripheral Anaerobic Blood Culture - Preliminary NO GROWTH IN 1 DAY Resulted Imaging Last Impressions Chest X-Ray 01/10/17 0000 Signed Impressions: Service Date/Time: Tuesday, January 10, 2017 03:53 - CONCLUSION: Stable focal masslike consolidative opacity in the right midlung zone. Andrea Gonzalez MD Physical Exam HEENT: Normocephalic; atraumatic; no jaundice. CHEST: Tachypneic, diminished CARDIAC: RRR ABDOMEN: Soft, distended, nontender; no hepatosplenomegaly; bowel sounds are present in all four quadrants. EXTREMITIES: Bilateral lower extremity edema. SKIN: No jaundice. LIVING SKILLS ADVISOR: No focal deficits; alert and oriented times three. (Jocelin Heath [facility]) Assessment and Plan Plan Assessment - Melena- Pt denies any dark stool or blood stool today or yesterday, Reports she has been having normal BM. H/H stable. 12.7/37.2. Has not needed blood transfusion. Pt declining EGD or colonoscopy if needed. She keeps stating that she wants to go home. PPI. - Nausea/ vomiting- Pt denies any at this time. Meclezine PRN - End stage COPD- pulmonology following -? Pneumonia- per attending - CODE STATUS is no code DO NOT RESUSCITATE per patient's and family's request. Since admission patient has been reluctant for aggressive testing. She is declining EGD or colonoscopy if needed Plan - SHI - PPI - Monitor labs - Transfuse as needed - GI will sign off at this time, please reconsult as needed - Follow up with GI in office after discharge Pt seen and examined by myself and Dr. Reyna and this note is written on her behalf (Jocelin Heath) Physician Comments seen, examined agree with above we will sign off call us as needed advance diet stool c diff (Violeta Reyna MD) Jocelin Heath Jan 11, 2017 10:25 Violeta Reyna MD Jan 11, 2017 15:33
[2017-01-11] MEDS: LORazepam 0.5 MG TAB PO PRN ×2 (10:26→17:54)
[2017-01-11] MEDS: LORATADINE 10 MG TAB PO SCH (10:27)
[2017-01-11] MEDS: DEXAMETHASONE 4 MG TAB PO SCH (10:27)
[2017-01-11] MEDS: SODIUM CHLORIDE 0.9% FLUSH 10 ML FLUSH IV FLUSH SCH ×2 (10:28→20:33)
[2017-01-11] MEDS: CEFEPIME INJ 2,000 MG in SODIUM CHLORIDE 0.9% INJ 100 ML IV SCH ×3 (10:29→23:24)
[2017-01-11] MEDS: BUDESONIDE-FORMOTEROL 80/4.5 MCG INHALER INH SCH ×2 (10:29→20:33)
--- NOTE | 2017-01-11 10:49 | HHI.CCPN ---
Subjective Remarks/Hospital Course 01/09: 66 old female with end stage COPD on home hospice care presents with complaints of shortness of breath since 10am today. Patient said she does not want to be intubated or resuscitated. In the emergency department at [place] she was also hypotensive with systolic blood pressure at 60 and tachycardic at 130s which is improved after centerline placement by ED attending and 2 L bolus IV fluids resuscitation. There was also question of GI bleed since the patient has a melanotic stool and positive occult blood test. 01/11: Resting in bed. Not in any acute distress. Had bloody stools last night. No hypotension or tachycardia currently. 01/12: Sitting up in bed. Appears tachypneic. On nasal cannula. Hemoglobin 12 , no hypotension since admission. Patient has refused EGD and colonoscopy per GI. Objective Vital Signs Date Time Temp Pulse Resp B/P (MAP) Pulse Ox O2 Delivery O2 Flow Rate FiO2 01/11/17 08:13 94 Nasal Cannula 4.00 01/11/17 06:34 19 01/11/17 06:00 96 01/11/17 04:00 97.2 102/57 (72) 01/09/17 17:19 100 Intake and Output 01/11/17 01/11/17 01/12/17 08:00 16:00 00:00 Intake Total 730 ml Balance 730 ml Result Diagram: 01/11/17 0450 01/11/17 0450 Imaging Last Impressions Chest X-Ray 01/10/17 0000 Signed Impressions: Service Date/Time: Tuesday, January 10, 2017 03:53 - CONCLUSION: Stable focal masslike consolidative opacity in the right midlung zone. Andrea Gonzalez MD Objective Remarks GENERAL: Elderly appearing female sitting up in bed, mildly tachypneic, maintaining O2 sats on nasal cannula 5 L/m SKIN: Focused skin assessment warm/dry. HEAD: Atraumatic. Normocephalic. EYES: Pupils equal and round. No scleral icterus. No injection or drainage. CARDIOVASCULAR: Regular rate and rhythm. No murmur appreciated. RESPIRATORY: Poor air entry bilaterally, scattered rhonchi bilaterally, no wheezing GASTROINTESTINAL: Abdomen soft, non-tender, nondistended. MUSCULOSKELETAL: +Bilateral lower ext edema. NEUROLOGICAL: Awake alert oriented 3, nonfocal grossly A/P Assessment and Plan 65-year-old female with: End-stage COPD COPD exacerbation Possible pneumonia Acute on chronic respiratory failure Respiratory acidosis Right middle lobe pneumonia versus mass Smoker Morbid obesity Melanotic stool Hypotension (resolved) Plan: Neuro: Follow neuro status, avoid sedatives and narcotics if possible. Narcotics to arrange for comfort and respiratory distress. Cardiovascular: IV hydration, watch for hypotension. Pulmonary: Supplemental O2. BiPAP when necessary. Bronchodilators, IV Solu- Medrol. Hold by mouth Decadron. Pulmonary consulted and following for COPD and right middle lobe pneumonia GI/liver: Protonix IV twice a day, gastroenterology consult noted, patient refused EGD and colonoscopy. Renal/: IV hydration, follow intake output, electrolytes, BUN/creatinine. ID: Continue empiric antibiotics with Zithromax and cefepime Heme: CBC endocrine SSI for glycemic control if needed. Maintaining hemoglobin currently, no indication for transfusions at this time Prophylaxis: SCDs, subcutaneous subcutaneous heparin Patient is DNR/DNI status. Transfer out of ICU. Transfer to hospitalist service for further medical management. Patient was on hospice prior to admission. Consult palliative care to assist with deciding goals of therapy. Leandro Alarcon MD Jan 11, 2017 10:49
[2017-01-11] MEDS ORDERED: methylPREDNISolone SOD SUCC 125 MG/2 ML VIAL IV PUSH ONE (11:00)
--- NOTE | 2017-01-11 13:31 | HHI.PR ---
Subjective Remarks Less SOB ON o2 no expectoration Objective Vital Signs Date Time Temp Pulse Resp B/P (MAP) Pulse Ox O2 Delivery O2 Flow Rate FiO2 01/11/17 08:13 94 Nasal Cannula 4.00 01/11/17 06:34 19 01/11/17 06:00 96 01/11/17 04:00 97.2 103 24 102/57 (72) 94 01/11/17 04:00 103 01/11/17 02:00 115 01/11/17 00:00 97.6 116 22 118/84 (95) 93 01/11/17 00:00 116 01/10/17 22:00 116 01/10/17 20:36 92 Nasal Cannula 2.00 01/10/17 20:00 116 01/10/17 20:00 97.6 116 17 106/72 (83) 95 01/10/17 18:20 94 Nasal Cannula 3.00 01/10/17 18:00 117 01/10/17 16:00 97.1 109 19 119/79 (92) 94 01/10/17 16:00 109 01/10/17 14:00 115 I/O 01/10/17 01/10/17 01/10/17 01/11/17 01/11/17 01/11/17 07:00 15:00 23:00 07:00 15:00 23:00 Intake Total 1047.5 ml 300 ml 600 ml 830 ml Balance 1047.5 ml 300 ml 600 ml 830 ml Intake Oral 180 ml 600 ml 480 ml IV Total 867.5 ml 300 ml 350 ml # Voids 1 3 2 # Bowel Movements 3 2 1 Result Diagram: 01/11/17 0450 01/11/17 0450 Objective Remarks GENERAL: SKIN: Warm and dry. HEAD: Atraumatic. Normocephalic. EYES: Pupils equal and round. No scleral icterus. No injection or drainage. ENT: No nasal bleeding or discharge. Mucous membranes pink and moist. NECK: Trachea midline. No JVD. CARDIOVASCULAR: Regular rate and rhythm. RESPIRATORY: No accessory muscle use. few ranch at bilaterally. GASTROINTESTINAL: Abdomen soft, non-tender, nondistended. Hepatic and splenic margins not palpable. MUSCULOSKELETAL: Extremities without clubbing, cyanosis, or edema. No obvious deformities. NEUROLOGICAL: Awake and alert. No obvious cranial nerve deficits. Motor grossly within normal limits. Five out of 5 muscle strength in the arms and legs. Normal speech. PSYCHIATRIC: Appropriate mood and affect; insight and judgment normal. Assessment and Plan Assessment and Plan COPD EXACERBATION PNA RESPIRATORY FAILURE PLAN O2 ANTIBX BRONCHODILATORS FU CXRAY Kt Meraz MD Jan 11, 2017 13:31
[2017-01-11] MEDS: MORPHINE SULFATE 4 MG/ML INJ IV PUSH PRN (14:38)
[2017-01-11] MEDS: PANTOPRAZOLE SODIUM 40 MG VIAL IV PUSH SCH ×2 (14:59→23:23)
[2017-01-11] MEDS: ACETAMINOPHEN/HYDROcodone 325 MG/5 MG TAB PO PRN (17:54)
[2017-01-11] MEDS: methylPREDNISolone SOD SUCC 40 MG/1 ML VIAL IV PUSH SCH (20:32)
--- NOTE | 2017-01-11 23:19 | EKG ---
Date Performed: 01/09/2017 Time Performed: 18:25:50 PTAGE: 66 years EKG: SINUS TACHYCARDIA WITH FREQUENT SUPRAVENTRICULAR PREMATURE COMPLEXES POSSIBLE LEFT ATRIAL E NLARGEMENT ABNORMAL RHYTHM ECG PREVIOUS TRACING : 11/08/2016 20.23 Compared to prior tracing no significant change DOCTOR: Santiago Veloz Interpretating Date/Time 01/11/2017 23:18:41
[2017-01-11] MEDS: AZITHROMYCIN INJ 500 MG in SODIUM CHLOR 0.9% 250 ML INJ 250 ML IV SCH (23:24)
[2017-01-12] VITALS (11 sets, daily range): BP systolic 109–144; BP diastolic 62–93; PULSE 68–115; RESP 15–27; TEMP 97.2–97.8; O2SAT 93–99
[2017-01-12] MEDS: LORazepam 0.5 MG TAB PO PRN (01:15)
[2017-01-12] MEDS: RESP: ALBUTEROL 2.5 MG/IPRATROPIUM 0.5 MG NEB (SCH) INH ×5 (03:41→20:00)
[2017-01-12] MEDS: CHLORHEXIDINE GLUCONATE 2 % 1 PACK (2 CLOTHS) TOP SCH (04:00)
[2017-01-12 04:44] LABS: AUTOMATED NEUTROPHIL # 15.6 TH/MM3 (1.8-7.7); BASOPHIL % 0.1 % (0.0-2.0); HEMATOCRIT 37.8 % (35.0-46.0); HEMO FLAGS DIFF FINAL; LYMPHOCYTE # 0.5 TH/MM3 (1.0-4.8); MEAN CELL VOLUME 88.1 FL (80.0-100.0); MEAN CORPUSCULAR HEMOGLOBIN 29.8 PG (27.0-34.0); MEAN CORPUSCULAR HGB CONC 33.8 % (32.0-36.0); NEUT % 95.9 % (16.0-70.0); PLATELET COUNT 137 TH/MM3 (150-450); RED BLOOD COUNT 4.29 MIL/MM3 (4.00-5.30); WHITE BLOOD COUNT 16.3 TH/MM3 (4.0-11.0)
[2017-01-12 05:06] LABS: ANION GAP 6 MEQ/L (5-15); AST (GOT) 12 U/L (15-37); BICARBONATE 33.1 MEQ/L (21.0-32.0); BLOOD UREA NITROGEN 18 MG/DL (7-18); CHLORIDE 92 MEQ/L (98-107); GLOMERULAR FILTRATION RATE 127 ML/MIN (>89); POTASSIUM 4.6 MEQ/L (3.5-5.1); SODIUM (NA) 131 MEQ/L (136-145)
[2017-01-12 05:07] LABS: ALT (GPT) 19 U/L (10-53)
[2017-01-12 05:09] LABS: ALKALINE PHOSPHATASE 135 U/L (45-117); TOTAL BILIRUBIN ADULT 0.5 MG/DL (0.2-1.0)
[2017-01-12] MEDS: METHADONE HCL 10 MG/10 ML ORAL SOLUTION PO SCH ×3 (05:53→22:35)
[2017-01-12] MEDS: MECLIZINE HCL 25 MG TAB PO SCH ×3 (08:17→18:40)
[2017-01-12] MEDS: LORATADINE 10 MG TAB PO SCH (08:17)
[2017-01-12] MEDS: CEFEPIME INJ 2,000 MG in SODIUM CHLORIDE 0.9% INJ 100 ML IV SCH ×2 (08:18→18:26)
[2017-01-12] MEDS: methylPREDNISolone SOD SUCC 40 MG/1 ML VIAL IV PUSH SCH ×2 (08:18→20:27)
[2017-01-12] MEDS: INSULIN ASPART SUPPLEMENTAL SCALE SQ SCH ×4 (08:18→22:34)
[2017-01-12] MEDS: DOCUSATE SODIUM 50 MG/SENNA 8.6 MG TAB PO SCH ×2 (08:19→20:27)
[2017-01-12] MEDS: SODIUM CHLORIDE 0.9% FLUSH 10 ML FLUSH IV FLUSH SCH ×2 (08:19→20:27)
[2017-01-12] MEDS: BUDESONIDE-FORMOTEROL 80/4.5 MCG INHALER INH SCH ×2 (08:19→22:33)
[2017-01-12] MEDS: MORPHINE SULFATE 4 MG/ML INJ IV PUSH PRN (11:12)
[2017-01-12] MEDS: PANTOPRAZOLE SODIUM 40 MG VIAL IV PUSH SCH (11:13)
--- NOTE | 2017-01-12 12:40 | PD.CONS ---
Consult Service Palliative Care . Consult Requested By Dr. Alarcon . Primary Care Physician No Primary Care Physician . . Reason for Consultation a. To assist with evaluation and management of symptoms including: Dyspnea, generalized pain/abdominal pain b. To assist medical decision maker(s) with: better understanding of current medical conditions; weighing benefits/burdens of medical treatment options; making medical treatment decisions. . HPI History of Present Illness Ms. Vanegas is a 66-year-old female with end-stage COPD who has been under the care of [facility]. She presented to the emergency department on 02/25 due to severe shortness of breath she was experiencing at home. Upon arrival in the emergency department she was in significant respiratory distress , tachycardic and hypotensive. This is the third acute care hospitalization for respiratory problems since . She has been oxygen dependent at home for approximately 2.5 years. She had 2 hospitalizations in April 2016 which led to her hospice enrollment. She reported having lost 10 pounds in the months leading up to hospice enrollment. The patient has continued to smoke even under hospice care. She smokes more when under stress and there has been a great deal of household stress of late. Prior to her recent admission in October she was still smoking 1 pack per day. While smoking she is off her oxygen which further exacerbates her treatment. The patient's psychosocial situation has made her care very difficult (please see palliative care social media developer note from Regi Boss dated 01/12/17). The patient's is away most of the day. The patient has become increasingly unable to care for herself. Patient and have assumed the care of their grandchildren. There are large financial stressors. Patient has acknowledged multiple times that she probably needs placement where she can get 24-hour care. There've been numerous obstacles to achieving this. She has declined [facility] placement. When she gets short of breath she asked to return to the hospital. Once in the hospital she wants to return home and says she just wants comfort care. Initial vital signs in the emergency department were as follows: Temperature 97.3; pulse 1:30; respiratory rate 24;blood pressure 60 systolic; pulse oximetry 99% on O2 via nasal cannula at 6 L a minute. Initial exam by the emergency biology department chair noted the following: Patient was in severe respiratory distress. Cardiovascular exam was unremarkable. Patient was using accessory muscles and had expiratory wheezing. There was bilateral lower extremity edema. Initial diagnostic testing noted the following: * CBC showed WBC of 34.6; hemoglobin 16; platelet count 261. There were 17% band neutrophils. * Coagulation profile showed PT 11.6; INR 1.0; PTT 21 * History profile showed BUN 15; creatinine 1.3; glucose 356; calcium 8.9; sodium 125; potassium 2.5; chloride 74; CO2 40.6; anion gap 10; GFR 41 * Cardiac serology show troponin 0.11; B type natriuretic peptide 151 * EKG showed sinus tachycardia with a rate of 114. No significant ST-T wave changes. In the emergency department a central line was placed. The patient was given intravenous fluids with improvement of her blood pressure she was started on vancomycin and Zosyn. She was given intravenous potassium for her hypokalemia. While in the emergency room the patient passed a dark stool which was Hemoccult positive. She was started on IV Protonix. In the emergency department there were discussions about goals of care. The patient indicated she did not want to be intubated or placed on mechanical ventilation. She did want aggressive care short of that. Critical care was consulted. The patient was transferred from the emergency department in [place] to the medical intensive care unit at [facility]. Gastroenterology was consulted due to the Hemoccult positive stool. The patient was not felt to be stable for endoscopy at that time. Clear liquids were advised and the hemoglobin was monitored. Pulmonary medicine was consulted. Ongoing treatment for a COPD exacerbation and probable pneumonia were recommended. She has complained of both generalized pain and abdominal pain. Pain has been level 6-8 today. Normally on methadone at home. Pain is constant. Otherwise has difficulty describing the pain. I visited the patient on 2 different occasions today. On the first occasion she was very angry and was demanding to go home right away I was trying to explain that we wanted to get her well enough so she wouldn't get immediately short of breath and wanted to come right back to the hospital. She remained furious and did not want to talk to me. I came later when her was trying to feed her lunch. I tried to talk about health care goals, preferences , and post discharge planning. They were fighting with each other about the food and how he was feeding her. . Function/Cognitive Trajectory Per reports from the patient's hospice nurse, there've been frequent falls at home. The patient uses a rolling walker at home and remains very unsteady on her feet. The hospice nurse has reported that with just a few feet of walking she becomes very short of breath with her heart rate climbing to 140. She has had constant pain and she has had up titration of methadone as her long-acting opiate. Her existence is primarily bed to bathroom at home. She is now dependent on her to provide meals and to monitor her medications. He is often out of the house. She developed bilateral lower extremity pedal edema towards the end of November and was started on Lasix at that time. hospice social workers have been trying to arrange for placement but the patient has been declined at both [facility] and [facility].. Review of Systems Constitutional: COMPLAINS OF: Fatigue, Pain, Generalized weakness, DENIES: Fever, Weight gain, Weight loss, Dizziness Endocrine: DENIES: Polydipsia, Polyuria, Polyphagia Eyes: DENIES: Diplopia, Eye pain, Vision loss, Double Vision Ears, nose, mouth, throat: DENIES: Tinnitus, Hearing loss, Throat pain, Hoarseness, Running Nose, Epistaxis Respiratory: COMPLAINS OF: Cough, Wheezing, Sputum production, Shortness of breath, DENIES: Apneas, Snoring, Hemoptysis Cardiovascular: COMPLAINS OF: Dyspnea on Exertion, Lower Extremity Edema, DENIES: Chest pain, Palpitations, Syncope Gastrointestinal: COMPLAINS OF: Black stools, Bloody stools, Diarrhea, Nausea, Vomiting, Dyspepsia or heartburn, DENIES: Abdominal pain Genitourinary: DENIES: Urinary frequency, Urinary incontinence, Urgency, Hematuria, Dysuria Musculoskeletal: COMPLAINS OF: Joint pain, DENIES: Muscle aches, Stiffness, Back pain, Neck pain Neurologic: COMPLAINS OF: Abnormal gait, Poor Balance, DENIES: Headache, Localized weakness, Paresthesias, Seizures, Tremor Psychiatric: COMPLAINS OF: Anxiety, Confusion Past Family Social History Coded Allergies: No Known Allergies (Unverified , 11/08/16) Past Medical History COPD GERD Steroid induced hyperglycemia End-stage COPD with asthma Long-term tobacco use/pendants Pneumonia Obesity Anxiety . Past Surgical History * Surgical repair of fractured left leg in 1995 . Reported Medications Pre-hospital medications included the following: Claritin (Loratadine) 10 Mg Cap 10 Mg PO DAILY Duoneb (Ipratropium-Albuterol Neb) 0.5-2.5 Mg/3 Ml Neb 1 Ampule INH Q6HR NEB 30 Days Symbicort Inh (Budesonide/Formoterol Fumarate) 80-4.5 Mcg/Act Aero 1 Puff INH Q12HR Methadone (Methadone HCl) 5 Mg Tab 2.5 Mg PO Q8HR Hydrocodone-Acetaminophen 5-325 mg Tab 2 Tab PO Q4HR PRN severe pain 6 - 10 Meclizine (Meclizine HCl) 25 Mg Tab 25 Mg PO TID Codeine/Guaifenesin 100-10 mg/5Ml (Guaifenesin-Codeine) 10 Mg-100 Mg/5 Ml Mary 10 Ml PO Q4HR PRN Dexamethasone 4 Mg Tab 4 Mg PO DAILY Senokot S (Sennosides-Docusate Sodium) 8.6-50 Mg Tab 1-2 Tab PO DAILY PRN Lorazepam 0.5 Mg Tab 0.5 Mg PO Q6H PRN [oxygen] 2 Liter NA CONTINUOUS . Current Medications Medications (Trade) Dose Ordered Sig/Rebel Route Start Time Stop Time Status Last Admin (Symbicort 80-4.5 Mcg Inh) 1 puff Q12HR INH 01/10/17 09:00 01/12/17 08:19 (Decadron) 4 mg DAILY PO 01/10/17 09:00 Future Hold 01/11/17 10:27 ([place] 5-325 Mg) 2 tab Q4HR PRN PO 01/10/17 00:00 01/11/17 17:54 (Claritin) 10 mg DAILY PO 01/10/17 09:00 01/12/17 08:17 (Ativan) 0.5 mg Q6H PRN PO 01/10/17 00:00 01/12/17 01:15 (Antivert) 25 mg TID PO 01/10/17 09:00 01/12/17 11:11 (Methadone Liq) 2.5 mg Q8HR PO 01/10/17 06:00 01/12/17 05:53 (Robitussin Ac 200-20 Mg/10 ml Liq) 10 ml Q4H PRN PO 01/10/17 00:15 Cefepime HCl 2000 mg/Sodium Chloride 100 ml @ 200 mls/hr Q8H IV 01/10/17 00:00 12/4/17 08:18 Azithromycin 500 mg/Sodium Chloride 250 ml @ 250 mls/hr Q24H IV 01/10/17 00:00 01/11/17 23:24 Sodium Chloride 1,000 ml @ 84 mls/hr [id number] IV 01/11/17 00:00 (NS Flush) 2 ml UNSCH PRN IV FLUSH 01/10/17 00:00 (NS Flush) 2 ml BID IV FLUSH 01/10/17 09:00 01/12/17 08:19 (Morphine Inj) 2 mg Q2H PRN IV PUSH 01/10/17 00:00 01/12/17 11:12 (Protonix Inj) 40 mg Q12H IV PUSH 01/10/17 00:00 01/12/17 11:13 (Zofran Inj) 4 mg Q6H PRN IV PUSH 01/10/17 00:00 (Restoril) 15 mg HS PRN PO 01/10/17 00:00 (Duoneb Neb) 1 ampule Q4HR NEB INH 01/10/17 00:00 01/12/17 11:44 (Duoneb Neb) 1 ampule Q2HR NEB PRN INH 01/10/17 00:00 Miscellaneous Information 1 Q361D XX 01/10/17 00:00 01/11/17 02:00 (Chlorhexidine 2% Cloth) 3 pack Taper DAILY@04 TOP 01/10/17 04:00 01/06/18 03:59 01/12/17 04:00 (Chlorhexidine 2% Cloth) 3 pack UNSCH PRN TOP 01/10/17 00:00 (Callie-Colace) 1 tab BID PO 01/10/17 09:00 (Milk Of Magnesia Liq) 30 ml Q12H PRN PO 01/10/17 00:00 (Senokot) 17.2 mg Q12H PRN PO 01/10/17 00:00 (Dulcolax Supp) 10 mg DAILY PRN RECTAL 01/10/17 00:00 (Lactulose Liq) 30 ml DAILY PRN PO 01/10/17 00:00 (D50w (Vial) Inj) 50 ml UNSCH PRN IV PUSH 01/10/17 01:30 (Glucagon Inj) 1 mg UNSCH PRN OTHER 01/10/17 01:30 (NovoLOG SUPPLEMENTAL SCALE) 1 ACHS SLIDING SCALE SQ 01/10/17 08:00 01/12/17 11:28 (SoluMEDROL INJ) 40 mg Q12HR IV PUSH 01/11/17 21:00 01/12/17 08:18 . Family History Family history is positive for diabetes. A brother and sister have some type of cancer. There is a son with asthma . Substance Use Tobacco: Patient was a one to 2 pack per day smoker for over 30 years. Continues to smoke at this time. Alcohol: No history of abuse Prescription med abuse: No known prescription medication abuse Illicits: No known use of illicits . Psychosocial History Patient is originally from [place], [place]. She moved to [place] just a few years ago to care for her minor grandchildren. 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 The patient has 2 sons. One son, the father of the 4 children, lives in his car. The other son has been incarcerated. The patient's spouse, who is older than she is was recently enrolled at [employer] to study air-conditioning. He is out of the house a lot. Finances are an issue for the family. [employer] has threatened to shut power off. Patient is left alone during the day when away and she is having difficulty coping. . Spiritual/Cultural Factors Patient identifies as Scientology. She indicated that mosque and spirituality are important to her. She dhas not belonged to a eric community for many years. She has been open to senior treasury analyst visits while on hospice. . Living Will: Completed, but not made available Health Care Surrogate: Completed, but not made available Durable Power of Vice President Corporate Communications: Never completed Date completed: Advanced directives were completed on an unknown date. . Health Care Surrogate(s): We do not have written documentation of health care surrogate choice. . Documented care wishes: We do not have written documentation of health care preferences/wishes on file. . Today's verbally stated goals: Patient is only willing to talk about her desire to go home. Unwilling to discuss current goals. . Family/friends goals: is at bedside but unwilling to talk about goals of medical care at this point. . Ethical and Legal Issues Patient is capacitated to make her own health care decisions. . Physical Exam Vital Signs Date Time Temp Pulse Resp B/P (MAP) Pulse Ox O2 Delivery O2 Flow Rate FiO2 01/12/17 10:00 115 01/12/17 08:00 104 01/12/17 08:00 97.8 104 18 144/93 (110) 93 01/12/17 07:50 95 Nasal Cannula 4.00 01/12/17 06:53 20 01/12/17 06:00 113 01/12/17 04:00 97.2 97 16 129/81 (97) 01/12/17 04:00 97 01/12/17 02:00 91 01/12/17 00:00 99 01/12/17 00:00 97.8 99 27 123/80 (94) 94 01/11/17 22:00 107 01/11/17 20:00 111 01/11/17 20:00 98.4 111 28 140/83 (102) 96 01/11/17 19:59 97 Nasal Cannula 4.00 01/11/17 18:54 13 01/11/17 18:00 112 01/11/17 16:00 110 01/11/17 16:00 110 19 106/61 (76) 92 01/11/17 14:00 116 . 01/12/17 01/13/17 18:59 06:59 Intake Total 100 ml Balance 100 ml IV Total 100 ml . Exam CONSTITUTIONAL/GENERAL: Patient is awake, alert, in a medical intensive care unit bed. She gets short of breath with speech and with trying to eat. TUBES/LINES/DRAINS: Triple-lumen femoral catheter was removed on 01/12/17. Peripheral IVs only at this time. Nasal cannula oxygen. SKIN: No jaundice, rashes, or lesions. There are some scattered small skin tears on the upper extremities. Skin temperature appropriate. Not diaphoretic. HEAD: Atraumatic. Normocephalic. EYES: Pupils equal and round and reactive. Extraocular motions intact. No scleral icterus. No injection or drainage. Fundi not examined. ENT: Hearing grossly normal. Nose without bleeding or purulent drainage. Throat without visible erythema, exudates, masses, or lesions. NECK: Trachea midline. Supple, nontender. No palpable thyroid enlargement or nodularity. CARDIOVASCULAR: Borderline tachycardia. Regular rhythm without murmurs, gallops , or rubs. No JVD. Peripheral pulses symmetric. RESPIRATORY/CHEST: Symmetric, unlabored respirations.. Breath sounds equal bilaterally but diminished throughout. Minimal air movement at bases. Faint wheezing present. GASTROINTESTINAL: Abdomen obese, soft, non-tender, nondistended. No hepato- splenomegaly, or palpable masses. No guarding. Bowel sounds present. GENITOURINARY: Without palpable bladder distension. MUSCULOSKELETAL: Extremities without clubbing, cyanosis. There is bilateral pedal edema. No joint tenderness or effusion noted. No calf tenderness. No mottling. LYMPHATICS: No palpable cervical or supraclavicular adenopathy. NEUROLOGICAL: Awake and alert. Motor and sensory grossly within normal limits. Follows commands. Cognitively sharp. Moves all extremities. PSYCHIATRIC: Patient is angry and agitated initially that I am not discharging her. No obvious anxiety/depression. No apparent hallucinations or other psychotic thought process. . Diagnostic Tests Laboratory Laboratory Tests Test 01/09/17 18:04 01/09/17 19:26 01/09/17 21:08 01/09/17 21:48 White Blood Count 34.6 TH/MM3 (4.0-11.0) Red Blood Count 5.52 MIL/MM3 (4.00-5.30) Hemoglobin 16.0 GM/DL (11.6-15.3) Hematocrit 47.8 % (35.0-46.0) Mean Corpuscular Volume 86.5 FL (80.0-100.0) Mean Corpuscular Hemoglobin 29.0 PG (27.0-34.0) Mean Corpuscular Hemoglobin Concent 33.5 % (32.0-36.0) Red Cell Distribution Width 12.7 % (11.6-17.2) Platelet Count 261 TH/MM3 (150-450) Mean Platelet Volume 11.1 FL (7.0-11.0) Neutrophils (%) (Auto) 94.1 % (16.0-70.0) Lymphocytes (%) (Auto) 4.3 % (9.0-44.0) Monocytes (%) (Auto) 1.5 % (0.0-8.0) Eosinophils (%) (Auto) 0.0 % (0.0-4.0) Basophils (%) (Auto) 0.1 % (0.0-2.0) Neutrophils # (Auto) 32.6 TH/MM3 (1.8-7.7) Lymphocytes # (Auto) 1.5 TH/MM3 (1.0-4.8) Monocytes # (Auto) 0.5 TH/MM3 (0-0.9) Eosinophils # (Auto) 0.0 TH/MM3 (0-0.4) Basophils # (Auto) 0.0 TH/MM3 (0-0.2) CBC Comment AUTO DIFF Differential Total Cells Counted 100 Neutrophils % (Manual) 78 % (16-70) Band Neutrophils % 17 % (0-6) Lymphocytes % 3 % (9-44) Monocytes % 2 % (0-8) Neutrophils # (Manual) 32.9 TH/MM3 (1.8-7.7) Differential Comment FINAL DIFF MANUAL Platelet Estimate NORMAL (NORMAL) Platelet Morphology Comment NORMAL (NORMAL) Red Cell Morphology Comment NORMAL (NORMAL) Prothrombin Time 11.6 SEC (9.8-11.6) Prothromb Time International Ratio 1.0 RATIO Activated Partial Thromboplast Time 21.0 SEC (24.3-30.1) Blood Urea Nitrogen 15 MG/DL (7-18) Creatinine 1.30 MG/DL (0.50-1.00) Random Glucose 356 MG/DL (74-106) Calcium Level 8.9 MG/DL (8.5-10.1) Sodium Level 125 MEQ/L (136-145) Potassium Level 2.5 MEQ/L (3.5-5.1) Chloride Level 74 MEQ/L (98-107) Carbon Dioxide Level 40.6 MEQ/L (21.0-32.0) Anion Gap 10 MEQ/L (5-15) Estimat Glomerular Filtration Rate 41 ML/MIN (>89) Troponin I 0.11 NG/ML (0.02-0.05) B-Type Natriuretic Peptide 151 PG/ML (0-100) Lactic Acid Level 3.7 mmol/L (0.4-2.0) 3.6 mmol/L (0.4-2.0) Nasal Screen MRSA (PCR) MRSA NOT DETECTED (NOT Test 01/10/17 01:45 01/10/17 05:11 01/10/17 05:50 01/10/17 15:31 Troponin I 0.07 NG/ML (0.02-0.05) 0.06 NG/ML (0.02-0.05) Blood Gas Puncture Site LT RADIAL Blood Gas Patient Temperature 98.6 Blood Gas HCO3 36 mmol/L (22-26) Blood Gas Base Excess 10.7 mmol/L (-2-2) Blood Gas Oxygen Saturation 92 % (90-100) Arterial Blood pH 7.40 (7.380-7.420) Arterial Blood Partial Pressure CO2 60 mmHg (38-42) Arterial Blood Partial Pressure O2 74 mmHg (61-120) Arterial Blood Oxygen Content 18.1 Vol % (12.0-20.0) Arterial Blood Carboxyhemoglobin 1.4 % (0-4) Arterial Blood Methemoglobin 1.2 % (0-2) Blood Gas Hemoglobin 14.0 G/DL (12.0-16.0) Oxygen Delivery Device NASAL CANNULA Blood Gas Liter Flow 3 L/M White Blood Count 23.3 TH/MM3 (4.0-11.0) Red Blood Count 4.61 MIL/MM3 (4.00-5.30) Hemoglobin 13.5 GM/DL (11.6-15.3) 12.7 GM/DL (11.6-15.3) Hematocrit 40.6 % (35.0-46.0) 38.4 % (35.0-46.0) Mean Corpuscular Volume 88.1 FL (80.0-100.0) Mean Corpuscular Hemoglobin 29.4 PG (27.0-34.0) Mean Corpuscular Hemoglobin Concent 33.4 % (32.0-36.0) Red Cell Distribution Width 14.0 % (11.6-17.2) Platelet Count 195 TH/MM3 (150-450) Mean Platelet Volume 9.8 FL (7.0-11.0) CBC Comment AUTO DIFF Differential Total Cells Counted 100 Neutrophils % (Manual) 66 % (16-70) Band Neutrophils % 32 % (0-6) Monocytes % 1 % (0-8) Neutrophils # (Manual) 23.1 TH/MM3 (1.8-7.7) Metamyelocytes 1 % (0-1) Differential Comment FINAL DIFF MANUAL Platelet Estimate NORMAL (NORMAL) Platelet Morphology Comment NORMAL (NORMAL) Red Cell Morphology Comment NORMAL (NORMAL) Blood Urea Nitrogen 17 MG/DL (7-18) Creatinine 0.81 MG/DL (0.50-1.00) Random Glucose 296 MG/DL (74-106) Total Protein 4.9 GM/DL (6.4-8.2) Albumin 1.7 GM/DL (3.4-5.0) Calcium Level 8.1 MG/DL (8.5-10.1) Phosphorus Level 3.2 MG/DL (2.5-4.9) Magnesium Level 1.6 MG/DL (1.5-2.5) Alkaline Phosphatase 125 U/L (45-117) Aspartate Amino Transf (AST/SGOT) 13 U/L (15-37) Alanine Aminotransferase (ALT/SGPT) 20 U/L (10-53) Total Bilirubin 0.7 MG/DL (0.2-1.0) Sodium Level 135 MEQ/L (136-145) Potassium Level 3.3 MEQ/L (3.5-5.1) Chloride Level 93 MEQ/L (98-107) Carbon Dioxide Level 35.5 MEQ/L (21.0-32.0) Anion Gap 7 MEQ/L (5-15) Estimat Glomerular Filtration Rate 71 ML/MIN (>89) Test 01/10/17 17:00 01/11/17 04:50 01/12/17 04:25 Potassium Level 3.8 MEQ/L (3.5-5.1) 4.1 MEQ/L (3.5-5.1) 4.6 MEQ/L (3.5-5.1) Magnesium Level 1.5 MG/DL (1.5-2.5) Thyroid Stimulating Hormone 3rd Gen 0.374 uIU/ML (0.358-3.740) White Blood Count 20.3 TH/MM3 (4.0-11.0) 16.3 TH/MM3 (4.0-11.0) Red Blood Count 4.23 MIL/MM3 (4.00-5.30) 4.29 MIL/MM3 (4.00-5.30) Hemoglobin 12.4 GM/DL (11.6-15.3) 12.8 GM/DL (11.6-15.3) Hematocrit 37.2 % (35.0-46.0) 37.8 % (35.0-46.0) Mean Corpuscular Volume 88.1 FL (80.0-100.0) 88.1 FL (80.0-100.0) Mean Corpuscular Hemoglobin 29.3 PG (27.0-34.0) 29.8 PG (27.0-34.0) Mean Corpuscular Hemoglobin Concent 33.3 % (32.0-36.0) 33.8 % (32.0-36.0) Red Cell Distribution Width 13.9 % (11.6-17.2) 14.0 % (11.6-17.2) Platelet Count 162 TH/MM3 (150-450) 137 TH/MM3 (150-450) Mean Platelet Volume 10.0 FL (7.0-11.0) 9.9 FL (7.0-11.0) CBC Comment AUTO DIFF DIFF FINAL Differential Total Cells Counted 100 Neutrophils % (Manual) 95 % (16-70) Band Neutrophils % 3 % (0-6) Lymphocytes % 2 % (9-44) Neutrophils # (Manual) 19.9 TH/MM3 (1.8-7.7) Differential Comment FINAL DIFF MANUAL Platelet Estimate NORMAL (NORMAL) Platelet Morphology Comment NORMAL (NORMAL) Basophilic Stippling FAINT (NORMAL) Red Cell Morphology Comment NORMAL (NORMAL) Blood Urea Nitrogen 22 MG/DL (7-18) 18 MG/DL (7-18) Creatinine 0.63 MG/DL (0.50-1.00) 0.49 MG/DL (0.50-1.00) Random Glucose 172 MG/DL (74-106) 217 MG/DL (74-106) Total Protein 4.8 GM/DL (6.4-8.2) 5.4 GM/DL (6.4-8.2) Albumin 1.5 GM/DL (3.4-5.0) 1.8 GM/DL (3.4-5.0) Calcium Level 8.5 MG/DL (8.5-10.1) 8.8 MG/DL (8.5-10.1) Alkaline Phosphatase 110 U/L (45-117) 135 U/L (45-117) Aspartate Amino Transf (AST/SGOT) 13 U/L (15-37) 12 U/L (15-37) Alanine Aminotransferase (ALT/SGPT) 15 U/L (10-53) 19 U/L (10-53) Total Bilirubin 0.5 MG/DL (0.2-1.0) 0.5 MG/DL (0.2-1.0) Sodium Level 133 MEQ/L (136-145) 131 MEQ/L (136-145) Chloride Level 93 MEQ/L (98-107) 92 MEQ/L (98-107) Carbon Dioxide Level 31.6 MEQ/L (21.0-32.0) 33.1 MEQ/L (21.0-32.0) Anion Gap 8 MEQ/L (5-15) 6 MEQ/L (5-15) Estimat Glomerular Filtration Rate 95 ML/MIN (>89) 127 ML/MIN (>89) Neutrophils (%) (Auto) 95.9 % (16.0-70.0) Lymphocytes (%) (Auto) 3.0 % (9.0-44.0) Monocytes (%) (Auto) 1.0 % (0.0-8.0) Eosinophils (%) (Auto) 0.0 % (0.0-4.0) Basophils (%) (Auto) 0.1 % (0.0-2.0) Neutrophils # (Auto) 15.6 TH/MM3 (1.8-7.7) Lymphocytes # (Auto) 0.5 TH/MM3 (1.0-4.8) Monocytes # (Auto) 0.2 TH/MM3 (0-0.9) Eosinophils # (Auto) 0.0 TH/MM3 (0-0.4) Basophils # (Auto) 0.0 TH/MM3 (0-0.2) . Result Diagram: 01/12/17 0425 01/12/17 0425 Microbiology Microbiology Date/Time Source Procedure Growth Status 01/09/17 18:04 Blood Peripheral Aerobic Blood Culture - Preliminary NO GROWTH IN 3 DAYS Resulted 01/09/17 18:04 Blood Peripheral Anaerobic Blood Culture - Preliminary NO GROWTH IN 3 DAYS Resulted 01/09/17 18:00 Blood Peripheral Aerobic Blood Culture - Preliminary NO GROWTH IN 3 DAYS Resulted 01/09/17 18:00 Blood Peripheral Anaerobic Blood Culture - Preliminary NO GROWTH IN 3 DAYS Resulted . Imaging Last Impressions Chest X-Ray 01/12/17 0000 Signed Impressions: Service Date/Time: Thursday, January 12, 2017 18:38 - CONCLUSION: 1. Stable large mass-like opacity within the right upper lung field. 2. Bibasilar atelectatic changes. Reynaldo Moctezuma MD . Procedures * Femoral central line placement . Patient/Family Conference Present at Family Conference: Initially try to meet with patient alone but she was on receptive to conversation and just demanded to go home. Next attempted to meet with patient and her . They were arguing about the lunch she was eating and would not engage his conversation with me at that time. . Family Conference Time (mins): 10 Family Conference Location: Bedside Issues Discussed: Unable to have a meaningful conversation with the patient alone or with patient and her as noted above. . Assessment and Plan Disease Oriented Problem List: (1) end-stage COPD (2) Pneumonia (3) Chronic respiratory failure with hypoxia (4) Mass of right lung Comment: Persistent right upper lung mass. . (5) GI bleed Comment: passed a dark , hemoccult positive stool in the ED . (6) Hyponatremia (7) Hypoalbuminemia (8) Hyperglycemia, drug-induced (9) GERD (10) Tobacco dependency Symptom Scale: (1) Pain 0-10 Scale: 8 Comment: Has reported pain levels of 6 - 8. Pain has mostly been generalized or abdominal . Mostly constant. . (2) Dyspnea 0-10 Scale: Unable to quantify Comment: Now reasonably comfortable at rest with supplemental 02. . Pertinent Non-Medical Issues Psychosocial: Lives at home with her and 4 minor grandchildren she is caring for. One son lives out of car. Another one recently incarcerated. Financial strains. Spiritual: Religions/spirituality are important. Identifies as Scientology. Has not belonged to a eric group for years. Legal: No known advance directives. would be proxy. Ethical issues impacting care: No known ethical issues. . Important Contacts * Jaxon Vanegas () [phone] * . Prognosis Patient has significant COPD. She had several hospitalizations for exacerbations prior to enrolling in hospice in May 2016. With hospice care she has managed to remain out of the hospital until 11/08 - 11/13/16. She did remarkably well given that she continued to smoke and would leave her 02 off while smoking.. I continue to believe that life expectancy will be less than 6 months were the disease to follow its normal course. . Code Status: No Code Plan == Code Status -- NO CODE == Decision making: Patient is currently capacitated to make her own medical decisions. There is no written designation of health care surrogate. Her -- Jaxon -- would be the healthcare proxy should the patient become incapacitated. == Goals: Goals of medical care have been quite ambivalent and made more difficult because of the patient's psychosocial situation. On the one hand she often asked for just comfort care. On the other hand when breathing gets bad she immediately wants to be taken to the emergency department. There is a part of her that no she is dying and just wants to be kept comfortable. On the other hand she feels responsible for the grandchildren she and her have been raising. She realizes her is having a difficult time caring for her and no she needs 24-hour care but is reluctant to leave the home to get it. == Symptoms * Pain has been either generalized or abdominal. 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 She has a difficult time quantifying or qualifying her pain but has been mostly in the 6-8 range. * Dyspnea: Patient appears to have a pneumonia exacerbating her underlying COPD. There is also a question of a right lung mass. She has responded to treatment here in the hospital and is now reasonably comfortable at rest while on nasal cannula oxygen. Orders have been reviewed. No further recommendations at this time. == Disposition: It is become increasingly difficult for the patient to manage at home. Her is often away and she needs more care. Hospice social workers have been trying to arrange for placement but it has been challenging. Patient's ambivalence about her goals has also made this difficult. If at all possible we should try and arrange for placement at time of hospital discharge rather than going home. I fear that if she goes home, she will "bounce back" to the hospital in a very short period of time due to all the stressors in the home environment. The palliative care social media developer has been in touch with the lime kiln worker and will also collaborate with the current hospital rn field case manager. == Palliative care we'll continue to follow the patient to assist with symptom management and to further clarify goals of medical treatment as the clinical course evolves . Time Spent Total Floor Time (mins): 80 (Total time included chart review of both hospital and hospice records, telephone conversation with lime kiln worker, collaboration with palliative care social media developer, 2 visits to the bedside to speak with patient and her , and documentation.) Face to Face Time (mins): 20 >50% Counseling/Coord of Care: Yes Thank you for the opportunity to participate in the care of Ms. Vanegas. . Attestation To help prompt me to consider important information that might be impacting today's encounter and assessment, information from prior notes written by myself or my colleagues may have been "brought forward" into today's note. My signature on this note, however, is an attestation that I personally performed the exam, history, and/or decision-making noted today, and, unless otherwise indicated, the interactions with patient, family, and staff as well as the review of records all occurred today. I also attest that the listed assessment and stated plan reflect my best clinical judgment today based on the combination of historical information, prior notes, and today's exam/ interactions. When time spent is documented, it refers only to time spent today by the signer, or if indicated, combined time spent today by collaborating physician/nurse practitioner. . Ketan Hayes MD Jan 12, 2017 12:40
--- NOTE | 2017-01-12 13:26 | HHI.HCSW ---
Back Up Worker Visit Pertinent Social History Spoke with hospice home health aide to assist with communication between hospital team and hospice team. Per hospice home health aide: Mrs. Vanegas is currently living in an apartment with her and grandchildren they are helping to take care of. DCF has been active in the past but is not at this time. During the time hospice has been involved with Mrs. Vanegas social dynamics have been complicated in terms of the grandchildren, patient and family income, and options regarding possible placement for Mrs. Vanegas should she choose. In the past Mrs. Vanegas has requested placement for herself, hospice SW has tried [facility] as patient reports this is close to her home; facility declined. Also exploring [facility] with patient and family as this is the next closest. Placement is complicated by Mrs. Vanegas's apartment is currently listed in her name only and her income contributes to bills. Family has been threatened with having their electricity turned off in the past. An independent insurance adjuster has been unsuccessful in finding assistance with paying for electricity. They have also received notice letters from their apartment complex. . [place] Service Issues Patient and family has difficulty paying for electricity bills. [employer] has threatened to turn off electricity in the past. Will provide information regarding [facility] Low-income Home Energy Assistance Program (LIHEAP) to see if they will be able to assist family. . Proposed Soc Wrk Intervention Spoke with caseworker intake in [facility] and informed her of above information. Provided her with contact information for hospice home health aide to assist with continued communication for continuity of care for discharge plan for Mrs. Vanegas as it is complicated by many factors. Helena Cardenas, hospice SW: #[phone] . Follow Up Visit Palliative care will continue to follow throughout hospitalization. Regi Boss, ASBESTOS COVERER Jan 12, 2017 13:26
--- NOTE | 2017-01-12 14:31 | HHI.CCPN ---
Subjective Remarks/Hospital Course 01/09: 66 old female with end stage COPD on home hospice care presents with complaints of shortness of breath since 10am today. Patient said she does not want to be intubated or resuscitated. In the emergency department at [facility] she was also hypotensive with systolic blood pressure at 60 and tachycardic at 130s which is improved after centerline placement by ED attending and 2 L bolus IV fluids resuscitation. There was also question of GI bleed since the patient has a melanotic stool and positive occult blood test. 01/11: Resting in bed. Not in any acute distress. Had bloody stools last night. No hypotension or tachycardia currently. 01/12: Sitting up in bed. Appears tachypneic. On nasal cannula. Hemoglobin 12 , no hypotension since admission. Patient has refused EGD and colonoscopy per GI. 01/13 Patient is lying in bed in NAD. Awaiting transfer to floor. Objective Vital Signs Date Time Temp Pulse Resp B/P (MAP) Pulse Ox O2 Delivery O2 Flow Rate FiO2 01/12/17 12:00 102 01/12/17 12:00 97.8 15 134/85 (101) 99 01/12/17 07:50 Nasal Cannula 4.00 01/09/17 17:19 100 Intake and Output 01/12/17 01/12/17 01/13/17 08:00 16:00 00:00 Intake Total 490 ml 100 ml Balance 490 ml 100 ml Result Diagram: 01/12/17 0425 01/12/17 0425 Other Results Laboratory Tests Test 01/12/17 04:25 White Blood Count 16.3 TH/MM3 Red Blood Count 4.29 MIL/MM3 Hemoglobin 12.8 GM/DL Hematocrit 37.8 % Mean Corpuscular Volume 88.1 FL Mean Corpuscular Hemoglobin 29.8 PG Mean Corpuscular Hemoglobin Concent 33.8 % Red Cell Distribution Width 14.0 % Platelet Count 137 TH/MM3 Mean Platelet Volume 9.9 FL Neutrophils (%) (Auto) 95.9 % Lymphocytes (%) (Auto) 3.0 % Monocytes (%) (Auto) 1.0 % Eosinophils (%) (Auto) 0.0 % Basophils (%) (Auto) 0.1 % Neutrophils # (Auto) 15.6 TH/MM3 Lymphocytes # (Auto) 0.5 TH/MM3 Monocytes # (Auto) 0.2 TH/MM3 Eosinophils # (Auto) 0.0 TH/MM3 Basophils # (Auto) 0.0 TH/MM3 CBC Comment DIFF FINAL Differential Comment Blood Urea Nitrogen 18 MG/DL Creatinine 0.49 MG/DL Random Glucose 217 MG/DL Total Protein 5.4 GM/DL Albumin 1.8 GM/DL Calcium Level 8.8 MG/DL Alkaline Phosphatase 135 U/L Aspartate Amino Transf (AST/SGOT) 12 U/L Alanine Aminotransferase (ALT/SGPT) 19 U/L Total Bilirubin 0.5 MG/DL Sodium Level 131 MEQ/L Potassium Level 4.6 MEQ/L Chloride Level 92 MEQ/L Carbon Dioxide Level 33.1 MEQ/L Anion Gap 6 MEQ/L Estimat Glomerular Filtration Rate 127 ML/MIN Imaging Last Impressions Chest X-Ray 01/10/17 0000 Signed Impressions: Service Date/Time: Thursday, January 10, 2017 03:53 - CONCLUSION: Stable focal masslike consolidative opacity in the right midlung zone. Andrea Gonzalez MD Objective Remarks GENERAL: Elderly appearing female lying in bed in NAD SKIN: Focused skin assessment warm/dry. HEAD: Atraumatic. Normocephalic. EYES: Pupils equal and round. No scleral icterus. No injection or drainage. CARDIOVASCULAR: Regular rate and rhythm. No murmur appreciated. RESPIRATORY: Poor air entry bilaterally, scattered rhonchi bilaterally, no wheezing GASTROINTESTINAL: Abdomen soft, non-tender, nondistended. MUSCULOSKELETAL: +Bilateral lower ext edema. NEUROLOGICAL: Awake alert oriented 3, nonfocal grossly A/P Assessment and Plan 65-year-old female with: End-stage COPD COPD exacerbation Possible pneumonia Acute on chronic respiratory failure Respiratory acidosis Right middle lobe pneumonia versus mass Smoker Morbid obesity Melanotic stool Hypotension (resolved) Plan: Neuro: Monitor neuro status, avoid sedatives . CV: Monitor HR and BP keep MAP>65mmHG Pulm: Continue with oxygen keep sat >92% Bronchodilators, NIPPV PRN for resp distress Pulm is following, on solumederol 40mg Q12 GI/liver: Protonix IV twice a day, gastroenterology consult noted, patient refused EGD and colonoscopy. Renal/: Monitor renal function, electrolytes replacement as needed D/C IVF ID: Continue empiric antibiotics with Zithromax and cefepime Heme: Monitor CBC Endocrine SSI for glycemic control if needed. Prophylaxis: SCDs, subcutaneous subcutaneous heparin Patient is DNR/DNI status. Palliative care is following For transfer to floor, [facility]PAS consulted for medical management. Level 2 Harshad Norton MD Jan 12, 2017 14:31
--- NOTE | 2017-01-12 18:29 | HHI.PR ---
Subjective Remarks Less SOB ON o2 no expectoration Objective Vital Signs Date Time Temp Pulse Resp B/P (MAP) Pulse Ox O2 Delivery O2 Flow Rate FiO2 01/12/17 16:00 97.8 68 20 128/67 (87) 96 01/12/17 15:42 97 Nasal Cannula 4.00 01/12/17 12:00 102 01/12/17 12:00 97.8 102 15 134/85 (101) 99 01/12/17 10:00 115 01/12/17 08:00 104 01/12/17 08:00 97.8 104 18 144/93 (110) 95 01/12/17 07:50 95 Nasal Cannula 4.00 01/12/17 06:53 20 01/12/17 06:00 113 01/12/17 04:00 97.2 97 16 129/81 (97) 01/12/17 04:00 97 01/12/17 02:00 91 01/12/17 00:00 99 01/12/17 00:00 97.8 99 27 123/80 (94) 94 01/11/17 22:00 107 01/11/17 20:00 111 01/11/17 20:00 98.4 111 28 140/83 (102) 96 01/11/17 19:59 97 Nasal Cannula 4.00 01/11/17 18:54 13 I/O 01/11/17 01/11/17 01/11/17 01/12/17 01/12/17 01/12/17 07:00 15:00 23:00 07:00 15:00 23:00 Intake Total 830 ml 600 ml 590 ml 100 ml Balance 830 ml 600 ml 590 ml 100 ml Intake Oral 480 ml 600 ml 240 ml IV Total 350 ml 350 ml 100 ml # Voids 2 3 3 2 # Bowel Movements 1 1 0 0 Result Diagram: 01/12/17 0425 01/12/17424 Objective Remarks GENERAL: SKIN: Warm and dry. HEAD: Atraumatic. Normocephalic. EYES: Pupils equal and round. No scleral icterus. No injection or drainage. ENT: No nasal bleeding or discharge. Mucous membranes pink and moist. NECK: Trachea midline. No JVD. CARDIOVASCULAR: Regular rate and rhythm. RESPIRATORY: No accessory muscle use. few ranch at bilaterally. GASTROINTESTINAL: Abdomen soft, non-tender, nondistended. Hepatic and splenic margins not palpable. MUSCULOSKELETAL: Extremities without clubbing, cyanosis, or edema. No obvious deformities. NEUROLOGICAL: Awake and alert. No obvious cranial nerve deficits. Motor grossly within normal limits. Five out of 5 muscle strength in the arms and legs. Normal speech. PSYCHIATRIC: Appropriate mood and affect; insight and judgment normal. Assessment and Plan Assessment and Plan COPD EXACERBATION PNA RESPIRATORY FAILURE PLAN O2 ANTIBX BRONCHODILATORS FU CXRAY Kt Meraz MD Jan 12, 2017 18:29
--- NOTE | 2017-01-12 19:09 | RADRPT ---
EXAM DATE/TIME: 01/12/2017 18:38 [facility] COMPARISON: CHEST SINGLE AP, January 10, 2017, 3:53. INDICATIONS : Short of breath. MEDICAL HISTORY : Gastroesophageal reflux disease. Chronic obstructive pulmonary disease. Hypertension. Diabetes. SURGICAL HISTORY : None. ENCOUNTER: Subsequent ACUITY: 1 week PAIN SCORE: Non-responsive. LOCATION: Bilateral chest FINDINGS: There is a stable large mass-like opacity within the right upper lung field. Scattered bibasilar atel ectatic changes are noted. The heart is stable. CONCLUSION: 1. Stable large mass-like opacity within the right upper lung field. 2. Bibasilar atelectatic changes. Reynaldo Moctezuma MD on January 12, 2017 at 19:05 Board Certified Radiologist. This report was verified electronically.
--- NOTE | 2017-01-12 21:14 | HHI.PR ---
Subjective Remarks NOT SEEN Objective Vitals Vital Signs Date Time Temp Pulse Resp B/P (MAP) Pulse Ox O2 Delivery O2 Flow Rate FiO2 01/12/17 16:00 97.8 68 20 128/67 (87) 96 01/12/17 15:42 97 Nasal Cannula 4.00 01/12/17 12:00 102 01/12/17 12:00 97.8 102 15 134/85 (101) 99 01/12/17 10:00 115 01/12/17 08:00 104 01/12/17 08:00 97.8 104 18 144/93 (110) 95 01/12/17 07:50 95 Nasal Cannula 4.00 01/12/17 06:53 20 01/12/17 06:00 113 01/12/17 04:00 97.2 97 16 129/81 (97) 01/12/17 04:00 97 01/12/17 02:00 91 01/12/17 00:00 99 01/12/17 00:00 97.8 99 27 123/80 (94) 94 01/11/17 22:00 107 I/O 01/11/17 01/11/17 01/11/17 01/12/17 01/12/17 01/12/17 07:00 15:00 23:00 07:00 15:00 23:00 Intake Total 830 ml 600 ml 590 ml 100 ml Balance 830 ml 600 ml 590 ml 100 ml Intake Oral 480 ml 600 ml 240 ml IV Total 350 ml 350 ml 100 ml # Voids 2 3 3 2 # Bowel Movements 1 1 0 0 Result Diagram: 01/12/17 0425 01/12/17 0425 Imaging Last Impressions Chest X-Ray 01/12/17 0000 Signed Impressions: Service Date/Time: Thursday, January 12, 2017 18:38 - CONCLUSION: 1. Stable large mass-like opacity within the right upper lung field. 2. Bibasilar atelectatic changes. Reynaldo Moctezuma MD Objective Remarks GENERAL: Elderly appearing female lying in bed in NAD SKIN: Focused skin assessment warm/dry. HEAD: Atraumatic. Normocephalic. EYES: Pupils equal and round. No scleral icterus. No injection or drainage. CARDIOVASCULAR: Regular rate and rhythm. No murmur appreciated. RESPIRATORY: Poor air entry bilaterally, scattered rhonchi bilaterally, no wheezing GASTROINTESTINAL: Abdomen soft, non-tender, nondistended. MUSCULOSKELETAL: +Bilateral lower ext edema. NEUROLOGICAL: Awake alert oriented 3, nonfocal grossly Procedures none A/P Problem List: (1) end-stage COPD Status: Acute Assessment and Plan 65-year-old female with: End-stage COPD with exacerbation, possible pneumonia vs mass, acute on chronic respiratory failure, respiratory acidosis and tobacco abuse. Ct oxyegn, nebs, steroids, zithromax, cefepime Melanotic stool. Refused EGD and colonoscopy. Ct PPI Hypotension (resolved) Prophylaxis: SCDs, dc subcutaneous heparin 2/2 GIB Chuck Ford MD Jan 12, 2017 21:14
[2017-01-12] MEDS ORDERED: PILL SPLITTER OTHER PRN (21:30)
[2017-01-12 22:25] LABS: HEMOGLOBIN A1a 0.9 %; HEMOGLOBIN A1b 2.1 %; HEMOGLOBIN Ao 82.6 %; HEMOGLOBIN LA1C 2.3 %; HEMOGLOBIN P3 4.7 %
[2017-01-13] VITALS (10 sets, daily range): BP systolic 118–154; BP diastolic 72–94; PULSE 86–119; RESP 17–20; TEMP 95–98.1; O2SAT 91–98
[2017-01-13] MEDS: AZITHROMYCIN INJ 500 MG in SODIUM CHLOR 0.9% 250 ML INJ 250 ML IV SCH (00:06)
[2017-01-13] MEDS: CHLORHEXIDINE GLUCONATE 2 % 1 PACK (2 CLOTHS) TOP SCH (00:07)
[2017-01-13] MEDS: CEFEPIME INJ 2,000 MG in SODIUM CHLORIDE 0.9% INJ 100 ML IV SCH ×2 (00:07→08:41)
[2017-01-13] MEDS: RESP: ALBUTEROL 2.5 MG/IPRATROPIUM 0.5 MG NEB (SCH) INH ×7 (00:30→23:54)
[2017-01-13] MEDS: METHADONE HCL 10 MG/10 ML ORAL SOLUTION PO SCH ×3 (05:21→21:50)
[2017-01-13] MEDS: INSULIN ASPART SUPPLEMENTAL SCALE SQ SCH ×4 (08:41→21:42)
[2017-01-13] MEDS: BUDESONIDE-FORMOTEROL 80/4.5 MCG INHALER INH SCH ×2 (08:41→21:43)
[2017-01-13] MEDS: SODIUM CHLORIDE 0.9% FLUSH 10 ML FLUSH IV FLUSH SCH ×2 (08:42→21:43)
[2017-01-13] MEDS: FAMOTIDINE 20 MG TAB PO SCH ×2 (08:42→21:42)
[2017-01-13] MEDS: LORATADINE 10 MG TAB PO SCH (08:43)
[2017-01-13] MEDS: MECLIZINE HCL 25 MG TAB PO SCH ×3 (08:43→18:20)
[2017-01-13] MEDS: methylPREDNISolone SOD SUCC 40 MG/1 ML VIAL IV PUSH SCH (08:43)
[2017-01-13] MEDS: DOCUSATE SODIUM 50 MG/SENNA 8.6 MG TAB PO SCH ×2 (08:44→21:42)
--- NOTE | 2017-01-13 09:11 | HHI.PR ---
Subjective Remarks Less SOB ON o2 no expectoration Objective Vital Signs Date Time Temp Pulse Resp B/P (MAP) Pulse Ox O2 Delivery O2 Flow Rate FiO2 01/13/17 08:00 97.4 113 20 154/94 (114) 92 01/13/17 04:00 95.0 117 19 139/93 (108) 94 01/13/17 00:33 97 Nasal Cannula 4.00 01/13/17 00:19 86 01/13/17 00:00 95.8 113 17 118/80 (93) 91 01/12/17 20:00 97.5 94 18 109/62 (78) 95 01/12/17 16:00 97.8 68 20 128/67 (87) 96 01/12/17 15:42 97 Nasal Cannula 4.00 01/12/17 12:00 102 01/12/17 12:00 97.8 102 15 134/85 (101) 99 01/12/17 10:00 115 I/O 01/12/17 01/12/17 01/12/17 01/13/17 01/13/17 01/13/17 07:00 15:00 23:00 07:00 15:00 23:00 Intake Total 590 ml 100 ml 590 ml Balance 590 ml 100 ml 590 ml Intake Oral 240 ml 240 ml IV Total 350 ml 100 ml 350 ml # Voids 3 2 3 # Bowel Movements 0 0 Result Diagram: 01/12/1742401/12/17424 Objective Remarks GENERAL: SKIN: Warm and dry. HEAD: Atraumatic. Normocephalic. EYES: Pupils equal and round. No scleral icterus. No injection or drainage. ENT: No nasal bleeding or discharge. Mucous membranes pink and moist. NECK: Trachea midline. No JVD. CARDIOVASCULAR: Regular rate and rhythm. RESPIRATORY: No accessory muscle use. few ranch at bilaterally. GASTROINTESTINAL: Abdomen soft, non-tender, nondistended. Hepatic and splenic margins not palpable. MUSCULOSKELETAL: Extremities without clubbing, cyanosis, or edema. No obvious deformities. NEUROLOGICAL: Awake and alert. No obvious cranial nerve deficits. Motor grossly within normal limits. Five out of 5 muscle strength in the arms and legs. Normal speech. PSYCHIATRIC: Appropriate mood and affect; insight and judgment normal. Assessment and Plan Assessment and Plan COPD EXACERBATION PNA RESPIRATORY FAILURE PLAN O2 ANTIBX BRONCHODILATORS CT CHEST FOR ? MASS Kt,Kt Wadie MD Jan 13, 2017 09:11
--- NOTE | 2017-01-13 14:40 | HHI.HCPN ---
Reason for visit a. To assist with evaluation and management of symptoms including: Dyspnea, generalized pain/abdominal pain b. To assist medical decision maker(s) with: better understanding of current medical conditions; weighing benefits/burdens of medical treatment options; making medical treatment decisions. . Subjective/Interval History Patient has been transferred out of ICU and is now on a med-surg floor. She is breathing comfortably at rest on nasal cannula 02. Denies pain at time of my visit. Nursing documented pain score up to #8 today, however. She has recieved no PRN doses of opiates today but remains on her scheduled methadone. No PRN doses of lorazepam given. She remains on IV steroids. Dr. Meraz has ordered a CT of the chest to further evaluate the RUL mass. is at bedside at time of my visit and they are continuously arguing about everything. has brought in a form from the [employer] that will allow power to be continued on an emergency basis in sptie of late payments due to patient's medical condition. I have completed the physician component of this form. . Family/friend interactions Patient states again that she [facility] at time of discharge. seems less enthusiastic about this. He stated that in 2 weeks he will be done with school and will be better able to care for her. I have called the director hospice operations, Helena Cardenas, and updated her on our conversations. . Advance Directives Living Will: Completed, but not made available Health Care Surrogate: Completed, but not made available Durable Power of Appliance Painter [employer]in[employer]: Never completed Advance Directive Specifics Date completed: Advanced directives were completed on an unknown date. . Health Care Surrogate(s): We do not have written documentation of health care surrogate choice. . Documented care wishes: We do not have written documentation of health care preferences/wishes on file. . Objective Vital Signs Date Time Temp Pulse Resp B/P (MAP) Pulse Ox O2 Delivery O2 Flow Rate FiO2 01/13/17 12:00 97.3 119 18 138/87 (104) 96 01/13/17 09:12 95 Nasal Cannula 4.00 01/13/17 08:00 97.4 113 20 154/94 (114) 92 01/13/17 04:00 95.0 117 19 139/93 (108) 94 01/13/17 00:33 97 Nasal Cannula 4.00 01/13/17 00:19 86 01/13/17 00:00 95.8 113 17 118/80 (93) 91 01/12/17 20:00 97.5 94 18 109/62 (78) 95 01/12/17 16:00 97.8 68 20 128/67 (87) 96 01/12/17 15:42 97 Nasal Cannula 4.00 Intake & Output 01/13/17 01/13/17 07:00 19:00 Intake Total 590 ml Balance 590 ml Intake Oral 240 ml IV Total 350 ml # Voids 3 . Physical Exam CONSTITUTIONAL/GENERAL: Patient is awake, alert, conversant in a med-surg bed. No apparent distress. TUBES/LINES/DRAINS: Nasal cannula oxygen. SKIN: No jaundice, rashes, or lesions. There are some scattered small skin tears on the upper extremities. Skin temperature appropriate. Not diaphoretic. EYES: Pupils equal and round. Extraocular motions intact. No scleral icterus. No injection or drainage. Fundi not examined. ENT: Hearing grossly normal. Nose without bleeding or purulent drainage. Throat without visible erythema, exudates, masses, or lesions. NECK: Trachea midline. Supple. CARDIOVASCULAR: Borderline tachycardia. Regular rhythm without murmurs, gallops , or rubs. No JVD. Peripheral pulses symmetric. RESPIRATORY/CHEST: Symmetric, unlabored respirations.. Breath sounds equal bilaterally but diminished throughout. Minimal air movement at bases. Faint wheezing present. GASTROINTESTINAL: Abdomen obese, soft, non-tender, nondistended. No hepato- splenomegaly, or palpable masses. No guarding. Bowel sounds present. GENITOURINARY: Without palpable bladder distension. MUSCULOSKELETAL: Extremities without clubbing, cyanosis. There is bilateral pedal edema. LYMPHATICS: Not examined. NEUROLOGICAL: Awake and alert. Motor and sensory grossly within normal limits. Follows commands. Cognitively sharp. Moves all extremities. PSYCHIATRIC: Constantly arguing with . No obvious anxiety/depression. No hallucinations or other evidence of psychosis. . . Diagnostic Tests Laboratory Laboratory Tests Test 01/10/17 15:31 01/10/17 17:00 01/11/17 04:50 01/12/17 04:25 Hemoglobin 12.7 GM/DL (11.6-15.3) 12.4 GM/DL (11.6-15.3) 12.8 GM/DL (11.6-15.3) Hematocrit 38.4 % (35.0-46.0) 37.2 % (35.0-46.0) 37.8 % (35.0-46.0) Potassium Level 3.8 MEQ/L (3.5-5.1) 4.1 MEQ/L (3.5-5.1) 4.6 MEQ/L (3.5-5.1) Magnesium Level 1.5 MG/DL (1.5-2.5) Thyroid Stimulating Hormone 3rd Gen 0.374 uIU/ML (0.358-3.740) White Blood Count 20.3 TH/MM3 (4.0-11.0) 16.3 TH/MM3 (4.0-11.0) Red Blood Count 4.23 MIL/MM3 (4.00-5.30) 4.29 MIL/MM3 (4.00-5.30) Mean Corpuscular Volume 88.1 FL (80.0-100.0) 88.1 FL (80.0-100.0) Mean Corpuscular Hemoglobin 29.3 PG (27.0-34.0) 29.8 PG (27.0-34.0) Mean Corpuscular Hemoglobin Concent 33.3 % (32.0-36.0) 33.8 % (32.0-36.0) Red Cell Distribution Width 13.9 % (11.6-17.2) 14.0 % (11.6-17.2) Platelet Count 162 TH/MM3 (150-450) 137 TH/MM3 (150-450) Mean Platelet Volume 10.0 FL (7.0-11.0) 9.9 FL (7.0-11.0) CBC Comment AUTO DIFF DIFF FINAL Differential Total Cells Counted 100 Neutrophils % (Manual) 95 % (16-70) Band Neutrophils % 3 % (0-6) Lymphocytes % 2 % (9-44) Neutrophils # (Manual) 19.9 TH/MM3 (1.8-7.7) Differential Comment FINAL DIFF MANUAL Platelet Estimate NORMAL (NORMAL) Platelet Morphology Comment NORMAL (NORMAL) Basophilic Stippling FAINT (NORMAL) Red Cell Morphology Comment NORMAL (NORMAL) Blood Urea Nitrogen 22 MG/DL (7-18) 18 MG/DL (7-18) Creatinine 0.63 MG/DL (0.50-1.00) 0.49 MG/DL (0.50-1.00) Random Glucose 172 MG/DL (74-106) 217 MG/DL (74-106) Total Protein 4.8 GM/DL (6.4-8.2) 5.4 GM/DL (6.4-8.2) Albumin 1.5 GM/DL (3.4-5.0) 1.8 GM/DL (3.4-5.0) Calcium Level 8.5 MG/DL (8.5-10.1) 8.8 MG/DL (8.5-10.1) Alkaline Phosphatase 110 U/L (45-117) 135 U/L (45-117) Aspartate Amino Transf (AST/SGOT) 13 U/L (15-37) 12 U/L (15-37) Alanine Aminotransferase (ALT/SGPT) 15 U/L (10-53) 19 U/L (10-53) Total Bilirubin 0.5 MG/DL (0.2-1.0) 0.5 MG/DL (0.2-1.0) Sodium Level 133 MEQ/L (136-145) 131 MEQ/L (136-145) Chloride Level 93 MEQ/L (98-107) 92 MEQ/L (98-107) Carbon Dioxide Level 31.6 MEQ/L (21.0-32.0) 33.1 MEQ/L (21.0-32.0) Anion Gap 8 MEQ/L (5-15) 6 MEQ/L (5-15) Estimat Glomerular Filtration Rate 95 ML/MIN (>89) 127 ML/MIN (>89) Neutrophils (%) (Auto) 95.9 % (16.0-70.0) Lymphocytes (%) (Auto) 3.0 % (9.0-44.0) Monocytes (%) (Auto) 1.0 % (0.0-8.0) Eosinophils (%) (Auto) 0.0 % (0.0-4.0) Basophils (%) (Auto) 0.1 % (0.0-2.0) Neutrophils # (Auto) 15.6 TH/MM3 (1.8-7.7) Lymphocytes # (Auto) 0.5 TH/MM3 (1.0-4.8) Monocytes # (Auto) 0.2 TH/MM3 (0-0.9) Eosinophils # (Auto) 0.0 TH/MM3 (0-0.4) Basophils # (Auto) 0.0 TH/MM3 (0-0.2) Hemoglobin A1c 7.2 % (4.3-6.0) . Result Diagram: 01/12/17 0425 01/12/17 0425 Microbiology Microbiology Date/Time Source Procedure Growth Status 01/09/17 18:04 Blood Peripheral Aerobic Blood Culture - Preliminary NO GROWTH IN 4 DAYS Resulted 01/09/17 18:04 Blood Peripheral Anaerobic Blood Culture - Preliminary NO GROWTH IN 4 DAYS Resulted . Imaging Last Impressions Chest X-Ray 01/12/17 0000 Signed Impressions: Service Date/Time: Thursday, January 12, 2017 18:38 - CONCLUSION: 1. Stable large mass-like opacity within the right upper lung field. 2. Bibasilar atelectatic changes. Reynaldo Moctezuma MD . Procedures * Femoral central line placement . Assessment and Plan Disease Oriented Problem List: (1) end-stage COPD (2) Pneumonia (3) Chronic respiratory failure with hypoxia Comment: Improving. . (4) Mass of right lung Comment: Persistent right upper lung mass. . (5) GI bleed Comment: passed a dark , hemoccult positive stool in the ED . (6) Hyponatremia (7) Hypoalbuminemia (8) Hyperglycemia, drug-induced (9) GERD (10) Tobacco dependency Symptom Scale: (1) Pain 0-10 Scale: 8 Comment: Has reported pain levels of 6 - 8. Pain has mostly been generalized or abdominal . Mostly constant. . (2) Dyspnea 0-10 Scale: Unable to quantify Comment: Now reasonably comfortable at rest with supplemental 02. . Pertinent Non-Medical Issues Psychosocial: Lives at home with her and 4 minor grandchildren she is caring for. One son lives out of car. Another one recently incarcerated. Financial strains. Spiritual: Religions/spirituality are important. Identifies as Anglican. Has not belonged to a eric group for years. Legal: No known advance directives. would be proxy. Ethical issues impacting care: No known ethical issues. . Important Contacts * Jaxon Vanegas () [phone] * . Prognosis Patient has significant COPD. She had several hospitalizations for exacerbations prior to enrolling in hospice in May 2016. With hospice care she has managed to remain out of the hospital until 11/08 - 11/13/16. She did remarkably well given that she continued to smoke and would leave her 02 off while smoking.. I continue to believe that life expectancy will be less than 6 months were the disease to follow its normal course. . Code Status: No Code Plan == Code Status -- NO CODE == Decision making: Patient is currently capacitated to make her own medical decisions. There is no written designation of health care surrogate. Her -- Jaxon -- would be the healthcare proxy should the patient become incapacitated. == Goals: Goals of medical care have been quite ambivalent and made more difficult because of the patient's psychosocial situation. On the one hand she has often asked for just comfort care. On the other hand when breathing gets bad she immediately wants to be taken to the emergency department. There is a part of her that knows she is dying and just wants to be kept comfortable. On the other hand she feels responsible for the grandchildren she and her have been raising. She realizes her is having a difficult time caring for her and no she needs 24-hour care but is reluctant to leave the home to get it. == Symptoms * Pain has been either generalized or abdominal. 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 She has a difficult time quantifying or qualifying her pain but has been mostly in the 6-8 range. Has orders here for PRN hydrocodone which appears to be adequate. No further recommendations at this time. * Dyspnea: Patient appears to have a pneumonia exacerbating her underlying COPD. There is also a question of a right lung mass. She has responded to treatment here in the hospital and is now reasonably comfortable at rest while on nasal cannula oxygen. Orders have been reviewed. No further recommendations at this time. == Await chest CT to further evaluate lung mass. == Disposition: It has become increasingly difficult for the patient to manage at home. Her is often away and she needs more care. Hospice social workers have been trying to arrange for placement but it has been challenging. Patient's ambivalence about her goals has also made this difficult. If at all possible we should try and arrange for placement at time of hospital discharge rather than going home. I fear that if she goes home, she will "bounce back" to the hospital in a very short period of time due to all the stressors in the home environment. The palliative care social group worker has been in touch with the director hospice operations and will also collaborate with the current hospital manager of case. == A noted above, I completed paperwork for patient/family to apply for [employer] in terms of their power bill so that they can continue to use 02 , nebs, hospital bed in the home. == Palliative care will continue to follow the patient to assist with symptom management and to further clarify goals of medical treatment as the clinical course evolves . Attestation To help prompt me to consider important information that might be impacting today's encounter and assessment, information from prior notes written by myself or my colleagues may have been "brought forward" into today's note. My signature on this note, however, is an attestation that I personally performed the exam, history, and/or decision-making noted today, and, unless otherwise indicated, the interactions with patient, family, and staff as well as the review of records all occurred today. I also attest that the listed assessment and stated plan reflect my best clinical judgment today based on the combination of historical information, prior notes, and today's exam/ interactions. When time spent is documented, it refers only to time spent today by the signer, or if indicated, combined time spent today by collaborating physician/nurse practitioner. Ketan Hayes MD Jan 13, 2017 14:40
[2017-01-13] MEDS: LORazepam 0.5 MG TAB PO PRN ×2 (15:05→21:48)
--- NOTE | 2017-01-13 17:59 | HHI.PR ---
Subjective Remarks Follow-up COPD. Improving shortness of breath and loose stools. Seen in CT discussed with RN Objective Vitals Vital Signs Date Time Temp Pulse Resp B/P (MAP) Pulse Ox O2 Delivery O2 Flow Rate FiO2 01/13/17 16:02 96 Nasal Cannula 4.00 01/13/17 16:00 98.1 111 20 130/74 (92) 94 01/13/17 12:00 97.3 119 18 138/87 (104) 96 01/13/17 09:12 95 Nasal Cannula 4.00 01/13/17 08:00 97.4 113 20 154/94 (114) 92 01/13/17 04:00 95.0 117 19 139/93 (108) 94 01/13/17 00:33 97 Nasal Cannula 4.00 01/13/17 00:19 86 01/13/17 00:00 95.8 113 17 118/80 (93) 91 01/12/17 20:00 97.5 94 18 109/62 (78) 95 I/O 01/12/17 01/12/17 01/12/17 01/13/17 01/13/17 01/13/17 07:00 15:00 23:00 07:00 15:00 23:00 Intake Total 590 ml 100 ml 590 ml 620 ml Balance 590 ml 100 ml 590 ml 620 ml Intake Oral 240 ml 240 ml 620 ml IV Total 350 ml 100 ml 350 ml # Voids 3 2 3 4 # Bowel Movements 0 0 2 Result Diagram: 01/12/17 0425 01/12/17 0425 Imaging Last Impressions Chest X-Ray 01/12/17 0000 Signed Impressions: Service Date/Time: Thursday, January 12, 2017 18:38 - CONCLUSION: 1. Stable large mass-like opacity within the right upper lung field. 2. Bibasilar atelectatic changes. Reynaldo Moctezuma MD Objective Remarks GENERAL: Elderly appearing female lying in bed in NAD SKIN: Focused skin assessment warm/dry. HEAD: Atraumatic. Normocephalic. EYES: Pupils equal and round. No scleral icterus. No injection or drainage. CARDIOVASCULAR: Regular rate and rhythm. No murmur appreciated. RESPIRATORY: Poor air entry bilaterally, no wheezing GASTROINTESTINAL: Abdomen soft, non-tender, nondistended. MUSCULOSKELETAL: +Bilateral lower ext edema. NEUROLOGICAL: Awake alert oriented 3, nonfocal grossly Procedures none A/P Problem List: (1) end-stage COPD Status: Acute Assessment and Plan 65-year-old female with: End-stage COPD with exacerbation, possible pneumonia vs mass, acute on chronic respiratory failure, respiratory acidosis and tobacco abuse. Stable. Ct oxygen , nebs and switch to by mouth steroids and Augmentin discontinue zithromax, cefepime. Follow-up chest CT Melanotic stool. Refused EGD and colonoscopy. Ct PPI Hypotension (resolved) Diabetes mellitus, new onset. A1c 7.2. Sliding scale coverage and start Levemir. Diabetic education Prophylaxis: SCDs, dc subcutaneous heparin 2/2 GIB Discharge Planning dc to [facility] in am when arranged Chuck Ford MD Jan 13, 2017 17:59
[2017-01-13] MEDS: INSULIN DETEMIR 100 UNITS/ML VIAL SQ SCH (21:42)
[2017-01-13] MEDS: AMOXICILLIN/CLAVULANATE K 875 MG TAB PO SCH (21:42)
--- NOTE | 2017-01-13 22:34 | RADRPT ---
EXAM DATE/TIME: 01/13/2017 17:33 [facility] COMPARISON: CHEST PA & LAT, November 13, 2016, 6:35. CHEST SINGLE AP, November 09, 2016, 4:15. CHEST SINGLE AP, S eptember 2016, 20:05. CHEST SINGLE AP, January 09, 2017, 17:58. CHEST SINGLE AP, January 12, 2017, 18:38. INDICATIONS : Patient with shortness of breath and abnormal chest x-ray demonstrating a large masslike opacity in t he right upper lung.. RADIATION DOSE: 9.59 CTDIvol (mGy) MEDICAL HISTORY : Carcinoma, breast. Chronic obstructive pulmonary disease. SURGICAL HISTORY : None. ENCOUNTER: Initial ACUITY: 1 day PAIN SCALE: 4/10 LOCATION: Bilateral chest TECHNIQUE: Volumetric scanning of the chest was performed. Using automated exposure control and adjustment of t he mA and/or kV according to patient size, radiation dose was kept as low as reasonably achievable to obtain optimal diagnostic quality images. DICOM format image data is available electronically for r eview and comparison. Follow-up recommendations for detected pulmonary nodules are based at a minimum on nodule size and pa tient risk factors according to Fleischner Society Guidelines. FINDINGS: LUNGS: There is no pneumothorax. There is underlying emphysema with hyperinflation. There is areas of atelec tasis and/or scarring in both lower lobes. There is a large soft tissue mass in the lateral right upp er lobe measuring up to 6.6 x 5.3 x 5.8 cm in greatest AP by transverse by caudocranial dimension. Th ere are multiple gas collections and several air-fluid levels within the mass. There are no other mas ses or nodules. PLEURAE: There is no pleural thickening or pleural effusion. MEDIASTINUM: The heart and great vessels demonstrate no acute abnormality. There is no mediastinal or hilar lymph adenopathy. There are coronary artery calcifications. There is no pericardial effusion. AXILLAE: Within normal limits. No lymphadenopathy. MUSCULOSKELETAL: Within normal limits for patient age. MISCELLANEOUS: The visualized upper abdominal organs demonstrate no acute abnormality. Vicarious excretion of contra st is noted in the gallbladder. CONCLUSION: 1. Large mass in the right upper lobe with areas of gas and air-fluid levels. The mass was not presen t on the 11/13/2016 examination making infection by far the most likely differential especially fungal infection. A portion of this could represent necrotic lung. Tumor would be much less likely. 2. Underlying emphysema with atelectasis and or scarring at the lung bases. 3. Coronary artery calcifications. 4. No evidence of adenopathy. Billy Morris MD on January 13, 2017 at 22:27 Board Certified Radiologist. This report was verified electronically.
[2017-01-14] VITALS (8 sets, daily range): BP systolic 117–140; BP diastolic 69–90; PULSE 87–120; RESP 16–18; TEMP 96–97.7; O2SAT 91–99
[2017-01-14] MEDS: RESP: ALBUTEROL 2.5 MG/IPRATROPIUM 0.5 MG NEB (SCH) INH ×4 (03:12→15:52)
[2017-01-14] MEDS: CHLORHEXIDINE GLUCONATE 2 % 1 PACK (2 CLOTHS) TOP SCH (04:00)
[2017-01-14] MEDS: METHADONE HCL 10 MG/10 ML ORAL SOLUTION PO SCH ×3 (05:17→21:42)
[2017-01-14] MEDS: INSULIN ASPART SUPPLEMENTAL SCALE SQ SCH ×4 (08:00→20:43)
--- NOTE | 2017-01-14 08:31 | HHI.DCPOC ---
Discharge Care Plan Diagnosis: (1) end-stage COPD (2) GERD (3) Chronic respiratory failure with hypoxia Your Health Problems Are: Difficulty with ADL Exercise Tolerance Shortness of Breath Goals to Promote Your Health * To prevent worsening of your condition and complications * To maintain your health at the optimal level Directions to Meet Your Goals Take your medications as prescribed Follow your dietary instruction Follow activity as directed Keep your appointments as scheduled Take your immunizations and boosters as scheduled If your symptoms worsen call your PCP, if no PCP go to Urgent Care Center or Emergency Room Smoking is Dangerous to Your Health. Avoid second hand smoke Call the 24-hour hour crisis hotline for domestic abuse at [facility] Jan 14, 2017 08:30
[2017-01-14] MEDS: FAMOTIDINE 20 MG TAB PO SCH ×2 (09:42→20:42)
[2017-01-14] MEDS: LORazepam 0.5 MG TAB PO PRN ×2 (09:42→17:55)
[2017-01-14] MEDS: DOCUSATE SODIUM 50 MG/SENNA 8.6 MG TAB PO SCH ×2 (09:42→20:42)
[2017-01-14] MEDS: predniSONE 20 MG TAB PO SCH (09:42)
[2017-01-14] MEDS: AMOXICILLIN/CLAVULANATE K 875 MG TAB PO SCH ×2 (09:42→20:42)
[2017-01-14] MEDS: MECLIZINE HCL 25 MG TAB PO SCH ×3 (09:42→17:55)
[2017-01-14] MEDS: LORATADINE 10 MG TAB PO SCH (09:42)
[2017-01-14] MEDS: BUDESONIDE-FORMOTEROL 80/4.5 MCG INHALER INH SCH ×2 (09:45→20:44)
[2017-01-14] MEDS: SODIUM CHLORIDE 0.9% FLUSH 10 ML FLUSH IV FLUSH SCH ×2 (09:57→20:42)
[2017-01-14] MEDS ORDERED: LEVEMIR SQ (15:11)
[2017-01-14] MEDS ORDERED: Albuterol-Ipratropium Neb INH (15:11)
[2017-01-14] MEDS ORDERED: NOVOLOGSS SQ (15:11)
[2017-01-14] MEDS ORDERED: PRED20 PO (15:11)
[2017-01-14] MEDS ORDERED: AMOX875T2 PO (15:11)
[2017-01-14] MEDS ORDERED: RESP: ALBUTEROL 0.63 MG/3 ML NEB (PRN) NEB (16:15)
--- NOTE | 2017-01-14 16:18 | HHI.PR ---
Subjective Remarks Follow-up COPD. Still with shortness of breath upset with nursing staff. Also having tremors after receiving nebulization. Discussed with palliative care and pulmonary Objective Vitals Vital Signs Date Time Temp Pulse Resp B/P (MAP) Pulse Ox O2 Delivery O2 Flow Rate FiO2 01/14/17 12:00 97.2 108 17 122/75 (91) 98 01/14/17 08:01 96 Nasal Cannula 4.00 01/14/17 08:00 96.7 116 16 119/79 (92) 99 01/14/17 04:00 96.1 120 17 117/73 (88) 91 01/14/17 00:00 96.0 87 18 140/83 (102) 97 01/13/17 20:00 96.9 104 18 121/72 (88) 98 I/O 01/13/17 01/13/17 01/13/17 01/14/17 01/14/17 01/14/17 07:00 15:00 23:00 07:00 15:00 23:00 Intake Total 590 ml 620 ml 240 ml Balance 590 ml 620 ml 240 ml Intake Oral 240 ml 620 ml 240 ml IV Total 350 ml # Voids 3 4 3 # Bowel Movements 2 Result Diagram: 01/12/17 0425 01/12/17 0425 Imaging Last Impressions Chest CT 01/13/17 0000 Signed Impressions: Service Date/Time: Friday, January 13, 2017 17:33 - CONCLUSION: 1. Large mass in the right upper lobe with areas of gas and air-fluid levels. The mass was not present on the 11/13/2016 examination making infection by far the most likely differential especially fungal infection. A portion of this could represent necrotic lung. Tumor would be much less likely. 2. Underlying emphysema with atelectasis and or scarring at the lung bases. 3. Coronary artery calcifications. 4. No evidence of adenopathy. Billy Morris MD Chest X-Ray 01/12/17 0000 Signed Impressions: Service Date/Time: Thursday, January 12, 2017 18:38 - CONCLUSION: 1. Stable large mass-like opacity within the right upper lung field. 2. Bibasilar atelectatic changes. Reynaldo Moctezuma MD Objective Remarks GENERAL: Elderly appearing female SKIN: Focused skin assessment warm/dry. CARDIOVASCULAR: Regular rate and rhythm. No murmur appreciated. RESPIRATORY: Poor air entry bilaterally, mild wheezing GASTROINTESTINAL: Abdomen soft, non-tender, nondistended. MUSCULOSKELETAL: +Bilateral lower ext edema. NEUROLOGICAL: Awake alert oriented 3, nonfocal grossly. Tremors noted Procedures none A/P Problem List: (1) end-stage COPD Status: Acute Assessment and Plan 65-year-old female with: End-stage COPD with exacerbation, possible pneumonia vs mass, acute on chronic respiratory failure, respiratory acidosis and tobacco abuse. CT showed gas and air-fluid level likely secondary to infection unable to rule out cancer. Discussed with pulmonary may need biopsy. Ct oxygen, nebs and switch to by mouth steroids and Augmentin discontinue zithromax, cefepime. Tremors likely from beta agonist. Decrease albuterol dose and monitor Melanotic stool. Refused EGD and colonoscopy. Ct PPI Hypotension (resolved) Diabetes mellitus, new onset. A1c 7.2. Improving hyperglycemia continue Levemir and sliding scale. Diabetic education Prophylaxis: SCDs, dc subcutaneous heparin 2/2 GIB Discharge Planning dc to [facility] in am when arranged Chuck Ford MD Jan 14, 2017 16:18
--- NOTE | 2017-01-14 17:48 | HHI.PR ---
Subjective Remarks Less SOB ON o2 no expectoration CT NOTED LARGE NECROTIC MASS RUL Objective Vital Signs Date Time Temp Pulse Resp B/P (MAP) Pulse Ox O2 Delivery O2 Flow Rate FiO2 01/14/17 16:00 97.7 99 17 123/69 (87) 98 01/14/17 12:00 97.2 108 17 122/75 (91) 98 01/14/17 08:01 96 Nasal Cannula 4.00 01/14/17 08:00 96.7 116 16 119/79 (92) 99 01/14/17 04:00 96.1 120 17 117/73 (88) 91 01/14/17 00:00 96.0 87 18 140/83 (102) 97 01/13/17 20:00 96.9 104 18 121/72 (88) 98 I/O 01/13/17 01/13/17 01/13/17 01/14/17 01/14/17 01/14/17 07:00 15:00 23:00 07:00 15:00 23:00 Intake Total 590 ml 620 ml 240 ml Balance 590 ml 620 ml 240 ml Intake Oral 240 ml 620 ml 240 ml IV Total 350 ml # Voids 3 4 3 # Bowel Movements 2 Result Diagram: 01/12/1742401/12/17424 Objective Remarks GENERAL: SKIN: Warm and dry. HEAD: Atraumatic. Normocephalic. EYES: Pupils equal and round. No scleral icterus. No injection or drainage. ENT: No nasal bleeding or discharge. Mucous membranes pink and moist. NECK: Trachea midline. No JVD. CARDIOVASCULAR: Regular rate and rhythm. RESPIRATORY: No accessory muscle use. few rhonchi at bilaterally. GASTROINTESTINAL: Abdomen soft, non-tender, nondistended. Hepatic and splenic margins not palpable. MUSCULOSKELETAL: Extremities without clubbing, cyanosis, or edema. No obvious deformities. NEUROLOGICAL: Awake and alert. No obvious cranial nerve deficits. Motor grossly within normal limits. Five out of 5 muscle strength in the arms and legs. Normal speech. PSYCHIATRIC: Appropriate mood and affect; insight and judgment normal. Assessment and Plan Assessment and Plan COPD EXACERBATION PNA , necrotic rul RESPIRATORY FAILURE PLAN O2 ANTIBX BRONCHODILATORS declines bronchoscopy or other invasive procedure Kt Meraz MD Jan 14, 2017 17:48
[2017-01-14] MEDS: RESP: IPRATROPIUM 0.5 MG/2.5 ML NEB NEB SCH (20:41)
[2017-01-14] MEDS: INSULIN DETEMIR 100 UNITS/ML VIAL SQ SCH (20:43)
[2017-01-14] MEDS: RESP: ALBUTEROL 0.63 MG/3 ML NEB (SCH) NEB (20:44)
[2017-01-15] VITALS: BP 122/71; PULSE 88; RESP 16; TEMP 97.3; O2SAT 97
[2017-01-15] MEDS: LORazepam 0.5 MG TAB PO PRN ×3 (02:13→15:02)
[2017-01-15] MEDS: CHLORHEXIDINE GLUCONATE 2 % 1 PACK (2 CLOTHS) TOP SCH (04:00)
[2017-01-15] MEDS: METHADONE HCL 10 MG/10 ML ORAL SOLUTION PO SCH ×2 (05:29→13:11)
[2017-01-15 06:03] VITALS: BP 140/75; PULSE 98; RESP 17; TEMP 97.4; O2SAT 97
[2017-01-15 08:00] VITALS: BP 139/76; PULSE 95; RESP 16; TEMP 97.4; O2SAT 97
[2017-01-15] MEDS: INSULIN ASPART SUPPLEMENTAL SCALE SQ SCH ×2 (08:00→12:23)
[2017-01-15] MEDS: RESP: IPRATROPIUM 0.5 MG/2.5 ML NEB NEB SCH ×3 (08:12→15:46)
[2017-01-15] MEDS: RESP: ALBUTEROL 0.63 MG/3 ML NEB (SCH) NEB ×3 (08:12→15:46)
[2017-01-15 08:14] VITALS: O2SAT 96
[2017-01-15] MEDS: MECLIZINE HCL 25 MG TAB PO SCH ×2 (09:12→12:13)
[2017-01-15] MEDS: AMOXICILLIN/CLAVULANATE K 875 MG TAB PO SCH (09:12)
[2017-01-15] MEDS: predniSONE 20 MG TAB PO SCH (09:13)
[2017-01-15] MEDS: LORATADINE 10 MG TAB PO SCH (09:13)
[2017-01-15] MEDS: FAMOTIDINE 20 MG TAB PO SCH (09:13)
[2017-01-15] MEDS: BUDESONIDE-FORMOTEROL 80/4.5 MCG INHALER INH SCH (09:14)
[2017-01-15] MEDS: SODIUM CHLORIDE 0.9% FLUSH 10 ML FLUSH IV FLUSH SCH (09:14)
[2017-01-15] MEDS: DOCUSATE SODIUM 50 MG/SENNA 8.6 MG TAB PO SCH (09:14)
[2017-01-15] MEDS: ACETAMINOPHEN/HYDROcodone 325 MG/5 MG TAB PO PRN (09:23)
[2017-01-15 12:00] VITALS: BP 133/76; PULSE 92; RESP 17; TEMP 98; O2SAT 95
[2017-01-15] MEDS ORDERED: GUAI1SOL3 PO (12:45)
[2017-01-15] MEDS ORDERED: LORA0.5T PO (12:45)
[2017-01-15] MEDS ORDERED: METH5TAB PO (12:45)
[2017-01-15] MEDS ORDERED: HYDR-3516 PO (12:45)
--- NOTE | 2017-01-15 12:48 | HHI.DS ---
Discharge Summary Admission Date Jan 09, 2017 at 18:59 Discharge Date: Jan 15, 2017 Admitting Diagnosis Severe sepsis, GI bleed, pneumonia (1) end-stage COPD Diagnosis: Principal Status: Acute Procedures none Brief History - From Admission 66yo F with end stage COPD on hospice care presents to the ED with c/o sob since 10am today. Pt was on 100% nonrebreather and still tachypneic and saturating in the 90s. Pt said she does not want to be intubated and initially there was question about it since she did not come with paper work. Access was not able to be obtained and pt's blood pressure was 60s/palp and tachycardic at 130s. Emergent left femoral central line was placed and pt was given NS IVFx2. Was able to obtain BP at 100/60 after 1.5 liters of NS IVF. Her Mr. Jaxon Vanegas is at bedside and initially wanted everything done but confirmed with hospice that pt is DNR/DNI and he said that she does not want to be connected to a machine. Does want other treatments. His phone number is . CBC/BMP: 01/12/175 01/12/17 042 Imaging Last Impressions Chest CT 01/13/17 0000 Signed Impressions: Service Date/Time: Friday, January 13, 2017 17:33 - CONCLUSION: 1. Large mass in the right upper lobe with areas of gas and air-fluid levels. The mass was not present on the 11/13/2016 examination making infection by far the most likely differential especially fungal infection. A portion of this could represent necrotic lung. Tumor would be much less likely. 2. Underlying emphysema with atelectasis and or scarring at the lung bases. 3. Coronary artery calcifications. 4. No evidence of adenopathy. Billy Morris MD Chest X-Ray 01/12/17 0000 Signed Impressions: Service Date/Time: Thursday, January 12, 2017 18:38 - CONCLUSION: 1. Stable large mass-like opacity within the right upper lung field. 2. Bibasilar atelectatic changes. Reynaldo Moctezuma MD PE at Discharge GENERAL: Elderly appearing female SKIN: Focused skin assessment warm/dry. CARDIOVASCULAR: Regular rate and rhythm. No murmur appreciated. RESPIRATORY: Poor air entry bilaterally, mild wheezing GASTROINTESTINAL: Abdomen soft, non-tender, nondistended. MUSCULOSKELETAL: +Bilateral lower ext edema. NEUROLOGICAL: Awake alert oriented 3, nonfocal grossly. Tremors noted Hospital Course 65-year-old female with: End-stage COPD with exacerbation, possible pneumonia vs mass, acute on chronic respiratory failure, respiratory acidosis and tobacco abuse. CT showed gas and air-fluid level likely secondary to infection unable to rule out cancer. Discussed with pulmonary may need biopsy or bronchoscopy both procedures declined by patient. Ct oxygen, nebs and switch to by mouth steroids and Augmentin discontinue zithromax, cefepime. Patient to be discharged to intermediate with hospice care Tremors likely from beta agonist. Improved with lower albuterol dose and monitor Melanotic stool. Refused EGD and colonoscopy. Ct PPI Hypotension (resolved) Diabetes mellitus, new onset. A1c 7.2. Improving hyperglycemia continue Levemir and sliding scale. Diabetic education Prophylaxis: SCDs, dc subcutaneous heparin 2/2 GIB Pt Condition on Discharge: Fair Discharge Disposition: Discharge to SNF Discharge Time: > 30 minutes Discharge Instructions DIET: Follow Instructions for: Heart Healthy Diet Activities you can perform: Regular-No Restrictions Follow up Referrals: PCP Follow-up - 1 Week New Medications: Amoxicillin-Clavulanate (Amoxicillin-Clavulanate) 875-125 mg Tab 875 MG PO Q12HR for Infection, #12 TAB not for use in CrCl <30 mL/minute Hydrocodone/Acetaminophen (Hydrocodone-Acetamin 5-325 mg) 5 Mg-325 Mg Tablet 2 TAB PO Q6H PRN for PAIN 1-10, #28 TAB Insulin Aspart Inj (Novolog Inj) 100 Unit/Ml Inj 1 UNIT SQ ACHS SLIDING SCALE for Blood Sugar Management, #1 BOTTLE Insulin Detemir Inj (Levemir Inj) 1,000 unit/ 10 ML Vial 10 UNITS SQ HS for Blood Sugar Management, #1 BOTTLE Do not mix with any other Insulin. Prednisone (Prednisone) 20 Mg Tab 40 MG PO DAILY for Broncospasm, #7 TAB [Albuterol-Ipratropium Neb] () 1 AMPULE NEBU 1 AMPULE INH Q4HR NEB for Breathing Treatment, #120 AMPULE Continued Medications: Budesonide-Formoterol Inh (Symbicort Inh) 80-4.5 Mcg/Act Aero 1 PUFF INH Q12HR for Asthma Management, #1 INHALER 0 Refills Guaifenesin-Codeine (Codeine/Guaifenesin 100-10 mg/5Ml) 10 Mg-100 Mg/5 Ml Mary 10 ML PO Q4HR PRN for COUGH, #180 ML (This prescription has been renewed) Ipratropium-Albuterol Neb (Duoneb) 0.5-2.5 Mg/3 Ml Neb 1 AMPULE INH Q6HR NEB for COPD for 30 Days, ML Loratadine (Claritin) 10 Mg Cap 10 MG PO DAILY for Allergy Management, #30 CAP 0 Refills Lorazepam (Lorazepam) 0.5 Mg Tab 0.5 MG PO Q6H PRN for ANXIETY, #12 TAB 0 Refills (This prescription has been renewed) Meclizine (Meclizine) 25 Mg Tab 25 MG PO TID, TAB 0 Refills Methadone (Methadone) 5 Mg Tab 2.5 MG PO Q8HR for Pain Management, #10 TAB 0 Refills (This prescription has been renewed) Sennosides-Docusate Sodium (Senokot S) 8.6-50 Mg Tab 1-2 TAB PO DAILY PRN for CONSTIPATION, #30 TAB 0 Refills Discontinued Medications: Dexamethasone (Dexamethasone) 4 Mg Tab 4 MG PO DAILY, #30 TAB 0 Refills Hydrocodone-Acetaminophen (Hydrocodone-Acetaminophen) 5-325 mg Tab 2 TAB PO Q4HR PRN for PAIN, TAB 0 Refills severe pain 6 - 10 Chuck Ford MD Jan 15, 2017 12:48
[2017-01-15 16:00] VITALS: BP 115/77; PULSE 118; RESP 17; TEMP 98.4; O2SAT 96
--- NOTE | 2017-01-15 16:11 | HHI.PR ---
Subjective Remarks Less SOB ON o2 no expectoration CT NOTED LARGE NECROTIC MASS RUL Objective Vital Signs Date Time Temp Pulse Resp B/P (MAP) Pulse Ox O2 Delivery O2 Flow Rate FiO2 01/15/17 12:00 98.0 92 17 133/76 (95) 95 01/15/17 08:14 96 Nasal Cannula 2.00 01/15/17 08:00 97.4 95 16 139/76 (97) 97 01/15/17 06:03 97.4 98 17 140/75 (96) 97 01/15/17 00:00 97.3 88 16 122/71 (88) 97 01/14/17 20:44 98 Nasal Cannula 2.00 01/14/17 20:00 97.4 116 18 125/90 (102) 94 I/O 01/14/17 01/14/17 01/14/17 01/15/17 01/15/17 01/15/17 07:00 15:00 23:00 07:00 15:00 23:00 Intake Total 240 ml 240 ml 350 ml Output Total 125 ml Balance 240 ml 115 ml 350 ml Intake Oral 240 ml 240 ml 350 ml Output Urine Total 125 ml # Voids 3 4 # Bowel Movements 0 Result Diagram: 01/12/175 01/12/175 Objective Remarks GENERAL: SKIN: Warm and dry. HEAD: Atraumatic. Normocephalic. EYES: Pupils equal and round. No scleral icterus. No injection or drainage. ENT: No nasal bleeding or discharge. Mucous membranes pink and moist. NECK: Trachea midline. No JVD. CARDIOVASCULAR: Regular rate and rhythm. RESPIRATORY: No accessory muscle use. few rhonchi at bilaterally. GASTROINTESTINAL: Abdomen soft, non-tender, nondistended. Hepatic and splenic margins not palpable. MUSCULOSKELETAL: Extremities without clubbing, cyanosis, or edema. No obvious deformities. NEUROLOGICAL: Awake and alert. No obvious cranial nerve deficits. Motor grossly within normal limits. Five out of 5 muscle strength in the arms and legs. Normal speech. PSYCHIATRIC: Appropriate mood and affect; insight and judgment normal. Assessment and Plan Assessment and Plan COPD EXACERBATION PNA , necrotic rul RESPIRATORY FAILURE PLAN O2 ANTIBX BRONCHODILATORS declines bronchoscopy or other invasive procedure Kt Meraz MD Jan 15, 2017 16:11
[2017-01-15] MEDS ORDERED: ARTIFICIAL TEARS OPTH SOLN 15 ML BTL EACH EYE PRN (16:15)
--- NOTE | 2017-01-17 10:28 | PQ ---
Physician Query Response Document PATIENT: KEON ORTIZ : 1950 ADMIT DATE: 01/09/2017 6:59 PM DISCH DATE: RESPONDING PROVIDER #: Emery QUERY TEXT: Rule Out Sepsis Clarification Rule out Sepsis is documented in the Medical Record. Please clarify whether: -- Patient has sepsis - Please document confirmed, suspected or probable causative organism - Please document confirmed, suspected or probable localized infection - Please clarify if sepsis is related to a device - Please clarify if sepsis was present on admission -- Sepsis was ruled out (include corresponding diagnosis for patient?s clinical picture and treatment ) -- Patient had sepsis which is resolved -- Other, please specify If you have any additional questions/comments and/or concerns, please do not hesitate to reach out to the CDI/Coding Hotline, Ext. [phone]. The patient's Clinical Indicators include: ED record from 01/09/17 documents: Sepsis Criteria SIRS Criteria (2 or more): Heart rate over 90, RR > 20 or PaCO2 < 32, WBC > 25500, < 4000 or > 10 % bands Sepsis Criteria (SIRS+source): Infect source susp/known Severe Sepsis (+one): Hypotension Diagnosis : Primary Impression: Severe sepsis Consult 01/10/17 Dr. Reyna - Assessment: Bronchial pneumonia with sepsis, leukocytosis Discharge Summary - Admitting Diagnosis : Severe sepsis, GI bleed, pneumonia No other mention of sepsis in this chart. Blood cultures showed no growth. Query created by: Myla Becker on 01/16/2017 1:40 PM RESPONSE TEXT: Sepsis 2/2 PNA Electronically signed by: Chuck Ford MD 01/17/2017 10:24 AM
== END 2017-01-15 17:18 | DRG 189 ==
LOC: PHED 17:08 → PHEDA 18:59 → HIMW 20:55 → N07B 01-12 14:44
PROVIDERS: ADMIT Internal Medicine; ATTEND Internal Medicine
PROC: 06HN33Z Insertion of Infusion Device into Left Femoral Vein, Percutaneous Approach (ICD-10-PCS; principal; 2017-01-09)
DX: J96.21 Acute and chronic respiratory failure with hypoxia (principal); A41.9 Sepsis, unspecified organism; I95.9 Hypotension, unspecified; J18.9 Pneumonia, unspecified organism; E87.2 Acidosis; E11.65 Type 2 diabetes mellitus with hyperglycemia; J44.1 Chronic obstructive pulmonary disease with (acute) exacerbation; Z99.81 Dependence on supplemental oxygen; K92.1 Melena; F17.210 Nicotine dependence, cigarettes, uncomplicated; E87.6 Hypokalemia; E66.9 Obesity, unspecified; Z68.27 Body mass index [BMI] 27.0-27.9, adult; Z66 Do not resuscitate; Z79.51 Long term (current) use of inhaled steroids; R25.1 Tremor, unspecified; K21.9 Gastro-esophageal reflux disease without esophagitis; Z51.5 Encounter for palliative care
CPT/HCPCS: 36556; 36600; 71010; 71250; 76937; 80048; 80053; 82805; 82948; 83036; 83605; 83735; 83880; 84100; 84132; 84443; 84484; 85007; 85014; 85018; 85025; 85027; 85610; 85730; 86850; 86900; 86901; 87040; 87641; 93005; 94002; 94640; 94664; 96374; C9113; J0456; J0692; J1815; J2270; J2543; J2920; J2930; J3370; J3480; J7030; J7050; J7512; J7613; J7644; J8540